=== PATIENT | male | born 1945 | race Caucasian/White ===

== ENCOUNTER 2018-07-14 15:23 | Inpatient (IN) | payer MEDICARE ==
[2018-07-14] MEDS ORDERED: SODIUM CHLORIDE 0.9% 1,000 ML IV STA (15:55)
[2018-07-14 16:19] LABS: Albumin 4.3 g/dL (3.5-5.0); Calcium 9.4 mg/dL (8.4-10.2); Magnesium 1.8 mg/dL (1.6-2.3); Potassium 4.7 mmol/L (3.5-5.1); Total Bilirubin 0.5 mg/dL (0.2-1.3); Total Protein 7.5 g/dL (6.3-8.2)
[2018-07-14 16:20] LABS: Creatine Kinase 127 U/L (55-170)
[2018-07-14 16:21] LABS: Basophils # (A) 0.1 k/uL (0-0.2); Basophils % (A) 1 %; Eosinophils # (A) 0.2 k/uL (0-0.7); Eosinophils % (A) 3 %; HCT 42.9 % (39.0-53.0); HGB 13.7 gm/dL (13.0-17.5); Hypochromasia Slight; Lymphocytes % (A) 15 %; MCH 28.5 pg (25.0-35.0); MCHC 32.1 g/dL (31.0-37.0); MCV 88.7 fL (80.0-100.0); Mean Platelet Volume 6.1; Monocytes # (A) 0.6 k/uL (0-1.0); Monocytes % (A) 8 %; Neutrophils # (A) 4.8 k/uL (1.3-7.7); Neutrophils % (A) 70 %; Platelet Count 298 k/uL (150-450); RBC 4.83 m/uL (4.30-5.90); RDW 13.8 % (11.5-15.5); WBC 6.8 k/uL (3.8-10.6)
[2018-07-14 16:25] LABS: Partial Thromboplastin Time 24.6 sec (22.0-30.0); Prothrombin Time 10.8 sec (9.0-12.0)
[2018-07-14 16:33] LABS: Creatine Kinase MB 1.6 ng/mL (0.0-2.4); Troponin I <0.012 ng/mL (0.000-0.034)
[2018-07-14 16:36] LABS: D-Dimer 0.96 mg/L FEU (<0.60)
--- NOTE | 2018-07-14 16:49 | ED ---
Chest Pain HPI - General Chief Complaint: Chest Pain Stated Complaint: Chest Pain Time Seen by Provider: 07/14/18 15:34 Source: patient, RN notes reviewed, old records reviewed Mode of arrival: EMS Limitations: no limitations - History of Present Illness Initial Comments: This is a 72-year-old male the ER for evaluation. Patient presents today for evaluation regards to chest pain left-sided chest pain sudden onset that resolved prior to coming to the hospital. Patient's brought in by his family had recent stent placed about a month ago. Patient's taken all medications as prescribed including passing out. No other medications are new, has not change in medications. Patient's been feeling fine since procedure note fevers no cough no congestion or shortness of breath no history of anginal pain. MD Complaint: chest pain -: minutes(s) Onset: during rest Pain Location: left chest Severity: mild Severity scale (1-10): 2 Quality: aching, heaviness Consistency: constant, now resolved Improves With: nothing Worsens With: nothing Treatments Prior to Arrival: none - Related Data Home Medications Medication Instructions Recorded Confirmed Aspirin EC [Ecotrin Low Dose] 81 mg PO DAILY 07/14/18 07/14/18 Cholecalciferol [Vitamin D3] 1,000 unit PO DAILY 07/14/18 07/14/18 Lisinopril [Zestril] 40 mg PO DAILY 07/14/18 07/14/18 Metoprolol Succinate [Toprol XL] 25 mg PO DAILY 07/14/18 07/14/18 Omeprazole 20 mg PO DAILY 07/14/18 07/14/18 Prasugrel HCl 10 mg PO DAILY 07/14/18 07/14/18 Allergies Allergy/AdvReac Type Severity Reaction Status Date / Time morphine Allergy Hallucinati Verified 07/14/18 15:58 ons Sulfa (Sulfonamide Allergy Rash/Hives Verified 07/14/18 15:58 Antibiotics) ibuprofen [From Motrin] AdvReac Kidney Verified 07/14/18 15:58 issues Review of Systems ROS Statement: Those systems with pertinent positive or pertinent negative responses have been documented in the HPI. ROS Other: All systems not noted in ROS Statement are negative. EKG Findings - EKG Comments: EKG Findings:: EKG shows sinus rhythm rate of 81, NV 196, QRS 136, QTc 473 Past Medical History Past Medical History: Cancer, Chest Pain / Angina, Prostate Disorder History of Any Multi-Drug Resistant Organisms: None Reported Past Surgical History: Hernia Repair, Prostate Surgery Past Psychological History: No Psychological Hx Reported Smoking Status: Never smoker Past Alcohol Use History: None Reported Past Drug Use History: None Reported General Exam Limitations: no limitations General appearance: alert, in no apparent distress Head exam: Present: atraumatic, normocephalic, normal inspection Eye exam: Present: normal appearance, PERRL, EOMI. Absent: scleral icterus, conjunctival injection, periorbital swelling ENT exam: Present: normal exam, mucous membranes moist Neck exam: Present: normal inspection. Absent: tenderness, meningismus, lymphadenopathy Respiratory exam: Present: normal lung sounds bilaterally. Absent: respiratory distress, wheezes, rales, rhonchi, stridor Cardiovascular Exam: Present: regular rate, normal rhythm, normal heart sounds. Absent: systolic murmur, diastolic murmur, rubs, gallop, clicks GI/Abdominal exam: Present: soft, normal bowel sounds. Absent: distended, tenderness, guarding, rebound, rigid Extremities exam: Present: normal inspection, full ROM, normal capillary refill. Absent: tenderness, pedal edema, joint swelling, calf tenderness Back exam: Present: normal inspection Neurological exam: Present: alert, oriented X3, CN II-XII intact Psychiatric exam: Present: normal affect, normal mood Skin exam: Present: warm, dry, intact, normal color. Absent: rash Course Vital Signs 07/14/18 07/14/18 07/14/18 15:28 16:30 18:03 Temperature 98.2 F Pulse Rate 80 61 61 Respiratory 18 18 18 Rate Blood Pressure 143/87 130/74 133/77 O2 Sat by Pulse 99 99 96 Oximetry - Reevaluation(s) Reevaluation #1: 07/14/18 19:24 Medical records reviewed Reevaluation #2: 07/14/18 19:24 Patient remains felt pain throughout ER stay Reevaluation #3: 07/14/18 19:24 Marcin with family at length did not want admission, they're requesting second troponin test and discharge Chest Pain MDM - MDM 70 female the ER for evasive chest pain. Patient was to troponins here, to troponins are negative, EKG is normal. 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
--- NOTE | 2018-07-14 17:53 | CT ---
EXAMINATION TYPE: CT angio chest DATE OF EXAM: 07/14/2018 5:40 PM COMPARISON: None HISTORY: Chest pain from shoulder to shoulder. CT DLP: 472.3 mGycm Automated exposure control for dose reduction was used. CONTRAST: CTA scan of the thorax is performed with IV Contrast, patient injected with 80 mL of Isovue 370, pulm onary embolism protocol. . There are 3-D post processed images. FINDINGS: There is no mediastinal adenopathy. Thoracic aorta appears normal without evidence of aneurysm or dis section. The ascending aorta measures 3.9 cm. There are no hilar masses. There is normal contrast opacification of the pulmonary arteries. I see no filling defects. Heart siz e is normal. There is no pericardial effusion. There is no pleural effusion. There is 2 cm cortical c yst anterior left kidney. The lungs are clear of infiltrate. There is no evidence of a pulmonary mass. The bony thorax is intac t. There is spurring in the thoracic spine. IMPRESSION: NEGATIVE CT ANGIOGRAM OF THE CHEST. NO EVIDENCE OF PULMONARY EMBOLISM.
[2018-07-15] MEDS ORDERED: HEPARIN SODIUM,PORCINE 5,000 UNIT/ML 1 ML VIAL IV ONE (04:40)
[2018-07-15] MEDS ORDERED: HEPARIN SODIUM,PORCINE 5,000 UNIT/ML 1 ML VIAL IV PRN (04:40)
[2018-07-15] MEDS ORDERED: HEPARIN SOD,PORK IN 0.45% NACL 25,000 UNIT in 0.45% NACL 1 250ML.BAG IV SCH (04:45)
[2018-07-15] MEDS ORDERED: NITROGLYCERIN SL TABS 0.4 MG TAB SUBLINGUAL PRN ×3 (06:29→14:27)
[2018-07-15] MEDS: SODIUM CHLORIDE 0.9% 1,000 ML IV SCH ×2 (08:05→16:52)
[2018-07-15 08:33] LABS: Partial Thromboplastin Time 59.3 sec (22.0-30.0); Prothrombin Time 11.1 sec (9.0-12.0)
[2018-07-15 08:35] LABS: HCT 43.9 % (39.0-53.0); HGB 13.4 gm/dL (13.0-17.5); Hypochromasia Slight; MCH 27.6 pg (25.0-35.0); MCHC 30.6 g/dL (31.0-37.0); Mean Platelet Volume 6.5; Platelet Count 286 k/uL (150-450); RBC 4.88 m/uL (4.30-5.90); WBC 6.3 k/uL (3.8-10.6)
--- NOTE | 2018-07-15 08:49 | P.CRDCN ---
History of Present Illness Consult date: 07/15/18 Requesting physician: Melva Horta Consult reason: chest pain Chief complaint: Chest pain History of present illness: This is a pleasant 72-year-old gentleman with history of hypertension , hyperlipidemia, coronary artery disease, he follows with a sports development officer at [facility]. In May 2018 patient had a non-ST elevation myocardial infarction, he underwent stent placement of the RCA on 3 separate occasions, proximal mid and distal RCA. He presents to the hospital on this occasion with symptoms of chest discomfort. According to the patient, he developed chest pressure and heaviness, he states that the pain became so severe that he lied himself down on the ground. Pain was similar to with his prior episodes however this did seem much worse. He was diaphoretic and short of breath. EKG on presentation here showed normal sinus rhythm with a right bundle branch block pattern, left anterior fascicular block. Nonspecific ST-T wave changes. CTA of the chest negative for pulmonary embolism. Blood pressure this morning 142/80 with a heart rate in the 80s, 99% on room air. Blood pressure this morning 166/80, heart rate in the 50s to 60s, 97% on room air. White blood cell count 6.3, hemoglobin 13.4, platelet count 286. D-dimer 0.9. Sodium 136, potassium 4.7, BUN 19, creatinine 1.2. Troponins 0.012, 0.025, 0.093. Patient has tried all of the statins as well as Crestor and states that he cannot tolerate any of them because of severe muscle pains. He also stated that his primary sports development officer is working on getting him approval for PCSK-9 Inhibitors. Past Medical History Past Medical History: Cancer, Chest Pain / Angina, Prostate Disorder Additional Past Medical History / Comment(s): prostate cancer, 3 stents History of Any Multi-Drug Resistant Organisms: None Reported Past Surgical History: Hernia Repair, Prostate Surgery Past Anesthesia/Blood Transfusion Reactions: No Reported Reaction Past Psychological History: No Psychological Hx Reported Smoking Status: Never smoker Past Alcohol Use History: None Reported Past Drug Use History: None Reported - Past Family History Father Family Medical History: Coronary Artery Disease (CAD), Myocardial Infarction ([place] ) Medications and Allergies Home Medications Medication Instructions Recorded Confirmed Type Aspirin EC [Ecotrin Low Dose] 81 mg PO DAILY 07/14/18 07/14/18 History Cholecalciferol [Vitamin D3] 1,000 unit PO DAILY 07/14/18 07/14/18 History Lisinopril [Zestril] 40 mg PO DAILY 07/14/18 07/14/18 History Metoprolol Succinate [Toprol XL] 25 mg PO DAILY 07/14/18 07/14/18 History Omeprazole 20 mg PO DAILY 07/14/18 07/14/18 History Prasugrel HCl 10 mg PO DAILY 07/14/18 07/14/18 History Allergies Allergy/AdvReac Type Severity Reaction Status Date / Time morphine Allergy Hallucinati Verified 07/14/18 15:58 ons Sulfa (Sulfonamide Allergy Rash/Hives Verified 07/14/18 15:58 Antibiotics) ibuprofen [From Motrin] AdvReac Kidney Verified 07/14/18 15:58 issues Physical Exam Vitals: Vital Signs Temp Pulse Pulse Resp BP BP Pulse Ox 07/15/18 07:55 96.0 F L 58 L 16 166/87 97 07/15/18 07:15 98.1 F 68 18 152/68 98 07/15/18 04:23 97.9 F 56 L 18 134/86 98 07/15/18 02:30 58 L 18 140/86 98 07/15/18 00:38 62 18 152/83 98 07/14/18 22:40 61 18 143/85 96 07/14/18 21:10 60 18 152/86 96 07/14/18 20:10 57 L 16 135/87 07/14/18 18:03 61 18 133/77 96 07/14/18 16:30 61 18 130/74 99 07/14/18 15:28 98.2 F 80 18 143/87 99 Intake and Output 07/14/18 07/15/18 07/15/18 22:59 06:59 14:59 Other: Weight 99.79 kg PHYSICAL EXAMINATION: GENERAL: 72-year-old gentleman in no acute distress at the time of my examination HEENT: Head is atraumatic, normocephalic. Pupils equal, round. Sclera anicteric. Conjunctiva are clear. Mucous membranes of the mouth are moist. Neck is supple. There is no elevated jugular venous pressure. No carotid bruit is heard. HEART EXAMINATION: Heart S1, S2 normal. No murmur or gallop heard. CHEST EXAMINATION: Lungs are clear to auscultation and precussion. No chest wall tenderness is noted on palpation or with deep breathing. ABDOMEN: Soft, nontender. Bowel sounds are heard. No organomegaly noted. EXTREMITIES: 2+ peripheral pulses with no evidence of peripheral edema and no calf tenderness noted. NEUROLOGIC patient is awake, alert and oriented 3 . Results 07/15/18 07:47 07/14/18 15:37 Cardiac Enzymes 07/14/18 07/14/18 07/14/18 Range/Units 15:37 15:37 20:30 AST 28 (17-59) U/L CK-MB (CK-2) 1.6 (0.0-2.4) ng/mL Troponin I <0.012 0.025 (0.000-0.034) ng/mL 07/15/18 Range/Units 03:50 AST (17-59) U/L CK-MB (CK-2) (0.0-2.4) ng/mL Troponin I 0.093 H* (0.000-0.034) ng/mL Coagulation 07/14/18 07/15/18 Range/Units 15:37 07:47 PT 10.8 11.1 (9.0-12.0) sec APTT 24.6 59.3 H (22.0-30.0) sec CBC 07/14/18 Range/Units 15:37 WBC 6.8 (3.8-10.6) k/uL RBC 4.83 (4.30-5.90) m/uL Hgb 13.7 (13.0-17.5) gm/dL Hct 42.9 (39.0-53.0) % Plt Count 298 (150-450) k/uL Comprehensive Metabolic Panel 07/14/18 Range/Units 15:37 Sodium 136 L (137-145) mmol/L Potassium 4.7 (3.5-5.1) mmol/L Chloride 104 (98-107) mmol/L Carbon Dioxide 22 (22-30) mmol/L BUN 19 (9-20) mg/dL Creatinine 1.25 (0.66-1.25) mg/dL Glucose 108 H (74-99) mg/dL Calcium 9.4 (8.4-10.2) mg/dL AST 28 (17-59) U/L ALT 18 L (21-72) U/L Alkaline Phosphatase 71 (38-126) U/L Total Protein 7.5 (6.3-8.2) g/dL Albumin 4.3 (3.5-5.0) g/dL Current Medications Generic Name Dose Route Start Last Admin Trade Name Freq PRN Reason Stop Dose Admin Aspirin 325 mg 07/16/18 09:00 Aspirin PO DAILY [facility] Cholecalciferol 1,000 unit 07/15/18 12:00 Vitamin D3 PO DAILY@1200 TOSIN Heparin Sodium (Porcine) 0 unit 07/15/18 04:40 Heparin IV PER PROTOCOL PRN Low PTT Protocol Heparin Sodium/Sodium Chloride 250 mls @ 10 mls/hr 07/15/18 04:45 07/15/18 05 :14 25,000 unit/ Sodium Chloride IV 10.03 units/kg/hr .Q24H TOSIN 10 mls/hr Administration Protocol 10.03 UNITS/KG/HR Sodium Chloride 1,000 mls @ 100 mls/hr 07/15/18 06:30 07/15/18 08:05 Saline 0.9% IV 100 mls/hr .Q10H TOSIN Administration Lisinopril 40 mg 07/15/18 09:00 Zestril PO DAILY TOSIN Metoprolol Succinate 25 mg 07/15/18 09:00 Toprol Xl PO DAILY TOSIN Nitroglycerin 0.4 mg 07/15/18 06:29 Nitrostat SUBLINGUAL Q5M PRN Chest Pain Pantoprazole Sodium 40 mg 07/15/18 09:00 Protonix PO DAILY TOSIN Prasugrel 10 mg 07/15/18 09:00 Effient PO DAILY TOSIN Intake and Output 07/14/18 07/15/18 07/15/18 22:59 06:59 14:59 Other: Weight 99.79 kg 07/14/18 15:37 07/14/18 15:37 EKG Interpretations (text) EKG shows normal sinus rhythm with right bundle branch block pattern, nonspecific ST-T wave changes Assessment and Plan Plan: Assessment and plan #1 Symptoms of chest discomfort with associated diaphoresis and dyspnea, just above acute coronary syndrome. Troponins 0.012, 0.025, 0.093. EKG shows normal sinus rhythm with right bundle branch block pattern and nonspecific ST-T wave changes. #2 coronary artery disease with stent placement of the RCA 3 in May 2018 #3 hypertension #4 hyperlipidemia, intolerant to statins Plan We will obtain an echocardiogram with Doppler study. We will also request records from [facility]. Continue IV heparin. Continue aspirin, Effient, lisinopril, metoprolol, add study at his medication regime. Patient has been advised to undergo cardiac catheterization, the risks and the benefits have been explained to him in detail and he is willing to proceed this will be performed today by Dr. Nunez. Further recommendations to follow. DNP note has been reviewed, I agree with a documented findings and plan of care. Patient was seen and examined.
[2018-07-15 08:53] LABS: Creatine Kinase MB 2.1 ng/mL (0.0-2.4)
[2018-07-15] MEDS: PRASUGREL 10 MG TAB PO SCH (08:53)
[2018-07-15] MEDS: METOPROLOL SUCCINATE (ER) 25 MG TAB.ER.24H PO SCH (08:53)
[2018-07-15] MEDS: PANTOPRAZOLE 40 MG TABLET PO SCH (08:53)
[2018-07-15] MEDS: LISINOPRIL 20 MG TAB PO SCH (08:53)
[2018-07-15 08:59] LABS: Troponin I 0.1 ng/mL (0.000-0.034)
[2018-07-15 09:00] LABS: Eosinophils # (M) 0.19 k/uL (0-0.7); Lymphocytes # (M) 0.82 k/uL (1.0-4.8); Monocytes # (M) 0.38 k/uL (0-1.0); Neutrophils # (M) 4.91 k/uL (1.3-7.7); Neutrophils % (M) 78 %; Nucleated Red Blood Cells 0 /100 WBC (0-0); Total Cells Counted 100
[2018-07-15] MEDS: EZETIMIBE 10 MG TAB PO SCH (09:30)
[2018-07-15] MEDS ORDERED: ATORVASTATIN 80 MG TAB PO STA (10:13)
[2018-07-15] MEDS ORDERED: ASPIRIN 325 MG TAB PO STA (10:13)
[2018-07-15] MEDS ORDERED: ALPRAZolam 0.5 MG TAB PO PRN (10:13)
[2018-07-15] MEDS ORDERED: SODIUM CHLORIDE 0.9% 1,000 ML in EMPTY BAG 1 BAG IV ONE (10:13)
[2018-07-15] MEDS ORDERED: ALPRAZolam 0.25 MG TAB PO PRN (10:13)
--- NOTE | 2018-07-15 12:50 | P.HPIM ---
History of Present Illness H&P Date: 07/15/18 The patient is a 72-year-old male with a PMH of hypertension, hyperlipidemia, coronary artery disease status post multiple stents in the past (most recently had a cath in May 2018 with 3 stents placed), who presented to the ED for sudden onset of left-sided chest pain, 10 out of 10, squeezing in nature, with associated shortness of breath, diaphoresis, and palpitations. Patient notes that the pain was similar nature to his previous MIs and lasted upwards of an hour, and had almost resolved upon arrival to the ED. at time of interview, the patient endorsed a 1 out of 10 left-sided chest pain. Patient otherwise denied cough, fever, chills, nausea, vomiting, lower extremity swelling, calf pain, or recent travel. In the ED, the patient underwent complex intensive workup with EKG showing normal sinus rhythm with bifascicular block, the BBC count 6.3, hemoglobin 13.4 , troponin 0.012 - 0.093 - 0.100, BNP 232, and d-dimer 0.96. Chest CTA was negative for PE. The patient was subsequently admitted to the medicine service for NSTEMI and cardiology evaluation. Review of Systems Pertinent positives and negatives as discussed in HPI, a complete review of systems was performed and all other systems are negative. Past Medical History Past Medical History: Cancer, Chest Pain / Angina, Prostate Disorder Additional Past Medical History / Comment(s): prostate cancer, 3 stents History of Any Multi-Drug Resistant Organisms: None Reported Past Surgical History: Hernia Repair, Prostate Surgery Past Anesthesia/Blood Transfusion Reactions: No Reported Reaction Past Psychological History: No Psychological Hx Reported Smoking Status: Never smoker Past Alcohol Use History: None Reported Past Drug Use History: None Reported - Past Family History Father Family Medical History: Coronary Artery Disease (CAD), Myocardial Infarction ([place] ) Medications and Allergies Home Medications Medication Instructions Recorded Confirmed Type Aspirin EC [Ecotrin Low Dose] 81 mg PO DAILY 07/14/18 07/14/18 History Cholecalciferol [Vitamin D3] 1,000 unit PO DAILY 07/14/18 07/14/18 History Lisinopril [Zestril] 40 mg PO DAILY 07/14/18 07/14/18 History Metoprolol Succinate [Toprol XL] 25 mg PO DAILY 07/14/18 07/14/18 History Omeprazole 20 mg PO DAILY 07/14/18 07/14/18 History Prasugrel HCl 10 mg PO DAILY 07/14/18 07/14/18 History Allergies Allergy/AdvReac Type Severity Reaction Status Date / Time morphine Allergy Hallucinati Verified 07/14/18 15:58 ons Sulfa (Sulfonamide Allergy Rash/Hives Verified 07/14/18 15:58 Antibiotics) ibuprofen [From Motrin] AdvReac Kidney Verified 07/14/18 15:58 issues Physical Exam Vitals: Vital Signs Temp Pulse Pulse Resp BP BP Pulse Ox 07/15/18 12:00 98.2 F 59 L 16 135/77 99 07/15/18 07:55 96.0 F L 58 L 16 166/87 97 07/15/18 07:15 98.1 F 68 18 152/68 98 07/15/18 04:23 97.9 F 56 L 18 134/86 98 07/15/18 02:30 58 L 18 140/86 98 07/15/18 00:38 62 18 152/83 98 07/14/18 22:40 61 18 143/85 96 07/14/18 21:10 60 18 152/86 96 07/14/18 20:10 57 L 16 135/87 07/14/18 18:03 61 18 133/77 96 07/14/18 16:30 61 18 130/74 99 07/14/18 15:28 98.2 F 80 18 143/87 99 Intake and Output 07/14/18 07/15/18 07/15/18 22:59 06:59 14:59 Other: Voiding Method Toilet Weight 99.79 kg General: [non toxic], [no distress], [appears at stated age], obese Derm: [no unusual rashes/lesions] [no unusual ecchymoses], [warm], [dry] Head: [atraumatic], [normocephalic], [symmetric] Eyes: [EOMI], [no lid lag], [anicteric sclera], [pupils equal round reactive to light] ENT: [Nose and ears atraumatic], [no thrush], [no pharyngeal erythema] Neck: [No thyromegaly], [no cervical lymphadenopathy], [trachea midline], [ supple] Mouth: [no lip lesion], [mucus membranes moist] Cardiovascular: [S1S2 reg], [no murmur], [positive posterior tibial pulse bilateral], [no edema], [capillary refill less than 2 seconds] Lungs: [CTA bilateral], [no rhonchi, no rales] , [no accessory muscle use] Abdominal: [soft], [ nontender to palpation], [no guarding], [no appreciable organomegaly], [normal bowel sounds] Ext: [no gross muscle atrophy], [muscle strength 5 out of 5 in all 4 extremities grossly], [no contractures], Neuro: [ CN II-XI grossly intact], [light touch intact all 4 extremities], [ finger to nose within normal limits], Psych: [Alert], [oriented], [appropriate affect] Results CBC & Chem 7: 07/15/18 07:47 07/14/18 15:37 Labs: Abnormal Lab Results - Last 24 Hours (Table) 07/14/18 07/14/18 07/15/18 Range/Units 15:37 15:37 03:50 MCHC (31.0-37.0) g/dL Lymphocytes # (Manual) (1.0-4.8) k/uL APTT (22.0-30.0) sec D-Dimer 0.96 H (<0.60) mg/L FEU Sodium 136 L (137-145) mmol/L Glucose 108 H (74-99) mg/dL ALT 18 L (21-72) U/L Troponin I 0.093 H* (0.000-0.034) ng/mL 07/15/18 07/15/18 07/15/18 Range/Units 07:47 07:47 07:47 MCHC 30.6 L (31.0-37.0) g/dL Lymphocytes # (Manual) 0.82 L (1.0-4.8) k/uL APTT 59.3 H (22.0-30.0) sec D-Dimer (<0.60) mg/L FEU Sodium (137-145) mmol/L Glucose (74-99) mg/dL ALT (21-72) U/L Troponin I 0.100 H* (0.000-0.034) ng/mL Thrombosis Risk Factor Assmnt - Choose All That Apply Any of the Below Risk Factors Present?: Yes Each Factor Represents 1 point: Obesity (BMI >25) Other Risk Factors: Yes Each Risk Factor Represents 2 Points: Age 61-74 years Thrombosis Risk Factor Assessment Total Risk Factor Score: 3 Thrombosis Risk Factor Assessment Level: Moderate Risk Assessment and Plan Plan: Non-ST elevation ME -Cardiology recommendations appreciated -Patient scheduled for cardiac catheterization -C/w w heparin infusion, aspirin, Effient -C/w metoprolol, and lisinopril -Echocardiogram -Telemetry monitoring Hypertension -Continue with home meds: Lisinopril, metoprolol Hyperlipidemia -Resume home meds: Zetia (patient stopped taking statin due to leg pain) DVT//GI prophylaxis -Per infusion -Protonix The patient is admitted with an anticipated greater than 2 midnight stay for evaluation of non-ST elevation ME. CODE STATUS: Full code Discussed with: Patient, Anticipated discharge date: 07/17/[address]: Home A total of 60 minutes was spent on the care of this complex patient more than 50 % of the time was spent in counseling and care coordination.
[2018-07-15] MEDS ORDERED: IV FLUID CONTINUATION 1,000 ML IV ONE (13:03)
[2018-07-15] MEDS ORDERED: VERAPAMIL 2.5 MG/ML 2 ML AMP ONE (13:04)
[2018-07-15] MEDS ORDERED: LIDOCAINE 1% INJ 10MG/ML (20 ML MDV) ONE (13:04)
[2018-07-15] MEDS ORDERED: fentaNYL (PF) 50 MCG/ML 2 ML AMP ONE (13:14)
[2018-07-15] MEDS ORDERED: fentaNYL (PF) 50 MCG/ML 2 ML AMP IV ONE (13:29)
[2018-07-15] MEDS ORDERED: LIDOCAINE 1% INJ 10MG/ML (20 ML MDV) SQ ONE (13:34)
[2018-07-15] MEDS ORDERED: BIVALIRUDIN BOLUS 250 MG/50 ML IV ONE (13:42)
[2018-07-15] MEDS ORDERED: BIVALIRUDIN 250 MG in SODIUM CHLORIDE 0.9% 50 ML IV ONE (13:43)
[2018-07-15] MEDS ORDERED: IOPAMIDOL-370 125ML BTL INJ ONE ×2 (13:56→14:07)
[2018-07-15] MEDS ORDERED: RX INFO: IV CONTRAST WAS GIVEN 1 EACH MISC MISCELLANE PRN (14:27)
[2018-07-15] MEDS ORDERED: ATROPINE SULFATE 0.1 MG/ML 10ML SYRINGE IV PRN (14:27)
[2018-07-15] MEDS ORDERED: MAG HYDROX/AL HYDROX/SIMETH 30 ML CUP PO PRN (14:27)
[2018-07-15] MEDS ORDERED: ZOLPIDEM 5 MG TAB PO PRN (14:27)
[2018-07-15] MEDS ORDERED: SODIUM CHLORIDE 0.9% 1,000 ML IV SCH (14:30)
[2018-07-15 15:09] VITALS: BMI 30.7
--- NOTE | 2018-07-15 16:30 | ECHOF ---
Referral Reason:chf MEASUREMENTS -------- HEIGHT: 180.3 cm WEIGHT: 99.8 kg BP: IVSd: 1.8 cm (0.6 - 1.1) LVIDd: 4.6 cm (3.9 - 5.3) LVPWd: 1.8 cm (0.6 - 1.1) IVSs: 2.1 cm LVIDs: 2.8 cm LVPWs: 1.9 cm LAESV Index (A-L): 13.78 ml/m Ao Diam: 3.3 cm (2.0 - 3.7) AV Cusp: 1.8 cm (1.5 - 2.6) LA Diam: 3.9 cm (2.7 - 3.8) MV EXCURSION: 12.364 mm (> 18.000) MV EF SLOPE: 74 mm/s (70 - 150) EPSS: 1.0 cm MV E Pancho: 0.83 m/s MV DecT: 231 ms MV A Pancho: 0.87 m/s MV E/A Ratio: 0.95 AR PHT: 513 ms RAP: 5.00 mmHg RVSP: 16.82 mmHg FINDINGS -------- Sinus rhythm. This was a technically good study. The left ventricular size is normal. There is severe concentric left ventricular hypertrophy. Ove rall left ventricular systolic function is normal with, an EF between 55 - 60 %. The right ventricle is normal in size. The left atrium is normal in size. The right atrium is normal in size. There is mild aortic valve sclerosis. There is [id number] aortic regurgitation. Mild mitral annular calcification present. Mild mitral regurgitation is present. Mild tricuspid regurgitation present. There is no evidence of pulmonary hypertension. The right v entricular systolic pressure, as measured by Doppler, is 16.82mmHg. Pulmonic valve appears structurally normal. The aortic root size is normal. Normal inferior vena cava with normal inspiratory collapse consistent with estimated right atrial pre ssure of 5 mmHg. There is no pericardial effusion. CONCLUSIONS -------- 1. Sinus rhythm. 2. This was a technically good study. 3. The left ventricular size is normal. 4. There is severe concentric left ventricular hypertrophy. 5. Overall left ventricular systolic function is normal with, an EF between 55 - 60 %. 6. The left atrium is normal in size. 7. There is mild aortic valve sclerosis. 8. There is [id number] aortic regurgitation. 9. Mild mitral annular calcification present. 10. Mild mitral regurgitation is present. 11. Mild tricuspid regurgitation present. 12. There is no evidence of pulmonary hypertension. 13. Pulmonic valve appears structurally normal. 14. The aortic root size is normal. 15. Normal inferior vena cava with normal inspiratory collapse consistent with estimated right atrial pressure of 5 mmHg. 16. There is no pericardial effusion. TRAINING DEVELOPER: Mckenzie Hess RDCS
[2018-07-15] MEDS: CHOLECALCIFEROL 1,000 UNIT TAB PO SCH (16:52)
--- NOTE | 2018-07-15 18:28 | CC ---
CARDIAC CATHETERIZATION REPORT Mr. Marley is a 72-year-old male with known history of coronary disease who has underwent 3 stents done in the right coronary artery in 3 different occasions in May of 2018 at [facility]. He presented with symptoms of chest discomfort and non ST-segment elevation myocardial infarction. In view of that, recommendation made regarding cardiac catheterization, the procedure, its risks and complications were discussed with the patient who is in full understanding and agreement. PROCEDURE: Patient was brought to radiographer cardiac catheterization in a fasting, semi-sedated state after receiving fentanyl and Benadryl and achieving moderate conscious sedated state. Using Xylocaine anesthesia and Seldinger technique, a 6-Scottish sheath was introduced in the right femoral artery. Selective right and left angiography were performed using 6-Scottish 4 bend left Sujit catheter and 6-Scottish 4 bend right Sujit guiding catheter. Images of the coronary arteries were performed. Following that, angioplasty and stenting of the right coronary was performed. Following that, a 6-Scottish tight pigtail catheter was introduced in the left ventricle and pressures were calculated. Following that, catheter and sheath were removed. Hemostasis was obtained with deployment of Angio- Seal. There was no immediate complication. FINDINGS: FLUOROSCOPY: There was significant calcification involving the left main and the left anterior descending artery. LEFT MAIN: This is a large-sized vessel bifurcating in left circumflex and left anterior descending artery. Left main coronary artery has about a 20% to 30% mid plaque. The rest of the vessel has no high-grade stenosis. LEFT ANTERIOR DESCENDING ARTERY: This is a large-sized vessel, tapers down in the distal third giving rise to a large diagonal branch. The left anterior descending artery is calcified proximally, has 20% to 30% plaque and there is another 40-50% plaque after the takeoff of the diagonal branch. LEFT CIRCUMFLEX: This is a nondominant vessel giving rise to a large obtuse marginal branch. The left circumflex obtuse marginal branch has a 40% plaque in the mid segment. The rest of the vessel has no high-grade stenosis. RIGHT CORONARY ARTERY: This is a large dominant vessel, bifurcating distally into PDA and posterolateral segment and branches. There are stents noted from the ostium all the way to the mid segment. The proximal segment of the right coronary artery has a 99% stenosis and there is another 70% eccentric lesion toward the mid segment. The rest of the vessel has intimal disease without any high-grade stenosis. LEFT VENTRICULOGRAM: Left ventriculogram was not performed. HEMODYNAMICS: There was no gradient across the aortic valve. The left ventricular end-diastolic pressure was 16-18 mmHg. CONCLUSION: 1. Significant in-stent restenoses involving the proximal right coronary artery and moderate disease involving the LAD and the left circumflex with mild disease in the left main. 2. Calcified coronary arteries. RECOMMENDATION: In view of findings and anatomy, I recommend proceeding with angioplasty and stenting of the right coronary artery. The procedure, its risks and complications were discussed with the patient who is in full understanding and agreement. MMODL / IJN: [id number] /
--- NOTE | 2018-07-15 19:13 | CC ---
CARDIAC CATHETERIZATION REPORT Mr. Marley is a 72-year-old male with a known history of coronary artery disease who presented with symptoms of non ST-segment elevation myocardial infarction, underwent cardiac catheterization, was found to have significant stenosis involving the proximal segment of the right coronary artery as well as the mid right coronary artery. In view of that, recommendation made regarding angioplasty and stenting. The procedure as well as risks and complication were discussed with the patient who is in full understanding and agreement. DESCRIPTION OF THE PROCEDURE: Using the 6-Latvian FR4 guiding catheter, after cannulating the ostium of the right coronary artery, a 0.014 balanced medium weight J-wire was advanced across the lesion positioned distal right coronary artery. Following that, a 3.0 x 12 mm Trek balloon was advanced and inflation in the proximal segment up to 14 atmospheres was done. Following that, the balloon was removed and a 3.5 x 12 mm Xience CR stent was deployed in the mid segment, postdilated at 16 atmospheres. Following that, the balloon was removed and a 4.0 x 15 mm Xience Brionna stent was deployed in the proximal segment and was dilated at 18 atmospheres. Following that, the balloon was removed and a 4.5 x 12 mm NC Trek balloon was advanced in the proximal lesion and one inflation at 12 atmospheres was done. After the last inflation, after appropriate wait, the balloon and the guidewire were withdrawn back in the guiding catheter. Images were obtained, repeated. Those images revealed stable successful stenting. At that point, the guiding catheter, the balloon and the guidewire were removed and left ventricle end- diastolic pressure was measured. Following that the catheter and sheath were removed. Hemostasis was obtained with deployment of an Angio-Seal. There was no immediate complication. The patient was returned to his room in stable condition. Of note, the patient had no chest discomfort, but had EKG changes with the inflation. He received Angiomax per protocol and was continued on Effient. RESULTS: 1. Successful stenting of the proximal right coronary artery of study with reduction of stenosis from 99% to 0%. 2. Successful stenting of the mid right coronary artery with reduction of stenosis from 70% to 0%. RECOMMENDATION: Patient will be continued on aspirin, Effient, beta barbara, IRASEMA inhibitor, statin. The importance of dual antiplatelet treatment were discussed with the patient and his family and they are in full understanding and agreement. Duration of the procedure was 34 minutes. MMODL / IJN: [id number] /
[2018-07-16 07:42] VITALS: PULSE 64
[2018-07-16 07:49] LABS: Basophils # (A) 0.1 k/uL (0-0.2); Basophils % (A) 1 %; Eosinophils # (A) 0.3 k/uL (0-0.7); Eosinophils % (A) 5 %; HCT 41.2 % (39.0-53.0); HGB 13.2 gm/dL (13.0-17.5); Hypochromasia Moderate; Lymphocytes # (A) 0.8 k/uL (1.0-4.8); Lymphocytes % (A) 13 %; MCH 28.4 pg (25.0-35.0); MCV 88.7 fL (80.0-100.0); Monocytes # (A) 0.5 k/uL (0-1.0); Monocytes % (A) 9 %; Neutrophils # (A) 4.1 k/uL (1.3-7.7); Neutrophils % (A) 69 %; Platelet Count 277 k/uL (150-450); RBC 4.64 m/uL (4.30-5.90); RDW 13.8 % (11.5-15.5)
[2018-07-16 08:02] LABS: Calcium 8.7 mg/dL (8.4-10.2); Potassium 4.4 mmol/L (3.5-5.1)
[2018-07-16] MEDS: PRASUGREL 10 MG TAB PO SCH (08:56)
[2018-07-16] MEDS: EZETIMIBE 10 MG TAB PO SCH (08:56)
[2018-07-16] MEDS: PANTOPRAZOLE 40 MG TABLET PO SCH (08:56)
[2018-07-16] MEDS: METOPROLOL SUCCINATE (ER) 25 MG TAB.ER.24H PO SCH (08:56)
[2018-07-16] MEDS: LISINOPRIL 20 MG TAB PO SCH (08:56)
[2018-07-16] MEDS: CHOLECALCIFEROL 1,000 UNIT TAB PO SCH (08:57)
[2018-07-16] MEDS ORDERED: ASPIRIN 81 MG PO SCH (09:00)
[2018-07-16] MEDS ORDERED: ASPIRIN 325 MG TAB PO SCH (09:00)
[2018-07-16 11:40] VITALS: BP 153/78; RESP 18; TEMP 97.9
--- NOTE | 2018-07-16 11:50 | PN ---
PROGRESS NOTE Mr. Marley is a 72-year-old male who presented with symptoms of chest discomfort with mild elevation of troponin, underwent cardiac catheterization and stenting of the right coronary artery in 2 segments. He is doing well this morning. He is denying any chest pain. His breathing has been stable. He has been ambulating without difficulty. He denies any dizziness or palpitation. He continued be on aspirin once a day, Effient 10 mg daily, Zetia 10 mg daily, lisinopril 40 mg daily, metoprolol succinate 25 mg daily. PHYSICAL EXAMINATION: Blood pressure 142/70 with a heart rate in 60s. LUNGS: Clear. Heart regular rate and rhythm S1, S2. No S3. No rub. ABDOMEN: Soft nontender. EXTREMITIES: No edema. Right femoral pulse intact. No hematoma. LAB DATA: Revealed BUN and creatinine of 18 and 1.14, potassium 4.4, hemoglobin of 13.2 LDL of 92. Of note that the patient could not tolerate statin in the past. EKG revealed no acute changes. Echocardiogram revealed ejection fraction of about 50%. IMPRESSION: 1. Status post stenting of the right coronary artery with non ST-segment elevation myocardial infarction. 2. History of hypertension. 3. Hyperlipidemia intolerant to statin. RECOMMENDATION: Patient should be able to be discharged home today and followed as an outpatient. MMODL / IJN: [id number] /
--- NOTE | 2018-07-16 17:29 | P.DS ---
Providers Date of admission: 07/15/18 06:30 Expected date of discharge: 07/16/18 Attending physician: Melva Horta MD Consults: 07/15/18 06:30 Consult Physician Routine Consulting Provider: Beatriz Mcclendon Consult Reason/Comments: NSTEMI Do you want consulting provider notified?: Yes 07/15/18 14:27 Consult Physician Routine Consulting Provider: [facility] Consult Reason/Comments: Post Interventional patient Do you want consulting provider notified?: Already Contacted Primary care physician: [facility] Course: The patient is 72-year-old male with a PMH of coronary artery disease status post multiple stents, hypertension, hyperlipidemia who presented to the ED for sudden onset left-sided chest pain, squeezing in nature, tenderness 10, with associated shortness of breath, palpitations, and diaphoresis. The patient had noted that his symptoms were similar to his prior MIs. In the ED, the patient was noted to have troponin 0.100, with EKG showing bifascicular block and sinus rhythm. The patient was admitted for NSTEMI under the medicine service. Cardiology was consulted and recommended cardiac catheterization which was done on 07/15/2018, and the patient underwent stenting of the proximal right coronary artery and the mid right coronary artery. The patient was seen and examined at the bedside on 07/16/2018. He denied any further episodes of chest pain, or shortness of breath. He was in good spirits and denied any additional complaints including fever, chills, nausea, vomiting, diaphoresis, or palpitations. Cardiology's recommendations were appreciated and the patient was subsequently discharged to home. Physical Examination General: Non-toxic, in no acute distress, appears stated age, normal weight HEENT: NC/AT, anicteric sclerae, moist conjunctiva, no lid-lag, PERRLA Cardiovascular: S1/S2 wnl, no murmurs, rubs, or gallops Lungs: Clear to auscultation, normal respiratory effort, no accessory muscle use Abdominal: Soft, non-tender, non-distended, no guarding, rebound, or rigidity Skin: Warm, dry Extremities: No edema or contractures Psychiatric: Alert and oriented to person, place and time, appropriate affect Neuro: CN II-XII grossly intact, Strength 5/5 in all 4 extremities, Speech intact, Sensation to light touch grossly intact throughout Discharge diagnosis: Non-ST elevation RI, status post cardiac catheterization with 2 stents; hypertension, hyperlipidemia A total of 50 minutes of time were spent preparing this complex discharge summary. Pertinent Studies: As per HPI Procedures: As per HPI Patient Condition at Discharge: Stable Plan - Discharge Summary Discharge Rx Participant: No New Discharge Prescriptions: New Ezetimibe [Zetia] 10 mg PO DAILY #90 tab Nitroglycerin Sl Tabs [Nitrostat] 0.4 mg SUBLINGUAL Q5M PRN #25 tab PRN Reason: Chest Pain Continue Prasugrel HCl 10 mg PO DAILY Lisinopril [Zestril] 40 mg PO DAILY Cholecalciferol [Vitamin D3] 1,000 unit PO DAILY Omeprazole 20 mg PO DAILY Metoprolol Succinate [Toprol XL] 25 mg PO DAILY Aspirin EC [Ecotrin Low Dose] 81 mg PO DAILY Discharge Medication List Aspirin EC [Ecotrin Low Dose] 81 mg PO DAILY 07/14/18 [History] Cholecalciferol [Vitamin D3] 1,000 unit PO DAILY 07/14/18 [History] Lisinopril [Zestril] 40 mg PO DAILY 07/14/18 [History] Metoprolol Succinate [Toprol XL] 25 mg PO DAILY 07/14/18 [History] Omeprazole 20 mg PO DAILY 07/14/18 [History] Prasugrel HCl 10 mg PO DAILY 07/14/18 [History] Ezetimibe [Zetia] 10 mg PO DAILY #90 tab 07/16/18 [Rx] Nitroglycerin Sl Tabs [Nitrostat] 0.4 mg SUBLINGUAL Q5M PRN #25 tab 07/16/18 [Rx ] Follow up Appointment(s)/Referral(s): Chris Nunez MD [STAFF PHYSICIAN] - 1 Week (please call and make follow up appointment) Rubin Duran DO [Primary Care Provider] - 1-2 days (please call and make follow up appointment) Patient Instructions/Handouts: *Surgery [facility] - After Heart Catheterization - 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
== END 2018-07-16 13:57 | disposition home or self-care (01) | DRG 247 ==
LOC: EC 15:23 → 3SCARD 07-15 06:30
PROVIDERS: ADMIT Internal Medicine; ATTEND Internal Medicine
PROC: B2111ZZ Fluoroscopy of Multiple Coronary Arteries using Low Osmolar Contrast (ICD-10-PCS; 2018-07-15)
PROC: 4A023N7 Measurement of Cardiac Sampling and Pressure, Left Heart, Percutaneous Approach (ICD-10-PCS; principal; 2018-07-15 11:30)
PROC: 027035Z Dilation of Coronary Artery, One Artery with Two Drug-eluting Intraluminal Devices, Percutaneous Approach (ICD-10-PCS; 2018-07-15 11:30)
DX: I21.4 Non-ST elevation (NSTEMI) myocardial infarction (principal); I45.2 Bifascicular block; T82.855A Stenosis of coronary artery stent, initial encounter; I25.10 Atherosclerotic heart disease of native coronary artery without angina pectoris; I25.84 Coronary atherosclerosis due to calcified coronary lesion; E78.5 Hyperlipidemia, unspecified; I10 Essential (primary) hypertension; Y71.2 Prosthetic and other implants, materials and accessory cardiovascular devices associated with adverse incidents; Z85.46 Personal history of malignant neoplasm of prostate; Z82.49 Family history of ischemic heart disease and other diseases of the circulatory system; Z79.82 Long term (current) use of aspirin; Z79.899 Other long term (current) drug therapy; Z88.6 Allergy status to analgesic agent; Z88.5 Allergy status to narcotic agent; Z88.2 Allergy status to sulfonamides
CPT/HCPCS: 36415; 71275; 80048; 80053; 80061; 82550; 82553; 83690; 83735; 83880; 84484; 85025; 85347; 85379; 85610; 85730; 93005; 93306; 93458; 96361; 96365; 96366; 96376; 99285; C1874

== ENCOUNTER 2018-11-20 11:35 | Inpatient (IN) | payer MEDICARE ==
[2018-11-20] MEDS ORDERED: ASPIRIN 81 MG PO STA (12:01)
[2018-11-20 12:51] LABS: Partial Thromboplastin Time 24.4 sec (22.0-30.0); Prothrombin Time 10.4 sec (9.0-12.0)
[2018-11-20 12:52] LABS: Anisocytosis Slight; HCT 44.7 % (39.0-53.0); HGB 13.8 gm/dL (13.0-17.5); Hypochromasia Slight; MCH 26.1 pg (25.0-35.0); MCHC 30.8 g/dL (31.0-37.0); MCV 84.8 fL (80.0-100.0); Mean Platelet Volume 6.7; Platelet Count 320 k/uL (150-450); RBC 5.28 m/uL (4.30-5.90); RDW 16.1 % (11.5-15.5); WBC 5.3 k/uL (3.8-10.6)
[2018-11-20 12:54] LABS: Albumin 4.6 g/dL (3.5-5.0); Calcium 9.4 mg/dL (8.4-10.2); Potassium 4.8 mmol/L (3.5-5.1); Total Bilirubin 0.3 mg/dL (0.2-1.3); Total Protein 7.9 g/dL (6.3-8.2)
--- NOTE | 2018-11-20 13:00 | XR ---
EXAMINATION TYPE: XR chest 2V DATE OF EXAM: 11/20/2018 COMPARISON: None HISTORY: 73-year-old male with shortness of breath and chest pain TECHNIQUE: PA and lateral views FINDINGS: Heart upper limits of normal in size. Aorta and pulmonary vasculature within normal limits. Some stra ndy atelectasis lower lungs. No consolidation or pleural effusion. IMPRESSION: No acute cardiopulmonary process.
[2018-11-20 13:32] LABS: Eosinophils # (M) 0.16 k/uL (0-0.7); Lymphocytes # (M) 1.06 k/uL (1.0-4.8); Monocytes # (M) 0.53 k/uL (0-1.0); Neutrophils # (M) 3.55 k/uL (1.3-7.7); Neutrophils % (M) 67 %; Nucleated Red Blood Cells 0 /100 WBC (0-0); Total Cells Counted 100
[2018-11-20 13:33] LABS: Poikilocytosis (M) Present
--- NOTE | 2018-11-20 14:44 | ED ---
General Adult HPI - General Chief complaint: Shortness of Breath Stated complaint: chest pressure Time Seen by Provider: 11/20/18 11:45 Source: patient, family Mode of arrival: wheelchair Limitations: no limitations - History of Present Illness Initial comments: Patient is a 73-year-old male who presents to the emergency room with complaint of chest discomfort and shortness of breath. The patient does have a large cardiac history. He has 5 stents, the last of which was placed in July of this year. Admits that 4 days ago he began having exertional shortness of breath with chest pressure. Admits his symptoms are similar to the last time he required intervention. He denies a history of congestive heart failure or extremity edema. No history of DVTs or PEs. No calf pain or swelling. No recent surgeries, prolonged immobility or history of blood clotting disorders. Denies a cough, fevers or chills, nausea or vomiting. No diaphoresis. No active chest pain at this time. Denies a ripping or tearing sensation. He has been taking his Brilinta as directed and has not missed any doses. He told his about his symptoms today and she persuaded him to come to the hospital. There are no other alleviating, precipitating or modifying factors. - Related Data Home Medications Medication Instructions Recorded Confirmed Aspirin EC [Ecotrin Low Dose] 81 mg PO DAILY 07/14/18 11/20/18 Lisinopril [Zestril] 40 mg PO DAILY 07/14/18 11/20/18 Omeprazole 20 mg PO DAILY 07/14/18 11/20/18 Prasugrel HCl 10 mg PO DAILY 07/14/18 11/20/18 Metoprolol Succinate (ER) [Toprol 50 mg PO DAILY 11/20/18 11/20/18 Xl] amLODIPine [Norvasc] 10 mg PO DAILY 11/20/18 11/20/18 Previous Rx's Medication Instructions Recorded Ezetimibe [Zetia] 10 mg PO DAILY #90 tab 07/16/18 Nitroglycerin Sl Tabs [Nitrostat] 0.4 mg SUBLINGUAL Q5M PRN #25 tab 07/16/18 Allergies Allergy/AdvReac Type Severity Reaction Status Date / Time Sulfa (Sulfonamide Allergy Rash/Hives Verified 11/20/18 12:15 Antibiotics) ibuprofen [From Motrin] AdvReac Kidney Verified 11/20/18 12:15 issues morphine AdvReac Hallucinati Verified 11/20/18 12:15 ons Review of Systems ROS Statement: Those systems with pertinent positive or pertinent negative responses have been documented in the HPI. ROS Other: All systems not noted in ROS Statement are negative. Past Medical History Past Medical History: Coronary Artery Disease (CAD), Cancer, Chest Pain / Angina, Prostate Disorder Additional Past Medical History / Comment(s): prostate cancer, 3 stents History of Any Multi-Drug Resistant Organisms: None Reported Past Surgical History: Hernia Repair, Prostate Surgery Past Anesthesia/Blood Transfusion Reactions: No Reported Reaction Past Psychological History: No Psychological Hx Reported Smoking Status: Never smoker Past Alcohol Use History: None Reported Past Drug Use History: None Reported - Past Family History Father Family Medical History: Coronary Artery Disease (CAD), Myocardial Infarction ([place]) General Exam General appearance: alert, in no apparent distress Head exam: Present: atraumatic, normocephalic, normal inspection Eye exam: Present: normal appearance, PERRL, EOMI. Absent: scleral icterus, conjunctival injection, periorbital swelling ENT exam: Present: normal exam, mucous membranes moist Neck exam: Present: normal inspection. Absent: tenderness, meningismus, lymphadenopathy Respiratory exam: Present: normal lung sounds bilaterally. Absent: respiratory distress, wheezes, rales, rhonchi, stridor Cardiovascular Exam: Present: regular rate, normal rhythm, normal heart sounds, other (symmetric pulses in his upper extremities). Absent: systolic murmur, diastolic murmur, rubs, gallop, clicks GI/Abdominal exam: Present: soft, normal bowel sounds. Absent: distended, tenderness, guarding, rebound, rigid Extremities exam: Present: normal inspection, full ROM, normal capillary refill. Absent: tenderness, pedal edema, joint swelling, calf tenderness Back exam: Present: normal inspection Neurological exam: Present: alert, oriented X3, CN II-XII intact Psychiatric exam: Present: normal affect, normal mood Skin exam: Present: warm, dry, intact, normal color. Absent: rash Course Vital Signs 11/20/18 11/20/18 11/20/18 11:45 12:30 13:00 Temperature 98.3 F Pulse Rate 86 61 59 L Respiratory 18 18 18 Rate Blood Pressure 126/77 121/80 112/77 O2 Sat by Pulse 97 92 L 94 L Oximetry 11/20/18 11/20/18 11/20/18 13:30 14:00 14:30 Temperature Pulse Rate 56 L 55 L 58 L Respiratory 18 19 18 Rate Blood Pressure 114/70 109/72 107/74 O2 Sat by Pulse 96 95 96 Oximetry 11/20/18 15:00 Temperature Pulse Rate 63 Respiratory 18 Rate Blood Pressure 114/74 O2 Sat by Pulse 98 Oximetry EKG Findings - EKG Comments: EKG Findings:: EKG demonstrates a sinus rhythm with a ventricular rate of 82. SC interval 188. QRS 136. QTc 464. There is a right bundle-branch block with a left anterior fascicular block. There is ST depression noted in leads V1 through V4 which is compared to previous EKG and appears more pronounced. Medical Decision Making - Medical Decision Making The patient was placed in trauma bay 2. He is hooked up to continuous pulse ox and cardiac monitoring. Patient was provided with 324 mg of chewable aspirin. A 12-lead EKG is performed which demonstrates no acute ST segment elevations. IV access was established. Laboratory studies were conducted and the patient was sent for chest x-ray. Upon return, the results are discussed patient. I did discuss the diagnosis, differential and treatment options. Patient's first troponin is negative. I did recommend admission to the hospital for which the patient did agree. The patient was admitted to Dr. Hilliard. The patient remained on telemetry monitoring. Troponins will be trended. I will consult cardiology to evaluate the patient. The patient had no recurrence of his chest pain while in the ER therefore heparin and nitro are held. He did remain in stable condition was transported to floor - Differential Diagnosis acute chest pain, possible acute coronary syndrome, unstable angina - Lab Data Result diagrams: 11/23/18 04:59 11/23/18 04:59 Lab Results 11/20/18 11/20/18 11/20/18 Range/Units 12:08 12:08 12:08 WBC 5.3 (3.8-10.6) k/uL RBC 5.28 (4.30-5.90) m/uL Hgb 13.8 (13.0-17.5) gm/dL Hct 44.7 (39.0-53.0) % MCV 84.8 (80.0-100.0) fL MCH 26.1 (25.0-35.0) pg MCHC 30.8 L (31.0-37.0) g/dL RDW 16.1 H (11.5-15.5) % Plt Count 320 (150-450) k/uL Neutrophils % (Manual) 67 % Lymphocytes % (Manual) 20 % Monocytes % (Manual) 10 % Eosinophils % (Manual) 3 % Neutrophils # (Manual) 3.55 (1.3-7.7) k/uL Lymphocytes # (Manual) 1.06 (1.0-4.8) k/uL Monocytes # (Manual) 0.53 (0-1.0) k/uL Eosinophils # (Manual) 0.16 (0-0.7) k/uL Nucleated RBCs 0 (0-0) /100 WBC Hypochromasia Slight Poikilocytosis (manual Present Anisocytosis Slight PT (9.0-12.0) sec INR (<1.2) APTT (22.0-30.0) sec Sodium 139 (137-145) mmol/L Potassium 4.8 (3.5-5.1) mmol/L Chloride 105 (98-107) mmol/L Carbon Dioxide 22 (22-30) mmol/L Anion Gap 12 mmol/L BUN 15 (9-20) mg/dL Creatinine 1.18 (0.66-1.25) mg/dL Est GFR (CKD-EPI)AfAm 70 (>60 ml/min/1.73 sqM) Est GFR (CKD-EPI)NonAf 61 (>60 ml/min/1.73 sqM) Glucose 129 H (74-99) mg/dL Calcium 9.4 (8.4-10.2) mg/dL Magnesium 2.0 (1.6-2.3) mg/dL Total Bilirubin 0.3 (0.2-1.3) mg/dL AST 25 (17-59) U/L ALT 14 L (21-72) U/L Alkaline Phosphatase 75 (38-126) U/L Troponin I (0.000-0.034) ng/mL NT-Pro-B Natriuret Pep 36 pg/mL Total Protein 7.9 (6.3-8.2) g/dL Albumin 4.6 (3.5-5.0) g/dL Triglycerides (<150) mg/dL Cholesterol (<200) mg/dL LDL Cholesterol, Calc (0-99) mg/dL HDL Cholesterol (40-60) mg/dL 11/20/18 11/20/18 11/20/18 Range/Units 12:08 12:08 12:08 WBC (3.8-10.6) k/uL RBC (4.30-5.90) m/uL Hgb (13.0-17.5) gm/dL Hct (39.0-53.0) % MCV (80.0-100.0) fL MCH (25.0-35.0) pg MCHC (31.0-37.0) g/dL RDW (11.5-15.5) % Plt Count (150-450) k/uL Neutrophils % (Manual) % Lymphocytes % (Manual) % Monocytes % (Manual) % Eosinophils % (Manual) % Neutrophils # (Manual) (1.3-7.7) k/uL Lymphocytes # (Manual) (1.0-4.8) k/uL Monocytes # (Manual) (0-1.0) k/uL Eosinophils # (Manual) (0-0.7) k/uL Nucleated RBCs (0-0) /100 WBC Hypochromasia Poikilocytosis (manual Anisocytosis PT 10.4 (9.0-12.0) sec INR 1.0 (<1.2) APTT 24.4 (22.0-30.0) sec Sodium (137-145) mmol/L Potassium (3.5-5.1) mmol/L Chloride (98-107) mmol/L Carbon Dioxide (22-30) mmol/L Anion Gap mmol/L BUN (9-20) mg/dL Creatinine (0.66-1.25) mg/dL Est GFR (CKD-EPI)AfAm (>60 ml/min/1.73 sqM) Est GFR (CKD-EPI)NonAf (>60 ml/min/1.73 sqM) Glucose (74-99) mg/dL Calcium (8.4-10.2) mg/dL Magnesium (1.6-2.3) mg/dL Total Bilirubin (0.2-1.3) mg/dL AST (17-59) U/L ALT (21-72) U/L Alkaline Phosphatase (38-126) U/L Troponin I <0.012 (0.000-0.034) ng/mL NT-Pro-B Natriuret Pep pg/mL Total Protein (6.3-8.2) g/dL Albumin (3.5-5.0) g/dL Triglycerides 218 H (<150) mg/dL Cholesterol 83 (<200) mg/dL LDL Cholesterol, Calc 9 (0-99) mg/dL HDL Cholesterol 30 L (40-60) mg/dL 11/20/18 11/21/18 Range/Units 17:54 00:12 WBC (3.8-10.6) k/uL RBC (4.30-5.90) m/uL Hgb (13.0-17.5) gm/dL Hct (39.0-53.0) % MCV (80.0-100.0) fL MCH (25.0-35.0) pg MCHC (31.0-37.0) g/dL RDW (11.5-15.5) % Plt Count (150-450) k/uL Neutrophils % (Manual) % Lymphocytes % (Manual) % Monocytes % (Manual) % Eosinophils % (Manual) % Neutrophils # (Manual) (1.3-7.7) k/uL Lymphocytes # (Manual) (1.0-4.8) k/uL Monocytes # (Manual) (0-1.0) k/uL Eosinophils # (Manual) (0-0.7) k/uL Nucleated RBCs (0-0) /100 WBC Hypochromasia Poikilocytosis (manual Anisocytosis PT (9.0-12.0) sec INR (<1.2) APTT (22.0-30.0) sec Sodium (137-145) mmol/L Potassium (3.5-5.1) mmol/L Chloride (98-107) mmol/L Carbon Dioxide (22-30) mmol/L Anion Gap mmol/L BUN (9-20) mg/dL Creatinine (0.66-1.25) mg/dL Est GFR (CKD-EPI)AfAm (>60 ml/min/1.73 sqM) Est GFR (CKD-EPI)NonAf (>60 ml/min/1.73 sqM) Glucose (74-99) mg/dL Calcium (8.4-10.2) mg/dL Magnesium (1.6-2.3) mg/dL Total Bilirubin (0.2-1.3) mg/dL AST (17-59) U/L ALT (21-72) U/L Alkaline Phosphatase (38-126) U/L Troponin I <0.012 <0.012 (0.000-0.034) ng/mL NT-Pro-B Natriuret Pep pg/mL Total Protein (6.3-8.2) g/dL Albumin (3.5-5.0) g/dL Triglycerides (<150) mg/dL Cholesterol (<200) mg/dL LDL Cholesterol, Calc (0-99) mg/dL HDL Cholesterol (40-60) mg/dL - Radiology Data Radiology results: report reviewed, image reviewed Chest x-ray demonstrates no acute findings Disposition Clinical Impression: Acute chest pain, Coronary artery disease Disposition: ADMITTED IP TO THIS [facility] Condition: Stable Is patient prescribed a controlled substance at d/c from ED?: No Decision to Admit Reason: Admit from EC Decision Date: 11/20/18 Decision Time: 14:43
--- NOTE | 2018-11-20 16:40 | P.HPIM ---
History of Present Illness 73-year-old male came in with complaints of chest pressure exertional my relieved by resting denied any diaphoresis lightheadedness shortness of breath retrosternal pain nonradiating. Denied any nausea not associated with food nonp leuritic. Patient does have significant the history of coronary artery disease multiple stents in the past. Denied any fever chills nausea vomiting denied any cough chest x-ray did not show pneumonic process EKG had some ST-T wave changes but were appear to be older than some right bundle branch block troponin is negative. Patient's pain is similar to the pain initially when he had a positive stress test. Review of Systems REVIEW OF SYSTEMS: CONSTITUTIONAL: No fever, no malaise, no fatigue. HEENT: No recent visual problems or hearing problems. Denied any sore throat. CARDIOVASCULAR: No orthopnea, PND, no palpitations, no syncope. PULMONARY: No shortness of breath, no cough, no hemoptysis. GASTROINTESTINAL: No diarrhea, no nausea, no vomiting, no abdominal pain. NEUROLOGICAL: No headaches, no weakness, no numbness. HEMATOLOGICAL: Denies any bleeding or petechiae. GENITOURINARY: Denies any burning micturition, frequency, or urgency. MUSCULOSKELETAL/RHEUMATOLOGICAL: Denies any joint pain, swelling, or any muscle pain. ENDOCRINE: Denies any polyuria or polydipsia. The rest of the 14-point review of systems is negative. Past Medical History Past Medical History: Cancer, Chest Pain / Angina, Prostate Disorder Additional Past Medical History / Comment(s): prostate cancer, 6 stents History of Any Multi-Drug Resistant Organisms: None Reported Past Surgical History: Heart Catheterization With Stent, Hernia Repair, Prostate Surgery Past Anesthesia/Blood Transfusion Reactions: No Reported Reaction Date of Last Stent Placement:: july 2018 Past Psychological History: No Psychological Hx Reported Smoking Status: Never smoker Past Alcohol Use History: None Reported Past Drug Use History: None Reported - Past Family History Father Family Medical History: Coronary Artery Disease (CAD), Myocardial Infarction ([place]) Medications and Allergies Home Medications Medication Instructions Recorded Confirmed Type Aspirin EC [Ecotrin Low Dose] 81 mg PO DAILY 07/14/18 11/20/18 History Lisinopril [Zestril] 40 mg PO DAILY 07/14/18 11/20/18 History Omeprazole 20 mg PO DAILY 07/14/18 11/20/18 History Prasugrel HCl 10 mg PO DAILY 07/14/18 11/20/18 History Ezetimibe [Zetia] 10 mg PO DAILY #90 tab 07/16/18 11/20/18 Rx Nitroglycerin Sl Tabs [Nitrostat] 0.4 mg SUBLINGUAL Q5M PRN #25 tab 07/16/18 11/20/18 Rx Metoprolol Succinate (ER) [Toprol 50 mg PO DAILY 11/20/18 11/20/18 History Xl] amLODIPine [Norvasc] 10 mg PO DAILY 11/20/18 11/20/18 History Allergies Allergy/AdvReac Type Severity Reaction Status Date / Time Sulfa (Sulfonamide Allergy Rash/Hives Verified 11/20/18 12:15 Antibiotics) ibuprofen [From Motrin] AdvReac Kidney Verified 11/20/18 12:15 issues morphine AdvReac Hallucinati Verified 11/20/18 12:15 ons Physical Exam Vitals: Vital Signs Temp Pulse Pulse Resp BP BP Pulse Ox 11/20/18 15:54 98 F 60 16 123/74 98 11/20/18 15:00 63 18 114/74 98 11/20/18 14:30 58 L 18 107/74 96 11/20/18 14:00 55 L 19 109/72 95 11/20/18 13:30 56 L 18 114/70 96 11/20/18 13:00 59 L 18 112/77 94 L 11/20/18 12:30 61 18 121/80 92 L 11/20/18 11:45 98.3 F 86 18 126/77 97 Intake and Output 11/20/18 11/20/18 11/20/18 06:59 14:59 22:59 Other: Voiding Method Toilet Weight 99.79 kg PHYSICAL EXAMINATION: GENERAL: The patient is alert and oriented x3, not in any acute distress. Well developed, well nourished. HEENT: Pupils are round and equally reacting to light. EOMI. No scleral icterus. No conjunctival pallor. Normocephalic, atraumatic. No pharyngeal erythema. No thyromegaly. CARDIOVASCULAR: S1 and S2 present. No murmurs, rubs, or gallops. PULMONARY: Chest is clear to auscultation, no wheezing or crackles. ABDOMEN: Soft, nontender, nondistended, normoactive bowel sounds. No palpable organomegaly. MUSCULOSKELETAL: No joint swelling or deformity. EXTREMITIES: No cyanosis, clubbing, or pedal edema. NEUROLOGICAL: Gross neurological examination did not reveal any focal deficits. SKIN: No rashes. Results CBC & Chem 7: 11/20/18 12:08 11/20/18 12:08 Labs: Abnormal Lab Results - Last 24 Hours (Table) 11/20/18 11/20/18 Range/Units 12:08 12:08 MCHC 30.8 L (31.0-37.0) g/dL RDW 16.1 H (11.5-15.5) % Glucose 129 H (74-99) mg/dL ALT 14 L (21-72) U/L Thrombosis Risk Factor Assmnt - Choose All That Apply Any of the Below Risk Factors Present?: Yes Each Factor Represents 1 point: Obesity (BMI >25) Other Risk Factors: Yes Each Risk Factor Represents 2 Points: Age 61-74 years Thrombosis Risk Factor Assessment Total Risk Factor Score: 3 Thrombosis Risk Factor Assessment Level: Moderate Risk Assessment and Plan Plan: Chest pain: Possibly of unstable angina, patient will need at least a stress test and cardiac catheterization addition of which will be left to cardiology. We'll repeat 2 more sets of troponins and EKGs. -Benign prostatic hypertrophy -Cannot disease with previous 6 stents in the past -Hyperlipidemia -Hypertension For above-mentioned chronic medical problems patient will be resumed and continued on appropriate home medications
[2018-11-21] MEDS ORDERED: amLODIPine 10 MG TAB PO SCH (09:00)
[2018-11-21] MEDS ORDERED: ASPIRIN 81 MG PO SCH (09:00)
[2018-11-21] MEDS ORDERED: LISINOPRIL 20 MG TAB PO SCH (09:00)
[2018-11-21] MEDS ORDERED: METOPROLOL SUCCINATE (ER) 50 MG TAB.ER.24H PO SCH (09:00)
[2018-11-21] MEDS ORDERED: ALPRAZolam 0.5 MG TAB PO PRN (09:53)
[2018-11-21] MEDS ORDERED: SODIUM CHLORIDE 0.9% 1,000 ML in EMPTY BAG 1 BAG IV ONE (09:53)
[2018-11-21] MEDS ORDERED: ALPRAZolam 0.25 MG TAB PO PRN (09:53)
[2018-11-21] MEDS ORDERED: NITROGLYCERIN SL TABS 0.4 MG TAB SUBLINGUAL PRN (09:53)
[2018-11-21] MEDS ORDERED: ASPIRIN 325 MG TAB PO ONE (09:55)
--- NOTE | 2018-11-21 10:06 | P.CRDCN ---
History of Present Illness History of present illness: This is a 73-year-old male past medical history significant for coronary artery disease s/p stent placement in May then again in July for in-stent restenosis in the setting of a NSTEMI. He also has hypertension, and dyslipidemia. In May he underwent a stress test at [facility] which the patient states he failed. Subsequently thereafter he underwent cardiac catheterization and stent placement to the RCA in the proximal, mid and distal portion. Then in July he presented to the [facility] with symptoms of chest tightness and shortness of breath and was found to have a non-ST elevated myocardial infarction. He underwent cardiac catheterization with Dr. Nunez and was found to have significant in-stent restenosis of the mid and proximal RCA. He underwent successful angioplasty at that time. He also had 20-30% plaque in the mid left main, 20-30% plaque in the proximal LAD, 40-50% plaque after the takeoff of the diagonal branch, 40% plaque in the mid circumflex. He presented to the hospital yesterday afternoon with s ymptoms of tightness in the left precordial region and shortness of breath worse with exertion. This has been going on intermittently over the previous 2 days. Since his previous stents he has been attending cardiac rehabilitation without difficulty or chest discomfort or shortness of breath. He states the symptoms are reminiscent of his previous events in May and again in July however the intensity is much less. He is currently chest pain-free. EKG reveals sinus mechanism with right bundle branch block, left anterior fascicular block and nonspecific ST changes. Chest x-ray is negative for acute cardiopulmonary process. Laboratory data reviewed, WBC 5.3, hemoglobin 13.8, platelets 320, sodium 139, potassium 4.8, creatinine 1.18 with a GFR 61, cardiac enzymes negative 3. Current cardiac medications include aspirin 81 mg daily, Zetia 10 mg daily, lisinopril 40 mg daily, Toprol 50 mg daily, Prasugrel 10 mg daily and amlodipine 10 mg daily. Most recent echocardiogram reveals preserved LV systolic function with ejection fraction 55-60%, mild to moderate aortic regurgitation, mild mitral regurgitation and mild tricuspid regurgitation. At the time of my exam: CONSTITUTIONAL: Denies fever. Denies chills. EYES: Denies blurred vision. Denies vision changes. Denies eye pain. EARS, NOSE, MOUTH & THROAT: Denies headache. Denies sore throat. Denies ear pain. CARDIOVASCULAR: Denies chest pain. Denies shortness of breath. Denies orthopnea. Denies PND. Denies palpitations. RESPIRATORY: Denies cough. GASTROINTESTINAL: Denies abdominal pain. Denies diarrhea. Denies constipation. Denies nausea. Denies vomiting. MUSCULOSKELETAL: Denies myalgias. INTEGUMENTARY: Denies pruitis. Denies rash. NEUROLOGIC: Denies numbness. Denies tingling. Denies weakness. PSYCHIATRIC: Denies anxiety. Denies depression. ENDOCRINE: Denies fatigue. Denies weight change. Denies polydipsia. Denies polyurina. GENITOURINARY: Denies burning, hematuria or urgency with micturation. HEMATOLOGIC: Denies history of anemia. Denies bleeding. Blood pressure 120/78 heart rate 70 afebrile maintaining oxygen saturation on room air GENERAL: This is a 73-year-old male in no apparent distress at the time of my examination. HEENT: Head is atraumatic, normocephalic. Pupils are equal, round. Sclerae anicteric. Conjunctivae are clear. Mucous membranes of the mouth are moist. Neck is supple. There is no jugular venous distention. No carotid bruit is heard. LUNGS: Clear to auscultation no wheezes, rales or rhonchi. No chest wall tenderness is noted on palpation or with deep breathing. HEART: Regular rate and rhythm without murmurs, rubs or gallops. S1 and S2 heard. ABDOMEN: Soft, nontender. Bowel sounds are heard. No organomegaly noted. EXTREMITIES: No evidence of peripheral edema and no calf tenderness noted. VASCULAR: Radial and dorsalis pedis pulses palpated, no evidence of clubbing. NEUROLOGIC: Patient is awake, alert and oriented x3. ASSESSMENT Unstable angina History of coronary artery disease status post multiple stents with history of in-stent restenosis in July Hypertension Dyslipidemia, intolerant to statins in the past with severe muscle aches PLAN Obtain limited echocardiogram to assess LV function. Recommend proceeding with cardiac catheterization to assess for in-stent restenosis. I have discussed the risks, benefits and alternative therapies for the above-mentioned procedure and for both sedation/analgesia as well as necessary blood product administration, if indicated, as they pertain to this patient. The patient has indicated understanding and acceptance of the risks and procedures discussed. Questions have been answered appropriately and he is agreeable to move forward with the above stated procedure. Check lipid profile. Further recommendations to follow based upon clinical course. Thank you kindly for this consultation. Nurse Practitioner note has been reviewed, I agree with a documented findings and plan of care. Patient was seen and examined. Past Medical History Past Medical History: Cancer, Chest Pain / Angina, Prostate Disorder Additional Past Medical History / Comment(s): prostate cancer, 3 stents History of Any Multi-Drug Resistant Organisms: None Reported Past Surgical History: Hernia Repair, Prostate Surgery Past Anesthesia/Blood Transfusion Reactions: No Reported Reaction Date of Last Stent Placement:: july 2018 Past Psychological History: No Psychological Hx Reported Smoking Status: Never smoker Past Alcohol Use History: None Reported Past Drug Use History: None Reported - Past Family History Father Family Medical History: Coronary Artery Disease (CAD), Myocardial Infarction ([place]) Medications and Allergies Home Medications Medication Instructions Recorded Confirmed Type Aspirin EC [Ecotrin Low Dose] 81 mg PO DAILY 07/14/18 11/20/18 History Lisinopril [Zestril] 40 mg PO DAILY 07/14/18 11/20/18 History Omeprazole 20 mg PO DAILY 07/14/18 11/20/18 History Prasugrel HCl 10 mg PO DAILY 07/14/18 11/20/18 History Ezetimibe [Zetia] 10 mg PO DAILY #90 tab 07/16/18 11/20/18 Rx Nitroglycerin Sl Tabs [Nitrostat] 0.4 mg SUBLINGUAL Q5M PRN #25 tab 07/16/18 11/20/18 Rx Metoprolol Succinate (ER) [Toprol 50 mg PO DAILY 11/20/18 11/20/18 History Xl] amLODIPine [Norvasc] 10 mg PO DAILY 11/20/18 11/20/18 History Allergies Allergy/AdvReac Type Severity Reaction Status Date / Time Sulfa (Sulfonamide Allergy Rash/Hives Verified 11/20/18 12:15 Antibiotics) ibuprofen [From Motrin] AdvReac Kidney Verified 11/20/18 12:15 issues morphine AdvReac Hallucinati Verified 11/20/18 12:15 ons Physical Exam Vitals: Vital Signs Temp Pulse Pulse Resp BP BP BP 11/21/18 07:35 97.5 F L 70 18 120/78 11/21/18 03:54 97.9 F 57 L 16 108/65 11/21/18 03:48 18 11/21/18 00:00 18 11/20/18 23:32 97.9 F 61 18 113/70 11/20/18 20:00 16 11/20/18 19:51 97.5 F L 68 16 112/71 11/20/18 15:54 98 F 60 16 123/74 11/20/18 15:00 63 18 114/74 11/20/18 14:30 58 L 18 107/74 11/20/18 14:00 55 L 19 109/72 11/20/18 13:30 56 L 18 114/70 11/20/18 13:00 59 L 18 112/77 11/20/18 12:30 61 18 121/80 11/20/18 11:45 98.3 F 86 18 126/77 Pulse Ox 11/21/18 07:35 99 11/21/18 03:54 97 11/21/18 03:48 11/21/18 00:00 11/20/18 23:32 99 11/20/18 20:00 11/20/18 19:51 97 11/20/18 15:54 98 11/20/18 15:00 98 11/20/18 14:30 96 11/20/18 14:00 95 11/20/18 13:30 96 11/20/18 13:00 94 L 11/20/18 12:30 92 L 11/20/18 11:45 97 Intake and Output 11/20/18 11/21/18 11/21/18 22:59 06:59 14:59 Intake Total 420 240 Balance 420 240 Intake: Oral 420 240 Other: Voiding Method Toilet Toilet # Voids 1 Results 11/20/18 12:08 11/20/18 12:08 Cardiac Enzymes 11/20/18 11/20/18 11/20/18 Range/Units 12:08 12:08 17:54 AST 25 (17-59) U/L Troponin I <0.012 <0.012 (0.000-0.034) ng/mL 11/21/18 Range/Units 00:12 AST (17-59) U/L Troponin I <0.012 (0.000-0.034) ng/mL Coagulation 11/20/18 Range/Units 12:08 PT 10.4 (9.0-12.0) sec APTT 24.4 (22.0-30.0) sec CBC 11/20/18 Range/Units 12:08 WBC 5.3 (3.8-10.6) k/uL RBC 5.28 (4.30-5.90) m/uL Hgb 13.8 (13.0-17.5) gm/dL Hct 44.7 (39.0-53.0) % Plt Count 320 (150-450) k/uL Comprehensive Metabolic Panel 11/20/18 Range/Units 12:08 Sodium 139 (137-145) mmol/L Potassium 4.8 (3.5-5.1) mmol/L Chloride 105 (98-107) mmol/L Carbon Dioxide 22 (22-30) mmol/L BUN 15 (9-20) mg/dL Creatinine 1.18 (0.66-1.25) mg/dL Glucose 129 H (74-99) mg/dL Calcium 9.4 (8.4-10.2) mg/dL AST 25 (17-59) U/L ALT 14 L (21-72) U/L Alkaline Phosphatase 75 (38-126) U/L Total Protein 7.9 (6.3-8.2) g/dL Albumin 4.6 (3.5-5.0) g/dL Current Medications Generic Name Dose Route Start Last Admin Trade Name Freq PRN Reason Stop Dose Admin Amlodipine Besylate 10 mg 11/21/18 09:00 Norvasc PO DAILY [facility] Aspirin 81 mg 11/21/18 09:00 Aspirin PO DAILY [facility] Ezetimibe 10 mg 11/21/18 09:00 Zetia PO DAILY [facility] Lisinopril 40 mg 11/21/18 09:00 Zestril PO DAILY [facility] Metoprolol Succinate 50 mg 11/21/18 09:00 Toprol Xl PO DAILY [facility] Prasugrel 10 mg 11/21/18 09:00 Effient PO DAILY [facility]OSIN Intake and Output 11/20/18 11/21/18 11/21/18 22:59 06:59 14:59 Intake Total 420 240 Balance 420 240 Intake: Oral 420 240 Other: Voiding Method Toilet Toilet # Voids 1 11/20/18 12:08 11/20/18 12:08
[2018-11-21] MEDS: EZETIMIBE 10 MG TAB PO SCH (10:24)
[2018-11-21] MEDS: PRASUGREL 10 MG TAB PO SCH (10:24)
[2018-11-21] MEDS ORDERED: BIVALIRUDIN 250 MG VIAL IV ONE (11:07)
[2018-11-21] MEDS ORDERED: SODIUM CHLORIDE 0.9% 50 ML BAG ONE (11:07)
[2018-11-21 12:12] LABS: Cholesterol 83 mg/dL (<200); HDL Cholesterol 30 mg/dL (40-60); LDL Cholesterol,Calculated 9 mg/dL (0-99); Triglycerides 218 mg/dL (<150)
[2018-11-21] MEDS ORDERED: NOREPINEPHRINE 8 MG in SODIUM CHLORIDE 0.9% 250 ML IV ONE (12:20)
[2018-11-21] MEDS ORDERED: LIDOCAINE 1% INJ 10MG/ML (20 ML MDV) ONE (12:25)
[2018-11-21] MEDS ORDERED: fentaNYL (PF) 50 MCG/ML 2 ML AMP ONE (12:26)
[2018-11-21] MEDS ORDERED: LIDOCAINE 1% INJ 10MG/ML (20 ML MDV) SQ ONE (12:33)
[2018-11-21] MEDS ORDERED: IV FLUID CONTINUATION 1,000 ML IV ONE (12:33)
[2018-11-21] MEDS ORDERED: MIDAZOLAM (PF) 2 MG/2 ML VIAL IV ONE (12:33)
[2018-11-21] MEDS ORDERED: HEPARIN SODIUM 1,000 UN/ML (10ML VL) ONE (13:02)
[2018-11-21] MEDS ORDERED: HEPARIN SODIUM 1,000 UN/ML (10ML VL) IV ONE (13:20)
[2018-11-21] MEDS ORDERED: HYDROmorphone 1 MG/ML 1 ML SYRINGE ONE (13:24)
[2018-11-21] MEDS ORDERED: EPINEPHrine 10 ML SYRINGE (0.1 MG/ML) IV ONE (13:35)
[2018-11-21] MEDS ORDERED: EPINEPHrine 1 MG/ML 1 ML AMP IV ONE (13:35)
[2018-11-21] MEDS ORDERED: HYDROmorphone 1 MG/ML 1 ML SYRINGE IVP ONE (13:35)
[2018-11-21] MEDS ORDERED: NITROGLYCERIN 1000MCG/10ML SYRINGE INTRACORON ONE (13:41)
[2018-11-21] MEDS ORDERED: IOPAMIDOL-370 100ML BTL INJ ONE (13:46)
[2018-11-21] MEDS ORDERED: DOPamine DRIP 800 MG in DEXTROSE/WATER 1 250ML.BAG IV ONE (13:57)
[2018-11-21] MEDS ORDERED: ATROPINE SULFATE 0.1 MG/ML 10ML SYRINGE IV PRN (14:05)
[2018-11-21] MEDS ORDERED: RX INFO: IV CONTRAST WAS GIVEN 1 EACH MISC MISCELLANE PRN (14:05)
[2018-11-21] MEDS ORDERED: PRASUGREL 10 MG TAB ONE (14:07)
[2018-11-21] MEDS ORDERED: PRASUGREL 10 MG TAB PO ONE (14:08)
[2018-11-21] MEDS ORDERED: HEPARIN SODIUM 1,000 UN/ML (10ML VL) MISCELLANE ONE (14:25)
[2018-11-21] MEDS ORDERED: HEPARIN SOD,PORK IN 0.45% NACL 25,000 UNIT in 0.45% NACL 1 250ML.BAG IV ONE (14:30)
[2018-11-21 14:35] LABS: Glucose,Whole Blood 118 mg/dL (75-99)
[2018-11-21] MEDS: SODIUM CHLORIDE 0.9% 1,000 ML IV SCH (15:08)
[2018-11-21] MEDS: DEXTROSE/WATER 1 250ML.BAG with DOPamine DRIP 800 MG IV SCH (15:09)
[2018-11-21] MEDS: NOREPINEPHRINE 4 MG in SODIUM CHLORIDE 0.9% 250 ML IV SCH (15:09)
--- NOTE | 2018-11-21 16:23 | P.CNPUL ---
History of Present Illness Consult date: 11/21/18 Requesting physician: Anabel Hilliard Chief complaint: In-stent restenosis, symptomatic bradycardia, transvenous pacemaker History of present illness: This is 73-year-old patient past medical history of coronary artery disease with PCI and stenting, patient has 5 stents, and the last of which was placed in July of this year, when patient presented with a non-ST elevated myocardial infarction and in-stent restenosis, patient had successful stenting of the proximal RCA with reduction of stenosis from 99% down to 0, and mid RCA with reduction of stenosis from 70% to 0. Previously patient had PCI and stenting anatomically on [facility] in May 2018 to the proximal, mid and distal portions of the right coronary artery. Other medical history includes dyslipidemia, hypertension. Patient is on aspirin 81 mg daily, and Effient. He states he has been compliant with his medications, he is on lisinopril, Zetia, and has also been started on Repatha. He has been attending cardiac rehabilitation without any difficulty. On 11/20/2018 patient presented to the emergency department with complaints of chest discomfort, shortness of breath. The chest pain and shortness of breath were brought on by exertion, he states first onset of symptoms was 4 days ago, and his symptoms were similar to the last time patient required PCI and stent placement. No history of congestive heart failure, denied lower extremity edema,. Denied fever or chills, nausea vomiting, no diaphoresis. Chest x-ray was completed showing no acute cardiopulmonary process. EKG reveals sinus mechanism with right bundle branch b lock, left anterior fascicular block and nonspecific ST changes. Lab data was reviewed, showing white blood cell count of 5.3, hemoglobin 13.8, platelet count was 320, serum sodium was 139, potassium is 4.8, creatinine is 1.18, with a GFR of 61, cardiac enzymes were negative 3. Most recent echocardiogram showed preserved LV systolic function with ejection fraction of 55-60%, mild to moderate aortic regurg, mild mitral regurg and mild tricuspid regurgitation. Patient was taken to the [facility], and underwent PCI and stenting of the ostial RCA with reduction of stenosis 99% down to 0, by drug-eluting stent and PCI of the restenotic proximal RCA. Patient developed hemodynamic instability, with bradycardia, requiring placement of transvenous pacemaker, and vasopressor support, with levofed and dopamine. Following the procedure patient is seen in the intensive care unit, he is resting in bed, in reverse Trendelenburg position, he is awake and alert, currently chest pain free, he is still on vasopressor support, on Levophed at 7 mics per minute, and dopamine is at 3 mics/kg/min, TVP is set at a backup rate of 40, and patient's intrinsic rhythm is sinus rhythm at a rate of 70 BPM Review of Systems All systems: negative Constitutional: Denies chills, Denies fever Eyes: denies blurred vision, denies pain Ears, nose, mouth and throat: Denies headache, Denies sore throat Cardiovascular: Reports decreased exercise tolerance, Reports dyspnea on exertion, Denies chest pain, Denies shortness of breath Respiratory: Reports dyspnea, Denies cough Gastrointestinal: Denies abdominal pain, Denies diarrhea, Denies nausea, Denies vomiting Musculoskeletal: Denies myalgias Integumentary: Denies pruritus, Denies rash Neurological: Denies numbness, Denies weakness Psychiatric: Denies anxiety, Denies depression Endocrine: Denies fatigue, Denies weight change Past Medical History Past Medical History: Cancer, Chest Pain / Angina, Prostate Disorder Additional Past Medical History / Comment(s): prostate cancer, 3 stents History of Any Multi-Drug Resistant Organisms: None Reported Past Surgical History: Hernia Repair, Prostate Surgery Past Anesthesia/Blood Transfusion Reactions: No Reported Reaction Date of Last Stent Placement:: july 2018 Past Psychological History: No Psychological Hx Reported Smoking Status: Never smoker Past Alcohol Use History: None Reported Past Drug Use History: None Reported - Past Family History Father Family Medical History: Coronary Artery Disease (CAD), Myocardial Infarction ([place]) Medications and Allergies Home Medications Medication Instructions Recorded Confirmed Type Aspirin EC [Ecotrin Low Dose] 81 mg PO DAILY 07/14/18 11/20/18 History Lisinopril [Zestril] 40 mg PO DAILY 07/14/18 11/20/18 History Omeprazole 20 mg PO DAILY 07/14/18 11/20/18 History Prasugrel HCl 10 mg PO DAILY 07/14/18 11/20/18 History Ezetimibe [Zetia] 10 mg PO DAILY #90 tab 07/16/18 11/20/18 Rx Nitroglycerin Sl Tabs [Nitrostat] 0.4 mg SUBLINGUAL Q5M PRN #25 tab 07/16/18 Rx Metoprolol Succinate (ER) [Toprol 50 mg PO DAILY 11/20/18 11/20/18 History Xl] amLODIPine [Norvasc] 10 mg PO DAILY 11/20/18 11/20/18 History Allergies Allergy/AdvReac Type Severity Reaction Status Date / Time Sulfa (Sulfonamide Allergy Rash/Hives Verified 11/20/18 12:15 Antibiotics) ibuprofen [From Motrin] AdvReac Kidney Verified 11/20/18 12:15 issues morphine AdvReac Hallucinati Verified 11/20/18 12:15 ons Physical Exam Vitals: Vital Signs Temp Pulse Resp BP BP Pulse Ox 11/21/18 11:45 97.7 F 56 L 18 112/73 94 L 11/21/18 07:35 97.5 F L 70 18 120/78 99 11/21/18 03:54 97.9 F 57 L 16 108/65 97 11/21/18 03:48 18 11/21/18 00:00 18 11/20/18 23:32 97.9 F 61 18 113/70 99 11/20/18 20:00 16 11/20/18 19:51 97.5 F L 68 16 112/71 97 11/20/18 15:54 98 F 60 16 123/74 98 Intake and Output 11/21/18 11/21/18 11/21/18 06:59 14:59 22:59 Intake Total 1072.7 Balance 1072.7 Intake: IV 832.7 Oral 240 Other: Voiding Method Toilet Toilet # Voids 1 GENERAL EXAM: Alert, pleasant, 73-year-old white male, on room air, resting in bed, in the intensive care unit, and a reverse Trendelenburg comfortable in no apparent distress. HEAD: Normocephalic/atraumatic. EYES: Normal reaction of pupils, equal size. Conjunctiva pink, sclera white. NOSE: Clear with pink turbinates. THROAT: No erythema or exudates. NECK: No masses, no JVD, no thyroid enlargement, no adenopathy. CHEST: No chest wall deformity. Symmetrical expansion. LUNGS: Equal air entry with no crackles, wheeze, rhonchi or dullness. CVS: Regular rate and rhythm, normal S1 and S2, no gallops, no murmurs, no rubs ABDOMEN: Soft, nontender. No hepatosplenomegaly, normal bowel sounds, no guarding or rigidity. EXTREMITIES: No clubbing, no edema, no cyanosis, 2+ pulses and upper and lower extremities. Right groin transvenous pacemaker is in place, connected to an external pacemaker with VVI backup rate of 40, intrinsic rhythm is sinus rhythm with a rate of 70 MUSCULOSKELETAL: Muscle strength and tone normal. SPINE: No scoliosis or deformity SKIN: No rashes CENTRAL NERVOUS SYSTEM: Alert and oriented -3. No focal deficits, tone is normal in all 4 extremities. PSYCHIATRIC: Alert and oriented -3. Appropriate affect. Intact judgment and insight. Results - Laboratory Findings CBC and BMP: 11/20/18 12:08 11/20/18 12:08 PT/INR, D-dimer PT 10.4 sec (9.0-12.0) 11/20/18 12:08 INR 1.0 (<1.2) 11/20/18 12:08 Abnormal lab findings: Abnormal Labs 11/20/18 11/20/18 11/20/18 12:08 12:08 12:08 MCHC 30.8 L RDW 16.1 H Glucose 129 H POC Glucose (mg/dL) ALT 14 L Triglycerides 218 H HDL Cholesterol 30 L 11/21/18 14:31 MCHC RDW Glucose POC Glucose (mg/dL) 118 H ALT Triglycerides HDL Cholesterol - Diagnostic Findings Chest x-ray: report reviewed, image reviewed Additional studies: EKG reviewed Assessment and Plan Assessment: Assessment: #1. Coronary artery disease, in-stent restenosis of the proximal RCA, and stenosis of the ostial RCA. Patient underwent cardiac catheterization, with PCI of the proximal RCA, and PCI and stenting of the ostial RCA with drug-eluting stent #2. Chest pain, exertional dyspnea, related to the above #3. Symptomatic bradycardia, hypotension, requiring dopamine, Levophed, and transvenous dyspneic placement #4. Restenosis of the RCA in the setting of the non-ST elevated [place] in July 2018 #5. PCI and stenting of the proximal, mid and distal portion of the RCA in May 2018 at [facility] #6. Hypertension #7. DysLipidemia #8. Lifetime nonsmoker Plan: Continue close hemodynamic monitoring, patient is currently chest pain-free, no shortness of breath, continues on small dose of dopamine, and Levophed. Intrinsic rhythm is sinus rhythm, a rate of 70, TVP with the VVI backup at 40. He is awake and alert, oriented 3. Cardiology is following. Patient is on dual antiplatelet therapy with aspirin and Effient. We'll continue to closely follow in the intensive care unit. Echocardiogram has been ordered and is pending at this time I performed a history & physical examination of the patient and discussed their management with my nurse practitioner, Oriana Carson. I reviewed the nurse practitioner's note and agree with the documented findings and plan of care. Lung sounds are positive for clear breath sounds. The findings and the impression was discussed with the patient. I attest to the documentation by the nurse practitioner. Time with Patient: Greater than 30
--- NOTE | 2018-11-21 17:04 | P.PN ---
Subjective Patient came in with chest pain and underwent cardiac catheterization which showed in-stent stenosis of proximal RCA and stenosis of ostial RCA. She and underwent stenting of these 2 vessels. Patient is pain free had some bradycardia requiring dopamine . Patient is chest pain-free at this time. Constitutional: Denied any fatigue denied any fever. Cardio vascular: denied any chest pain, palpitations Gastrointestinal denied any nausea vomiting Pulmonary: Denied any shortness of breath cough Neurologic denied any new focal deficits All inpatient medications were reviewed and appropriate changes in these medications as dictated in the interval history and assessment and plan. Objective - Vital Signs Vital signs: Vital Signs Temp 97.7 F 11/21/18 11:45 Pulse 56 L 11/21/18 11:45 Resp 18 11/21/18 11:45 BP 112/73 11/21/18 11:45 Pulse Ox 94 L 11/21/18 11:45 Intake & Output 11/20/18 11/21/18 11/21/18 18:59 06:59 18:59 Intake Total 420 1072.7 Balance 420 1072.7 Weight 99.79 kg Intake: IV 832.7 Oral 420 240 Other: Voiding Method Toilet Toilet Toilet # Voids 1 - Exam PHYSICAL EXAMINATION: GENERAL: The patient is alert and oriented x3, not in any acute distress. Well developed, well nourished. HEENT: Pupils are round and equally reacting to light. EOMI. No scleral icterus. No conjunctival pallor. Normocephalic, atraumatic. No pharyngeal erythema. No thyromegaly. CARDIOVASCULAR: S1 and S2 present. No murmurs, rubs, or gallops. PULMONARY: Chest is clear to auscultation, no wheezing or crackles. ABDOMEN: Soft, nontender, nondistended, normoactive bowel sounds. No palpable organomegaly. MUSCULOSKELETAL: No joint swelling or deformity. EXTREMITIES: No cyanosis, clubbing, or pedal edema. NEUROLOGICAL: Gross neurological examination did not reveal any focal deficits. SKIN: No rashes. - Labs CBC & Chem 7: 11/20/18 12:08 11/20/18 12:08 Labs: Abnormal Lab Results - Last 24 Hours (Table) 11/20/18 11/21/18 Range/Units 12:08 14:31 POC Glucose (mg/dL) 118 H (75-99) mg/dL Triglycerides 218 H (<150) mg/dL HDL Cholesterol 30 L (40-60) mg/dL Assessment and Plan Plan: Chest pain: unstable angina, patient underwent stenting of proximal and ostial RCA Azithromycin sinus bradycardia for which patient isn't O thiamine -Benign prostatic hypertrophy -Coronary artery disease with previous 6 stents in the past -Hyperlipidemia -Hypertension For above-mentioned chronic medical problems patient will be resumed and co ntinued on appropriate home medications
--- NOTE | 2018-11-21 18:49 | ECHOF ---
Referral Reason:assess lv MEASUREMENTS -------- HEIGHT: 180.3 cm WEIGHT: 99.8 kg BP: 120/78 IVSd: 1.4 cm (0.6 - 1.1) LVIDd: 4.7 cm (3.9 - 5.3) LVPWd: 1.1 cm (0.6 - 1.1) IVSs: 1.6 cm LVIDs: 3.6 cm LVPWs: 1.5 cm Ao Diam: 2.8 cm (2.0 - 3.7) LA Diam: 1.6 cm (2.7 - 3.8) RVIDd: 4.0 cm (< 3.3) FINDINGS -------- Sinus rhythm. This was a technically difficult study with suboptimal views. LIMITED STUDY There is mild concentric left ventricular hypertrophy. Overall left ventricular systolic function i s normal with, an EF between 55 - 60 %. Lumason used CONCLUSIONS -------- 1. Sinus rhythm. 2. This was a technically difficult study with suboptimal views. 3. LIMITED STUDY 4. There is mild concentric left ventricular hypertrophy. 5. Overall left ventricular systolic function is normal with, an EF between 55 - 60 %. 6. Lumason used CUFFER: Marcia Ding RDCS
[2018-11-21] MEDS ORDERED: ATORVASTATIN 80 MG TAB PO SCH (21:00)
[2018-11-22] MEDS: ACETAMINOPHEN TAB 325 MG TAB PO PRN (03:40)
[2018-11-22 06:23] LABS: Basophils % (A) 0 %; Eosinophils # (A) 0.1 k/uL (0-0.7); Eosinophils % (A) 1 %; HCT 39.9 % (39.0-53.0); HGB 12.5 gm/dL (13.0-17.5); Hypochromasia Slight; Lymphocytes # (A) 1.1 k/uL (1.0-4.8); Lymphocytes % (A) 11 %; MCH 26.7 pg (25.0-35.0); MCHC 31.3 g/dL (31.0-37.0); MCV 85.2 fL (80.0-100.0); Mean Platelet Volume 5.9; Monocytes # (A) 0.8 k/uL (0-1.0); Monocytes % (A) 8 %; Neutrophils # (A) 7.1 k/uL (1.3-7.7); Neutrophils % (A) 76 %; Platelet Count 293 k/uL (150-450); RBC 4.68 m/uL (4.30-5.90); RDW 15.9 % (11.5-15.5); WBC 9.4 k/uL (3.8-10.6)
[2018-11-22 06:29] LABS: Calcium 8.9 mg/dL (8.4-10.2); Potassium 4.4 mmol/L (3.5-5.1)
[2018-11-22] MEDS: NOREPINEPHRINE 4 MG in SODIUM CHLORIDE 0.9% 250 ML IV SCH ×2 (07:20→21:47)
[2018-11-22] MEDS: EZETIMIBE 10 MG TAB PO SCH (07:44)
[2018-11-22] MEDS: PRASUGREL 10 MG TAB PO SCH (07:44)
[2018-11-22] MEDS: ASPIRIN 81 MG PO SCH (07:44)
[2018-11-22] MEDS: SODIUM CHLORIDE 0.9% 1,000 ML IV SCH (08:03)
--- NOTE | 2018-11-22 09:16 | CC ---
CARDIAC CATHETERIZATION REPORT DATE OF SERVICE: 11/21/2018. PROCEDURES: 1. Left heart catheterization and coronary angiography. 2. PTCA and stenting of a subtotally occluded super dominant proximal/ostial right coronary artery. 3. Transvenous temporary pacemaker placement from right femoral venous approach. PERFORMED BY: Dr. Christel Aguayo SEDATION: Moderate conscious sedation time was 77 minutes. . CLINICAL INFORMATION: Mr. Adrian Marley is a 73-year-old gentleman with a known history of CAD who underwent stenting of a long segment in the proximal and ostial RCA in May at [facility]. In July of this year, he was evaluated by Dr. Nunez who performed stenting of a restenotic lesion. Mid RCA was stented with 3.5 caliber 12 mm Xience stent and proximal RCA with a 4.0 caliber 15 mm long Xience stent. This was postdilated with 4.5 caliber 12 mm NC Trek balloon. Patient presented with symptoms classic of unstable angina and was advised cardiac catheterization after evaluation by Dr. Gregory Seaman. Patient was already on aspirin and Effient. PROCEDURE NOTE: Under local anesthesia and strict aseptic precautions, a 6-Arabic introducer was placed in the right femoral artery. Coronary angiography was performed using standard Sujit catheters and a pigtail catheter was used to check LV pressures. Patient was found to have a 99% stenosis with thrombus in the ostial/proximal RCA which was a superdominant vessel. The mid RCA had about a 30% to 35% lesion. Left system was free of significant disease. He was advised intervention that was performed expeditiously. . CARDIAC CATHETERIZATION FINDINGS: The left ventricle end-diastolic pressure was 14 mmHg without any gradient across the aortic valve. CORONARY ANGIOGRAPHY FINDINGS: RIGHT CORONARY ARTERY: Right coronary artery is a very large superdominant vessel which was stented before. Within the proximal/ostial stent, there was a 99% stenosis with thrombus with haziness. Flow is somewhat sluggish through the RCA. Distally it bifurcates into 2 branches which are free of significant disease. At the junction of proximal and middle one-third, there is a 35% narrowing noted within the stented segment. LEFT MAIN CORONARY ARTERY: This is a large patent vessel that bifurcates into circumflex and LAD. Left main has about a 15%-20% narrowing. The rest of the vessel has no significant disease. LEFT ANTERIOR DESCENDING CORONARY ARTERY: Good caliber vessel, extends along the anterior wall, gives off septal and diagonal branches and supplies a sizable amount of myocardium. No significant disease. LEFT POSTERIOR CIRCUMFLEX CORONARY ARTERY: This is a nondominant vessel, gives rise to a good-sized obtuse marginal. No significant disease, supplies a fair amount of myocardium. LEFT VENTRICULOGRAM: Left ventriculogram was not performed. FINAL IMPRESSION: This patient has a 99% proximal right coronary artery stenosis within the stented segment with haziness and thrombus. Left system has no significant change. There is mild narrowing of left main, but no significant disease in left anterior descending artery or circumflex. RECOMMENDATION: I recommended PCI of RCA and proceeded to perform this in the same setting. PROCEDURE: PCI procedure. DETAILS: I used a standard right Sujit catheter and a Whisper wire and crossed the lesion. Wire was kept distally, but I could not advance a 4.0 caliber balloon. I switched over to a 2.0 caliber balloon, with this I was able to cross the lesion. I gave one inflation in the ostium. Patient developed hypotension and bradycardia, had a total occlusion of the vessel. He required intravenous atropine, 1 mL of epinephrine administration at least on three occasions and also had significant hypotension with chest pain and inferior ST elevation. He then developed a profound bradycardia. I quickly gained access into the right femoral vein and placed a temporary transvenous pacemaker with good capture. Subsequently, I placed him on a combination of a Levophed and dopamine drip at 5 and 10 mcg respectively. With this, the blood pressure stabilized. By this time, the wire and the guide catheter had come out. I went back with a fresh right Sujit guide catheter and a Whisper wire and wire was kept distally. I went back and dilated with a 4.0 balloon with significant improvement in angiographic appearance and flow. I then deployed a 4.0 caliber 12 mm long Xience stent at 14 to 15 atmospheres. Patient had chest pain and inferior ST elevation. Excellent angiographic result was achieved. The patient's Levophed was 7.5 mcg and dopamine was at 3 mcg. His blood pressure was about 110 systolic. He was free of chest pain. EKG has shown complete resolution of ST-segment elevation. Sinus with a right bundle branch block. EKG was noted. Patient was completely free of chest pain. The arterial and venous sheaths were sutured in, the pacemaker was kept at a backup rate of 40 at a mA of 5. Patient was hemodynamically stable with a small dose of pressors. He was then sent to the ICU on 7.5 mcg of Levophed drip and 3 mcg of dopamine drip. He was to be observed very closely. Findings and results were discussed with the patient and his in great detail. I expect that he will be discharged in the next 48 hours if he remains stable. Serial troponins will be obtained and I will obtain an echocardiogram as well. The patient was already on Effient and aspirin. Additional dose of Effient was also given. He was placed on 500 units of heparin intravenously. During the procedure, I used intravenous heparin and an ACT was between 284 and 384. The patient was already on Effient. From a in percutaneous coronary intervention standpoint, the result was excellent, but there were some anxious movements with hypotension and bradycardia requiring temporary pacemaker that was used as a backup, but patient did not again used his pacemaker at all. Results were discussed with the patient and his family in detail and he was sent to the ICU in a much more stable condition. MARIA EUGENIA / JHN: [id number] /
--- NOTE | 2018-11-22 09:37 | P.PN ---
Subjective Progress Note Date: 11/22/18 This is a 73-year-old gentleman with history of ischemic heart disease with previous stent placement was admitted to the hospital with unstable angina. Patient had a cardiac catheterization by Dr. SEBASTIAN Aguayo and had stent placement of the RCA. The procedure was complicated by total occlusion of the vessel for about 10-15 minutes before the flow was established. Patient is critically stable. Patient had a temporary pacemaker, which we're going to discontinue. Patient is also on dopamine which is being discontinued. Patient is clinically stable without any chest pain or shortness of breath. His maintaining sinus rhythm. His troponin went up to 14. His felt that patient had postprocedure UT type III. We'll increase activity as tolerated. Venous and arterial sheaths were taken out. Temporary pacemaker wire was removed this morning Objective - Vital Signs Vital signs: Vital Signs Temp 97.9 F 11/22/18 08:00 Pulse 66 11/22/18 09:15 Resp 10 L 11/22/18 09:15 BP 90/58 11/22/18 04:16 Pulse Ox 92 L 11/22/18 09:15 Intake & Output 11/21/18 11/22/18 11/22/18 18:59 06:59 18:59 Intake Total 9162.675 1694.247 540 Output Total 0 700 25 Balance 1335.686 947.247 515 Weight 100.5 kg Intake: IV 1032.7 1220 340 Sodium Chloride 0.9% 1, 200 1020 300 000 ml @ 100 mls/hr IV . Q10H TOSIN Rx#:[id number] TVP 200 40 Intake, IV Titration 62.986 327.247 Amount Dextrose/Water 1 250ml. 78.4 bag @ 3 MCG/KG/MIN 5.613 mls/hr IV .Q24H TOSIN with DOPamine DRIP 800 mg Rx#: [id number] Heparin Sod,Pork in 0.45% 57.833 NaCl 25,000 unit In 0.45 % NaCl 1 250ml.bag @ 500 UNIT/HR 5 mls/hr IV .Q24H ONE Rx#:[id number] Norepinephrine 4 mg In 62.986 191.014 Sodium Chloride 0.9% 250 ml @ 0.05 MCG/KG/MIN 19. 01 mls/hr IV .[id number] TOSIN Rx#:[id number] Oral 240 100 200 Output: Urine 0 700 25 Other: Voiding Method Toilet Urinal ABP, PAP, CO, CI - Last Documented Arterial Blood Pressure 96/47 - Exam GENERAL EXAM: Patient is alert and oriented and doesn't appear to be in any acute distress HEENT: Normocephalic. Normal reaction of pupils, equal size, normal range of extraocular motion. No erythema or exudates in the throat. NECK: No masses, no nuchal rigidity. CHEST: No chest wall deformity. LUNGS: Equal air entry with no crackles or wheeze. HEART: S1 and S2 normal with no audible mumurs or gallops. Regular rhythm, femorals equal on both sides.. ABDOMEN: No hepatosplenomegaly, normal bowel sounds, no guarding or rigidity. SKIN: No rashes CENTRAL NERVOUS SYSTEM: No focal deficits. EXTREMITIES: No cyanosis, clubbing or edema. - Labs CBC & Chem 7: 11/22/18 05:51 11/22/18 05:51 Labs: Abnormal Lab Results - Last 24 Hours (Table) 11/20/18 11/21/18 11/21/18 Range/Units 12:08 14:31 18:22 Hgb (13.0-17.5) gm/dL RDW (11.5-15.5) % Sodium (137-145) mmol/L Carbon Dioxide (22-30) mmol/L POC Glucose (mg/dL) 118 H (75-99) mg/dL Troponin I 0.335 H* (0.000-0.034) ng/mL Triglycerides 218 H (<150) mg/dL HDL Cholesterol 30 L (40-60) mg/dL 11/22/18 11/22/18 11/22/18 Range/Units 05:51 05:51 05:51 Hgb 12.5 L (13.0-17.5) gm/dL RDW 15.9 H (11.5-15.5) % Sodium 136 L (137-145) mmol/L Carbon Dioxide 20 L (22-30) mmol/L POC Glucose (mg/dL) (75-99) mg/dL Troponin I 14.100 H* (0.000-0.034) ng/mL Triglycerides (<150) mg/dL HDL Cholesterol 35 L (40-60) mg/dL Assessment and Plan (1) Coronary artery disease Current Visit: Yes Status: Acute Code(s): I25.10 - ATHSCL HEART DISEASE OF [place] CORONARY ARTERY W/O ANG PCTRS SNOMED Code(s): 41994172 (2) NSTEMI (non-ST elevated myocardial infarction) Current Visit: No Status: Acute Code(s): I21.4 - NON-ST ELEVATION (NSTEMI) MYOCARDIAL INFARCTION SNOMED Code(s): 93012293 (3) Hypertension Current Visit: Yes Status: Acute Code(s): I10 - ESSENTIAL (PRIMARY) HYPERTENSION SNOMED Code(s): 46968302 (4) Dyslipidemia Current Visit: Yes Status: Acute Code(s): E78.5 - HYPERLIPIDEMIA, UNSPECIFIED SNOMED Code(s): 862080172 Plan: Will discontinue temporary pacemaker. Venous and arterial sheaths were taken out. We'll increase activity as tolerated. Continue current medical therapy. Prognosis is still guarded
[2018-11-22 13:13] VITALS: BMI 30.9
--- NOTE | 2018-11-22 14:54 | P.PN ---
Subjective Patient came in with chest pain and underwent cardiac catheterization which showed in-stent stenosis of proximal RCA and stenosis of ostial RCA. She and underwent stenting of these 2 vessels. Patient is pain free had some bradycardia requiring dopamine . Patient is chest pain-free at this time. 11/22/2018 Patient is off dopamine drip heart rate is fairly stable at this time compared pacemaker was removed patient's sheaths were removed patient otherwise clinically doing well patient has troponin as high as 14 because of the patient is definitely high risk for ventricular arrhythmias close to his myocardial infarction because of which patient will be monitored tonight and maybe tomorrow Constitutional: Denied any fatigue denied any fever. Cardio vascular: denied any chest pain, palpitations Gastrointestinal denied any nausea vomiting Pulmonary: Denied any shortness of breath cough Neurologic denied any new focal deficits All inpatient medications were reviewed and appropriate changes in these medications as dictated in the interval history and assessment and plan. Objective - Vital Signs Vital signs: Vital Signs Temp 97.9 F 11/22/18 08:00 Pulse 62 11/22/18 11:00 Resp 16 11/22/18 11:00 BP 90/58 11/22/18 04:16 Pulse Ox 91 L 11/22/18 11:00 Intake & Output 11/21/18 11/22/18 11/22/18 18:59 06:59 18:59 Intake Total 8963.481 6583.247 740 Output Total 0 700 1125 Balance 1335.686 947.247 -385 Weight 100.5 kg 100.5 kg Intake: IV 1032.7 1220 540 Sodium Chloride 0.9% 1, 200 1020 500 000 ml @ 100 mls/hr IV . Q10H TOSIN Rx#:[id number] TVP 200 40 Intake, IV Titration 62.986 327.247 Amount Dextrose/Water 1 250ml. 78.4 bag @ 3 MCG/KG/MIN 5.613 mls/hr IV .Q24H TOSIN with DOPamine DRIP 800 mg Rx#: [id number] Heparin Sod,Pork in 0.45% 57.833 NaCl 25,000 unit In 0.45 % NaCl 1 250ml.bag @ 500 UNIT/HR 5 mls/hr IV .Q24H ONE Rx#:[id number] Norepinephrine 4 mg In 62.986 191.014 Sodium Chloride 0.9% 250 ml @ 0.05 MCG/KG/MIN 19. 01 mls/hr IV .[id number] [facility] Rx#:[id number] Oral 240 100 200 Output: Urine 0 700 1125 Other: Voiding Method Toilet Urinal ABP, PAP, CO, CI - Last Documented Arterial Blood Pressure 93/32 - Exam PHYSICAL EXAMINATION: GENERAL: The patient is alert and oriented x3, not in any acute distress. Well developed, well nourished. HEENT: Pupils are round and equally reacting to light. EOMI. No scleral icterus. No conjunctival pallor. Normocephalic, atraumatic. No pharyngeal erythema. No thyromegaly. CARDIOVASCULAR: S1 and S2 present. No murmurs, rubs, or gallops. PULMONARY: Chest is clear to auscultation, no wheezing or crackles. ABDOMEN: Soft, nontender, nondistended, normoactive bowel sounds. No palpable organomegaly. MUSCULOSKELETAL: No joint swelling or deformity. EXTREMITIES: No cyanosis, clubbing, or pedal edema. NEUROLOGICAL: Gross neurological examination did not reveal any focal deficits. SKIN: No rashes. - Labs CBC & Chem 7: 11/22/18 05:51 11/22/18 05:51 Labs: Abnormal Lab Results - Last 24 Hours (Table) 11/21/18 11/22/18 11/22/18 Range/Units 18:22 05:51 05:51 Hgb 12.5 L (13.0-17.5) gm/dL RDW 15.9 H (11.5-15.5) % Sodium 136 L (137-145) mmol/L Carbon Dioxide 20 L (22-30) mmol/L Troponin I 0.335 H* (0.000-0.034) ng/mL HDL Cholesterol 35 L (40-60) mg/dL 11/22/18 Range/Units 05:51 Hgb (13.0-17.5) gm/dL RDW (11.5-15.5) % Sodium (137-145) mmol/L Carbon Dioxide (22-30) mmol/L Troponin I 14.100 H* (0.000-0.034) ng/mL HDL Cholesterol (40-60) mg/dL Assessment and Plan Plan: Chest pain: unstable angina, patient underwent stenting of proximal and ostial RCA clinically doing well -sinus bradycardia resolved now temporary pacemaker was removed dopamine was discontinued -Benign prostatic hypertrophy -Coronary artery disease with previous 6 stents in the past -Hyperlipidemia -Hypertension For above-mentioned chronic medical problems patient will be resumed and continued on appropriate home medications
--- NOTE | 2018-11-22 15:13 | P.PN ---
Subjective Progress Note Date: 11/22/18 On today's evaluation of the 2018, I'm seeing this patient for a follow-up. The patient doing well. Hemodynamically stable. The affect has been discontinued and the patient is currently on 3 mics of dopamine. Cardiac rhythm is sinus. Producing adequate amount of urine output. The patient a transvenous pacemaker through his right femoral vein which will be discontinued today. The patient has no chest pain. His troponins peaked at 14. No cough. No sputum production. No cardiac arrhythmias 2 no palpitation. Echocardiogram was limited his showed a preserved LV function. Noted the patient had a cardiac catheterization for a in-stent stenosis of the proximal RCA and stenosis of the ostial RCA. The patient underwent stenting of these vessels. No bradycardia for now. He is being monitored in the intensive care units. Objective - Vital Signs Vital signs: Vital Signs Temp 97.9 F 11/22/18 08:00 Pulse 62 11/22/18 11:00 Resp 16 11/22/18 11:00 BP 90/58 11/22/18 04:16 Pulse Ox 91 L 11/22/18 11:00 Intake & Output 11/21/18 11/22/18 11/22/18 18:59 06:59 18:59 Intake Total 4521.015 6633.247 740 Output Total 0 700 1125 Balance 1335.686 947.247 -385 Weight 100.5 kg 100.5 kg Intake: IV 1032.7 1220 540 Sodium Chloride 0.9% 1, 200 1020 500 000 ml @ 100 mls/hr IV . Q10H TOSIN Rx#:[id number] TVP 200 40 Intake, IV Titration 62.986 327.247 Amount Dextrose/Water 1 250ml. 78.4 bag @ 3 MCG/KG/MIN 5.613 mls/hr IV .Q24H TOSIN with DOPamine DRIP 800 mg Rx#: [id number] Heparin Sod,Pork in 0.45% 57.833 NaCl 25,000 unit In 0.45 % NaCl 1 250ml.bag @ 500 UNIT/HR 5 mls/hr IV .Q24H ONE Rx#:[id number] Norepinephrine 4 mg In 62.986 191.014 Sodium Chloride 0.9% 250 ml @ 0.05 MCG/KG/MIN 19. 01 mls/hr IV .[id number] TOSIN Rx#:[id number] Oral 240 100 200 Output: Urine 0 700 1125 Other: Voiding Method Toilet Urinal ABP, PAP, CO, CI - Last Documented Arterial Blood Pressure 93/32 - Constitutional Constitutional Comment(s): GENERAL EXAM: Alert, pleasant, 73-year-old white male, on room air, resting in bed, in the intensive care unit, and a reverse Trendelenburg comfortable in no apparent distress. HEAD: Normocephalic/atraumatic. EYES: Normal reaction of pupils, equal size. Conjunctiva pink, sclera white. NOSE: Clear with pink turbinates. THROAT: No erythema or exudates. NECK: No masses, no JVD, no thyroid enlargement, no adenopathy. CHEST: No chest wall deformity. Symmetrical expansion. LUNGS: Equal air entry with no crackles, wheeze, rhonchi or dullness. CVS: Regular rate and rhythm, normal S1 and S2, no gallops, no murmurs, no rubs ABDOMEN: Soft, nontender. No hepatosplenomegaly, normal bowel sounds, no guarding or rigidity. EXTREMITIES: No clubbing, no edema, no cyanosis, 2+ pulses and upper and lower extremities. Right groin transvenous pacemaker is in place, connected to an external pacemaker with VVI backup rate of 40, intrinsic rhythm is sinus rhythm with a rate of 70 MUSCULOSKELETAL: Muscle strength and tone normal. SPINE: No scoliosis or deformity SKIN: No rashes CENTRAL NERVOUS SYSTEM: Alert and oriented -3. No focal deficits, tone is normal in all 4 extremities. PSYCHIATRIC: Alert and oriented -3. Appropriate affect. Intact judgment and insight. - Labs CBC & Chem 7: 11/22/18 05:51 11/22/18 05:51 Labs: Abnormal Lab Results - Last 24 Hours (Table) 11/21/18 11/22/18 11/22/18 Range/Units 18:22 05:51 05:51 Hgb 12.5 L (13.0-17.5) gm/dL RDW 15.9 H (11.5-15.5) % Sodium 136 L (137-145) mmol/L Carbon Dioxide 20 L (22-30) mmol/L Troponin I 0.335 H* (0.000-0.034) ng/mL HDL Cholesterol 35 L (40-60) mg/dL 11/22/18 Range/Units 05:51 Hgb (13.0-17.5) gm/dL RDW (11.5-15.5) % Sodium (137-145) mmol/L Carbon Dioxide (22-30) mmol/L Troponin I 14.100 H* (0.000-0.034) ng/mL HDL Cholesterol (40-60) mg/dL Assessment and Plan Plan: #1. Coronary artery disease, in-stent restenosis of the proximal RCA, and stenosis of the ostial RCA. Patient underwent cardiac catheterization, with PCI of the proximal RCA, and PCI and stenting of the ostial RCA with drug-eluting stent #2. Acute non-STEMI with chest pain and the patient's troponin peaked at 14.1. The patient underwent cardiac catheterization and PCI of the proximal RCA and stenting of the ostial RCA with drug-eluting stents. #3. Symptomatic bradycardia, hypotension, requiring dopamine, Levophed, and transvenous placement. For now the levo fed has been discontinued. The patie nt is still on dopamine 3 mics. Transvenous pacemaker will be also pulled out today. A #4. Restenosis of the RCA in the setting of the non-ST elevated VT in July 2018 #5. PCI and stenting of the proximal, mid and distal portion of the RCA in May 2018 at [facility] #6. Hypertension #7. DysLipidemia #8. Lifetime nonsmoker Plan Wean off dopamine and discontinue. Discontinue the transvenous pacemaker. Echo of the heart was noted. Patient is doing well. The patient is asymptomatic. Continue aspirin. Continue Effient. Continue Zetia. No other issues for now. We'll continue to follow make further recommendations and the patient can be moved out of the intensive care unit and later stage after discontinuing the pressors and the pacemaker.
[2018-11-22] MEDS: DEXTROSE/WATER 1 250ML.BAG with DOPamine DRIP 800 MG IV SCH (15:33)
[2018-11-23] MEDS: ACETAMINOPHEN TAB 325 MG TAB PO PRN (03:37)
[2018-11-23 05:20] LABS: Anisocytosis Slight; Basophils # (A) 0.1 k/uL (0-0.2); Basophils % (A) 1 %; Eosinophils # (A) 0.2 k/uL (0-0.7); Eosinophils % (A) 3 %; HCT 38.5 % (39.0-53.0); HGB 12.4 gm/dL (13.0-17.5); Hypochromasia Slight; Lymphocytes # (A) 1.1 k/uL (1.0-4.8); Lymphocytes % (A) 12 %; MCH 27.3 pg (25.0-35.0); MCHC 32.2 g/dL (31.0-37.0); MCV 84.8 fL (80.0-100.0); Mean Platelet Volume 6.6; Monocytes # (A) 0.9 k/uL (0-1.0); Monocytes % (A) 10 %; Neutrophils # (A) 6.3 k/uL (1.3-7.7); Neutrophils % (A) 70 %; Platelet Count 251 k/uL (150-450); RBC 4.54 m/uL (4.30-5.90); RDW 16.6 % (11.5-15.5)
[2018-11-23 05:41] LABS: Calcium 8.7 mg/dL (8.4-10.2); Magnesium 2.1 mg/dL (1.6-2.3); Phosphorus 3.1 mg/dL (2.5-4.5); Potassium 4.2 mmol/L (3.5-5.1)
[2018-11-23] MEDS: NOREPINEPHRINE 4 MG in SODIUM CHLORIDE 0.9% 250 ML IV SCH ×2 (07:31→20:29)
[2018-11-23] MEDS: ASPIRIN 81 MG PO SCH (09:17)
[2018-11-23] MEDS: PRASUGREL 10 MG TAB PO SCH (09:17)
[2018-11-23] MEDS: EZETIMIBE 10 MG TAB PO SCH (09:18)
--- NOTE | 2018-11-23 15:09 | P.PN ---
Subjective Progress Note Date: 11/23/18 On today's evaluation of 11/23/2018, the patient is doing well. The patient is hemodynamically stable. The patient is off dopamine. No complaints. No chest pain. Troponins are declining. The patient is doing extremely well and has no complaints for now. He was having some difficulties with sleep due to his chronic restlessness. The patient has chronic restless leg syndrome. The patient's hemoglobin stable at 12.4. Rest of the blood work and electrodes are all within normal limits. Troponins downtrending is felt to 5.2. The LDL cholesterol is 15. Objective - Vital Signs Vital signs: Vital Signs Temp 97.9 F 11/23/18 12:00 Pulse 78 11/23/18 12:00 Resp 17 11/23/18 13:00 BP 133/75 11/23/18 12:00 Pulse Ox 99 11/23/18 12:00 Intake & Output 11/22/18 11/23/18 11/23/18 18:59 06:59 18:59 Intake Total 1400 0 Output Total 2125 2625 0 Balance -725 -2625 0 Weight 100.5 kg 98.9 kg Intake: IV 540 0 Sodium Chloride 0.9% 1, 500 0 000 ml @ 100 mls/hr IV . Q10H TOSIN Rx#:[id number] TVP 40 Intake, IV Titration 0 Amount Dextrose/Water 1 250ml. 0 bag @ 3 MCG/KG/MIN 5.613 mls/hr IV .Q24H TOSIN with DOPamine DRIP 800 mg Rx#: [id number] Oral 860 Output: Urine 1125 1425 0 Urine/Stool Mix 1000 1200 Other: Voiding Method Bedside Commode Bedside Commode Bedside Commode Urinal Urinal Urinal # Voids 1 1 2 # Bowel Movements 1 1 1 ABP, PAP, CO, CI - Last Documented Arterial Blood Pressure 93/32 - Exam GENERAL EXAM: Alert, pleasant, 73-year-old white male, on room air, resting in bed, in the intensive care unit HEAD: Normocephalic/atraumatic. EYES: Normal reaction of pupils, equal size. Conjunctiva pink, sclera white. NOSE: Clear with pink turbinates. THROAT: No erythema or exudates. NECK: No masses, no JVD, no thyroid enlargement, no adenopathy. CHEST: No chest wall deformity. Symmetrical expansion. LUNGS: Equal air entry with no crackles, wheeze, rhonchi or dullness. CVS: Regular rate and rhythm, normal S1 and S2, no gallops, no murmurs, no rubs ABDOMEN: Soft, nontender. No hepatosplenomegaly, normal bowel sounds, no guarding or rigidity. EXTREMITIES: No clubbing, no edema, no cyanosis, 2+ pulses and upper and lower extremities. MUSCULOSKELETAL: Muscle strength and tone normal. SPINE: No scoliosis or deformity SKIN: No rashes CENTRAL NERVOUS SYSTEM: Alert and oriented -3. No focal deficits, tone is normal in all 4 extremities. PSYCHIATRIC: Alert and oriented -3. Appropriate affect. Intact judgment and insight. - Labs CBC & Chem 7: 11/23/18 04:59 11/23/18 04:59 Labs: Abnormal Lab Results - Last 24 Hours (Table) 11/22/18 11/22/18 11/23/18 Range/Units 14:17 20:10 04:59 Hgb 12.4 L (13.0-17.5) gm/dL Hct 38.5 L (39.0-53.0) % RDW 16.6 H (11.5-15.5) % Chloride (98-107) mmol/L Troponin I 7.460 H* 5.210 H* (0.000-0.034) ng/mL 11/23/18 Range/Units 04:59 Hgb (13.0-17.5) gm/dL Hct (39.0-53.0) % RDW (11.5-15.5) % Chloride 108 H (98-107) mmol/L Troponin I (0.000-0.034) ng/mL Assessment and Plan Plan: #1. Coronary artery disease, in-stent restenosis of the proximal RCA, and stenosis of the ostial RCA. Patient underwent cardiac catheterization, with PCI of the proximal RCA, and PCI and stenting of the ostial RCA with drug-eluting stent #2. Acute non-STEMI with chest pain and the patient's troponin peaked at 14.1. The patient underwent cardiac catheterization and PCI of the proximal RCA and stenting of the ostial RCA with drug-eluting stents. #3. Symptomatic bradycardia, hypotension, requiring dopamine, Levophed, and transvenous placement, recovered and the patient's transvenous pacemaker has been removed. #4. Restenosis of the RCA in the setting of the non-ST elevated OR in July 2018 #5. PCI and stenting of the proximal, mid and distal portion of the RCA in May 2018 at [facility] #6. Hypertension #7. DysLipidemia #8. Lifetime nonsmoker Plan Patient is doing extremely well. Off pressors. Off dopamine. Hemodynamically stable. Transfer to telemetry unit.
--- NOTE | 2018-11-23 15:18 | P.PN ---
Subjective Patient came in with chest pain and underwent cardiac catheterization which showed in-stent stenosis of proximal RCA and stenosis of ostial RCA. She and underwent stenting of these 2 vessels. Patient is pain free had some bradycardia requiring dopamine . Patient is chest pain-free at this time. 11/22/2018 Patient is off dopamine drip heart rate is fairly stable at this time compared pacemaker was removed patient's sheaths were removed patient otherwise clinically doing well patient has troponin as high as 14 because of the patient is definitely high risk for ventricular arrhythmias close to his myocardial infarction because of which patient will be monitored tonight and maybe tomorrow 11/23/2018 next and patient is clinically doing well will be discharged. No overnight events Constitutional: Denied any fatigue denied any fever. Cardio vascular: denied any chest pain, palpitations Gastrointestinal denied any nausea vomiting Pulmonary: Denied any shortness of breath cough Neurologic denied any new focal deficits All inpatient medications were reviewed and appropriate changes in these medications as dictated in the interval history and assessment and plan. Objective - Vital Signs Vital signs: Vital Signs Temp 97.9 F 11/23/18 12:00 Pulse 78 11/23/18 12:00 Resp 15 11/23/18 15:00 BP 133/75 11/23/18 12:00 Pulse Ox 99 11/23/18 12:00 Intake & Output 11/22/18 11/23/18 11/23/18 18:59 06:59 18:59 Intake Total 1400 0 Output Total 2125 2625 0 Balance -725 -2625 0 Weight 100.5 kg 98.9 kg Intake: IV 540 0 Sodium Chloride 0.9% 1, 500 0 000 ml @ 100 mls/hr IV . Q10H TOSIN Rx#:[id number] TVP 40 Intake, IV Titration 0 Amount Dextrose/Water 1 250ml. 0 bag @ 3 MCG/KG/MIN 5.613 mls/hr IV .Q24H TOSIN with DOPamine DRIP 800 mg Rx#: [id number] Oral 860 Output: Urine 1125 1425 0 Urine/Stool Mix 1000 1200 Other: Voiding Method Bedside Commode Bedside Commode Bedside Commode Urinal Urinal Urinal # Voids 1 1 1 # Bowel Movements 1 1 1 ABP, PAP, CO, CI - Last Documented Arterial Blood Pressure 93/32 - Exam PHYSICAL EXAMINATION: GENERAL: The patient is alert and oriented x3, not in any acute distress. Well developed, well nourished. HEENT: Pupils are round and equally reacting to light. EOMI. No scleral icterus. No conjunctival pallor. Normocephalic, atraumatic. No pharyngeal erythema. No thyromegaly. CARDIOVASCULAR: S1 and S2 present. No murmurs, rubs, or gallops. PULMONARY: Chest is clear to auscultation, no wheezing or crackles. ABDOMEN: Soft, nontender, nondistended, normoactive bowel sounds. No palpable organomegaly. MUSCULOSKELETAL: No joint swelling or deformity. EXTREMITIES: No cyanosis, clubbing, or pedal edema. NEUROLOGICAL: Gross neurological examination did not reveal any focal deficits. SKIN: No rashes. - Labs CBC & Chem 7: 11/23/18 04:59 11/23/18 04:59 Labs: Abnormal Lab Results - Last 24 Hours (Table) 11/22/18 11/22/18 11/23/18 Range/Units 14:17 20:10 04:59 Hgb 12.4 L (13.0-17.5) gm/dL Hct 38.5 L (39.0-53.0) % RDW 16.6 H (11.5-15.5) % Chloride (98-107) mmol/L Troponin I 7.460 H* 5.210 H* (0.000-0.034) ng/mL 11/23/18 Range/Units 04:59 Hgb (13.0-17.5) gm/dL Hct (39.0-53.0) % RDW (11.5-15.5) % Chloride 108 H (98-107) mmol/L Troponin I (0.000-0.034) ng/mL Assessment and Plan Plan: Chest pain: unstable angina, patient underwent stenting of proximal and ostial RCA clinically doing well -sinus bradycardia resolved now temporary pacemaker was removed dopamine was discontinued -Benign prostatic hypertrophy -Coronary artery disease with previous 6 stents in the past -Hyperlipidemia -Hypertension For above-mentioned chronic medical problems patient will be resumed and continued on appropriate home medications
--- NOTE | 2018-11-23 17:42 | P.PN ---
Subjective Progress Note Date: 11/23/18 This is a 73-year-old gentleman with history of ischemic heart disease with previous stent placement was admitted to the hospital with unstable angina. Patient had a cardiac catheterization by Dr. SEBASTIAN Aguayo and had stent placement of the RCA. The procedure was complicated by total occlusion of the vessel for about 10-15 minutes before the flow was established. Patient is critically stable. Patient had a temporary pacemaker, which we're going to discontinue. Patient is also on dopamine which is being discontinued. Patient is clinically stable without any chest pain or shortness of breath. His maintaining sinus rhythm. His troponin went up to 14. His felt that patient had postprocedure [place] type III. We'll increase activity as tolerated. Venous and arterial sheaths were taken out. Temporary pacemaker wire was removed this morning. 11/23/2018: Patient is feeling much better. Denies any chest pain or shortness of breath. Hemodynamically stable. No arrhythmias detected. Tolerating a ctivity. His lungs are clear. Heart is regular. We'll increase his activity. He patient is stable. Possible discharge home in about 24-48 hours. His right groin is soft without any hematoma Objective - Vital Signs Vital signs: Vital Signs Temp 97.9 F 11/23/18 12:00 Pulse 78 11/23/18 12:00 Resp 15 11/23/18 15:00 BP 133/75 11/23/18 12:00 Pulse Ox 99 11/23/18 16:04 Intake & Output 11/22/18 11/23/18 11/23/18 18:59 06:59 18:59 Intake Total 1400 0 Output Total 2125 2625 0 Balance -725 -2625 0 Weight 100.5 kg 98.9 kg Intake: IV 540 0 Sodium Chloride 0.9% 1, 500 0 000 ml @ 100 mls/hr IV . Q10H TOSIN Rx#:[id number] TVP 40 Intake, IV Titration 0 Amount Dextrose/Water 1 250ml. 0 bag @ 3 MCG/KG/MIN 5.613 mls/hr IV .Q24H TOSIN with DOPamine DRIP 800 mg Rx#: [id number] Oral 860 Output: Urine 1125 1425 0 Urine/Stool Mix 1000 1200 Other: Voiding Method Bedside Commode Bedside Commode Bedside Commode Urinal Urinal Urinal # Voids 1 1 1 # Bowel Movements 1 1 1 ABP, PAP, CO, CI - Last Documented Arterial Blood Pressure 93/32 - Exam GENERAL EXAM: Patient is alert and oriented and doesn't appear to be in any acute distress HEENT: Normocephalic. Normal reaction of pupils, equal size, normal range of extraocular motion. No erythema or exudates in the throat. NECK: No masses, no nuchal rigidity. CHEST: No chest wall deformity. LUNGS: Equal air entry with no crackles or wheeze. HEART: S1 and S2 normal with no audible mumurs or gallops. Regular rhythm, femorals equal on both sides.. ABDOMEN: No hepatosplenomegaly, normal bowel sounds, no guarding or rigidity. SKIN: No rashes CENTRAL NERVOUS SYSTEM: No focal deficits. EXTREMITIES: No cyanosis, clubbing or edema. - Labs CBC & Chem 7: 11/23/18 04:59 11/23/18 04:59 Labs: Abnormal Lab Results - Last 24 Hours (Table) 11/22/18 11/23/18 11/23/18 Range/Units 20:10 04:59 04:59 Hgb 12.4 L (13.0-17.5) gm/dL Hct 38.5 L (39.0-53.0) % RDW 16.6 H (11.5-15.5) % Chloride 108 H (98-107) mmol/L Troponin I 5.210 H* (0.000-0.034) ng/mL Assessment and Plan (1) Coronary artery disease Current Visit: Yes Status: Acute Code(s): I25.10 - ATHSCL HEART DISEASE OF [place] CORONARY ARTERY W/O ANG PCTRS SNOMED Code(s): 42622518 (2) NSTEMI (non-ST elevated myocardial infarction) Current Visit: No Status: Acute Code(s): I21.4 - NON-ST ELEVATION (NSTEMI) MYOCARDIAL INFARCTION SNOMED Code(s): 01468791 (3) Hypertension Current Visit: Yes Status: Acute Code(s): I10 - ESSENTIAL (PRIMARY) HYPERTENSION SNOMED Code(s): 19001991 (4) Dyslipidemia Current Visit: Yes Status: Acute Code(s): E78.5 - HYPERLIPIDEMIA, UNSPECIFI ED SNOMED Code(s): 841118191 Plan: Patient is clinically doing well. Continue current medical therapy. Increase activity as tolerated. Possible discharge within next 24 hours
[2018-11-23] MEDS ORDERED: AMITRIPTYLINE HCL 50 MG TAB PO SCH (21:00)
--- NOTE | 2018-11-24 10:35 | P.DS ---
Providers Date of admission: 11/21/18 13:58 Attending physician: Anabel Hilliard Consults: 11/20/18 14:48 Consult Physician Urgent Consulting Provider: Cardiology Rasta Consult Reason/Comments: acute chest pain, possible acs, hx ascad Do you want consulting provider notified?: Yes 11/21/18 14:05 Consult Physician Routine Consulting Provider: Rossana Magdaleno Consult Reason/Comments: Post Interventional patient Do you want consulting provider notified?: Already Contacted 11/21/18 14:23 Consult Physician Routine Consulting Provider: Primitivo Miller Consult Reason/Comments: ICU management Do you want consulting provider notified?: Yes, Notify in am Primary care physician: [facility] Course: Patient came in with chest pain and underwent cardiac catheterization which showed in-stent stenosis of proximal RCA and stenosis of ostial RCA. She and underwent stenting of these 2 vessels. Patient is pain free had some bradycardia requiring dopamine . Patient is chest pain-free at this time. 11/22/2018 Patient is off dopamine drip heart rate is fairly stable at this time compared pacemaker was removed patient's sheaths were removed patient otherwise clinically doing well patient has troponin as high as 14 because of the patient is definitely high risk for ventricular arrhythmias close to his myocardial infarction because of which patient will be monitored tonight and maybe tomorrow 11/23/2018 next and patient is clinically doing well will be discharged. No overnight events 11/24/2018 Patient is being discharged today patient was admitted for non-ST elevation myocardial infarction patient is being discharged on lisinopril but not on beta barbara because of her bradycardia issues and patient needed the transvenous pacemaker and pressor support to bring up the heart rate. Patient underwent stenting of proximal and ostial RCA PHYSICAL EXAMINATION: GENERAL: The patient is alert and oriented x3, not in any acute distress. Well developed, well nourished. HEENT: Pupils are round and equally reacting to light. EOMI. No scleral icterus. No conjunctival pallor. Normocephalic, atraumatic. No pharyngeal erythema. No thyromegaly. CARDIOVASCULAR: S1 and S2 present. No murmurs, rubs, or gallops. PULMONARY: Chest is clear to auscultation, no wheezing or crackles. ABDOMEN: Soft, nontender, nondistended, normoactive bowel sounds. No palpable o rganomegaly. MUSCULOSKELETAL: No joint swelling or deformity. EXTREMITIES: No cyanosis, clubbing, or pedal edema. NEUROLOGICAL: Gross neurological examination did not reveal any focal deficits. SKIN: No rashes. Assessment and Plan Plan: Chest pain: unstable angina, patient underwent stenting of proximal and ostial RCA clinically doing well -sinus bradycardia resolved now temporary pacemaker was removed dopamine was discontinued -Benign prostatic hypertrophy -Coronary artery disease with previous 6 stents in the past -Hyperlipidemia -Hypertension Patient Condition at Discharge: Stable Plan - Discharge Summary Discharge Rx Participant: No New Discharge Prescriptions: New Amitriptyline HCl [Elavil] 50 mg PO HS tab Continue Prasugrel HCl 10 mg PO DAILY Lisinopril [Zestril] 40 mg PO DAILY Omeprazole 20 mg PO DAILY Aspirin EC [Ecotrin Low Dose] 81 mg PO DAILY Ezetimibe [Zetia] 10 mg PO DAILY #90 tab Nitroglycerin Sl Tabs [Nitrostat] 0.4 mg SUBLINGUAL Q5M PRN #25 tab PRN Reason: Chest Pain Discontinued amLODIPine [Norvasc] 10 mg PO DAILY Metoprolol Succinate (ER) [Toprol Xl] 50 mg PO DAILY Discharge Medication List Aspirin EC [Ecotrin Low Dose] 81 mg PO DAILY 07/14/18 [History] Lisinopril [Zestril] 40 mg PO DAILY 07/14/18 [History] Omeprazole 20 mg PO DAILY 07/14/18 [History] Prasugrel HCl 10 mg PO DAILY 07/14/18 [History] Ezetimibe [Zetia] 10 mg PO DAILY #90 tab 07/16/18 [Rx] Nitroglycerin Sl Tabs [Nitrostat] 0.4 mg SUBLINGUAL Q5M PRN #25 tab 07/16/18 [Rx] Amitriptyline HCl [Elavil] 50 mg PO HS tab 11/24/18 [Rx] Follow up Appointment(s)/Referral(s): Rubin Duran DO [Primary Care Provider] - 3 Days
[2018-11-24] MEDS: EZETIMIBE 10 MG TAB PO SCH (10:56)
[2018-11-24] MEDS: ASPIRIN 81 MG PO SCH (10:56)
[2018-11-24] MEDS: PRASUGREL 10 MG TAB PO SCH (10:57)
[2018-11-24] MEDS: NOREPINEPHRINE 4 MG in SODIUM CHLORIDE 0.9% 250 ML IV SCH (10:58)
--- NOTE | 2018-11-24 15:38 | P.PN ---
Subjective Progress Note Date: 11/24/18 This is a 73-year-old gentleman with history of ischemic heart disease with previous stent placement was admitted to the hospital with unstable angina. Patient had a cardiac catheterization by Dr. SEBASTIAN Aguayo and had stent placement of the RCA. The procedure was complicated by total occlusion of the vessel for about 10-15 minutes before the flow was established. Patient is critically stable. Patient had a temporary pacemaker, which we're going to discontinue. Patient is also on dopamine which is being discontinued. Patient is clinically stable without any chest pain or shortness of breath. His maintaining sinus rhythm. His troponin went up to 14. His felt that patient had postprocedure PR type III. We'll increase activity as tolerated. Venous and arterial sheaths were taken out. Temporary pacemaker wire was removed this morning. 11/23/2018: Patient is feeling much better. Denies any chest pain or shortness of breath. Hemodynamically stable. No arrhythmias detected. Tolerating a ctivity. His lungs are clear. Heart is regular. We'll increase his activity. He patient is stable. Possible discharge home in about 24-48 hours. His right groin is soft without any hematoma. 11/24/2018: This 72-year-old gentleman is admitted with chest pains and underwent stent placement of the right coronary artery. This was complicated by acute closure requiring prolonged period intervention. Patient did have some mild evidence of myocardial infarction with troponin value of 14. Patient has been stable over the last 2 days. Denies any chest pain, shortness of breath or dizziness. Tolerating activity. Patient is being discharged home. Follow-up with Dr. Leos is an outpatient. Objective - Vital Signs Vital signs: Vital Signs Temp 97.9 F 11/24/18 08:00 Pulse 73 11/24/18 08:00 Resp 18 11/24/18 08:00 BP 130/75 11/24/18 08:00 Pulse Ox 97 11/24/18 08:00 Intake & Output 11/23/18 11/24/18 11/24/18 18:59 06:59 18:59 Intake Total 600 Output Total 0 45 Balance 0 600 -45 Intake: Oral 600 Output: Urine 0 45 Other: Voiding Method Bedside Commode Bedside Commode Bedside Commode Urinal Urinal Urinal # Voids 2 0 1 # Bowel Movements 1 ABP, PAP, CO, CI - Last Documented Arterial Blood Pressure 93/32 - Exam GENERAL EXAM: Patient is alert and oriented and doesn't appear to be in any acute distress HEENT: Normocephalic. Normal reaction of pupils, equal size, normal range of extraocular motion. No erythema or exudates in the throat. NECK: No masses, no nuchal rigidity. CHEST: No chest wall deformity. LUNGS: Equal air entry with no crackles or wheeze. HEART: S1 and S2 normal with no audible mumurs or gallops. Regular rhythm, femorals equal on both sides.. ABDOMEN: No hepatosplenomegaly, normal bowel sounds, no guarding or rigidity. SKIN: No rashes CENTRAL NERVOUS SYSTEM: No focal deficits. EXTREMITIES: No cyanosis, clubbing or edema. - Labs CBC & Chem 7: 11/23/18 04:59 11/23/18 04:59 Assessment and Plan (1) Coronary artery disease Current Visit: Yes Status: Acute Code(s): I25.10 - ATHSCL HEART DISEASE OF [place] CORONARY ARTERY W/O ANG PCTRS SNOMED Code(s): 61970711 (2) NSTEMI (non-ST elevated myocardial infarction) Current Visit: No Status: Acute Code(s): I21.4 - NON-ST ELEVATION (NSTEMI) MYOCARDIAL INFARCTION SNOMED Code(s): 01940602 (3) Hypertension Current Visit: Yes Status: Acute Code(s): I10 - ESSENTIAL (PRIMARY) HYPERTENSION SNOMED Code(s): 25132989 (4) Dyslipidemia Current Visit: Yes Status: Acute Code(s): E78.5 - HYPERLIPIDEMIA, UNSPECIFIED SNOMED Code(s): 422342062 Plan: Patient is critically stable and progressing well. Being discharged home
[2018-11-24 15:45] VITALS: BP 129/80; PULSE 82; RESP 14; TEMP 97.2
--- NOTE | 2018-11-24 18:10 | ECHOF ---
Referral Reason:RV infarct ? Full study please MEASUREMENTS -------- HEIGHT: 182.9 cm WEIGHT: 98.9 kg BP: RVIDd: 3.1 cm (< 3.3) IVSd: 1.4 cm (0.6 - 1.1) LVIDd: 4.3 cm (3.9 - 5.3) LVPWd: 1.5 cm (0.6 - 1.1) IVSs: 1.7 cm LVIDs: 1.9 cm LVPWs: 2.2 cm LAESV Index (A-L): 21.44 ml/m Ao Diam: 3.6 cm (2.0 - 3.7) AV Cusp: 2.2 cm (1.5 - 2.6) LA Diam: 3.7 cm (2.7 - 3.8) MV EXCURSION: 15.662 mm (> 18.000) MV EF SLOPE: 87 mm/s (70 - 150) EPSS: 0.9 cm MV E Pancho: 0.73 m/s MV DecT: 227 ms MV A Pancho: 0.95 m/s MV E/A Ratio: 0.77 AR PHT: 565 ms RAP: 5.00 mmHg RVSP: 24.34 mmHg FINDINGS -------- Sinus rhythm. This was a technically good study. The left ventricular size is normal. There is moderate concentric left ventricular hypertrophy. O verall left ventricular systolic function is low-normal with, an EF between 50 - 55 %. Basal inferi or LV wall motion is hypokinetic. The right ventricle is normal in size. Normal LA size by volume 22+/-6 ml/m2. The right atrial size is normal. Interatrial and interventricular septum intact. The aortic valve is trileaflet and appears structurally normal. There is mild aortic regurgitation. The mitral valve leaflets are mildly thickened. Mild mitral regurgitation is present. Mild tricuspid regurgitation present. There is no evidence of pulmonary hypertension. The right v entricular systolic pressure, as measured by Doppler, is 24.34mmHg. There is no pulmonic regurgitation present. The aortic root size is normal. Normal inferior vena cava with normal inspiratory collapse consistent with estimated right atrial pre ssure of 5 mmHg. There is no pericardial effusion. CONCLUSIONS -------- 1. Sinus rhythm. 2. This was a technically good study. 3. The left ventricular size is normal. 4. There is moderate concentric left ventricular hypertrophy. 5. Overall left ventricular systolic function is low-normal with, an EF between 50 - 55 %. 6. Basal inferior LV wall motion is hypokinetic. 7. Normal LA size by volume 22+/-6 ml/m2. 8. The aortic valve is trileaflet and appears structurally normal. 9. There is mild aortic regurgitation. 10. The mitral valve leaflets are mildly thickened. 11. Mild mitral regurgitation is present. 12. Mild tricuspid regurgitation present. 13. There is no evidence of pulmonary hypertension. 14. There is no pulmonic regurgitation present. 15. The aortic root size is normal. 16. Normal inferior vena cava with normal inspiratory collapse consistent with estimated right atrial pressure of 5 mmHg. 17. There is no pericardial effusion. CREATIVE SERVICES MANAGER: Mckenzie Hess RDCS
== END 2018-11-25 06:53 | disposition home or self-care (01) | DRG 247 ==
LOC: EC 11:35 → 1SOBS 14:44 → 3SCARD 11-21 12:51 → 2SICU 11-21 13:53 → OBSVTOIN 11-21 13:58
PROVIDERS: ADMIT Internal Medicine; ATTEND Internal Medicine
PROC: 5A1223Z Performance of Cardiac Pacing, Continuous (ICD-10-PCS; 2018-11-21)
PROC: 027034Z Dilation of Coronary Artery, One Artery with Drug-eluting Intraluminal Device, Percutaneous Approach (ICD-10-PCS; principal; 2018-11-21 12:20)
PROC: 4A023N7 Measurement of Cardiac Sampling and Pressure, Left Heart, Percutaneous Approach (ICD-10-PCS; 2018-11-21 12:20)
PROC: B2111ZZ Fluoroscopy of Multiple Coronary Arteries using Low Osmolar Contrast (ICD-10-PCS; 2018-11-21 12:20)
DX: I21.4 Non-ST elevation (NSTEMI) myocardial infarction (principal); T82.855A Stenosis of coronary artery stent, initial encounter; I45.2 Bifascicular block; I45.10 Unspecified right bundle-branch block; I25.110 Atherosclerotic heart disease of native coronary artery with unstable angina pectoris; I95.9 Hypotension, unspecified; I08.3 Combined rheumatic disorders of mitral, aortic and tricuspid valves; R00.1 Bradycardia, unspecified; N40.0 Benign prostatic hyperplasia without lower urinary tract symptoms; E78.5 Hyperlipidemia, unspecified; I10 Essential (primary) hypertension; G25.81 Restless legs syndrome; I25.2 Old myocardial infarction; Z79.82 Long term (current) use of aspirin; Z79.02 Long term (current) use of antithrombotics/antiplatelets; Z85.46 Personal history of malignant neoplasm of prostate; Z79.899 Other long term (current) drug therapy; Z88.5 Allergy status to narcotic agent; Z88.2 Allergy status to sulfonamides; Z88.8 Allergy status to other drugs, medicaments and biological substances; Z82.49 Family history of ischemic heart disease and other diseases of the circulatory system; Y83.1 Surgical operation with implant of artificial internal device as the cause of abnormal reaction of the patient, or of later complication, without mention of misadventure at the time of the procedure
CPT/HCPCS: 33210; 36415; 71046; 80048; 80053; 80061; 83735; 83880; 84100; 84484; 85025; 85610; 85730; 93005; 93306; 93308; 93458; 99285; C1874

== ENCOUNTER 2019-02-16 10:28 | Inpatient (IN) | payer MEDICARE ==
--- NOTE | 2019-02-16 11:25 | ED ---
General Adult HPI - General Chief complaint: Chest Pain Stated complaint: chest tightness Time Seen by Provider: 02/16/19 10:35 Source: patient, RN notes reviewed Mode of arrival: ambulatory Limitations: no limitations - History of Present Illness Initial comments: This a 73-year-old male who presents emergency Department complaining of shortness of breath and tightness across his chest. Patient states this tightness is similar to the tightness he has experienced in the past when he has had a heart attack. Patient states she's also had malfunctioning of his stents since May and has the same symptoms as he had been. Patient denies any diaphoretic episodes. Patient denies any radiation of the pain. Patient denies any nausea. Patient denies abdominal pain patient denies any lightheadedness dizziness or near syncopal episode. Patient denies any swelling to the legs or calf tenderness. - Related Data Home Medications Medication Instructions Recorded Confirmed Aspirin EC [Ecotrin Low Dose] 81 mg PO DAILY 07/14/18 02/16/19 Lisinopril [Zestril] 40 mg PO DAILY 07/14/18 02/16/19 Omeprazole 20 mg PO DAILY 07/14/18 02/16/19 Prasugrel HCl 10 mg PO DAILY 07/14/18 02/16/19 Metoprolol Succinate [Toprol XL] 50 mg PO DAILY 02/16/19 02/16/19 amLODIPine [Norvasc] 10 mg PO DAILY 02/16/19 02/16/19 Previous Rx's Medication Instructions Recorded Ezetimibe [Zetia] 10 mg PO DAILY #90 tab 07/16/18 Nitroglycerin Sl Tabs [Nitrostat] 0.4 mg SUBLINGUAL Q5M PRN #25 tab 07/16/18 Amitriptyline HCl [Elavil] 50 mg PO HS tab 11/24/18 Allergies Allergy/AdvReac Type Severity Reaction Status Date / Time Sulfa (Sulfonamide Allergy Rash/Hives Verified 02/16/19 10:56 Antibiotics) ibuprofen [From Motrin] AdvReac Kidney Verified 02/16/19 10:56 issues morphine AdvReac Hallucinati Verified 02/16/19 10:56 ons Review of Systems ROS Statement: Those systems with pertinent positive or pertinent negative responses have been documented in the HPI. ROS Other: All systems not noted in ROS Statement are negative. Past Medical History Past Medical History: Coronary Artery Disease (CAD), Cancer, Chest Pain / Angina, Prostate Disorder Additional Past Medical History / Comment(s): prostate cancer, 3 stents History of Any Multi-Drug Resistant Organisms: None Reported Past Surgical History: Heart Catheterization With Stent, Hernia Repair, Prostate Surgery Past Anesthesia/Blood Transfusion Reactions: No Reported Reaction Date of Last Stent Placement:: july 2018 Past Psychological History: No Psychological Hx Reported Smoking Status: Never smoker Past Alcohol Use History: None Reported Past Drug Use History: None Reported - Past Family History Father Family Medical History: Coronary Artery Disease (CAD), Myocardial Infarction (MA) General Exam - General Exam Comments Initial Comments: GENERAL: Patient is well-developed and well-nourished. Patient is nontoxic and well- hydrated and is in mild distress. ENT: Neck is soft and supple. No significant lymphadenopathy is noted. Oropharynx is clear. Moist mucous membranes. Neck has full range of motion without eliciting any pain. EYES: The sclera were anicteric and conjunctiva were pink and moist. Extraocular movements were intact and pupils were equal round and reactive to light. Eyeli ds were unremarkable. PULMONARY: Unlabored respirations. Good breath sounds bilaterally. No audible rales rhonchi or wheezing was noted. CARDIOVASCULAR: There is a regular rate and rhythm without any murmurs gallops or rubs. ABDOMEN: Soft and nontender with normal bowel sounds. No palpable organomegaly was noted. There is no palpable pulsatile mass. SKIN: Skin is clear with no lesions or rashes and otherwise unremarkable. NEUROLOGIC: Patient is alert and oriented x3. Cranial nerves II through XII are grossly intact. Motor and sensory are also intact. Normal speech, volume and content. Symmetrical smile. MUSCULOSKELETAL: Normal extremities with adequate strength and full range of motion. No lower extremity swelling or edema. No calf tenderness. LYMPHATICS: No significant lymphadenopathy is noted PSYCHIATRIC: Normal psychiatric evaluation. Limitations: no limitations Course Vital Signs 02/16/19 02/16/19 10:34 12:15 Temperature 98.5 F 98.1 F Pulse Rate 101 H 86 Respiratory 18 18 Rate Blood Pressure 158/87 131/84 O2 Sat by Pulse 97 97 Oximetry Medical Decision Making - Medical Decision Making EKG shows normal sinus rhythm at 95 bpm AK interval is 190 QRS is 140 QT interval 382 QTC is 480. Patient's EKG shows no ST segment elevation or depression or T wave abnormalities are noted. Patient does have T-wave inve rsions in leads V1 and V2 V3 and V4. Chest x-ray shows no acute normalities. I started the patient heparin secondary to the patient's unstable angina. I consult to cardiology. I admitted the patient to Dr. Toscano he agreed to accept the admission I wrote admitting orders. 2 heparin and aspirin and Nitropaste on the floor. I spoke with Dr. Baker she did agree to start the patient on heparin and wanted the patient to have an echo. I ordered the echo. - Lab Data Result diagrams: 02/16/19 10:50 02/16/19 10:50 Lab Results 02/16/19 02/16/19 02/16/19 Range/Units 10:50 10:50 10:50 WBC 5.5 (3.8-10.6) k/uL RBC 5.32 (4.30-5.90) m/uL Hgb 14.0 (13.0-17.5) gm/dL Hct 44.9 (39.0-53.0) % MCV 84.3 (80.0-100.0) fL MCH 26.3 (25.0-35.0) pg MCHC 31.2 (31.0-37.0) g/dL RDW 16.5 H (11.5-15.5) % Plt Count 302 (150-450) k/uL Neutrophils % 72 % Lymphocytes % 12 % Monocytes % 8 % Eosinophils % 3 % Basophils % 1 % Neutrophils # 4.0 (1.3-7.7) k/uL Lymphocytes # 0.7 L (1.0-4.8) k/uL Monocytes # 0.4 (0-1.0) k/uL Eosinophils # 0.2 (0-0.7) k/uL Basophils # 0.1 (0-0.2) k/uL Hypochromasia Slight Anisocytosis Slight PT 10.4 (9.0-12.0) sec INR 1.0 (<1.2) APTT 25.8 (22.0-30.0) sec Sodium 140 (137-145) mmol/L Potassium 4.5 (3.5-5.1) mmol/L Chloride 104 (98-107) mmol/L Carbon Dioxide 23 (22-30) mmol/L Anion Gap 13 mmol/L BUN 13 (9-20) mg/dL Creatinine 1.28 H (0.66-1.25) mg/dL Est GFR (CKD-EPI)AfAm 64 (>60 ml/min/1.73 sqM) Est GFR (CKD-EPI)NonAf 55 (>60 ml/min/1.73 sqM) Glucose 160 H (74-99) mg/dL Calcium 9.0 (8.4-10.2) mg/dL Magnesium 1.9 (1.6-2.3) mg/dL Total Bilirubin 0.4 (0.2-1.3) mg/dL AST 29 (17-59) U/L ALT 16 L (21-72) U/L Alkaline Phosphatase 76 (38-126) U/L Troponin I (0.000-0.034) ng/mL Total Protein 7.8 (6.3-8.2) g/dL Albumin 4.4 (3.5-5.0) g/dL 02/16/19 Range/Units 10:50 WBC (3.8-10.6) k/uL RBC (4.30-5.90) m/uL Hgb (13.0-17.5) gm/dL Hct (39.0-53.0) % MCV (80.0-100.0) fL MCH (25.0-35.0) pg MCHC (31.0-37.0) g/dL RDW (11.5-15.5) % Plt Count (150-450) k/uL Neutrophils % % Lymphocytes % % Monocytes % % Eosinophils % % Basophils % % Neutrophils # (1.3-7.7) k/uL Lymphocytes # (1.0-4.8) k/uL Monocytes # (0-1.0) k/uL Eosinophils # (0-0.7) k/uL Basophils # (0-0.2) k/uL Hypochromasia Anisocytosis PT (9.0-12.0) sec INR (<1.2) APTT (22.0-30.0) sec Sodium (137-145) mmol/L Potassium (3.5-5.1) mmol/L Chloride (98-107) mmol/L Carbon Dioxide (22-30) mmol/L Anion Gap mmol/L BUN (9-20) mg/dL Creatinine (0.66-1.25) mg/dL Est GFR (CKD-EPI)AfAm (>60 ml/min/1.73 sqM) Est GFR (CKD-EPI)NonAf (>60 ml/min/1.73 sqM) Glucose (74-99) mg/dL Calcium (8.4-10.2) mg/dL Magnesium (1.6-2.3) mg/dL Total Bilirubin (0.2-1.3) mg/dL AST (17-59) U/L ALT (21-72) U/L Alkaline Phosphatase (38-126) U/L Troponin I <0.012 (0.000-0.034) ng/mL Total Protein (6.3-8.2) g/dL Albumin (3.5-5.0) g/dL Critical Care Time Critical Care Time: Yes Total Critical Care Time: 35 Disposition Clinical Impression: Unstable angina pectoris Disposition: ADMITTED IP TO THIS HOSP Referrals: Rubin Duran DO [Primary Care Provider] - 1-2 days Time of Disposition: 12:35
[2019-02-16 11:37] LABS: Anisocytosis Slight; Basophils # (A) 0.1 k/uL (0-0.2); Basophils % (A) 1 %; Eosinophils # (A) 0.2 k/uL (0-0.7); Eosinophils % (A) 3 %; HCT 44.9 % (39.0-53.0); Hypochromasia Slight; Lymphocytes # (A) 0.7 k/uL (1.0-4.8); Lymphocytes % (A) 12 %; MCH 26.3 pg (25.0-35.0); MCHC 31.2 g/dL (31.0-37.0); MCV 84.3 fL (80.0-100.0); Mean Platelet Volume 6.7; Monocytes # (A) 0.4 k/uL (0-1.0); Monocytes % (A) 8 %; Neutrophils % (A) 72 %; Platelet Count 302 k/uL (150-450); RBC 5.32 m/uL (4.30-5.90); RDW 16.5 % (11.5-15.5); WBC 5.5 k/uL (3.8-10.6)
--- NOTE | 2019-02-16 11:39 | XR ---
EXAMINATION TYPE: XR chest 2V DATE OF EXAM: 02/16/2019 COMPARISON: 11/20/2018 HISTORY: 73-year-old male with chest pain TECHNIQUE: PA and lateral views FINDINGS: Heart normal size. Mild interstitial prominence is unchanged. Some strandy right basilar atelectasis. Similar ectatic appearance to the ascending aorta. No consolidation or pleural effusion. 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 Otherwise, chronic changes withou t acute cardiopulmonary process.
[2019-02-16 11:42] LABS: Partial Thromboplastin Time 25.8 sec (22.0-30.0); Prothrombin Time 10.4 sec (9.0-12.0)
[2019-02-16 11:45] LABS: Albumin 4.4 g/dL (3.5-5.0); Potassium 4.5 mmol/L (3.5-5.1); Total Bilirubin 0.4 mg/dL (0.2-1.3); Total Protein 7.8 g/dL (6.3-8.2)
[2019-02-16 11:54] LABS: Magnesium 1.9 mg/dL (1.6-2.3)
[2019-02-16] MEDS ORDERED: HEPARIN SODIUM,PORCINE 5,000 UNIT/ML 1 ML VIAL IV ONE (12:36)
[2019-02-16] MEDS ORDERED: NITROGLYCERIN SL TABS 0.4 MG TAB SUBLINGUAL PRN ×3 (12:38→15:58)
[2019-02-16] MEDS ORDERED: HEPARIN SOD,PORK IN 0.45% NACL 25,000 UNIT in 0.45% NACL 1 250ML.BAG IV SCH (12:45)
[2019-02-16] MEDS ORDERED: ASPIRIN 325 MG TAB PO STA (14:14)
[2019-02-16] MEDS ORDERED: ALPRAZolam 0.5 MG TAB PO PRN (14:14)
[2019-02-16] MEDS ORDERED: SODIUM CHLORIDE 0.9% 1,000 ML in EMPTY BAG 1 BAG IV ONE (14:14)
[2019-02-16] MEDS ORDERED: ATORVASTATIN 80 MG TAB PO STA (14:14)
[2019-02-16] MEDS ORDERED: ALPRAZolam 0.25 MG TAB PO PRN (14:14)
--- NOTE | 2019-02-16 15:21 | CONS ---
CONSULTATION Mr. Marley is a 73-year-old gentleman who came to the emergency room with a complaint of chest tightness and shortness of breath. This patient gives a history that this morning he started having tightness in the chest and shortness of breath. The symptoms were similar to when he came with right coronary artery occlusion in the past. The patient denies any significant sweating, nausea, vomiting. He continued to have this dull aching pain for several hours. At present he is comfortable; may be complaining of mild discomfort at present. This patient initially had a stent placed in the right coronary artery at [facility]. Subsequently in July patient had a stent done by Dr. Nunez, and in November patient again came with inferior wall NV and had a further stent done. He had been doing fairly well since then until this morning. HOME MEDICATIONS: Patient's home medications include: 1. Zestril. 2. Omeprazole. 3. Effient 10 mg daily. 4. Toprol-XL 50 mg daily. 5. Norvasc once a day. 6. Zetia 10 mg daily. 7. Amitriptyline (Elavil) 50 mg daily. REVIEW OF SYSTEMS: Otherwise unremarkable. PAST MEDICAL HISTORY: Past medical history includes: 1. Cardiac catheterization. 2. Prior history of a stent. 3. Hernia repair. 4. Prostate surgery. SMOKING HISTORY: Patient was never a smoker. PHYSICAL EXAMINATION: Physical examination at present reveals a 73-year-old gentleman who currently is not in any acute distress. The patient's blood pressure is 131/84 mmHg. Oxygen saturation is 97%. Heart rate is 86 per minute. Head/ENT examination is negative. Neck is supple. There is no increase in jugular venous pressure. Both the carotid pulses are felt. HEART: First and second heart sounds are normal. Lungs are clinically clear to auscultation and percussion. Abdomen is negative. EXTREMITIES: Peripheral pulsations are 2+. EKG shows normal sinus rhythm with a right bundle branch block pattern and patient has T-wave inversions in V1 to V4. This EKG is similar to the EKG done last November when patient presented with acute coronary syndrome. Patient's initial troponin is normal. Patient's electrolytes are normal. Creatinine is 1.20. Patient's blood sugar is 160. ALT is 16. FINAL IMPRESSION: This patient is admitted with symptoms suggestive of unstable angina. The patient's EKG shows T-wave inversions in V1 to V4, which is similar to the EKG when he presented last time with acute coronary syndrome. In view of the prolonged episode of chest discomfort, patient is advised further evaluation with a cardiac catheterization to rule out acute or subacute stent thrombosis. This was discussed with the patient. I also discussed this with Dr. Nunez, and the patient will be taken to the supervisor laboratory animal facility in a few hours. I am not exactly sure why this patient is not on a statin. We will discuss with the patient after the procedure. MMODL / IJN: [id number] /
[2019-02-16] MEDS ORDERED: VERAPAMIL 2.5 MG/ML 2 ML AMP ONE (16:48)
[2019-02-16] MEDS ORDERED: LIDOCAINE 1% INJ 10MG/ML (20 ML MDV) ONE (16:48)
[2019-02-16] MEDS ORDERED: fentaNYL (PF) 50 MCG/ML 2 ML AMP ONE (16:49)
[2019-02-16] MEDS ORDERED: fentaNYL (PF) 50 MCG/ML 2 ML AMP IV ONE (17:14)
[2019-02-16] MEDS ORDERED: LIDOCAINE 1% INJ 10MG/ML (20 ML MDV) SQ ONE (17:18)
[2019-02-16] MEDS ORDERED: IOPAMIDOL-370 125ML BTL INJ ONE (17:29)
[2019-02-16] MEDS ORDERED: IV FLUID CONTINUATION 500 ML IV ONE (17:30)
[2019-02-16] MEDS ORDERED: RX INFO: IV CONTRAST WAS GIVEN 1 EACH MISC MISCELLANE PRN (17:41)
[2019-02-16] MEDS ORDERED: SODIUM CHLORIDE 0.9% 1,000 ML IV SCH (17:45)
--- NOTE | 2019-02-16 17:45 | HP ---
HISTORY AND PHYSICAL DATE OF SERVICE: 02/16/2019 CHIEF COMPLAINT: Chest pain. HISTORY OF PRESENT ILLNESS: This 73-year-old gentleman with a past medical history of multiple medical problems, including history of CAD, multiple stents, history of prostate disorder, prostate cancer, history of hernia repair, being followed by Dr. Rubin Duran in the outpatient setting, has also seen Dr. Nunez. The patient was complaining of chest pain and tightness felt in the anterior part of chest as well as shortness of breath. The patient came to [facility] and was admitted for further evaluation and treatment. The troponins are negative. EKG showed right bundle blockage with a left block. There is no history of any fever, rigor or chills. No history of headache, loss of consciousness, seizures. PAST MEDICAL HISTORY: 1. History of CAD, stent. 2. History of chest pain. 3. Prostate cancer. 4. Three stents. HOME MEDICATIONS: 1. Norvasc 10 mg p.o. daily. 2. Prasugrel 10 mg p.o. daily. 3. Omeprazole 20 mg daily. 4. Nitrostat 0.4 sublingually q.5 p.r.n. 5. Toprol-XL 50 mg p.o. daily. 6. Zestril 40 mg p.o. daily. 7. Zetia 10 mg p.o. daily. 8. Ecotrin 81 mg daily. 9. Elavil 50 mg at bedtime. ALLERGIES: 1. SULFA. 2. IBUPROFEN. 3. MORPHINE. FAMILY HISTORY: History of CAD, myocardial infarction. SOCIAL HISTORY: No history of smoking. No history of alcohol intake. REVIEW OF SYSTEMS: ENT: No diminished hearing. No diminished vision. CARDIOVASCULAR SYSTEM: As mentioned earlier. RESPIRATORY SYSTEM: As mentioned earlier. GI: No nausea, vomiting. : No dysuria or retention. NERVOUS SYSTEM: No numbness, weakness. ALLERGY/IMMUNOLOGY: No asthma, hayfever. MUSCULOSKELETAL: As mentioned earlier. HEMATOLOGY/ONCOLOGY: No history of anemia. ENDOCRINE: No history of diabetes, hypothyroidism. CONSTITUTIONAL: As mentioned earlier. DERMATOLOGY: Negative. RHEUMATOLOGY: Negative. PSYCHIATRY: As mentioned earlier. PHYSICAL EXAMINATION: Patient is alert and oriented x3. Pulse is 72, blood pressure 122/73, respiration 18, temperature 98.1, pulse ox 96% on room air. HEENT: Conjunctivae normal. Oral mucosa moist. NECK: No jugular venous distention. No carotid bruit. No lymph node enlargement. CARDIOVASCULAR SYSTEM: S1, S2 muffled. No S3. No S4. RESPIRATORY SYSTEM: Breath sounds diminished at the bases. A few rhonchi. No crackles. ABDOMEN: Soft, non-tender. No mass palpable. LEGS: No edema. No swelling. NERVOUS SYSTEM: Higher functions as mentioned earlier. Moves all 4 limbs. No focal motor or sensory deficit. LYMPHATICS: No lymph node palpable in neck, axillae or groin. SKIN: No ulcer, rash, bleeding. JOINTS: No active deforming arthropathy. LABS: WBC 5.5, hemoglobin 14. Creatinine 1.8. ASSESSMENT: 1. Chest pain; possible unstable angina. 2. History of previous myocardial infarction and multiple stents. 3. Increased creatinine with chronic kidney disease, stage III. 4. History of prostate cancer with 3 stents. 5. History of hernia repair. 6. History of prostate surgery. RECOMMENDATIONS AND DISCUSSION: In this 73-year-old gentleman who presented with multiple medical issues, we will monitor the patient closely, continue the current management, continue with symptomatic treatment. Cardiology consultation. Otherwise, possible cardiac catheterization. The patient had EKG changes. Continue the rest of the medications. Guarded prognosis. Further recommendations to follow. IV fluids. Monitor creatinine closely. A copy of this dictation is being forwarded to Dr. Rubin Duran, who is the primary physician. MMMARCL / JHN: [id number] / MTDD
[2019-02-16] MEDS ORDERED: NITROGLYCERIN OINT 1 INCH/GM PACKET TOPICAL SCH (18:00)
[2019-02-16 18:10] VITALS: BMI 30.7
[2019-02-16 19:19] LABS: Appearance,Urine Clear (Clear); Bilirubin,Urine Negative (Negative); Blood,Urine Trace (Negative); Color,Urine Light Yellow; Glucose,Urine (UA) Negative (Negative); Ketones,Urine Negative (Negative); Leukocyte Esterase,Urine Negative (Negative); Nitrite,Urine Negative (Negative); Protein,Urine Negative (Negative); RBC,Urine 10 /hpf (0-5); Specific Gravity,Urine 1.023 (1.001-1.035); Urobilinogen,Urine <2.0 mg/dL (<2.0); WBC,Urine <1 /hpf (0-5)
[2019-02-16] MEDS: AMITRIPTYLINE HCL 50 MG TAB PO SCH (20:13)
--- NOTE | 2019-02-17 02:49 | CC ---
CARDIAC CATHETERIZATION REPORT Mr. Marley is a 73-year-old male with known history of hypertension, hyperlipidemia, history of multiple stenting done in the right coronary artery starting in May of 2018 in [facility] where he had 3 stents in the RCA within close proximity time bradley on 3 different occasions. Subsequently he presented in July to [facility] and underwent stenting of the RCA again and again in November of this year. He presents with symptoms of chest tightness that was brief and subsequently resolved, but because of his prior history and after evaluation by Dr. Kings Mcclendon, recommendation made regarding cardiac catheterization. The procedure as well as risks and complications were discussed with the patient who is in full understanding and agreement. DESCRIPTION OF PROCEDURE: Patient was brought to the qc lab technician in a fasting state after receiving fentanyl and Benadryl and achieving moderate conscious sedated state. Using Xylocaine anesthesia and Seldinger technique, a 6-Namibian sheath was introduced in the right femoral artery. Selective right and left coronary angiography were performed using 6-Namibian 4 bend right and left Sujit catheter. Multiple views of the coronary artery including hemiaxial views obtained. Following that, a 6-Namibian tight pigtail catheter was left ventricle and pressures were calculated. Following that, catheter and sheath were removed. Hemostasis was obtained with deployment of an Angio-Seal. There was no immediate complication. Patient is returned to his room in stable condition. FINDINGS: FLUOROSCOPY: There was severe calcification involving the LAD as well as the RCA. SELECTIVE CORONARY ANGIOGRAPHY: Left main: This is a large-sized vessel, bifurcating into the left circumflex, left anterior descending artery. The left main coronary artery has a 20 to 30% plaque in the mid segment. The rest of the vessel has no high-grade stenosis. Left anterior descending artery: This is a large-sized vessel. Tapers down distal third, giving rise to a large diagonal branch. The left anterior descending artery after the takeoff of the first diagonal branch has a tubular lesion of 60%. The diagonal branch has an area of stenosis of 60 to 70% as well. The rest of the vessel distally has no high-grade stenosis. There is an LAD plaque of about 30 percent prior to the bifurcation of the diagonal branch. Left circumflex: This is a nondominant vessel giving rise to a large obtuse marginal branch. The left circumflex obtuse marginal branch has a 30% plaque. The rest of the vessel has no high-grade stenosis. RIGHT CORONARY ARTERY: This is a large dominant vessel bifurcating distally PDA and posterolateral segment and branches. The proximal stented segment from the ostium is noted. The proximal segment has a 40% restenosis and there is another area of restenosis involving the mid right coronary artery of up to 50%. Distally, the vessel has no evidence of high-grade stenosis. LEFT VENTRICULOGRAM: Left ventriculogram is not performed. HEMODYNAMICS: There was no gradient across the aortic valve. The left ventricle end-diastolic pressure was 48 mmHg. CONCLUSION: 1. Calcified coronary arteries. 2. Moderate disease in the stented segment of the RCA in the proximal segment as well as the mid segment. 3. Moderate disease in the LAD and diagonal branch. 4. Mild disease in the left circumflex. RECOMMENDATIONS: In view of findings and anatomy, I would recommend continued medical therapy at this time. I see no evidence of significant stenosis, but the patient will need to be evaluated for progress because of the progression of disease and prior history. I will obtain the input of the cardiovascular surgeon for possible elective surgical intervention. Those findings and recommendations were discussed with the patient and his family and they are in full understanding and agreement. MMODL / IJN: [id number] /
[2019-02-17] MEDS: PANTOPRAZOLE 40 MG TABLET PO SCH (06:44)
[2019-02-17 06:50] LABS: Anisocytosis Slight; HCT 40.8 % (39.0-53.0); HGB 12.8 gm/dL (13.0-17.5); Hypochromasia Slight; MCH 26.2 pg (25.0-35.0); MCHC 31.3 g/dL (31.0-37.0); MCV 83.5 fL (80.0-100.0); Mean Platelet Volume 6.6; Platelet Count 287 k/uL (150-450); RBC 4.88 m/uL (4.30-5.90); RDW 16.6 % (11.5-15.5); WBC 7.6 k/uL (3.8-10.6)
[2019-02-17 06:59] LABS: Calcium 8.6 mg/dL (8.4-10.2); Potassium 4.4 mmol/L (3.5-5.1)
[2019-02-17 07:15] LABS: Anisocytosis (M) Present; Band Neutrophils % 8 %; Eosinophils # (M) 0.08 k/uL (0-0.7); Lymphocytes # (M) 1.22 k/uL (1.0-4.8); Monocytes # (M) 0.99 k/uL (0-1.0); Neutrophils % (M) 62 %; Nucleated Red Blood Cells 0 /100 WBC (0-0); Total Cells Counted 100
[2019-02-17] MEDS: EZETIMIBE 10 MG TAB PO SCH (08:13)
[2019-02-17] MEDS: LISINOPRIL 20 MG TAB PO SCH (08:13)
[2019-02-17] MEDS: METOPROLOL SUCCINATE (ER) 50 MG TAB.ER.24H PO SCH (08:13)
[2019-02-17] MEDS: ISOSORBIDE MONONITRATE ER 30 MG TAB.ER.24H PO SCH (08:13)
[2019-02-17] MEDS: amLODIPine 10 MG TAB PO SCH (08:19)
--- NOTE | 2019-02-17 08:22 | ECHOF ---
Referral Reason:Chest pain MEASUREMENTS -------- HEIGHT: 180.3 cm WEIGHT: 99.8 kg BP: 131/84 RVIDd: 3.5 cm (< 3.3) IVSd: 1.3 cm (0.6 - 1.1) LVIDd: 4.7 cm (3.9 - 5.3) LVPWd: 1.2 cm (0.6 - 1.1) IVSs: 1.6 cm LVIDs: 3.4 cm LVPWs: 1.5 cm LA Diam: 2.9 cm (2.7 - 3.8) LAESV Index (A-L): 14.73 ml/m Ao Diam: 3.0 cm (2.0 - 3.7) AV Cusp: 2.1 cm (1.5 - 2.6) MV EXCURSION: 9.024 mm (> 18.000) MV EF SLOPE: 33 mm/s (70 - 150) EPSS: 1.4 cm AR PHT: 926 ms RAP: 5.00 mmHg RVSP: 22.84 mmHg FINDINGS -------- Sinus rhythm. This was a technically adequate study. The left ventricular size is normal. There is mild concentric left ventricular hypertrophy. Overa ll left ventricular systolic function is low-normal with, an EF between 50 - 55 %. The right ventricle is mildly enlarged. Normal LA size by volume 22+/-6 ml/m2. The right atrium is normal in size. Lipomatous Hypertrophy of the atrial septum is present There is mild aortic valve sclerosis. There is mild aortic regurgitation. Mild mitral annular calcification present. Mild tricuspid regurgitation present. Right ventricular systolic pressure is normal at < 35 mmHg. There is no pulmonic regurgitation present. The aortic root size is normal. IVC Not well visulized. There is no pericardial effusion. CONCLUSIONS -------- 1. Sinus rhythm. 2. This was a technically adequate study. 3. The left ventricular size is normal. 4. There is mild concentric left ventricular hypertrophy. 5. Overall left ventricular systolic function is low-normal with, an EF between 50 - 55 %. 6. The right ventricle is mildly enlarged. 7. Normal LA size by volume 22+/-6 ml/m2. 8. The right atrium is normal in size. 9. Lipomatous Hypertrophy of the atrial septum is present 10. There is mild aortic valve sclerosis. 11. There is mild aortic regurgitation. 12. Mild mitral annular calcification present. 13. Mild tricuspid regurgitation present. 14. Right ventricular systolic pressure is normal at < 35 mmHg. 15. There is no pulmonic regurgitation present. 16. The aortic root size is normal. 17. IVC Not well visulized. 18. There is no pericardial effusion. INSTRUCTOR TRAFFIC SAFETY: Zoie Jo RDCS
[2019-02-17] MEDS ORDERED: PRASUGREL 10 MG TAB PO SCH (09:00)
[2019-02-17] MEDS ORDERED: ASPIRIN 325 MG TAB PO SCH (09:00)
[2019-02-17] MEDS: ASPIRIN 81 MG PO SCH (12:16)
[2019-02-17] MEDS: ACETAMINOPHEN TAB 325 MG TAB PO PRN (15:16)
--- NOTE | 2019-02-17 15:22 | P.GSCN ---
<Derrick Meza - Last Filed: 02/17/19 15:13> History of Present Illness Consult date: 02/17/19 Reason for Consult: Coronary artery disease, evaluation for myocardial revascularization surgery Requesting physician: Martha Bustillo History of present illness: This is a 73-year-old gentleman who is followed by Dr. Rubin Duran on an outpatient basis. The patient has a past medical history significant for coronary artery disease with previous multiple stent placement to his right coronary artery, myocardial infarction in November 2018, symptomatic bradycardia, hypertension, hyperlipidemia, depression, gastroesophageal reflux disorder and history of prostate cancer status post prostatectomy in 2006. The patient presented to the emergency department here at [facility] yesterday 02/16/2019 with complaints of chest tightness which he experienced during his heart attack in November 2018. He denies any complaints of shortness of breath, nausea, vomiting, diaphoresis, palpitations, or lightheadedness. Due to his symptoms being similar to his last heart attack he felt that he should get evaluated at the hospital. In the emergency department labs were drawn and his troponins were negative, BUN was 13 and he had a slight elevation in his creatinine of 1.28. A 12-lead EKG was completed which showed him to be in normal sinus rhythm heart rate 95 with a right bundle branch block, a left anterior fascicular block and T-wave inversion in leads V1 through V4. A chest x-ray was also completed which showed a stable ectatic and mildly aneurysmal appearance to the ascending aorta, without any acute cardiopulmonary process. The patient was admitted and evaluated by Dr. Nunez from [facility] and due to his history of coronary artery disease and multiple stent placements a cardiac catheterization was recommended. After obtaining consent the patient underwent an urgent cardiac catheterization which demonstrated a 60% stenosis to his left anterior descending coronary artery after the takeoff of the first di agonal branch, a 60-70% stenosis to the diagonal branch, a 30% stenosis to his obtuse marginal branch, a 40% restenosis to his proximal right coronary artery and a 50% restenosis area involving the mid right coronary artery. For further evaluation a 2-D echocardiogram was completed which showed him to have an overall left ventricular systolic function to be low normal with an ejection fraction between 50 and 55%, mild aortic valve regurgitation and mild tricuspid valve regurgitation. Subsequently, due to the patient's presenting symptoms, significant history of coronary artery disease with multiple stent placements, history of myocardial infarction and his heart catheterization results a consult was placed to Dr. Grayson Wagoner from cardiothoracic surgery to evaluate the patient in recommendations on my coronary vascularization surgery. Review of Systems A 14 point review of systems was completed was negative except as mentioned in HPI. Past Medical History Past Medical History: Coronary Artery Disease (CAD), Cancer, Chest Pain / Angina, GERD/Reflux, Hyperlipidemia, Hypertension, Myocardial Infarction (non Q- wave), Prostate Disorder Additional Past Medical History / Comment(s): prostate cancer, 5 stents History of Any Multi-Drug Resistant Organisms: None Reported Past Surgical History: Heart Catheterization With Stent, Hernia Repair, Prostate Surgery Past Anesthesia/Blood Transfusion Reactions: No Reported Reaction Date of Last Stent Placement:: November 2018 Past Psychological History: Depression Smoking Status: Never smoker Past Alcohol Use History: None Reported Past Drug Use History: None Reported - Past Family History Father Family Medical History: Coronary Artery Disease (CAD), Myocardial Infarction ([place]) Mother Additional Family Medical History / Comment(s): Alzheimer's Medications and Allergies Home Medications Medication Instructions Recorded Confirmed Type Aspirin EC [Ecotrin Low Dose] 81 mg PO DAILY 07/14/18 02/21/19 History Lisinopril [Zestril] 40 mg PO DAILY 07/14/18 02/21/19 History Omeprazole 20 mg PO DAILY 07/14/18 02/21/19 History Ezetimibe [Zetia] 10 mg PO DAILY #90 tab 07/16/18 02/21/19 Rx Nitroglycerin Sl Tabs [Nitrostat] 0.4 mg SUBLINGUAL Q5M PRN #25 tab 07/16/18 02/21/19 Rx Amitriptyline HCl [Elavil] 50 mg PO HS tab 11/24/18 02/21/19 Rx Metoprolol Succinate [Toprol XL] 50 mg PO DAILY 02/16/19 02/21/19 History amLODIPine [Norvasc] 5 mg PO DAILY 02/16/19 02/21/19 History Evolocumab [Repatha Syringe] 140 mg SQ QMONTH 02/17/19 02/21/19 History Isosorbide Mononitrate ER [Imdur] 30 mg PO DAILY #30 tab.er.24h 02/18/19 02/21/19 Rx Levothyroxine Sodium [Synthroid] 50 mcg PO DAILY@0630 30 Days #30 02/19/19 02/21/19 Rx tab Mupirocin 2% Oint [Bactroban 2% 1 applic NASAL BID #1 applic 02/19/19 02/21/19 Rx Oint] Allergies Allergy/AdvReac Type Severity Reaction Status Date / Time Sulfa (Sulfonamide Allergy Rash/Hives Verified 02/21/19 11:43 Antibiotics) ibuprofen [From Motrin] AdvReac Kidney Verified 02/21/19 11:43 issues morphine AdvReac Hallucinati Verified 02/21/19 11:43 ons Surgical - Exam Vital Signs Temp Pulse Resp BP Pulse Ox 98.5 F 101 H 18 158/87 97 02/16/19 10:34 02/16/19 10:34 02/16/19 10:34 02/16/19 10:34 02/16/19 10:34 - General well developed, well nourished, no distress, moderate distress, no pain, obese - Eyes PERRL, normal ocular movement - ENT normal pinna, normal nares, normal mucosa, no hearing loss, no congestion - Neck Neck is supple, no lymphadenopathy. no masses, no bruits, trachea midline, no venous distension - Respiratory Lung sounds essentially clear throughout. No wheezes, rhonchi or crackles. Respirations are symmetrical and nonlabored. - Cardiovascular Regular rhythm and rate. S1 and S2 present, negative for S3, gallop or murmur. - Abdomen Abdomen is soft, nontender and nondistended. Active bowel sounds present in all 4 abdominal quadrants. No guarding or rigidity. No organomegaly. - Genitourinary Deferred - Rectum Deferred - Integumentary no rash, no growths, no abnormal pigmentation - Musculoskeletal normal gait, normal posture - Psychiatric oriented to time, oriented to person, oriented to place, speech is normal, memory intact Results - Labs 02/17/19 06:04 02/17/19 06:04 Abnormal Lab Results - Last 24 Hours (Table) 02/16/19 02/17/19 02/17/19 Range/Units 18:30 06:04 06:04 Hgb 12.8 L (13.0-17.5) gm/dL RDW 16.6 H (11.5-15.5) % Creatinine 1.33 H (0.66-1.25) mg/dL Urine Blood Trace H (Negative) Urine RBC 10 H (0-5) /hpf Diabetes panel 02/17/19 Range/Units 06:04 Sodium 139 (137-145) mmol/L Potassium 4.4 (3.5-5.1) mmol/L Chloride 107 (98-107) mmol/L Carbon Dioxide 22 (22-30) mmol/L BUN 17 (9-20) mg/dL Creatinine 1.33 H (0.66-1.25) mg/dL Glucose 99 (74-99) mg/dL Calcium 8.6 (8.4-10.2) mg/dL Calcium panel 02/17/19 Range/Units 06:04 Calcium 8.6 (8.4-10.2) mg/dL Pituitary panel 02/17/19 Range/Units 06:04 Sodium 139 (137-145) mmol/L Potassium 4.4 (3.5-5.1) mmol/L Chloride 107 (98-107) mmol/L Carbon Dioxide 22 (22-30) mmol/L BUN 17 (9-20) mg/dL Creatinine 1.33 H (0.66-1.25) mg/dL Glucose 99 (74-99) mg/dL Calcium 8.6 (8.4-10.2) mg/dL Adrenal panel 02/17/19 Range/Units 06:04 Sodium 139 (137-145) mmol/L Potassium 4.4 (3.5-5.1) mmol/L Chloride 107 (98-107) mmol/L Carbon Dioxide 22 (22-30) mmol/L BUN 17 (9-20) mg/dL Creatinine 1.33 H (0.66-1.25) mg/dL Glucose 99 (74-99) mg/dL Calcium 8.6 (8.4-10.2) mg/dL - Imaging Chest x-ray: report reviewed, image reviewed EKG: image reviewed Additional studies: Heart catheterization films and reports were reviewed by Dr. Wagoner. 2-D ec hocardiogram results reviewed by Dr. Wagoner. Assessment and Plan Assessment: 1. Coronary artery disease with history of restenosis of the proximal right coronary artery and mid right coronary artery stents 2. History of myocardial infarction in November 2018 3. Chest pain 4. History of bradycardia 5. History of hypertension 6. History of hyperlipidemia 7. GERD 8. History of prostate cancer status post prostatectomy Plan: The patient was seen and examined. Chart diagnostics were reviewed. The patient was seen and examined by Dr. Grayson Wagoner from cardiothoracic surgery. Dr. Wagoner reviewed the patient's heart catheterization films and 2-D echocardiogram results. He discussed the cardiac catheter film findings with the patient and with Dr. Nunez. Recommend to optimize medical management with aspirin, beta barbara, IRASEMA inhibitor and Zetia. Further workup will be completed and further discussions with the patient and his regarding possible timing for by [facility]. Cardiology management per Dr. Nunez. Medical management per primary care service. Per cardiothoracic surgery standpoint if the patient is a surgical candidate he will need to be off his Effient for 7 days prior to surgery. Thank you Dr. Nunez for this consult and we will forward to working with you in the care of your patient. Time with Patient: Greater than 30 <Grayson Wagoner - Last Filed: 02/23/19 13:36> Surgical - Exam Vital Signs Temp Pulse Resp BP Pulse Ox 98.5 F 101 H 18 158/87 97 02/16/19 10:34 02/16/19 10:34 02/16/19 10:34 02/16/19 10:34 02/16/19 10:34 Results - Labs 02/19/19 05:49 02/19/19 05:49 Assessment and Plan Plan: The patient was seen and examined. His history and physical findings were verified. I agree with the above assessment and plan. The patient is a 73-year-old male who initially presented to the hospital with an an inferior wall STEMI back in November. He was treated with multiple stents and did well. He returns the hospital now with chest pain. Follow-up cardiac catheterization reveals some in-stent restenosis along with disease in the left anterior descending artery. The patient is quite anxious as he continues to have chest pain despite treatment. I did speak with Dr. Nunez at length. He is not a candidate for additional PCI. We are recommending coronary artery bypass grafting at this time. The risks, benefits, and alternatives to this procedure were discussed with the patient and his . All their questions were answered. The patient is currently on Effient. We will hold this medication for 1 week and plan on performing his procedure on February 26.
[2019-02-17 19:44] VITALS: RESP 16
[2019-02-17] MEDS: AMITRIPTYLINE HCL 50 MG TAB PO SCH (20:20)
--- NOTE | 2019-02-17 20:24 | PN ---
PROGRESS NOTE DATE OF SERVICE: 02/17/2019 This 73-year-old gentleman admitted with chest pain, underwent a cardiac catheterization. Cardiac cath showed calcified coronaries and moderate disease of the stented segment of the RCA and as well as moderate disease of the LAD and diagonal branch. Cardiology is recommending cardiothoracic surgery evaluation. No chest pain. No palpitations. No fever. EXAM: Alert and oriented x3. Pulse 69, blood pressure 104/49, respiration 18, temperature 97.6, pulse ox 98% on room air. HEENT: Conjunctivae normal. Oral mucosa moist. NECK: No jugular venous distention. No lymph node enlargement. CARDIOVASCULAR: S1, S2. RESPIRATORY: Diminished breath sounds at the bases. No rhonchi, no crackles. ABDOMEN: Soft, nontender. LEGS: No swelling. NERVOUS SYSTEM: No focal deficits. LAB: Creatinine 1.33. ASSESSMENT: 1. Chest pain, possible unstable angina status post cardiac catheterization and multivessel disease with some progression. 2. History of previous myocardial infarction, multiple stents. 3. Increased creatinine with chronic kidney disease stage III. 4. History of prostate cancer. 5. History of hernia repair. 6. History of prostate surgery. RECOMMENDATIONS AND DISCUSSION: I recommend to continue current medications, continue to monitor, continue symptomatic treatment. Otherwise, at this time follow closely with Cardiology and Cardiothoracic Surgery. Guarded prognosis. Further recommendations to follow. MMODL / IJN: [id number] /
[2019-02-18] MEDS: PANTOPRAZOLE 40 MG TABLET PO SCH (06:22)
[2019-02-18 07:19] LABS: Calcium 8.2 mg/dL (8.4-10.2); Potassium 4.2 mmol/L (3.5-5.1)
[2019-02-18 08:24] LABS: Anisocytosis Slight; HCT 37.6 % (39.0-53.0); HGB 11.9 gm/dL (13.0-17.5); Hypochromasia Slight; MCH 26.3 pg (25.0-35.0); MCHC 31.5 g/dL (31.0-37.0); MCV 83.5 fL (80.0-100.0); Mean Platelet Volume 6.8; Platelet Count 254 k/uL (150-450); RBC 4.51 m/uL (4.30-5.90); RDW 16.2 % (11.5-15.5); WBC 7.8 k/uL (3.8-10.6)
[2019-02-18] MEDS: ASPIRIN 81 MG PO SCH (09:16)
[2019-02-18] MEDS: EZETIMIBE 10 MG TAB PO SCH (09:16)
[2019-02-18] MEDS: amLODIPine 10 MG TAB PO SCH (09:16)
[2019-02-18] MEDS: LISINOPRIL 20 MG TAB PO SCH (09:16)
[2019-02-18] MEDS: ISOSORBIDE MONONITRATE ER 30 MG TAB.ER.24H PO SCH (09:16)
[2019-02-18] MEDS: METOPROLOL SUCCINATE (ER) 50 MG TAB.ER.24H PO SCH (09:16)
[2019-02-18 10:49] LABS: Band Neutrophils % 3 %; Eosinophils # (M) 0.23 k/uL (0-0.7); Lymphocytes # (M) 1.09 k/uL (1.0-4.8); Monocytes # (M) 0.47 k/uL (0-1.0); Neutrophils % (M) 74 %; Nucleated Red Blood Cells 0 /100 WBC (0-0); Total Cells Counted 100
[2019-02-18] MEDS ORDERED: MD COMMUNICATION TO PHARMACY 1 EACH MISC PO ONE ×2 (11:52)
[2019-02-18 12:46] LABS: Prothrombin Time 10.6 sec (9.0-12.0)
[2019-02-18 12:51] LABS: ALT 16 U/L (21-72); AST 24 U/L (17-59); African American GFR (CKD) 67 (>60 ml/min/1.73 sqM); Albumin 3.7 g/dL (3.5-5.0); Alkaline Phosphatase 63 U/L (38-126); Anion Gap 9 mmol/L; Blood Urea Nitrogen 21 mg/dL (9-20); Calcium 8.6 mg/dL (8.4-10.2); Carbon Dioxide 26 mmol/L (22-30); Chloride 102 mmol/L (98-107); Cholesterol <50 mg/dL (<200); Glucose 86 mg/dL (74-99); HDL Cholesterol 26 mg/dL (40-60); LDL Cholesterol,Calculated 2 mg/dL (0-99); Potassium 4.6 mmol/L (3.5-5.1); Sodium 137 mmol/L (137-145); Total Bilirubin 0.2 mg/dL (0.2-1.3); Total Protein 6.8 g/dL (6.3-8.2); Triglycerides 109 mg/dL (<150)
--- NOTE | 2019-02-18 13:20 | P.PN ---
Subjective Progress Note Date: 02/18/19 This is a 73-year-old gentleman who follows with Dr. Nunez in the office. He has past medical history significant for coronary artery disease with multiple stent placements to his right coronary artery, prior myocardial infarction in 2019, hypertension, hyperlipidemia, GERD, prostate cancer with prior prostatectomy, depression. Presented to the hospital with symptoms of chest tightness that reminded him of when he had his myocardial infarction. His troponins were negative, patient was noted to have ST-T wave changes in the anterior leads on presentation and for this reason he was taken to the cardiac catheterization lab and underwent a cardiac catheterization by Dr. Nunez. Cardiac catheterization revealed a 60% stenosis in the LAD after the takeoff of the first diagonal branch, 60-70% stenosis to the diagonal, 30% stenosis in the OM and a 40% stenosis in the RCA with 50% restenosis area involving the mid RCA. Because of the patient's history of multiple stent placements to the RCA in the past, and in view of his recurrent symptoms he was advised a consultation with cardiothoracic surgery. He was on Effient which was discontinued yesterday, he is doing well today denies any chest pain in his breathing is overall stable. 02/18/2019 Patient was seen and examined this morning, denies any chest pain and is breathing overall has been stable. He's been encouraged today to be up ambulating as much as tolerated and if he remains symptom-free our plan is to discharge the patient tomorrow. Blood pressure 114/60 with a heart rate in the 70s, sodium 137, potassium 4.6, BUN 21 and creatinine 1.2. Objective - Vital Signs Vital signs: Vital Signs Temp 99.2 F 02/18/19 11:54 Pulse 78 02/18/19 11:54 Resp 16 02/18/19 11:54 BP 113/59 02/18/19 11:54 Pulse Ox 97 02/18/19 11:54 Intake & Output 02/17/19 02/18/19 02/18/19 18:59 06:59 18:59 Intake Total 1120 240 Balance 1120 240 Weight 99.8 kg Intake: Oral 1120 240 Other: Voiding Method Toilet Toilet # Voids 3 1 - Exam PHYSICAL EXAMINATION: GENERAL: 73-year-old gentleman in no acute distress at the time of my examination HEENT: Head is atraumatic, normocephalic. Pupils equal, round. Sclera anicteric. Conjunctiva are clear. Mucous membranes of the mouth are moist. Neck is supple. There is no elevated jugular venous pressure. No carotid bruit is heard. HEART EXAMINATION: Heart S1, S2 normal. No murmur or gallop heard. CHEST EXAMINATION: Lungs are clear to auscultation and precussion. No chest wall tenderness is noted on palpation or with deep breathing. ABDOMEN: Soft, nontender. Bowel sounds are heard. No organomegaly noted. EXTREMITIES: 2+ peripheral pulses with no evidence of peripheral edema and no calf tenderness noted. NEUROLOGIC patient is awake, alert and oriented 3 . . - Labs CBC & Chem 7: 02/18/19 06:02 02/18/19 12:08 Labs: Abnormal Lab Results - Last 24 Hours (Table) 02/18/19 02/18/19 02/18/19 Range/Units 06:02 06:02 12:08 Hgb 11.9 L (13.0-17.5) gm/dL Hct 37.6 L (39.0-53.0) % RDW 16.2 H (11.5-15.5) % Sodium 136 L (137-145) mmol/L BUN 23 H 21 H (9-20) mg/dL Calcium 8.2 L (8.4-10.2) mg/dL ALT 16 L (21-72) U/L HDL Cholesterol 26 L (40-60) mg/dL Assessment and Plan Plan: Assessment: 1. Coronary artery disease with history of restenosis of the proximal right coronary artery and mid right coronary artery stents 2. History of myocardial infarction in November 2018 3. Chest pain 4. History of bradycardia 5. History of hypertension 6. History of hyperlipidemia 7. GERD 8. History of prostate cancer status post prostatectomy Plan We will continue to monitor the patient for 24 hours, if he remains asymptomatic he will be discharged home today and have coronary artery bypass grafting surgery performed as an outpatient. His Effient was discontinued yesterday. DNP note has been reviewed, I agree with a documented findings and plan of care. Patient was seen and examined.
--- NOTE | 2019-02-18 13:44 | US ---
EXAMINATION TYPE: US carotid duplex BILAT DATE OF EXAM: 02/18/2019 COMPARISON: NONE CLINICAL HISTORY: Pre-Op Cardiac Surgery. Pre-Op EXAM MEASUREMENTS: RIGHT: Peak Systolic Velocity (PSV) cm/sec ----- Right CCA: 100.2 ----- Right ICA: 84.0 ----- Right ECA: 127.4 ICA/CCA ratio: 0.8 RIGHT: End Diastole cm/sec ----- Right CCA: 10.0 ----- Right ICA: 20.6 ----- Right ECA: 0.0 LEFT: Peak Systolic Velocity (PSV) cm/sec ----- Left CCA: 92.4 ----- Left ICA: 95.1 ----- Left ECA: 167.3 ICA/CCA ratio: 1.0 LEFT: End Diastole cm/sec ----- Left CCA: 10.4 ----- Left ICA: 22.5 ----- Left ECA: 0.0 VERTEBRALS (direction of flow): Right Vertebral: Antegrade Left Vertebral: Antegrade Rhythm: Normal No significant stenosis seen IMPRESSION: Mild degree of grayscale atheromatous plaquing with no sonographically evident hemodynam ically significant stenosis within either visualized carotid arterial system. Slightly elevated veloc ities of the external carotid arteries without abnormal internal carotid artery to common carotid art dion ratio. Criteria for Assigning % of Stenosis / Diameter reduction (Estimation based on the indirect measurements of the internal carotid artery velocities (ICA PSV). 1. Normal (no stenosis)=ICA PSV < 125 cm/s: ratio < 2.0: ICA EDV<40 cm/s. 2. Less than 50% stenosis=ICA PSV < 125 cm/s: ratio < 2.0: ICA EDV<40 cm/s. 3. 50 to 69% stenosis=ICA PSV of 125 to 230 cm/s: ration 2.0 ? 4.0: ICA EDV 40-100 cm/s. 4. Greater than 70% stenosis to near occlusion= ICA PSV > 230 cm/s: ratio > 4.0: ICA EDV > 100 cm/s. 5. Near occlusion= ICA PSV velocities may be low or undetectable: variable ratio and ICA EDV. 6. Total occlusion=unable to detect flow.
--- NOTE | 2019-02-18 13:45 | P.PN ---
Subjective Progress Note Date: 02/18/19 Principal diagnosis: Coronary artery disease with previous multiple stent placement to his right coronary artery, history of myocardial infarction in November 2018, history of symptomatic bradycardia, hypertension, hyperlipidemia, depression, gastroesophageal reflux disorder and history of prostate cancer status post prostatectomy in 2006. This is 73-year-old gentleman who is admitted to the hospital with complaints of chest tightness. He has a past medical history significant for coronary artery disease with previous multiple stent placements to his right coronary artery. Roger valdivia also has a history of myocardial infarction in November 2018. His lab results showed negative troponins this admission. A 12-lead EKG was completed which showed him to have normal sinus rhythm heart rate 95 with a right bundle branch block, a left anterior fascicular block and T-wave inversions in leads V1 through V4. A chest x-ray was also completed which showed a stable ectatic and mildly aneurysmal appearance in the ascending aorta, without any cardiopulmonary process. A 2-D echocardiogram was also completed which showed him to have an overall left ventricular systolic function to be low normal with an ejection fraction between 50 and 55%, mild aortic valve regurgitation and mild tricuspid valve regurgitation. For further evaluation the patient underwent a cardiac catheterization which demonstrated a 60% stenosis to his left anterior descending coronary artery after the takeoff of the first diagonal branch, a 60- 70% stenosis to the diagonal branch, a 30% stenosis to his obtuse marginal branch, a 40% restenosis to his proximal right coronary artery and a 50% restenosis area involving the mid right coronary artery. Due to the patient's history of coronary artery disease, myocardial infarction, his presenting symptoms and cardiac catheterization results he was seen and evaluated by Dr. Grayson Wagoner from cardiothoracic surgery. The patient is laying in bed in the cardiac stepdown unit. He is in no acute distress. He denies any further complaints of chest pain and denies any complaints of shortness of breath. He is complaining of a headache at this moment due to his imdur. The patient was seen and examined by Dr. Angus Segura this morning from cardiothoracic surgery. Dr. Segura spoke with Dr. Nunez the patient's media relations specialist and a plan was discussed. Dr. Segura discussed the findings on the heart catheterization results with the patient and his . The patient is found to be a good surgical candidate and will be discharged home when okay with his primary care service. Risks and benefits of the coronary artery bypass grafting surgery have been discussed with the patient and his . An STS risk score will be calculated and once calculated will be di scussed with the patient. Knowing the risks and benefits of myocardial revascularization, the patient is agreeable to proceed with surgery. He remains hemodynamically stable. Objective - Vital Signs Vital signs: Vital Signs Temp 99.2 F 02/18/19 11:54 Pulse 78 02/18/19 11:54 Resp 16 02/18/19 11:54 BP 113/59 02/18/19 11:54 Pulse Ox 97 02/18/19 11:54 Intake & Output 02/17/19 02/18/19 02/18/19 18:59 06:59 18:59 Intake Total 1120 240 Balance 1120 240 Weight 99.8 kg Intake: Oral 1120 240 Other: Voiding Method Toilet Toilet # Voids 3 1 - Constitutional General appearance: Present: cooperative, no acute distress, obese - Respiratory Details: Lung sounds are essentially clear throughout. Respirations are symmetrical and nonlabored. No wheezing, rhonchi or crackles. - Cardiovascular Details: Regular rhythm and rate. S1 and S2 present, negative for S3, gallop or murmur. No edema present. - Gastrointestinal Gastrointestinal Comment(s): Abdomen is soft, nontender and nondistended. Active bowel sounds present in all 4 abdominal quadrants. No guarding or rigidity. No organomegaly. - Genitourinary Genitourinary Comment(s): voiding clear maria luz urine. - Integumentary Integumentary Comment(s): Skin is warm and dry. No clubbing or cyanosis is present. No rash or abnormal pigmentation is present. - Neurologic Neurologic Comment(s): No focal deficits. Neurologic: Present: CNII-XII intact - Musculoskeletal Musculoskeletal: Present: gait normal, strength equal bilaterally - Psychiatric Psychiatric: Present: A&O x's 3, appropriate affect, intact judgment & insight - Allied health notes Allied health notes reviewed: nursing - Labs CBC & Chem 7: 02/18/19 06:02 02/18/19 12:08 Labs: Abnormal Lab Results - Last 24 Hours (Table) 02/18/19 02/18/19 Range/Units 06:02 06:02 Hgb 11.9 L (13.0-17.5) gm/dL Hct 37.6 L (39.0-53.0) % RDW 16.2 H (11.5-15.5) % Sodium 136 L (137-145) mmol/L BUN 23 H (9-20) mg/dL Calcium 8.2 L (8.4-10.2) mg/dL Assessment and Plan Assessment: 1. Coronary artery disease with history of restenosis of the proximal right coronary artery and mid right coronary artery stents 2. History of myocardial infarction in November 2018 3. Chest pain 4. History of bradycardia 5. History of hypertension 6. History of hyperlipidemia 7. GERD 8. History of prostate cancer status post prostatectomy Plan: 1. Dr. Segura met with the patient and his . Risks and benefits of the surgery were discussed with the patient regarding my cardiovascular is a patient surgery. Once his preoperative workup has been obtained and an STS risk or will be calculated and discussed with the patient. 2. The patient may be discharged home when okay with cardiology and primary care services. He will be scheduled for myocardial vascularization surgery on an outpatient basis. 3. Hold Effient 4. Preoperative teaching and preoperative workup has been initiated. 5. Once his preoperative workup has been obtained he will be scheduled for myocardial revascularization surgery. 6. A 5 m walk test was completed with the patient, time 1: 3.25 seconds , time 2 : 3.08 seconds , time 3: 3.42 seconds . 7. We will order a computed tomography scan of his chest without contrast to evaluate his ascending aorta. 8. More recommendations to follow based on patient's clinical course. Time with Patient: Greater than 30
--- NOTE | 2019-02-18 14:12 | CT ---
EXAMINATION TYPE: CT chest wo con DATE OF EXAM: 02/18/2019 COMPARISON: July 14, 2018 HISTORY: preop CABG CT DLP: 538.5 mGycm. Automated Exposure Control for Dose Reduction was Utilized. TECHNIQUE: CT scan of the thorax is performed without IV contrast. FINDINGS: There is coronary artery calcification. There is no mediastinal adenopathy. Thoracic aorta shows no a neurysm or dissection. Ascending aorta measures 3.5 cm. There are no hilar masses. The lungs are clear of infiltrate. There is no evidence of a pulmonary mass. There is no pleural effu ana. There is spurring in the thoracic spine. I see no bony destructive process. IMPRESSION: atherosclerotic vascular disease. No significant change compared to old exam.
[2019-02-18 15:19] LABS: T4, Free (Free Thyroxine) 0.49 ng/dL (0.78-2.19)
[2019-02-18 15:31] LABS: Appearance,Urine Clear (Clear); Bilirubin,Urine Negative (Negative); Blood,Urine Negative (Negative); Color,Urine Light Yellow; Glucose,Urine (UA) Negative (Negative); Ketones,Urine Negative (Negative); Leukocyte Esterase,Urine Negative (Negative); Nitrite,Urine Negative (Negative); Protein,Urine Negative (Negative); Urobilinogen,Urine <2.0 mg/dL (<2.0)
--- NOTE | 2019-02-18 16:29 | PN ---
PROGRESS NOTE DATE OF SERVICE: 02/18/2019. This 73-year-old gentleman admitted with chest pain, unstable angina, had a cardiac catheterization and multivessel disease with some progression. The patient also had previous cardiac catheterization and multiple stents. Cardiovascular is following the patient and doing a preop evaluation at this time. Carotid Doppler showed no significant stenosis. The TSH is also high at 16 and free T4 is pending at this time. No chest pain. No palpitations. PAST MEDICAL HISTORY: Reviewed. REVIEW OF SYSTEMS: Cardiovascular system as mentioned earlier. Respiration as mentioned earlier. GI no nausea or vomiting. no dysuria. Nervous system: No numbness or weakness. CURRENT MEDICATIONS: Reviewed and include: 1. Tylenol 650 q.6h p.r.n. 2. Xanax 0.5 q.6h. 3. Elavil 50 mg q.h.s. 4. Norvasc 10 mg p.o. daily. 5. Aspirin 81 mg daily. 6. Zetia 10 mg daily. 7. Imdur 30 mg p.o. daily. 8. Zestril 40 mg. 10.Bactroban. 11.Protonix. PHYSICAL EXAM: Patient is alert, oriented x3. Pulse is 78, blood pressure 113/59, respirations 16, temperature 99.2, pulse ox 97% on room air. HEENT: Conjunctivae normal. NECK: No jugular venous distention. CARDIOVASCULAR: S1, S2 muffled. RESPIRATIONS: Breath sounds diminished in the bases. No rhonchi. No crackles. ABDOMEN: Soft, nontender. No mass palpable. LEGS: No edema. No swelling. NERVOUS SYSTEM: Higher functions as mentioned earlier. Moves all four limbs. No focal motor or sensory deficits. LYMPHATICS: No lymph nodes palpable in the neck, axillae or groin. SKIN: No ulcer. No rash. No bleeding. JOINTS: No active deforming arthropathy. LABS: WBC 7.8, hemoglobin 11.9. Other labs are noted. BUN is 21, creatinine is 1.28, LDL noted. ASSESSMENT: 1. Chest pain possible unstable angina status post cardiac catheterization, multivessel disease with some progression. 2. History of previous myocardial infarction multiple stents. 3. Increased creatinine with chronic kidney disease stage 3. 4. History of prostate cancer. 5. History of hernia repair. 6. History of prostate surgery. 7. Elevated TSH, rule out hypothyroidism. 8. Mild hyponatremia, improved. 9. Anemia of chronic disease. RECOMMENDATIONS AND DISCUSSION: In this 73-year-old gentleman who presented with multiple medical issues, we will monitor the patient closely. Continue the current medications, symptomatic treatment. Management of the medications. cts would like to hold the prasugrel for 1 week. Otherwise, we will continue the rest of medications, free T4, rule out hypothyroidism. Guarded prognosis because of multiple complex medical issues. Further recommendations to follow. MMMARCL / JHN: [id number] / MTDTam
[2019-02-18] MEDS: AMITRIPTYLINE HCL 50 MG TAB PO SCH (20:39)
[2019-02-19] MEDS: PANTOPRAZOLE 40 MG TABLET PO SCH (06:19)
[2019-02-19 06:42] LABS: Anisocytosis Slight; HCT 37.7 % (39.0-53.0); Hypochromasia Slight; MCH 26.1 pg (25.0-35.0); MCHC 31.7 g/dL (31.0-37.0); MCV 82.2 fL (80.0-100.0); Mean Platelet Volume 6.1; Platelet Count 264 k/uL (150-450); RBC 4.59 m/uL (4.30-5.90); RDW 16.1 % (11.5-15.5); WBC 6.2 k/uL (3.8-10.6)
[2019-02-19 07:02] LABS: Calcium 8.3 mg/dL (8.4-10.2); Potassium 4.4 mmol/L (3.5-5.1)
[2019-02-19 07:55] VITALS: TEMP 98
[2019-02-19 08:05] LABS: Eosinophils # (M) 0.31 k/uL (0-0.7); Lymphocytes # (M) 0.68 k/uL (1.0-4.8); Myelocytes # (M) 0.06 k/uL (0); Myelocytes % 1 %; Neutrophils % (M) 64 %; Nucleated Red Blood Cells 0 /100 WBC (0-0); Poikilocytosis (M) Present; Polychromasia Present; Total Cells Counted 200
[2019-02-19] MEDS: ISOSORBIDE MONONITRATE ER 30 MG TAB.ER.24H PO SCH (08:47)
[2019-02-19] MEDS: EZETIMIBE 10 MG TAB PO SCH (08:47)
[2019-02-19] MEDS: ASPIRIN 81 MG PO SCH (08:47)
[2019-02-19] MEDS: LISINOPRIL 20 MG TAB PO SCH (08:47)
[2019-02-19] MEDS: METOPROLOL SUCCINATE (ER) 50 MG TAB.ER.24H PO SCH (08:47)
[2019-02-19] MEDS: amLODIPine 10 MG TAB PO SCH (08:47)
[2019-02-19] MEDS ORDERED: MUPIROCIN 2% OINT 22 GM TUBE NASAL SCH (09:00)
--- NOTE | 2019-02-19 10:22 | P.PN ---
Subjective Progress Note Date: 02/19/19 Principal diagnosis: Coronary artery disease with previous multiple stent placement to his right coronary artery, history of myocardial infarction in November 2018, history of symptomatic bradycardia, hypertension, hyperlipidemia, depression, gastroesophageal reflux disorder and history of prostate cancer status post prostatectomy in 2006. This is 73-year-old gentleman who is admitted to the hospital with complaints of chest tightness. He has a past medical history significant for coronary artery disease with previous multiple stent placements to his right coronary artery. Roger valdivia also has a history of myocardial infarction in November 2018. His lab results showed negative troponins this admission. A 12-lead EKG was completed which showed him to have normal sinus rhythm heart rate 95 with a right bundle branch block, a left anterior fascicular block and T-wave inversions in leads V1 through V4. A chest x-ray was also completed which showed a stable ectatic and mildly aneurysmal appearance in the ascending aorta, without any cardiopulmonary process. A 2-D echocardiogram was also completed which showed him to have an overall left ventricular systolic function to be low normal with an ejection fraction between 50 and 55%, mild aortic valve regurgitation and mild tricuspid valve regurgitation. For further evaluation the patient underwent a cardiac catheterization which demonstrated a 60% stenosis to his left anterior descending coronary artery after the takeoff of the first diagonal branch, a 60- 70% stenosis to the diagonal branch, a 30% stenosis to his obtuse marginal branch, a 40% restenosis to his proximal right coronary artery and a 50% restenosis area involving the mid right coronary artery. Due to the patient's history of coronary artery disease, myocardial infarction, his presenting symptoms and cardiac catheterization results he was seen and evaluated by Dr. Grayson Wagoner from cardiothoracic surgery. The patient is laying in bed in the cardiac stepdown unit. He is in no acute distress. He denies any further complaints of chest pain and denies any complaints of shortness of breath. Preoperative teaching has been reinforced with the patient. STS risk score was calculated and discussed with the patient by Dr. Wagoner. The patient will be scheduled for myocardial revascularization surgery on 02/26/2019 to be performed by Dr. Grayson Wagoner. Patient is anxious to be discharged home. Objective - Vital Signs Vital signs: Vital Signs Temp 98.0 F 02/19/19 07:53 Pulse 75 02/19/19 07:53 Resp 16 02/19/19 07:53 BP 121/71 02/19/19 07:53 Pulse Ox 97 02/19/19 07:53 Intake & Output 02/18/19 02/19/19 02/19/19 18:59 06:59 18:59 Intake Total 540 240 Balance 540 240 Weight 98.8 kg Intake: Oral 540 240 Other: Voiding Method Toilet # Voids 1 2 - Constitutional General appearance: Present: cooperative, no acute distress, obese - Respiratory Details: Lung sounds essentially clear throughout. Respirations are symmetrical and nonlabored. No wheezing, crackles or rhonchi. - Cardiovascular Details: Regular rhythm and rate. S1 and S2 present, negative for S3, gallop or murmur. - Gastrointestinal Gastrointestinal Comment(s): Abdomen is soft, nontender and nondistended. Active bowel sounds present in all 4 abdominal quadrants. No guarding or rigidity. No organomegaly appreciated. - Genitourinary Genitourinary Comment(s): Voiding clear maria luz urine. - Integumentary Integumentary Comment(s): Skin is warm and dry. No clubbing or cyanosis is present. No rash or abnormal pigmentation is present. - Neurologic Neurologic Comment(s): No focal deficits. Neurologic: Present: CNII-XII intact - Musculoskeletal Musculoskeletal: Present: gait normal, strength equal bilaterally - Psychiatric Psychiatric: Present: A&O x's 3, appropriate affect, intact judgment & insight - Allied health notes Allied health notes reviewed: nursing (Carotid duplex study results reviewed.) - Labs CBC & Chem 7: 02/19/19 05:49 02/19/19 05:49 Labs: Abnormal Lab Results - Last 24 Hours (Table) 02/18/19 02/19/19 02/19/19 Range/Units 12:08 05:49 05:49 Hgb 12.0 L (13.0-17.5) gm/dL Hct 37.7 L (39.0-53.0) % RDW 16.1 H (11.5-15.5) % Lymphocytes # (Manual) 0.68 L (1.0-4.8) k/uL Monocytes # (Manual) 1.30 H (0-1.0) k/uL Myelocytes # (Manual) 0.06 H (0) k/uL BUN 21 H (9-20) mg/dL Calcium 8.3 L (8.4-10.2) mg/dL ALT 16 L (21-72) U/L HDL Cholesterol 26 L (40-60) mg/dL TSH 16.100 H (0.465-4.680) mIU/L Free T4 0.49 L (0.78-2.19) ng/dL Microbiology - Last 24 Hours (Table) 02/18/19 12:45 Nasal Screen MRSA/MSSA - Preliminary Nasal Swab - Imaging and Cardiology CT scan - chest: report reviewed, image reviewed Carotid duplex study results reviewed. Assessment and Plan Assessment: 1. Coronary artery disease with history of restenosis of the proximal right coronary artery and mid right coronary artery stents 2. History of myocardial infarction in November 2018 3. Chest pain 4. History of bradycardia 5. History of hypertension 6. History of hyperlipidemia 7. GERD 8. History of prostate cancer status post prostatectomy Plan: 1. He will be scheduled for my cardiovascular sedation surgery with [facility], endoscopic vein harvest to be performed by Dr. Grayson Wagoner on Tuesday, .9 2. The patient may be discharged home when okay with cardiology and primary care services. 3. Continue to hold Effient 4. Preoperative teaching reinforced. 5. STS risk score has been calculated and discussed with the patient by Dr. Grayson Wagoner. 6. Continue to encourage use of his incentive spirometry every hour while awake. 7. More recommendations to follow based on patient's clinical course. Time with Patient: Greater than 30
[2019-02-19] MEDS ORDERED: LEVOTHYROXINE 50 MCG TAB PO SCH (11:14)
[2019-02-19 12:29] VITALS: BP 108/68; PULSE 77
[2019-02-19] MEDS: ACETAMINOPHEN TAB 325 MG TAB PO PRN (12:34)
--- NOTE | 2019-02-19 13:12 | P.PN ---
Subjective Progress Note Date: 02/19/19 This is a 73-year-old gentleman who follows with Dr. Nunez in the office. He has past medical history significant for coronary artery disease with multiple stent placements to his right coronary artery, prior myocardial infarction in 2019, hypertension, hyperlipidemia, GERD, prostate cancer with prior prostatectomy, depression. Presented to the hospital with symptoms of chest tightness that reminded him of when he had his myocardial infarction. His troponins were negative, patient was noted to have ST-T wave changes in the anterior leads on presentation and for this reason he was taken to the cardiac catheterization lab and underwent a cardiac catheterization by Dr. Nunez. Cardiac catheterization revealed a 60% stenosis in the LAD after the takeoff of the first diagonal branch, 60-70% stenosis to the diagonal, 30% stenosis in the OM and a 40% stenosis in the RCA with 50% restenosis area involving the mid RCA. Because of the patient's history of multiple stent placements to the RCA in the past, and in view of his recurrent symptoms he was advised a consultation with cardiothoracic surgery. He was on Effient which was discontinued yesterday, he is doing well today denies any chest pain in his breathing is overall stable. 02/18/2019 Patient was seen and examined this morning, denies any chest pain and is breathing overall has been stable. He's been encouraged today to be up ambulating as much as tolerated and if he remains symptom-free our plan is to discharge the patient tomorrow. Blood pressure 114/60 with a heart rate in the 70s, sodium 137, potassium 4.6, BUN 21 and creatinine 1.2. 02/19/2019 She was seen and examined this morning, slept well through the night last night. Denies any chest pain in his breathing is stable. Hemodynamically he is also stable. The patient will be discharged home today he will be scheduled for his coronary artery bypass grafting surgery a week from today. Objective - Vital Signs Vital signs: Vital Signs Temp 98.0 F 02/19/19 07:53 Pulse 77 02/19/19 12:00 Resp 16 02/19/19 12:00 BP 108/68 02/19/19 12:00 Pulse Ox 94 L 02/19/19 12:00 Intake & Output 02/18/19 02/19/19 02/19/19 18:59 06:59 18:59 Intake Total 540 480 Balance 540 480 Weight 98.8 kg Intake: Oral 540 480 Other: Voiding Method Toilet # Voids 1 2 2 - Exam PHYSICAL EXAMINATION: GENERAL: 73-year-old gentleman in no acute distress at the time of my examination HEENT: Head is atraumatic, normocephalic. Pupils equal, round. Sclera anicteric. Conjunctiva are clear. Mucous membranes of the mouth are moist. Neck is supple. There is no elevated jugular venous pressure. No carotid bruit is heard. HEART EXAMINATION: Heart S1, S2 normal. No murmur or gallop heard. CHEST EXAMINATION: Lungs are clear to auscultation and precussion. No chest wall tenderness is noted on palpation or with deep breathing. ABDOMEN: Soft, nontender. Bowel sounds are heard. No organomegaly noted. EXTREMITIES: 2+ peripheral pulses with no evidence of peripheral edema and no calf tenderness noted. NEUROLOGIC patient is awake, alert and oriented 3 . . - Labs CBC & Chem 7: 02/19/19 05:49 02/19/19 05:49 Labs: Abnormal Lab Results - Last 24 Hours (Table) 02/18/19 02/19/19 02/19/19 Range/Units 12:08 05:49 05:49 Hgb 12.0 L (13.0-17.5) gm/dL Hct 37.7 L (39.0-53.0) % RDW 16.1 H (11.5-15.5) % Lymphocytes # (Manual) 0.68 L (1.0-4.8) k/uL Monocytes # (Manual) 1.30 H (0-1.0) k/uL Myelocytes # (Manual) 0.06 H (0) k/uL BUN 21 H (9-20) mg/dL Calcium 8.3 L (8.4-10.2) mg/dL ALT 16 L (21-72) U/L HDL Cholesterol 26 L (40-60) mg/dL TSH 16.100 H (0.465-4.680) mIU/L Free T4 0.49 L (0.78-2.19) ng/dL Microbiology - Last 24 Hours (Table) 02/18/19 12:45 Nasal Screen MRSA/MSSA - Preliminary Nasal Swab Assessment and Plan Plan: Assessment: 1. Coronary artery disease with history of restenosis of the proximal right coronary artery and mid right coronary artery stents 2. History of myocardial infarction in November 2018 3. Chest pain 4. History of bradycardia 5. History of hypertension 6. History of hyperlipidemia 7. GERD 8. History of prostate cancer status post prostatectomy Plan Cardiology's perspective, patient may be able to be discharged home today, he is scheduled for coronary artery bypass grafting surgery on Tuesday. DNP note has been reviewed, I agree with a documented findings and plan of care. Patient was seen and examined.
--- NOTE | 2019-02-19 23:46 | DS ---
DISCHARGE SUMMARY DATE OF SERVICE: 02/19/2019. FINAL DIAGNOSES: 1. Chest pain; possible unstable angina, status post cardiac catheterization, multivessel disease with some progression, for coronary artery bypass grafting. 2. History of previous myocardial infarction and multiple stents. 3. Increased creatinine with chronic kidney disease, stage III. 4. History of prostate disorder. 5. History of hernia repair. 6. History of prostate surgery. 7. Elevated TSH, possibly hypothyroidism. 8. Mild hyponatremia, improved. 9. Anemia of chronic disease. DISCHARGE DISPOSITION: The patient will be discharged in stable condition with guarded prognosis. HISTORY OF PRESENT ILLNESS: This 73-year-old gentleman with a past medical history of multiple medical problems was admitted with unstable angina. The patient had a cardiac catheterization that showed multivessel disease which is progressive in nature. Cardiovascular Surgery saw the patient and recommended possibly outpatient followup and surgery next Tuesday off prasugrel. On exam, vitals are stable. CARDIOVASCULAR SYSTEM: S1, S2 muffled. ABDOMEN: Soft. NERVOUS SYSTEM: No focal deficit. DISCHARGE ADVICE AND MEDICATIONS: 1. Diet is cardiac. 2. Activity limited until followup. 3. Follow up with Cardiology, as mentioned earlier. 4. Follow up with primary physician, Dr. Duran, in 1-2 days. 5. Ecotrin 81 mg p.o. daily. 6. Norvasc 10 mg p.o. daily. 7. Omeprazole 20 mg daily. 8. Repatha 140 mg subcutaneously monthly. 9. Toprol-XL 50 mg p.o. daily. 10.Zestril 40 mg daily. 11.Mupirocin 2% b.i.d. 12.Amitriptyline 50 mg at bedtime. 13.Isosorbide mononitrate 30 mg p.o. daily. 14.Nitroglycerin 0.4 sublingually p.r.n. 15.Synthroid 50 mcg p.o. daily. 16.Zetia 10 mg p.o. daily. Once again, the patient will be discharged in stable condition with guarded prognosis. MMODL / IJN: [id number] /
--- NOTE | 2019-02-22 11:57 | P.ARTDOP ---
Arterial Doppler LOWER EXTREMITY ARTERIAL DOPPLER: DATE OF SERVICE: 02/18/2019 Reason for study: Preop CABG. Doppler waveforms: Multiphasic bilaterally throughout. Pulse volume recording: []. Pressure gradients: None. Ankle-brachial indices: Greater than 1 bilaterally. Toe pressures: [] on the right, [] on the left Impression: Normal study.
--- NOTE | 2019-02-22 11:59 | P.VSCSTY ---
Greater Saphenous Vein Mapping This is bilateral lower extremity greater saphenous vein mapping. Date of service: 02/18/2019 Vein quality and ultrasound appearance: We see no intraluminal thrombus or wall changes of significance. Vein size groin right : 7.4 x 7.8 groin left: 5.5 x 6.3 High thigh right: 5.6 x 6.3 high thigh left: 5.1 x 5.3 Mid thigh right: 5.6 x 5.7 mid thigh left: 4.6 x 5.3 Above-knee right: 4.4 x 5.5 above-knee left: 4.5 x 5.3 Below knee right: 3.6 x 3.5 below-knee left: 4.3 x 5.0 Mid calf right: 3.5 x 4.2 mid calf left: 2.9 x 3.7 Ankle right: 4.0 x 5.0 ankle left: 2.8 x 3.6 Impression: Usable bilateral greater saphenous vein.
== END 2019-02-19 15:33 | disposition home or self-care (01) | DRG 287 ==
LOC: EC 10:28 → 1SOBS 12:38 → 3SCARD 13:37 → OBSVTOIN 02-19 08:37
PROVIDERS: ADMIT Hospitalist; ATTEND Hospitalist
PROC: B2161ZZ Fluoroscopy of Right and Left Heart using Low Osmolar Contrast (ICD-10-PCS; principal; 2019-02-17)
DX: I25.119 Atherosclerotic heart disease of native coronary artery with unspecified angina pectoris (principal); T82.855A Stenosis of coronary artery stent, initial encounter; E87.1 Hypo-osmolality and hyponatremia; I45.2 Bifascicular block; D63.8 Anemia in other chronic diseases classified elsewhere; E78.5 Hyperlipidemia, unspecified; I12.9 Hypertensive chronic kidney disease with stage 1 through stage 4 chronic kidney disease, or unspecified chronic kidney disease; E03.9 Hypothyroidism, unspecified; I44.60 Unspecified fascicular block; I45.10 Unspecified right bundle-branch block; K21.9 Gastro-esophageal reflux disease without esophagitis; N18.3 Chronic kidney disease, stage 3 (moderate); I25.2 Old myocardial infarction; Z79.02 Long term (current) use of antithrombotics/antiplatelets; Z79.82 Long term (current) use of aspirin; Z79.899 Other long term (current) drug therapy; Z82.0 Family history of epilepsy and other diseases of the nervous system; Z82.49 Family history of ischemic heart disease and other diseases of the circulatory system; Z85.46 Personal history of malignant neoplasm of prostate; Z87.891 Personal history of nicotine dependence; Z90.79 Acquired absence of other genital organ(s); Z95.5 Presence of coronary angioplasty implant and graft; Z88.5 Allergy status to narcotic agent; Z88.2 Allergy status to sulfonamides; Z88.8 Allergy status to other drugs, medicaments and biological substances
CPT/HCPCS: 36415; 71046; 71250; 80048; 80053; 80061; 80074; 81001; 81003; 83036; 83735; 84439; 84443; 84484; 85025; 85347; 85610; 85730; 86850; 86900; 86901; 87070; 93005; 93306; 93458; 93880; 93922; 93970; 94150; 96365; 96366; 96376; 99291

== ENCOUNTER 2019-02-26 05:35 | Inpatient (IN) | payer MEDICARE ==
[~2019-02-26 05:35] MED LIST: ALBUMIN HUMAN 25% 50 ML IV ONE; ALBUMIN HUMAN 5% 500 ML IVPB ONE; ASPIRIN 325 MG TAB PO ONE; ATORVASTATIN 10 MG TAB PO ONE; CALCIUM CHLORIDE 100 MG/ML 10 ML SYRINGE IV ONE; CHLORHEXIDINE GLUCONATE 15 ML CUP MUCOUS MEM ONE; CLEVIDIPINE BUTYRATE 25 MG in EMPTY BAG 1 BAG IV ONE; DEXTROSE 5% IN WATER 1,000 ML with POTASSIUM CHLORIDE 110 MEQ, MAGNESIUM SULFATE 16 MEQ... IV ONE; DEXTROSE 5% IN WATER 1,000 ML with POTASSIUM CHLORIDE 25 MEQ, SODIUM CHLORIDE 2.5MEQ/ML... IRRIGATION ONE; HEPARIN SODIUM 1,000 UN/ML (10ML VL) IV ONE; HEPARIN SODIUM,PORCINE 5,000 UNIT in SODIUM CHLORIDE 0.9% 500 ML 500 ML IV ONE; INSULIN REGULAR 100 UNIT in SODIUM CHLORIDE 0.9% 100 ML IV ONE; LACTATED RINGERS 1,000 ML IV ONE; MAGNESIUM SULFATE MG 500 MG/ML IV ONE; MANNITOL 25% 12.5 GM/50 ML VIAL IV ONE; METOPROLOL TARTRATE 12.5 MG TAB PO ONE; NITROGLYCERIN-D5W PMX 25 MG/250 ML BTL IV ONE; NOREPINEPHRINE 4 MG in SODIUM CHLORIDE 0.9% 250 ML IV ONE; PAPAVERINE 360 MG in SODIUM CHLORIDE 0.9% 90 ML IV ONE; PHENYLEPHRINE 10 MG/ML VIAL IV ONE; PHENYLEPHRINE 40 MG in SODIUM CHLORIDE 0.9% 250 ML IV ONE; PROPOFOL 1,000 MG/100 ML VIAL IV ONE; PROTAMINE SULFATE 10 MG/ML 25 ML VIAL IV ONE; PROTAMINE SULFATE 250 MG in EMPTY BAG 1 BAG IV ONE; SODIUM BICARB 8.4% 50 ML SYR (1 MEQ/ML) IV ONE; SODIUM CHLORIDE 0.9% 1,000 ML IV ONE; TRANEXAMIC ACID 2,000 MG in SODIUM CHLORIDE 0.9% 80 ML IV ONE; VANCOMYCIN 1,000 MG VIAL MISCELLANE ONE; ceFAZolin 1,000 MG in SODIUM CHLORIDE 0.9% IRRIGATIO 1,000 ML IRRIGATION ONE; ceFAZolin 2,000 MG in SODIUM CHLORIDE 0.9% 30 ML IVPB ONE
[2019-02-26] MEDS ORDERED: LIDOCAINE 1% 20 ML VIAL (10MG/ML) FOR IV START INTRADERMA ONE (06:20)
[2019-02-26] MEDS ORDERED: SODIUM CHLORIDE 0.9% IRRIG 1,000 ML BTL IRRIGATION ONE (08:08)
[2019-02-26] MEDS ORDERED: MIDAZOLAM 2 MG/2 ML VIAL ONE (08:08)
[2019-02-26] MEDS ORDERED: PROPOFOL 10 MG/ML 20 ML VIAL IV ONE (08:08)
[2019-02-26] MEDS ORDERED: SODIUM CHLORIDE 0.9% 250 ML BAG ONE (08:08)
[2019-02-26] MEDS ORDERED: MAGNESIUM SULFATE 4 MEQ/ML 10ML VIAL ONE (08:08)
[2019-02-26] MEDS ORDERED: fentaNYL (PF) 50 MCG/ML 50 ML VIAL ONE (08:08)
[2019-02-26] MEDS ORDERED: fentaNYL (PF) 50 MCG/ML 2 ML AMP ONE (08:08)
[2019-02-26] MEDS ORDERED: ALBUMIN HUMAN 5% (12.5gm) 250 ML BOTTLE IVPB ONE (08:08)
[2019-02-26] MEDS ORDERED: TRANEXAMIC ACID 1,000 MG/10 ML VIAL ONE (08:08)
[2019-02-26] MEDS ORDERED: VECURONIUM 10 MG VIAL IV ONE (08:08)
[2019-02-26] MEDS ORDERED: PROTAMINE SULFATE 10 MG/ML 25 ML VIAL IV ONE (08:08)
[2019-02-26] MEDS ORDERED: HEPARIN SODIUM,PORCINE 10,000 UNIT/ML 1 ML VIAL ONE (08:08)
[2019-02-26] MEDS ORDERED: NITROGLYCERIN-D5W PMX 50 MG/250 ML BOTTLE IV ONE (08:08)
[2019-02-26] MEDS ORDERED: LIDOCAINE 2% SYG (PF) 100 MG/5 ML ONE (08:08)
[2019-02-26] MEDS ORDERED: ELECTROLYTE-R (PH 7.4) 1,000 ML IV.SOLN IV ONE (08:08)
[2019-02-26 08:34] LABS: ABG Base Excess 0.3 mmol/L; ABG Glucose Whole Blood 88 mg/dL (75-99); ABG HCO3 25 mmol/L (21-25); ABG Hematocrit 37 % (34.0-46.0); ABG Ionized Calcium 4.7 mg/dL (4.5-5.3); ABG PCO2 40 mmHg (35-45); ABG PH 7.41 (7.35-7.45); ABG PO2 331 mmHg (83-108); ABG Potassium Whole Blood 4.2 mmol/L (3.4-4.5); ABG Sodium Whole Blood 139 mmol/L (135-146); ABG TCO2 26 mmol/L (19-24)
--- NOTE | 2019-02-26 09:13 | P.ANPRN ---
Procedure Note - Anesthesia - Invasive Line Right Central Line Time Out Performed: Yes Date of Procedure: 02/26/19 Time of Procedure: 07:28 Location of Patient Procedure: PACU Preparation: Sterile Prep, Sterile Dressing Ultrasound Used: Yes Purpose - Visualization and Identification of Vasculature: Yes Needle Guage: 18 Image Stored and Saved: Yes Narrative: Central line placement per sterile protocol utilized. Right [place] Oscar Time Out Performed: Yes Date of Procedure: 02/26/19 Time of Procedure: 07:34 Location of Patient Procedure: PACU Preparation: Sterile Prep Ultrasound Used: No Purpose - Visualization and Identification of Vasculature: No Narrative: Central line placement per sterile protocol utilized.
[2019-02-26 09:55] LABS: ABG Base Excess -0.9 mmol/L; ABG Glucose Whole Blood 99 mg/dL (75-99); ABG HCO3 25 mmol/L (21-25); ABG Hematocrit 35 % (34.0-46.0); ABG Ionized Calcium 4.6 mg/dL (4.5-5.3); ABG Lactic Acid Whole Blood 1.1 mmol/L (0.5-1.6); ABG Oxygen Saturation 99.5 % (94-97); ABG PCO2 42 mmHg (35-45); ABG PH 7.37 (7.35-7.45); ABG PO2 168 mmHg (83-108); ABG Potassium Whole Blood 4.3 mmol/L (3.4-4.5); ABG Sodium Whole Blood 138 mmol/L (135-146); ABG TCO2 26 mmol/L (19-24)
[2019-02-26 10:37] LABS: ABG Base Excess -0.8 mmol/L; ABG Glucose Whole Blood 183 mg/dL (75-99); ABG HCO3 24 mmol/L (21-25); ABG Hematocrit 26 % (34.0-46.0); ABG Ionized Calcium 4.1 mg/dL (4.5-5.3); ABG Lactic Acid Whole Blood 1.1 mmol/L (0.5-1.6); ABG PCO2 38 mmHg (35-45); ABG PO2 409 mmHg (83-108); ABG Potassium Whole Blood 5.8 mmol/L (3.4-4.5); ABG Sodium Whole Blood 131 mmol/L (135-146); ABG TCO2 25 mmol/L (19-24)
[2019-02-26 11:04] LABS: ABG Base Excess -0.7 mmol/L; ABG Glucose Whole Blood 173 mg/dL (75-99); ABG HCO3 24 mmol/L (21-25); ABG Hematocrit 28 % (34.0-46.0); ABG Ionized Calcium 4.2 mg/dL (4.5-5.3); ABG Lactic Acid Whole Blood 1.2 mmol/L (0.5-1.6); ABG PCO2 38 mmHg (35-45); ABG PO2 327 mmHg (83-108); ABG Potassium Whole Blood 5.2 mmol/L (3.4-4.5); ABG Sodium Whole Blood 133 mmol/L (135-146); ABG TCO2 25 mmol/L (19-24)
[2019-02-26 11:40] LABS: ABG Base Excess -0.9 mmol/L; ABG Glucose Whole Blood 180 mg/dL (75-99); ABG HCO3 24 mmol/L (21-25); ABG Hematocrit 27 % (34.0-46.0); ABG Ionized Calcium 4.2 mg/dL (4.5-5.3); ABG Lactic Acid Whole Blood 1.5 mmol/L (0.5-1.6); ABG PCO2 37 mmHg (35-45); ABG PH 7.41 (7.35-7.45); ABG PO2 305 mmHg (83-108); ABG Potassium Whole Blood 5.2 mmol/L (3.4-4.5); ABG Sodium Whole Blood 133 mmol/L (135-146); ABG TCO2 25 mmol/L (19-24)
--- NOTE | 2019-02-26 12:59 | P.ANPRN ---
Procedure Note - Anesthesia - DILLAN Intraop Pre Bypass DILLAN Intraop - Anesthesia Indication: CAD and valvular insufficiency Date of Procedure: 02/26/19 Pre-operative Diagnosis: CAD Post-operative Diagnosis: same Surgeon: Grayson Wagoner Left Ventricle: EF 50%, No RWMA. Moderate pericardial effusion Ejection Fraction: Normal Regional Wall Motion Abnormalities: None Left Ventricle Hypertrophy: Yes R. Ventricle Function: Hypokinesis Mild Anatomy: Trileaflet Aortic Stenosis: None Aortic Regurgitation: Mild Other Findings: Central AI Mitral Stenosis: None Mitral Regurgitation: Mild Tricuspid Stenosis: None Tricuspid Regurgitation: None Pulmonic Stenosis: None Pulmonic Regurgitation: None R. Atrial Dilation: No R. Atrial PFO: No L. Atrial Dilation: No Aortic Dissection: No Aortic Calcification: Moderate Plural Effusion: None - DILLAN Intraop Post Bypass DILLAN Intraop Post Bypass Procedure Performed: CABGx3 Ejection Fraction: Normal Regional Wall Motion Abnormalities: None R. Ventricle Function: Normal Aortic Valve: Unchanged Mitral Valve: Unchanged Tricuspid: Unchanged Pulmonic: Unchanged Aortic Dissection: No
[2019-02-26] MEDS ORDERED: Magnesium Replacement Protocol 1 EACH MISC MISCELLANE PRN (13:45)
[2019-02-26] MEDS ORDERED: Potassium Replacement Protocol 1 EACH MISC MISCELLANE PRN (13:45)
[2019-02-26] MEDS ORDERED: Phosphorus Replacement Protoco 1 EACH MISC MISCELLANE PRN (13:45)
[2019-02-26] MEDS ORDERED: IPRATROPIUM-ALBUTEROL 3 ML NEB INHALATION PRN (13:45)
[2019-02-26] MEDS ORDERED: CALCIUM GLUCONATE 2 GM in SODIUM CHLORIDE 0.9% 100 ML IVPB PRN (13:45)
[2019-02-26] MEDS ORDERED: AMIODARONE 360 MG in DEXTROSE 5% IN WATER 200 ML IV PRN ×2 (13:45)
[2019-02-26] MEDS: LACTATED RINGERS 1,000 ML IV SCH (13:45)
[2019-02-26] MEDS ORDERED: METOCLOPRAMIDE 5 MG/ML 2 ML VIAL IVP PRN (13:45)
[2019-02-26] MEDS ORDERED: BENZOCAINE/MENTHOL LOZENG 1 EACH LOZENGE MUCOUS MEM PRN (13:45)
[2019-02-26] MEDS ORDERED: PROPOFOL 1,000 MG in EMPTY BAG 1 BAG IV SCH (13:45)
[2019-02-26] MEDS ORDERED: NITROGLYCERIN-D5W PMX 50 MG in DEXTROSE/WATER 1 250ML.BAG IV SCH (13:45)
[2019-02-26] MEDS ORDERED: AMIODARONE 300 MG in DEXTROSE 5% IN WATER 250 ML IV PRN ×2 (13:45)
[2019-02-26] MEDS ORDERED: ALBUMIN HUMAN 5% 250 ML in EMPTY BAG 1 BAG IVPB PRN (13:45)
[2019-02-26] MEDS ORDERED: DEXTROSE 5% IN WATER 100 ML with AMIODARONE 150 MG IV PRN (13:45)
[2019-02-26] MEDS ORDERED: ONDANSETRON 4 MG/2 ML VIAL IVP PRN (13:45)
[2019-02-26 13:59] LABS: Anisocytosis Slight; Basophils # (A) 0.1 k/uL (0-0.2); Basophils % (A) 1 %; Eosinophils # (A) 0.2 k/uL (0-0.7); Eosinophils % (A) 2 %; HCT 27.8 % (39.0-53.0); Hypochromasia Moderate; Lymphocytes # (A) 0.8 k/uL (1.0-4.8); Lymphocytes % (A) 9 %; MCH 26.1 pg (25.0-35.0); MCHC 31.4 g/dL (31.0-37.0); Mean Platelet Volume 7.5; Monocytes # (A) 0.5 k/uL (0-1.0); Monocytes % (A) 6 %; Neutrophils # (A) 7.3 k/uL (1.3-7.7); Neutrophils % (A) 81 %; Platelet Count 208 k/uL (150-450); RBC 3.34 m/uL (4.30-5.90); RDW 16.2 % (11.5-15.5)
[2019-02-26 14:04] LABS: HGB 8.7 gm/dL (13.0-17.5); Ionized Calcium 4.7 mg/dL (4.5-5.3)
[2019-02-26 14:19] LABS: INR 1.2 (<1.2); Partial Thromboplastin Time 44.7 sec (22.0-30.0); Prothrombin Time 12.2 sec (9.0-12.0)
[2019-02-26 14:31] LABS: Albumin 3.1 g/dL (3.5-5.0); Calcium 8.1 mg/dL (8.4-10.2); Magnesium 2.7 mg/dL (1.6-2.3); Potassium 4.3 mmol/L (3.5-5.1); Total Bilirubin 0.3 mg/dL (0.2-1.3); Total Protein 5.2 g/dL (6.3-8.2)
--- NOTE | 2019-02-26 14:31 | XR ---
EXAMINATION TYPE: XR chest 1V portable DATE OF EXAM: 02/26/2019 CLINICAL HISTORY: Postoperative cardiac surgery TECHNIQUE: Single AP portable supine view of the chest is obtained. COMPARISON: Chest x-ray from February 16, 2019. CT chest February 18, 2019. FINDINGS: There is new endotracheal tube terminating superior aortic knob level, approximately 2 to 3 cm above lucía. There is new orogastric tube projecting below diaphragm. There are 2 mediastinal d rainage catheters. There is left-sided chest tube. There is right internal jugular [place] catheter terminating at level of pulmonary outflow track. Post-CABG changes with mediastinal clips and sterna l wires is now present. Cardiac silhouette size is mildly enlarged on current study with mild to moderate central vascular co ngestion. No pleural effusion or pneumothorax is noted. Low lung volumes are seen. Osseous structures are intact. IMPRESSION: 1. New tubes and lines satisfactory position. 2. New mild cardiomegaly and mild to moderate central vascular congestion. Diminished inspiration is noted. Progress study advised.
[2019-02-26 14:34] LABS: ABG Base Excess -0.3 mmol/L; ABG HCO3 25 mmol/L (21-25); ABG Oxygen Saturation 97.1 % (94-97); ABG PCO2 46 mmHg (35-45); ABG PH 7.35 (7.35-7.45); ABG PO2 96 mmHg (83-108); ABG TCO2 27 mmol/L (19-24)
[2019-02-26] MEDS: CLEVIDIPINE BUTYRATE 25 MG in EMPTY BAG 1 BAG IV SCH (14:35)
[2019-02-26 14:36] LABS: Allen Test Performed? no
[2019-02-26 14:37] LABS: Glucose,Whole Blood 111 mg/dL (75-99)
[2019-02-26 15:08] LABS: Glucose,Whole Blood 94 mg/dL (75-99)
[2019-02-26] MEDS ORDERED: IPRATROPIUM-ALBUTEROL 3 ML NEB INHALATION SCH (16:00)
[2019-02-26 16:17] LABS: Glucose,Whole Blood 122 mg/dL (75-99)
[2019-02-26 16:39] LABS: Anisocytosis Slight; Basophils # (A) 0.1 k/uL (0-0.2); Basophils % (A) 1 %; Eosinophils # (A) 0.1 k/uL (0-0.7); Eosinophils % (A) 1 %; HCT 32.7 % (39.0-53.0); HGB 10.2 gm/dL (13.0-17.5); Hypochromasia Moderate; Lymphocytes % (A) 10 %; MCH 25.9 pg (25.0-35.0); MCHC 31.2 g/dL (31.0-37.0); Mean Platelet Volume 6.2; Monocytes # (A) 0.8 k/uL (0-1.0); Monocytes % (A) 8 %; Neutrophils # (A) 7.8 k/uL (1.3-7.7); Neutrophils % (A) 78 %; Platelet Count 265 k/uL (150-450); RBC 3.94 m/uL (4.30-5.90); RDW 16.2 % (11.5-15.5)
[2019-02-26] MEDS ORDERED: INSULIN REGULAR 100 UNIT in SODIUM CHLORIDE 0.9% 100 ML IV SCH (17:15)
[2019-02-26] MEDS: KETOROLAC 30 MG/ML 1 ML VIAL IVP SCH ×2 (17:23→23:11)
[2019-02-26] MEDS: ACETAMINOPHEN IV (For NPO) 1,000 MG in EMPTY BAG 1 BAG IVPB SCH ×3 (17:26→23:29)
[2019-02-26 17:27] LABS: Glucose,Whole Blood 125 mg/dL (75-99)
[2019-02-26 18:12] LABS: Glucose,Whole Blood 147 mg/dL (75-99)
[2019-02-26 18:30] LABS: ABG Base Excess -1.1 mmol/L; ABG HCO3 24 mmol/L (21-25); ABG PCO2 37 mmHg (35-45); ABG PH 7.41 (7.35-7.45); ABG PO2 100 mmHg (83-108); ABG TCO2 25 mmol/L (19-24)
[2019-02-26 18:31] LABS: Allen Test Performed? no
[2019-02-26] MEDS: IPRATROPIUM-ALBUTEROL 3 ML NEB INHALATION SCH ×2 (19:00→20:05)
[2019-02-26 19:08] LABS: Glucose,Whole Blood 122 mg/dL (75-99)
[2019-02-26 20:10] LABS: Glucose,Whole Blood 138 mg/dL (75-99)
[2019-02-26 20:34] LABS: Anisocytosis Slight; Basophils # (A) 0.1 k/uL (0-0.2); Basophils % (A) 1 %; Eosinophils % (A) 0 %; HCT 30.5 % (39.0-53.0); HGB 9.8 gm/dL (13.0-17.5); Hypochromasia Slight; Lymphocytes # (A) 0.5 k/uL (1.0-4.8); Lymphocytes % (A) 5 %; MCH 26.5 pg (25.0-35.0); MCHC 32.2 g/dL (31.0-37.0); MCV 82.3 fL (80.0-100.0); Mean Platelet Volume 6.5; Monocytes # (A) 0.6 k/uL (0-1.0); Monocytes % (A) 6 %; Neutrophils # (A) 8.5 k/uL (1.3-7.7); Neutrophils % (A) 87 %; Platelet Count 276 k/uL (150-450); RBC 3.71 m/uL (4.30-5.90); RDW 16.2 % (11.5-15.5); WBC 9.8 k/uL (3.8-10.6)
[2019-02-26 21:17] LABS: Glucose,Whole Blood 135 mg/dL (75-99)
[2019-02-26] MEDS ORDERED: METOPROLOL TARTRATE 12.5 MG TAB PO ONE (21:32)
[2019-02-26] MEDS: MUPIROCIN 2% OINT 22 GM TUBE NASAL SCH (21:40)
--- NOTE | 2019-02-26 21:50 | CONS ---
CONSULTATION This is a pulmonary critical care consultation. DATE OF SERVICE: February 26, 2019 HISTORY OF PRESENT ILLNESS: This is a 73-year-old gentleman who was recently evaluated for coronary artery disease. He was found to have significant coronary artery disease. The patient underwent bypass surgery today by Dr. Wagoner. He had a ADAMS to LAD bypass and 2 vein grafts to the PDA and OM, respectively. He is currently back in the ICU on the ventilator. I was asked to consult on ventilator management and postop ventilator management and respiratory issues. Currently, the patient is under the effects of anesthesia. He is unresponsive. He is currently on propofol at 25 mics per kg per minute, Cleviprex at 3 mg/hour, nitroglycerin at 5 mcg/hour and getting lactated Ringer's IV at 50 mL an hour. He is on mechanical ventilator. He is on the SIMV mode rate of 14, tidal volume 500, FiO2 50%, PEEP of 8. PSV of 5. His initial blood gases show pO2 of 96, pCO2 46 and pH is 7.35. He seems to be resting comfortably. He is shivering. The nurses are getting blankets for him. PAST MEDICAL HISTORY: Includes CAD, chest pain/angina, GERD, hyperlipidemia, hypertension, non-Q-wave myocardial infarction, and hypothyroidism. He also has a history of prostate cancer. In addition, the patient has had multiple past surgical proceduresincluding heart catheterization with stent, hernia repair, prostatectomy, and some other minor surgical procedures. SOCIAL HISTORY: Negative for tobacco use. Denies any alcohol or illicit drug use. FAMILY HISTORY: Positive for father with CAD and myocardial infarction and mother with dementia secondary to Alzheimer disease. MEDICATIONS: Reviewed. They include low-dose aspirin, lisinopril, omeprazole, Zetia, nitroglycerin tablets sublingual, Elavil, metoprolol, amlodipine, Repatha, Imdur ER, levothyroxine, and bacitracin ointment. ALLERGIES: INCLUDE SULFA ANTIBIOTICS, IBUPROFEN AND MORPHINE. REVIEW OF SYSTEMS: Cannot be obtained. The patient is currently just out of the operating room and under the effects of general anesthesia. His initial presentation was that of chest pain. PHYSICAL EXAMINATION: VITAL SIGNS: Current vital signs are reviewed and they include a temperature 98.6, heart rate 87, respiratory rate which is 14, blood pressure 147/83, and a saturation of 100% on the FiO2 50%, PSV 5, PEEP of 8. Appears in no acute distress. Currently sedated. HEENT examination is grossly unremarkable. There is an orally placed endotracheal tube and NG tube. NECK: Supple. Full range of motion. No adenopathy. CARDIOVASCULAR examination reveals regular rhythm rate. S1, S2 normal. No S3, S4, murmur. Heart sounds are distant. LUNGS: Breath sounds equal bilaterally. A few scattered rhonchi noted. No wheezes or crackles. ABDOMEN: Soft. No bowel sounds. EXTREMITIES are intact. They are cool. No edema. No cyanosis or clubbing. SKIN: Without rash. Pulses are intact. NEUROLOGIC examination could not be adequately assessed. CHEST X-RAY: Has been done. It shows a properly placed endotracheal tube. Sternal wires. There is a central line, i.e. Cordis with a PA catheter. Chest tubes are noted. There is some bibasilar atelectasis, left greater than right. There may be a small left-sided pleural effusion. LABS: Reviewed. White count 9, hemoglobin 8.7, hematocrit 27.8, platelet count 288,000. PT/INR was 12.2 and 1.2 respectively. PTT is 44.7. Initial gases noted. Sodium 139, potassium 4.3 chloride 105, CO2 is 25, anion gap is 9. BUN and creatinine were 15 and 1.07. Calcium 8.1, ionized calcium 4.7, magnesium 2.7. Albumin is 3.1. Medications are reviewed. ASSESSMENT: 1. Postoperative day number zero, status post 3-vessel bypass grafting including ADAMS to LAD, saphenous vein graft to PDA, and saphenous vein graft to obtuse marginal coronary artery. 2. History of coronary artery disease with previous myocardial infarction, non-Q-wave myocardial infarction. 3. Previous multiple stent placements. 4. Angina pectoris. 5. Gastroesophageal reflux disease. 6. Hypertension. 7. Hyperlipidemia. 8. Prostate cancer. PLAN: The patient will get updrafts in the form of albuterol and Atrovent q.4 hours p.r.n. In addition, we will make additional ventilator adjustments when appropriate. We will hopefully get the patient extubated in a timely fashion. We aim for less than 6 hours and even less than that. He appears to be relatively stable right now. Additional recommendations and suggestions are forthcoming. Prognosis is guarded. We will continue to follow. Post extubation, we will recommend deep breathing,coughing and clearing of secretions and hourly use of incentive spirometer. In addition, the patient will have daily chest x-rays. Additional recommendations and suggestions are forthcoming. MMODL / IJN: [id number] /
[2019-02-26] MEDS ORDERED: HEPARIN SODIUM,PORCINE 5,000 UNIT/ML 1 ML VIAL SQ SCH (22:00)
--- NOTE | 2019-02-26 23:37 | CONS ---
CONSULTATION DATE OF SERVICE: 02/26/2019 REASON FOR CONSULTATION: Advice regarding hypertension, hyperlipidemia and other multiple medical issues, requested by Dr. Wagoner. HISTORY OF PRESENT ILLNESS: This 73-year-old gentleman with a past medical history of multiple medical problems, including history of CAD, history of GERD, hypertension, hyperlipidemia, history of prostate disorder, being followed Dr. Duran in the outpatient setting, was recently admitted to [facility] with chest pain. The patient had cardiac catheterization which showed multivessel disease. The patient underwent CABG today. The patient is mechanically ventilated. The patient has chest tubes. The patient is also on a Cleviprex drip and the patient is being monitored closely in the ICU at this time. Currently the patient is unable to provide a detailed history. Most of the history is taken from my discussion with staff and review of the chart at this time. Blood sugars are well maintained. Patient is not on any insulin drip currently. PAST MEDICAL HISTORY: 1. CAD. 2. GERD. 3. Hypertension. 4. Hyperlipidemia. 5. History of prostate disorder. 6. CAD, stent. HOME MEDICATIONS: 1. Amlodipine 5 mg p.o. daily. 2. Nitrostat 0.4 sublingually p.r.n. 3. Omeprazole 20 mg p.o. daily. 4. Bactroban 1 application b.i.d. 5. Toprol-XL 50 mg p.o. daily. 6. Zestril 40 mg p.o. daily. 7. Synthroid 50 mcg p.o. daily. 8. Imdur 30 mg p.o. daily. 9. Zetia 10 mg p.o. daily. 10.Repatha 140 mg subcutaneously monthly. 11.Ecotrin 81 mg daily. 12.Elavil 50 mg at bedtime. ALLERGIES: 1. SULFA. 2. MOTRIN. 3. MORPHINE. FAMILY HISTORY: History of CAD, myocardial infarction, dementia. SOCIAL HISTORY: No history of smoking. No history of alcohol intake. REVIEW OF SYSTEMS: Review of systems could not be taken because the patient is mechanically ventilated and sedated. PHYSICAL EXAMINATION: Pulse is 91, blood pressure 112/52, respiration 21, temperature normal, pulse ox 92% on mechanical ventilation. The vent settings are noted. HEENT: Conjunctivae normal. NECK: No jugular venous distention. CARDIOVASCULAR SYSTEM: S1, S2 muffled. RESPIRATORY SYSTEM: Breath sounds diminished at the bases. A few scattered rhonchi. ABDOMEN: Soft. NERVOUS SYSTEM: Patient is sedated. SKIN: No ulcer, rash, bleeding. JOINTS: No active deforming arthropathy. LABS: Labs at this time show WBC 10, hemoglobin 10.2, glucose 122. Magnesium 2.7. ASSESSMENT: 1. Coronary artery disease, status post coronary artery bypass grafting. 2. History of recent cardiac catheterization with unstable angina. 3. History of previous myocardial infarction and multiple stents. 4. History of chronic kidney disease, stage III. 5. History of prostate disorder. 6. History of hernia repair. 7. Hypothyroidism; newly diagnosed. 8. History of prostate surgery. 9. History of anemia. RECOMMENDATIONS AND DISCUSSION: In this 73-year-old gentleman who presented after surgery, at this time I recommend to continue current management, resume the home medications once the patient is p.o. Otherwise, we will follow the patient closely. DVT prophylaxis. Incentive spirometry. Closely follow with Cardiothoracic Surgery. Further recommendations to follow. Thank you, Dr. Wagoner, for letting us participate in the care of this patient. The patient may be asked to follow with Dr. Rubin Duran closely in the outpatient setting after discharge. MMODL / IJN: [id number] /
[2019-02-27 00:21] LABS: Glucose,Whole Blood 137 mg/dL (75-99)
[2019-02-27] MEDS ORDERED: HYDROcodone/APAP 5-325MG 1 EACH TAB PO PRN ×2 (01:06)
[2019-02-27 02:11] LABS: Glucose,Whole Blood 122 mg/dL (75-99)
[2019-02-27 04:00] LABS: Glucose,Whole Blood 119 mg/dL (75-99)
[2019-02-27 04:29] LABS: Ionized Calcium 4.8 mg/dL (4.5-5.3)
[2019-02-27 04:34] LABS: Albumin 3.7 g/dL (3.5-5.0); Calcium 8.4 mg/dL (8.4-10.2); Magnesium 2.2 mg/dL (1.6-2.3); Potassium 4.8 mmol/L (3.5-5.1); Total Bilirubin 0.5 mg/dL (0.2-1.3); Total Protein 5.9 g/dL (6.3-8.2)
[2019-02-27 04:38] LABS: Anisocytosis Slight; Basophils % (A) 1 %; Eosinophils % (A) 0 %; HGB 8.5 gm/dL (13.0-17.5); Hypochromasia Slight; Lymphocytes # (A) 0.7 k/uL (1.0-4.8); Lymphocytes % (A) 8 %; MCH 24.2 pg (25.0-35.0); MCHC 29.5 g/dL (31.0-37.0); MCV 82.1 fL (80.0-100.0); Mean Platelet Volume 6.3; Monocytes # (A) 0.5 k/uL (0-1.0); Monocytes % (A) 6 %; Neutrophils % (A) 83 %; Platelet Count 240 k/uL (150-450); RBC 3.53 m/uL (4.30-5.90); RDW 16.3 % (11.5-15.5); WBC 8.4 k/uL (3.8-10.6)
[2019-02-27] MEDS: KETOROLAC 30 MG/ML 1 ML VIAL IVP SCH ×3 (05:32→19:32)
--- NOTE | 2019-02-27 05:56 | OP ---
OPERATIVE REPORT DATE OF SURGERY: 02/26/2019 PREOPERATIVE DIAGNOSIS: Coronary artery disease. POSTOPERATIVE DIAGNOSE: Coronary artery disease. PROCEDURE: 1. Coronary artery bypass grafting x3 vessels (left internal mammary artery to left anterior descending artery, saphenous vein graft to diagonal artery, saphenous graft to posterior descending artery). 2. Endoscopic vein harvest, left greater saphenous vein. 3. Epiaortic ultrasound. 4. Transesophageal echocardiogram. SURGEON: Grayson Wagoner MD. TOOL POLISHER: 1. Anthony Meza NP. 2. ELADIA Stubbs. ANESTHESIA: General. SPECIMENS: None. COMPLICATIONS: None. INDICATION: The patient is a 73-year-old male who initially presented to the hospital earlier this year with an acute inferior wall STEMI. He was taken emergently to the optical lab technician where a drug-eluting stent was placed in the RCA. Several months later, he again presented to the hospital with significant in-stent restenosis, which required further percutaneous intervention. Cardiac catheterization performed earlier this month revealed some recurrence of in-stent restenosis along with disease of his left anterior descending artery. After speaking with the patient's lab systems analyst, Dr. Chris Nunez, the decision was made to proceed with coronary artery bypass surgery. The risks, benefits, and alternatives to this procedure were discussed at length with the patient. All his questions were answered. Consent was obtained. FINDINGS: The left internal mammary artery was a good conduit with brisk flow. The saphenous vein was a good conduit. The LAD measured 1.3 mm. The PDA measured 1.5 mm. The diagonal artery measured 1.3 mm. PROCEDURE IN DETAIL: The patient was taken to the operating room and placed supine on the operating table. After the induction of general anesthesia, he was prepped and draped in the usual sterile fashion. Preoperative transesophageal echocardiogram confirmed a preserved left ventricular ejection fraction with trace to mild mitral regurgitation. A median sternotomy was performed. The left internal mammary artery was harvested in the standard fashion taking care to clip all branches. Intravenous heparin was administered. The vessel was transected distally revealing brisk flow. Simultaneously, greater saphenous vein was harvested from the left lower extremity using endoscopic technique. All branches were tied. Both the mammary artery and saphenous vein were good conduits. A pericardial cradle was created. The ascending aorta was palpated. There was no significant calcific plaque noted. Epiaortic ultrasound was then performed on the ascending aorta. Again no calcific plaque or atheromatous disease was identified. An arterial cannula was placed in the distal ascending aorta. A venous cannula was placed through the right atrial appendage and directed into the IVC. An antegrade catheter was placed for delivery of cardioplegia. The patient was then placed on cardiopulmonary bypass with good decompression of the heart. The aortic cross-clamp was applied. Cardioplegia was delivered to achieve arrest of the heart. Of note, cardioplegia was delivered every 15 to 20 minutes while the patient remained under crossclamp. I began by inspecting the inferior wall. The distal right coronary was easily palpated. It contained significant calcific disease along with multiple stents. A soft spot amenable for bypass was noted in the proximal PDA. A small arteriotomy was created. This vessel accepted a 1.5 mm probe. Using saphenous vein in a reverse fashion, an end-to-side anastomosis was created. This performed using running 7-0 Prolene suture. The graft was hemostatic and had great flow. Next, the diagonal artery was identified. It was dissected free. It was small in diameter but I felt it was amenable for bypass. A small arteriotomy was created. This vessel accepted a 1 mm probe. Using saphenous vein in a reverse fashion, an end-to-side anastomosis created. This was performed using running 7-0 Prolene suture. The graft was hemostatic and had good flow. Finally the left anterior descending artery was identified. This was dissected free in its mid to distal region. A small arteriotomy was created. It contained posterior plaque. The vessel accepted a 1 mm probe. Using the left internal mammary artery, an end-to-side anastomosis was created. This was performed using running 8-0 Prolene suture. The graft was hemostatic. The mammary pedicle was then tacked down to the anterior surface of the heart. Attention was then turned to the proximal anastomoses. These were performed in end-to- side fashion using running 6-0 Prolene sutures. Lidocaine and magnesium were administered. The aortic cross-clamp was removed. The grafts were de-aired in the standard fashion. Temporary atrial and ventricular pacing wires were placed and brought through the skin. The patient was then weaned off cardiopulmonary bypass. He without difficulty. Followup transesophageal echocardiogram confirmed good left ventricular ejection fraction. No change in valvular pathology. Protamine was administered. There were no adverse reactions. The remaining cannulas were removed. The mediastinum was copiously irrigated with warm saline solution. All surgical sites were inspected and appeared to be hemostatic. Soft tissues were reapproximated over the ascending aorta as well as over the apex of the heart. Straight 32-[place] chest tubes were placed and directed into the left pleural space as well as the mediastinum. These were all secured to the skin using sutures. The sternum was then reapproximated using the [place] cables in a [id number] fashion. At the completion of the closure, the sternum was well aligned. The remainder of the wound was closed in layers. Sterile dressing was applied. The patient appeared to tolerate the procedure well. There were no immediate complications. He returned to the ICU in critical but stable condition. MARIA EUGENIA / JHN: [id number] / XAVI
[2019-02-27] MEDS ORDERED: LEVOTHYROXINE 50 MCG TAB PO SCH (06:30)
--- NOTE | 2019-02-27 07:37 | P.PN ---
Subjective Progress Note Date: 02/27/19 Principal diagnosis: Coronary artery disease. Previous medical history of coronary artery disease with multiple previous stents to the RCA, recent myocardial infarction December 2018, symptomatic bradycardia, hypertension, hyperlipidemia, hypothyroid, depression, GERD, obesity, prostate cancer status post prostatectomy in 2006, and family history of coronary artery disease. Preoperative nasal swab positive for MSSA. POD #1 coronary artery bypass grafting 3 vessels, left internal mammary artery to the left anterior descending artery, reverse saphenous vein graft to the diag onal artery, reverse saphenous vein graft to the posterior descending artery. Endoscopic vein harvest, left greater saphenous vein. Epi-aortic ultrasound. Intraoperative transesophageal echocardiogram. Postoperative acute blood loss anemia, expected outcome given hemodilution and cardiopulmonary bypass pump. The patient is currently sitting up in a recliner in no acute distress. He was successfully extubated last night at 18:35. He states pain is well controlled on current medication regimen, denies shortness of breath. Remains in normal sinus rhythm and is hemodynamically stable on no inotropes or pressors. Mediastinal and left pleural chest tubes in place without excessive drainage. No new concerns. Objective - Vital Signs Vital signs: Vital Signs Temp 98.6 F 02/27/19 04:00 Pulse 68 02/27/19 07:00 Resp 22 02/27/19 07:00 BP 113/69 02/27/19 00:00 Pulse Ox 95 02/27/19 07:00 Intake & Output 02/26/19 02/27/19 02/27/19 18:59 06:59 18:59 Intake Total 782.165 6673.630 Output Total 2705 1030 Balance -2337.702 97.630 Weight 106.2 kg Intake: IV 289.5 1119.5 ACETAMINOPHEN IV (For NPO 100 ) 1,000 mg In Empty Bag 1 bag @ 400 mls/hr IVPB Q6HR [facility] Rx#:[id number] CO/CI 250 Lactated Ringers 1,000 ml 250 650 @ 20 mls/hr IV .Q24H [facility] Rx#:[id number] Nitroglycerin-D5w Pmx 50 7.5 19.5 mg In Dextrose/Water 1 250ml.bag @ 5 MCG/MIN 1.5 mls/hr IV .Q24H [facility] Rx#: [id number] ceFAZolin 2,000 mg In 100 Sodium Chloride 0.9% 30 ml @ Per Protocol IVPB ONCE ONE Rx#:[id number] Intake, IV Titration 77.798 8.130 Amount Clevidipine Butyrate 25 28.000 mg In Empty Bag 1 bag @ 1 MG/HR 2 mls/hr IV .Q24H [facility] Rx#:[id number] Insulin Regular 100 unit 8.130 In Sodium Chloride 0.9% 100 ml @ Per Protocol IV .Q0M [facility] Rx#:[id number] Propofol 1,000 mg In 49.798 Empty Bag 1 bag @ Titrate IV .Q0M [facility] Rx#: [id number] Output: Chest Tube Drainage 265 345 Chest Tube Left Pleural/ 265 345 Mediastinal Urine 1840 685 Estimated Blood Loss 600 Other: Voiding Method Indwelling Catheter Indwelling Catheter ABP, PAP, CO, CI - Last Documented Arterial Blood Pressure 108/45 Pulmonary Artery Pressure 17/5 Cardiac Output 4.9 Cardiac Index 2.2 - Constitutional General appearance: Present: cooperative, no acute distress, obese - Respiratory Details: Lungs sounds diminished bilaterally. Respirations even, nonlabored. Currently on 2 L nasal cannula with oxygen saturation 93%. Able to achieve 1500 mL on his incentive spirometry. Strong cough. Mediastinal/left pleural chest tubes present to continuous wall suction, 180 mL serosanguineous drainage overnight, 550 mL since surgery, no air leaks present. - Cardiovascular Details: S1, S2 present. Regular rate and rhythm, sinus rhythm on telemetry. Sternum stable. A/V epicardial pacemaker wires present, connected to generator, AAI mode with backup rate 50 beats per minutes. Palpable peripheral pulses andres aterally. No edema present. No calf pain or tenderness noted. Right internal jugular Paron/Cordis, right radial arterial line present. Last CO/CI 4.9/2.2 on no inotropes or pressors. Heart hugger in place with patient demonstrating appropriate use. Antiembolism stockings, SCDs present. - Gastrointestinal Gastrointestinal Comment(s): Abdomen soft, nontender, nondistended. Hypoactive bowel sounds present 4 quadrants. Tolerating clear liquids. Negative flatus. - Genitourinary Genitourinary Comment(s): Segal present draining clear, yellow urine. Output 35-45 mL per hour overnight. - Integumentary Integumentary Comment(s): Skin is warm and dry with evidence of good perfusion. Anterior chest incision well approximated and covered with Dermabond dressing. Left lower extremity EVH site well approximated, no drainage noted. - Neurologic Neurologic: Present: CNII-XII intact - Musculoskeletal Musculoskeletal: Present: strength equal bilaterally - Psychiatric Psychiatric Comment(s): Per nursing patient did have a couple of episodes of confusion last night. Psychiatric: Present: A&O x's 3, appropriate affect, intact judgment & insight - Allied health notes Allied health notes reviewed: nursing - Labs CBC & Chem 7: 02/27/19 04:00 02/27/19 04:00 Labs: Abnormal Lab Results - Last 24 Hours (Table) 02/18/19 02/26/19 02/26/19 Range/Units 12:08 08:37 09:58 RBC (4.30-5.90) m/uL Hgb (13.0-17.5) gm/dL Hct (39.0-53.0) % MCH (25.0-35.0) pg MCHC (31.0-37.0) g/dL RDW (11.5-15.5) % Neutrophils # (1.3-7.7) k/uL Lymphocytes # (1.0-4.8) k/uL PT (9.0-12.0) sec INR (<1.2) APTT (22.0-30.0) sec ABG pCO2 (35-45) mmHg ABG pO2 331 H 168 H (83-108) mmHg ABG Total CO2 26 H 26 H (19-24) mmol/L ABG O2 Saturation 100.0 H 99.5 H (94-97) % ABG Hematocrit (34.0-46.0) % ABG Sodium (135-146) mmol/L ABG Potassium (3.4-4.5) mmol/L ABG Ionized Calcium (4.5-5.3) mg/dL ABG Glucose (75-99) mg/dL Hemoglobin 12.0 L 11.4 L (13.0-17.5) gm/dL Sodium (137-145) mmol/L Glucose (74-99) mg/dL POC Glucose (mg/dL) (75-99) mg/dL Calcium (8.4-10.2) mg/dL Magnesium (1.6-2.3) mg/dL ALT (21-72) U/L Alkaline Phosphatase (38-126) U/L Total Protein (6.3-8.2) g/dL Albumin (3.5-5.0) g/dL Arterial Blood Potassium (3.4-4.5) mmol/L Arterial Blood Glucose (75-99) mg/dL Crossmatch See Detail 02/26/19 02/26/19 02/26/19 Range/Units 10:39 11:07 11:43 RBC (4.30-5.90) m/uL Hgb (13.0-17.5) gm/dL Hct (39.0-53.0) % MCH (25.0-35.0) pg MCHC (31.0-37.0) g/dL RDW (11.5-15.5) % Neutrophils # (1.3-7.7) k/uL Lymphocytes # (1.0-4.8) k/uL PT (9.0-12.0) sec INR (<1.2) APTT (22.0-30.0) sec ABG pCO2 (35-45) mmHg ABG pO2 409 H 327 H 305 H (83-108) mmHg ABG Total CO2 25 H 25 H 25 H (19-24) mmol/L ABG O2 Saturation 100.0 H 100.0 H 100.0 H (94-97) % ABG Hematocrit 26 L 28 L 27 L (34.0-46.0) % ABG Sodium 131 L 133 L 133 L (135-146) mmol/L ABG Potassium 5.8 H 5.2 H 5.2 H (3.4-4.5) mmol/L ABG Ionized Calcium 4.1 L 4.2 L 4.2 L (4.5-5.3) mg/dL ABG Glucose 183 H 173 H 180 H (75-99) mg/dL Hemoglobin 8.5 L 9.0 L 8.9 L (13.0-17.5) gm/dL Sodium (137-145) mmol/L Glucose (74-99) mg/dL POC Glucose (mg/dL) (75-99) mg/dL Calcium (8.4-10.2) mg/dL Magnesium (1.6-2.3) mg/dL ALT (21-72) U/L Alkaline Phosphatase (38-126) U/L Total Protein (6.3-8.2) g/dL Albumin (3.5-5.0) g/dL Arterial Blood Potassium 5.8 H 5.2 H 5.2 H (3.4-4.5) mmol/L Arterial Blood Glucose 183 H 173 H 180 H (75-99) mg/dL Crossmatch 02/26/19 02/26/19 02/26/19 Range/Units 13:45 13:45 13:45 RBC 3.34 L (4.30-5.90) m/uL Hgb 8.7 L D (13.0-17.5) gm/dL Hct 27.8 L (39.0-53.0) % MCH (25.0-35.0) pg MCHC (31.0-37.0) g/dL RDW 16.2 H (11.5-15.5) % Neutrophils # (1.3-7.7) k/uL Lymphocytes # 0.8 L (1.0-4.8) k/uL PT 12.2 H (9.0-12.0) sec INR 1.2 H (<1.2) APTT 44.7 H (22.0-30.0) sec ABG pCO2 (35-45) mmHg ABG pO2 (83-108) mmHg ABG Total CO2 (19-24) mmol/L ABG O2 Saturation (94-97) % ABG Hematocrit (34.0-46.0) % ABG Sodium (135-146) mmol/L ABG Potassium (3.4-4.5) mmol/L ABG Ionized Calcium (4.5-5.3) mg/dL ABG Glucose (75-99) mg/dL Hemoglobin (13.0-17.5) gm/dL Sodium (137-145) mmol/L Glucose (74-99) mg/dL POC Glucose (mg/dL) (75-99) mg/dL Calcium 8.1 L (8.4-10.2) mg/dL Magnesium 2.7 H (1.6-2.3) mg/dL ALT (21-72) U/L Alkaline Phosphatase 34 L (38-126) U/L Total Protein 5.2 L (6.3-8.2) g/dL Albumin 3.1 L (3.5-5.0) g/dL Arterial Blood Potassium (3.4-4.5) mmol/L Arterial Blood Glucose (75-99) mg/dL Crossmatch 02/26/19 02/26/19 02/26/19 Range/Units 13:47 14:32 16:14 RBC 3.94 L (4.30-5.90) m/uL Hgb 10.2 L (13.0-17.5) gm/dL Hct 32.7 L (39.0-53.0) % MCH (25.0-35.0) pg MCHC (31.0-37.0) g/dL RDW 16.2 H (11.5-15.5) % Neutrophils # 7.8 H (1.3-7.7) k/uL Lymphocytes # (1.0-4.8) k/uL PT (9.0-12.0) sec INR (<1.2) APTT (22.0-30.0) sec ABG pCO2 46 H (35-45) mmHg ABG pO2 (83-108) mmHg ABG Total CO2 27 H (19-24) mmol/L ABG O2 Saturation 97.1 H (94-97) % ABG Hematocrit (34.0-46.0) % ABG Sodium (135-146) mmol/L ABG Potassium (3.4-4.5) mmol/L ABG Ionized Calcium (4.5-5.3) mg/dL ABG Glucose (75-99) mg/dL Hemoglobin (13.0-17.5) gm/dL Sodium (137-145) mmol/L Glucose (74-99) mg/dL POC Glucose (mg/dL) 111 H (75-99) mg/dL Calcium (8.4-10.2) mg/dL Magnesium (1.6-2.3) mg/dL ALT (21-72) U/L Alkaline Phosphatase (38-126) U/L Total Protein (6.3-8.2) g/dL Albumin (3.5-5.0) g/dL Arterial Blood Potassium (3.4-4.5) mmol/L Arterial Blood Glucose (75-99) mg/dL Crossmatch 02/26/19 02/26/1919 Range/Units 16:15 17:01 18:10 RBC (4.30-5.90) m/uL Hgb (13.0-17.5) gm/dL Hct (39.0-53.0) % MCH (25.0-35.0) pg MCHC (31.0-37.0) g/dL RDW (11.5-15.5) % Neutrophils # (1.3-7.7) k/uL Lymphocytes # (1.0-4.8) k/uL PT (9.0-12.0) sec INR (<1.2) APTT (22.0-30.0) sec ABG pCO2 (35-45) mmHg ABG pO2 (83-108) mmHg ABG Total CO2 (19-24) mmol/L ABG O2 Saturation (94-97) % ABG Hematocrit (34.0-46.0) % ABG Sodium (135-146) mmol/L ABG Potassium (3.4-4.5) mmol/L ABG Ionized Calcium (4.5-5.3) mg/dL ABG Glucose (75-99) mg/dL Hemoglobin (13.0-17.5) gm/dL Sodium (137-145) mmol/L Glucose (74-99) mg/dL POC Glucose (mg/dL) 122 H 125 H 147 H (75-99) mg/dL Calcium (8.4-10.2) mg/dL Magnesium (1.6-2.3) mg/dL ALT (21-72) U/L Alkaline Phosphatase (38-126) U/L Total Protein (6.3-8.2) g/dL Albumin (3.5-5.0) g/dL Arterial Blood Potassium (3.4-4.5) mmol/L Arterial Blood Glucose (75-99) mg/dL Crossmatch 02/26/19 02/26/19 02/26/19 Range/Units 18:28 19:05 20:06 RBC (4.30-5.90) m/uL Hgb (13.0-17.5) gm/dL Hct (39.0-53.0) % MCH (25.0-35.0) pg MCHC (31.0-37.0) g/dL RDW (11.5-15.5) % Neutrophils # (1.3-7.7) k/uL Lymphocytes # (1.0-4.8) k/uL PT (9.0-12.0) sec INR (<1.2) APTT (22.0-30.0) sec ABG pCO2 (35-45) mmHg ABG pO2 (83-108) mmHg ABG Total CO2 25 H (19-24) mmol/L ABG O2 Saturation 98.0 H (94-97) % ABG Hematocrit (34.0-46.0) % ABG Sodium (135-146) mmol/L ABG Potassium (3.4-4.5) mmol/L ABG Ionized Calcium (4.5-5.3) mg/dL ABG Glucose (75-99) mg/dL Hemoglobin (13.0-17.5) gm/dL Sodium (137-145) mmol/L Glucose (74-99) mg/dL POC Glucose (mg/dL) 122 H 138 H (75-99) mg/dL Calcium (8.4-10.2) mg/dL Magnesium (1.6-2.3) mg/dL ALT (21-72) U/L Alkaline Phosphatase (38-126) U/L Total Protein (6.3-8.2) g/dL Albumin (3.5-5.0) g/dL Arterial Blood Potassium (3.4-4.5) mmol/L Arterial Blood Glucose (75-99) mg/dL Crossmatch 02/26/19 02/26/19 02/27/19 Range/Units 20:20 21:01 00:12 RBC 3.71 L (4.30-5.90) m/uL Hgb 9.8 L (13.0-17.5) gm/dL Hct 30.5 L (39.0-53.0) % MCH (25.0-35.0) pg MCHC (31.0-37.0) g/dL RDW 16.2 H (11.5-15.5) % Neutrophils # 8.5 H (1.3-7.7) k/uL Lymphocytes # 0.5 L (1.0-4.8) k/uL PT (9.0-12.0) sec INR (<1.2) APTT (22.0-30.0) sec ABG pCO2 (35-45) mmHg ABG pO2 (83-108) mmHg ABG Total CO2 (19-24) mmol/L ABG O2 Saturation (94-97) % ABG Hematocrit (34.0-46.0) % ABG Sodium (135-146) mmol/L ABG Potassium (3.4-4.5) mmol/L ABG Ionized Calcium (4.5-5.3) mg/dL ABG Glucose (75-99) mg/dL Hemoglobin (13.0-17.5) gm/dL Sodium (137-145) mmol/L Glucose (74-99) mg/dL POC Glucose (mg/dL) 135 H 137 H (75-99) mg/dL Calcium (8.4-10.2) mg/dL Magnesium (1.6-2.3) mg/dL ALT (21-72) U/L Alkaline Phosphatase (38-126) U/L Total Protein (6.3-8.2) g/dL Albumin (3.5-5.0) g/dL Arterial Blood Potassium (3.4-4.5) mmol/L Arterial Blood Glucose (75-99) mg/dL Crossmatch 02/27/19 02/27/19 02/27/19 Range/Units 02:07 03:55 04:00 RBC 3.53 L (4.30-5.90) m/uL Hgb 8.5 L (13.0-17.5) gm/dL Hct 29.0 L (39.0-53.0) % MCH 24.2 L (25.0-35.0) pg MCHC 29.5 L (31.0-37.0) g/dL RDW 16.3 H (11.5-15.5) % Neutrophils # (1.3-7.7) k/uL Lymphocytes # 0.7 L (1.0-4.8) k/uL PT (9.0-12.0) sec INR (<1.2) APTT (22.0-30.0) sec ABG pCO2 (35-45) mmHg ABG pO2 (83-108) mmHg ABG Total CO2 (19-24) mmol/L ABG O2 Saturation (94-97) % ABG Hematocrit (34.0-46.0) % ABG Sodium (135-146) mmol/L ABG Potassium (3.4-4.5) mmol/L ABG Ionized Calcium (4.5-5.3) mg/dL ABG Glucose (75-99) mg/dL Hemoglobin (13.0-17.5) gm/dL Sodium (137-145) mmol/L Glucose (74-99) mg/dL POC Glucose (mg/dL) 122 H 119 H (75-99) mg/dL Calcium (8.4-10.2) mg/dL Magnesium (1.6-2.3) mg/dL ALT (21-72) U/L Alkaline Phosphatase (38-126) U/L Total Protein (6.3-8.2) g/dL Albumin (3.5-5.0) g/dL Arterial Blood Potassium (3.4-4.5) mmol/L Arterial Blood Glucose (75-99) mg/dL Crossmatch 02/27/19 Range/Units 04:00 RBC (4.30-5.90) m/uL Hgb (13.0-17.5) gm/dL Hct (39.0-53.0) % MCH (25.0-35.0) pg MCHC (31.0-37.0) g/dL RDW (11.5-15.5) % Neutrophils # (1.3-7.7) k/uL Lymphocytes # (1.0-4.8) k/uL PT (9.0-12.0) sec INR (<1.2) APTT (22.0-30.0) sec ABG pCO2 (35-45) mmHg ABG pO2 (83-108) mmHg ABG Total CO2 (19-24) mmol/L ABG O2 Saturation (94-97) % ABG Hematocrit (34.0-46.0) % ABG Sodium (135-146) mmol/L ABG Potassium (3.4-4.5) mmol/L ABG Ionized Calcium (4.5-5.3) mg/dL ABG Glucose (75-99) mg/dL Hemoglobin (13.0-17.5) gm/dL Sodium 136 L (137-145) mmol/L Glucose 116 H (74-99) mg/dL POC Glucose (mg/dL) (75-99) mg/dL Calcium (8.4-10.2) mg/dL Magnesium (1.6-2.3) mg/dL ALT 14 L (21-72) U/L Alkaline Phosphatase (38-126) U/L Total Protein 5.9 L (6.3-8.2) g/dL Albumin (3.5-5.0) g/dL Arterial Blood Potassium (3.4-4.5) mmol/L Arterial Blood Glucose (75-99) mg/dL Crossmatch - Imaging and Cardiology Chest x-ray: image reviewed Assessment and Plan Assessment: 1. Coronary artery disease, status post multiple stents to the RCA, status post three-vessel CABG 2. Recent myocardial infarction in December 2018 3. History of symptomatic bradycardia 4. Hypertension 5. Hyperlipidemia 6. Hypothyroidism 7. Depression 8. GERD 9. Obesity 10. Prostate cancer status post prostatectomy 11. Preoperative nasal swab positive for MSSA 12. Postoperative acute blood loss anemia, expected Plan: 1. Continue aspirin, statin, Plavix, beta barbara. Will increase beta barbara therapy as tolerated. Increased to 25 mg twice daily today. 2. Discontinue IV nitro 3. Wean O2 as tolerated. Encourage and some spirometry 10 times every hour while awake 4. Increase activity, ambulate as tolerated. PT/OT/cardiac rehab following 5. Discontinue Paron. Cordis to continue CVP monitoring. 6. Bronchodilators per pulmonology 7. GI/DVT prophylaxis 8. Pain control with current medication regimen. Avoid narcs as much as possible due to hallucinations 9. Will monitor daily labs and x-rays. Electro replacement per protocol. No blood transfusions at this time. 10. Continue chest tubes for another 24 hours. 11. Continue Segal catheter for another 24 hours for accurate intake and output 12. Continue nasal mupirocin 13. Continue Synthroid 14. Insulin management per primary care service 15. More recommendations to follow based on patient's progress
[2019-02-27 07:44] LABS: Glucose,Whole Blood 111 mg/dL (75-99)
[2019-02-27] MEDS: LACTATED RINGERS 1,000 ML IV SCH (07:45)
[2019-02-27] MEDS: IPRATROPIUM-ALBUTEROL 3 ML NEB INHALATION SCH ×4 (08:13→19:52)
--- NOTE | 2019-02-27 08:19 | XR ---
EXAMINATION TYPE: XR chest 1V portable DATE OF EXAM: 02/27/2019 Comparison: 02/26/2019 Clinical History: 73-year-old male Post Operative Cardiac Surgery Findings: Right IJ Canova-Oscar catheter tip in the proximal right main pulmonary artery. Mediastinal drains and l eft-sided chest tube are in place. No appreciable pneumothorax. Median sternotomy wires and post-CABG clips. Heart remains mildly enlarged. Some streaky perihilar areas of atelectasis. Improving aeratio n in the retrocardiac region with some residual patchy atelectasis. No sizable effusion. Patient extu bated in the interval. Impression: Strandy areas of atelectasis and improving patchy retrocardiac atelectasis.
[2019-02-27] MEDS: ATORVASTATIN 40 MG TAB PO SCH (08:36)
[2019-02-27] MEDS: ASPIRIN 325 MG TAB PO SCH (08:36)
[2019-02-27] MEDS: LEVOTHYROXINE 50 MCG TAB PO SCH (08:36)
[2019-02-27] MEDS: HEPARIN SODIUM,PORCINE 5,000 UNIT/ML 1 ML VIAL SQ SCH ×3 (08:36→23:01)
[2019-02-27] MEDS: METOPROLOL TARTRATE 25 MG TAB PO SCH ×2 (08:37→20:45)
[2019-02-27] MEDS: CLOPIDOGREL 75 MG TAB PO SCH (08:37)
[2019-02-27 08:50] LABS: Glucose,Whole Blood 113 mg/dL (75-99)
[2019-02-27] MEDS: MUPIROCIN 2% OINT 22 GM TUBE NASAL SCH ×2 (08:55→20:45)
[2019-02-27] MEDS ORDERED: PANTOPRAZOLE 40 MG/10 ML VIAL IVP SCH (09:00)
[2019-02-27] MEDS ORDERED: MAGNESIUM HYDROXIDE 2,400 MG/10 ML CUP PO PRN (09:00)
[2019-02-27] MEDS ORDERED: BISACODYL 10 MG SUPP RECTAL PRN (09:00)
[2019-02-27] MEDS ORDERED: METOPROLOL TARTRATE 12.5 MG TAB PO SCH (09:00)
--- NOTE | 2019-02-27 09:34 | P.CRDCN ---
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 On recent cardiac catheterization. Patient was found to have in-stent stenosis involving the RCA with moderate to severe disease involving the LAD and also diagonal branch. Patient was referred to cardiac surgeon for possible bypass surgery. Patient had bypass surgery with the ADAMS graft to LAD, vein graft to the RCA and vein graft to the right coronary artery. Patient is clinically doing well. He is extubated and sitting in the chair. Complaints of mild chest discomfort. Hasn't had any arrhythmias. He'll output is fair. Hemoglobin is about 8.3. Overall patient seemed to be doing well. We'll continue to follow him. We'll continue current medical therapy Review of Systems As per the chart Past Medical History Past Medical History: Coronary Artery Disease (CAD), Cancer, Chest Pain / Angina, GERD/Reflux, Hyperlipidemia, Hypertension, Myocardial Infarction (non Q- wave), Prostate Disorder Additional Past Medical History / Comment(s): prostate cancer, 7 stents Last Myocardial Infarction Date:: unknown History of Any Multi-Drug Resistant Organisms: None Reported Past Surgical History: Heart Catheterization With Stent, Hernia Repair, Prostate Surgery Past Anesthesia/Blood Transfusion Reactions: No Reported Reaction Date of Last Stent Placement:: November 2018 Smoking Status: Never smoker - Past Family History Father Family Medical History: Coronary Artery Disease (CAD), Myocardial Infarction (AR) Mother Additional Family Medical History / Comment(s): Alzheimer's Medications and Allergies Home Medications Medication Instructions Recorded Confirmed Type Aspirin EC [Ecotrin Low Dose] 81 mg PO DAILY 07/14/18 02/21/19 History Lisinopril [Zestril] 40 mg PO DAILY 07/14/18 02/21/19 History Omeprazole 20 mg PO DAILY 07/14/18 02/21/19 History Ezetimibe [Zetia] 10 mg PO DAILY #90 tab 07/16/18 02/21/19 Rx Nitroglycerin Sl Tabs [Nitrostat] 0.4 mg SUBLINGUAL Q5M PRN #25 tab 07/16/18 02/26/19 Rx Amitriptyline HCl [Elavil] 50 mg PO HS tab 11/24/18 02/21/19 Rx Metoprolol Succinate [Toprol XL] 50 mg PO DAILY 02/16/19 02/21/19 History Evolocumab [Repatha Syringe] 140 mg SQ QMONTH 02/17/19 02/21/19 History Isosorbide Mononitrate ER [Imdur] 30 mg PO DAILY #30 tab.er.24h 02/18/19 9 Rx Levothyroxine Sodium [Synthroid] 50 mcg PO DAILY@0630 30 Days #30 02/19/19 02/21/19 Rx tab Mupirocin 2% Oint [Bactroban 2% 1 applic NASAL BID #1 applic 02/19/19 02/21/19 Rx Oint] amLODIPine BESYLATE 5 mg PO DAILY 02/26/19 02/26/19 History Allergies Allergy/AdvReac Type Severity Reaction Status Date / Time Sulfa (Sulfonamide Allergy Rash/Hives Verified 02/26/19 07:35 Antibiotics) ibuprofen [From Motrin] AdvReac Kidney Verified 02/26/19 07:35 issues morphine AdvReac Hallucinati Verified 02/26/19 07:35 ons Physical Exam Vitals: Vital Signs Temp Pulse Pulse Resp BP Pulse Ox 02/27/19 08:30 73 24 95 02/27/19 08:28 75 02/27/19 08:13 73 02/27/19 08:00 71 22 97 02/27/19 07:30 67 18 97 02/27/19 07:00 68 22 95 02/27/19 06:30 68 20 98 02/27/19 06:00 69 20 97 02/27/19 05:30 75 21 99 02/27/19 05:00 77 23 98 02/27/19 04:30 75 25 H 95 02/27/19 04:00 98.6 F 77 21 100 02/27/19 03:30 79 20 99 02/27/19 03:01 76 18 99 02/27/19 02:30 76 19 99 02/27/19 02:00 84 22 97 02/27/19 01:30 81 21 98 02/27/19 01:00 84 21 97 02/27/19 00:30 86 23 97 02/27/19 00:00 98.9 F 89 25 H 113/69 99 02/26/19 23:30 92 17 97 02/26/19 23:00 91 22 113/62 96 02/26/19 22:30 97 20 95 02/26/19 22:00 98 20 95 02/26/19 21:30 101 H 21 97 02/26/19 21:00 102 H 22 91 L 02/26/19 20:30 100 22 129/73 93 L 02/26/19 20:00 98.2 F 102 H 16 94 L 02/26/19 19:30 107 H 21 96 02/26/19 19:14 98 02/26/19 19:00 100 10 L 95 02/26/19 18:30 93 22 122/69 99 02/26/19 18:00 96 22 123/73 97 02/26/19 17:55 97 02/26/19 17:30 37.6 F L 100 26 H 93 L 02/26/19 17:00 95 24 96 02/26/19 16:30 90 19 91 L 02/26/19 16:27 92 02/26/19 16:14 92 02/26/19 16:00 91 93 21 92 L 02/26/19 15:59 94 L 02/26/19 15:45 92 24 95 02/26/19 15:30 88 20 93 L 02/26/19 15:15 87 18 104/62 94 L 02/26/19 15:00 97.2 F L 80 14 95 02/26/19 14:45 79 22 97 02/26/19 14:30 80 14 98 02/26/19 14:15 80 14 98 02/26/19 14:00 80 80 14 104/62 98 02/26/19 13:51 80 14 98 Intake and Output 02/26/19 02/27/19 02/27/19 22:59 06:59 14:59 Intake Total 580.867 829.627 140 Output Total 1612 575 52 Balance -1031.133 254.627 88 Intake: IV 502.0 823.5 20 ACETAMINOPHEN IV (For NPO 100 ) 1,000 mg In Empty Bag 1 bag @ 400 mls/hr IVPB Q6HR [facility] Rx#:[id number] CO/CI 90 160 Lactated Ringers 1,000 ml 400 450 20 @ 20 mls/hr IV .Q24H [facility] Rx#:[id number] Nitroglycerin-D5w Pmx 50 12.0 13.5 mg In Dextrose/Water 1 250ml.bag @ 5 MCG/MIN 1.5 mls/hr IV .Q24H [facility] Rx#: [id number] ceFAZolin 2,000 mg In 100 Sodium Chloride 0.9% 30 ml @ Per Protocol IVPB ONCE ONE Rx#:[id number] Intake, IV Titration 78.867 6.127 Amount Clevidipine Butyrate 25 27.066 mg In Empty Bag 1 bag @ 1 MG/HR 2 mls/hr IV .Q24H [facility] Rx#:[id number] Insulin Regular 100 unit 2.003 6.127 In Sodium Chloride 0.9% 100 ml @ Per Protocol IV .Q0M [facility] Rx#:[id number] Propofol 1,000 mg In 49.798 Empty Bag 1 bag @ Titrate IV .Q0M [facility] Rx#: [id number] Tube Feeding 120 Output: Chest Tube Drainage 367 210 10 Chest Tube Left Pleural/ 367 210 10 Mediastinal Urine 1245 365 42 Other: Voiding Method Indwelling Catheter Indwelling Catheter Weight 106.2 kg ABP, PAP, CO, CI - Last 8 Hours Arterial Blood Pressure 119/50 Arterial Blood Pressure 112/44 Arterial Blood Pressure 108/45 Arterial Blood Pressure 99/43 Arterial Blood Pressure 110/50 Arterial Blood Pressure 118/52 Arterial Blood Pressure 116/52 Arterial Blood Pressure 104/47 Arterial Blood Pressure 105/48 Arterial Blood Pressure 103/48 Arterial Blood Pressure 102/48 Arterial Blood Pressure 96/45 Arterial Blood Pressure 106/50 Pulmonary Artery Pressure 25/9 Pulmonary Artery Pressure 17/5 Pulmonary Artery Pressure 16/6 Pulmonary Artery Pressure 19/5 Pulmonary Artery Pressure 24/11 Pulmonary Artery Pressure 22/8 Pulmonary Artery Pressure 23/8 Pulmonary Artery Pressure 20/7 Pulmonary Artery Pressure 20/8 Pulmonary Artery Pressure 21/6 Pulmonary Artery Pressure 20/7 Pulmonary Artery Pressure 20/8 Cardiac Output 4.9 Cardiac Output 4.7 Cardiac Output 5.6 Cardiac Index 2.2 Cardiac Index 2.1 Cardiac Index 2.5 GENERAL EXAM: Patient is alert and oriented and doesn't appear to be in any acute distress HEENT: Normocephalic. Normal reaction of pupils, equal size, normal range of extraocular motion. No erythema or exudates in the throat. NECK: No masses, no nuchal rigidity. CHEST: Postsurgical LUNGS: Emaciated exchange HEART: S1 and S2 normal with no audible mumurs or gallops. Regular rhythm, femorals equal on both sides.. ABDOMEN: No hepatosplenomegaly, normal bowel sounds, no guarding or rigidity. SKIN: No rashes CENTRAL NERVOUS SYSTEM: No focal deficits. EXTREMITIES: No cyanosis, clubbing or edema. Results 02/27/19 04:00 02/27/19 04:00 Cardiac Enzymes 02/26/19 02/27/19 Range/Units 13:45 04:00 AST 27 36 (17-59) U/L Coagulation 02/26/19 Range/Units 13:45 PT 12.2 H (9.0-12.0) sec APTT 44.7 H (22.0-30.0) sec CBC 02/26/19 02/26/19 02/26/19 Range/Units 13:45 16:14 20:20 WBC 9.0 10.0 9.8 (3.8-10.6) k/uL RBC 3.34 L 3.94 L 3.71 L (4.30-5.90) m/uL Hgb 8.7 L D 10.2 L 9.8 L (13.0-17.5) gm/dL Hct 27.8 L 32.7 L 30.5 L (39.0-53.0) % Plt Count 208 265 276 (150-450) k/uL 02/27/19 Range/Units 04:00 WBC 8.4 (3.8-10.6) k/uL RBC 3.53 L (4.30-5.90) m/uL Hgb 8.5 L (13.0-17.5) gm/dL Hct 29.0 L (39.0-53.0) % Plt Count 240 (150-450) k/uL Comprehensive Metabolic Panel 02/26/19 02/27/19 Range/Units 13:45 04:00 Sodium 139 136 L (137-145) mmol/L Potassium 4.3 4.8 (3.5-5.1) mmol/L Chloride 105 104 (98-107) mmol/L Carbon Dioxide 25 23 (22-30) mmol/L BUN 15 17 (9-20) mg/dL Creatinine 1.07 1.10 (0.66-1.25) mg/dL Glucose 98 116 H (74-99) mg/dL Calcium 8.1 L 8.4 (8.4-10.2) mg/dL AST 27 36 (17-59) U/L ALT 22 14 L (21-72) U/L Alkaline Phosphatase 34 L 39 (38-126) U/L Total Protein 5.2 L 5.9 L (6.3-8.2) g/dL Albumin 3.1 L 3.7 (3.5-5.0) g/dL Current Medications Generic Name Dose Route Start Last Admin Trade Name Freq PRN Reason Stop Dose Admin Acetaminophen 1,000 mg 02/27/19 06:54 Tylenol Tab PO Q6HR PRN Fever and/ or Mild Pain Albuterol/Ipratropium 3 ml 02/26/19 13:45 Duoneb 0.5 Mg-3 Mg/3 Ml Soln INHALATION RT-Q2H PRN Shortness Of Breath Or Wheezing Albuterol/Ipratropium 3 ml 02/26/19 19:07 02/27/19 08:13 Duoneb 0.5 Mg-3 Mg/3 Ml Soln INHALATION 3 ml RT-QID TOSIN Administration Aspirin 325 mg 02/27/19 09:00 02/27/19 08:36 Aspirin PO 325 mg DAILY TOSIN Administration Atorvastatin Calcium 40 mg 02/27/19 09:00 02/27/19 08:36 Lipitor PO 40 mg DAILY TOSIN Administration Benzocaine/Menthol 1 each 02/26/19 13:45 Cepacol Lozenge MUCOUS MEM Q2H PRN Sore Throat Bisacodyl 10 mg 02/27/19 09:00 Dulcolax RECTAL DAILY PRN Constipation Clopidogrel Bisulfate 75 mg 02/27/19 09:00 02/27/19 08:37 Plavix PO 75 mg DAILY TOSIN Administration Heparin Sodium (Porcine) 5,000 unit 02/27/19 08:00 02/27/19 08:36 Heparin SQ 5,000 unit Q8H [facility] Administration Amiodarone HCl 150 mg/ 103 mls @ 618 mls/hr 02/26/19 13:45 Dextrose/Water IV .Q10M PRN A.FIB/FLUTTER Protocol Amiodarone HCl 360 mg/ 200 mls @ 33.333 mls/hr 02/26/19 13:45 Dextrose/Water IV .Q6H PRN A.FIB/FLUTTER Protocol 1 MG/MIN Amiodarone HCl 300 mg/ 250 mls @ 25 mls/hr 02/26/19 13:45 Dextrose/Water IV .Q10H PRN A.FIB/FLUTTER Protocol 0.5 MG/MIN Albumin Human 250 ml/ IV 250 mls @ 250 mls/hr 02/26/19 13:45 02/26/19 20:23 Solution IVPB 02/28/19 13:46 250 mls/hr Q1HR PRN Administration For Volume Clevidipine 25 mg/ IV Solution 50 mls @ 2 mls/hr 02/26/19 13:45 02/26/19 17:03 IV 0 mg/hr .Q24H [facility] 0 mls/hr Titration Protocol 1 MG/HR Lactated Ringer's 1,000 mls @ 20 mls/hr 02/26/19 13:45 02/26/19 13:45 Lactated Ringers IV 50 mls/hr .Q24H [facility] Administration Cefazolin Sodium 2 gm/ Sodium 50 mls @ 100 mls/hr 02/26/19 16:00 02/27/19 08:55 Chloride IVPB 100 mls/hr Q8HR [facility]OSIN Administration Calcium Gluconate 2 gm/ Sodium 120 mls @ 100 mls/hr 02/26/19 13:45 Chloride IVPB 03/05/19 13:46 ONCE PRN Ionized Calcium less than 4.4 Insulin Human Regular 100 unit 101 mls @ 0 mls/hr 02/26/19 17:15 02/27/19 02:12 / Sodium Chloride IV 0.5 unit/hr .Q0M [facility] 0.505 mls/hr Titration Protocol Per Protocol Ketorolac Tromethamine 15 mg 02/26/19 18:00 02/27/19 05:32 Toradol IVP 03/03/19 18:01 15 mg Q6HR TOSIN Administration Levothyroxine Sodium 50 mcg 02/27/19 06:30 02/27/19 08:36 Synthroid PO 50 mcg DAILY@0630 [facility]OS[facility] Administration Magnesium Hydroxide 2,400 mg 02/27/19 09:00 Milk Of Magnesia PO BID PRN Constipation Metoclopramide HCl 10 mg 02/26/19 13:45 Reglan IVP Q4H PRN Nausea And Vomiting Metoprolol Tartrate 25 mg 02/27/19 09:00 02/27/19 08:37 Lopressor PO 25 mg BID TOSIN Administration Miscellaneous Information 1 each 02/26/19 13:45 Potassium Per Protocol MISCELLANE DAILY PRN Per Protocol Protocol Miscellaneous Information 1 each 02/26/19 13:45 Magnesium Per Protocol MISCELLANE DAILY PRN Per Protocol Protocol Miscellaneous Information 1 each 02/26/19 13:45 Phosphorus Per Protocol MISCELLANE DAILY PRN Per Protocol Protocol Mupirocin 1 applic 02/26/19 21:00 02/27/19 08:55 Bactroban Oint NASAL 03/01/19 21:01 1 applic BID TOSIN Administration Ondansetron HCl 4 mg 02/26/19 13:45 Zofran IVP Q6HR PRN Nausea And Vomiting Pantoprazole Sodium 40 mg 02/27/19 09:00 02/27/19 08:37 Protonix IVP 02/27/19 10:00 40 mg DAILY TOSIN Administration Pantoprazole Sodium 40 mg 02/28/19 07:30 Protonix PO AC-BRKFST TOSIN Senna/Docusate Sodium 2 each 02/27/19 21:00 Senokot-S PO HS TOSIN Intake and Output 02/26/19 02/27/19 02/27/19 22:59 06:59 14:59 Intake Total 580.867 829.627 140 Output Total 1612 575 52 Balance -1031.133 254.627 88 Intake: IV 502.0 823.5 20 ACETAMINOPHEN IV (For NPO 100 ) 1,000 mg In Empty Bag 1 bag @ 400 mls/hr IVPB Q6HR [facility] Rx#:[id number] CO/CI 90 160 Lactated Ringers 1,000 ml 400 450 20 @ 20 mls/hr IV .Q24H [facility] Rx#:[id number] Nitroglycerin-D5w Pmx 50 12.0 13.5 mg In Dextrose/Water 1 250ml.bag @ 5 MCG/MIN 1.5 mls/hr IV .Q24H [facility] Rx#: [id number] ceFAZolin 2,000 mg In 100 Sodium Chloride 0.9% 30 ml @ Per Protocol IVPB ONCE ONE Rx#:[id number] Intake, IV Titration 78.867 6.127 Amount Clevidipine Butyrate 25 27.066 mg In Empty Bag 1 bag @ 1 MG/HR 2 mls/hr IV .Q24H [facility] Rx#:[id number] Insulin Regular 100 unit 2.003 6.127 In Sodium Chloride 0.9% 100 ml @ Per Protocol IV .Q0M [facility] Rx#:[id number] Propofol 1,000 mg In 49.798 Empty Bag 1 bag @ Titrate IV .Q0M [facility] Rx#: [id number] Tube Feeding 120 Output: Chest Tube Drainage 367 210 10 Chest Tube Left Pleural/ 367 210 10 Mediastinal Urine 1245 365 42 Other: Voiding Method Indwelling Catheter Indwelling Catheter Weight 106.2 kg 02/27/19 04:00 02/27/19 04:00 Assessment and Plan (1) Status post aorto-coronary artery bypass graft Current Visit: Yes Status: Acute Code(s): Z95.1 - PRESENCE OF AORTOCORONARY BYPASS GRAFT SNOMED Code(s): 037822562 (2) Dyslipidemia Current Visit: No Status: Acute Code(s): E78.5 - HYPERLIPIDEMIA, UNSPECIFIED SNOMED Code(s): 659598598 (3) Hypertension Current Visit: No Status: Acute Code(s): I10 - ESSENTIAL (PRIMARY) HYPERTENSION SNOMED Code(s): 44492871 Plan: Patient is clinically stable. We'll continue current medical therapy. Incentive spirometry. Increase activity as tolerated
[2019-02-27] MEDS: ACETAMINOPHEN TAB 500 MG TAB PO PRN ×2 (09:56→23:01)
[2019-02-27 10:11] LABS: Glucose,Whole Blood 105 mg/dL (75-99)
--- NOTE | 2019-02-27 10:18 | P.PN ---
Subjective Progress Note Date: 02/27/19 Principal diagnosis: Coronary artery disease, status post coronary artery bypass grafting The patient is seen today 02/27/2019 in follow-up in the intensive care unit. Yesterday he had undergone coronary artery bypass grafting 3 utilizing ADAMS to the LAD, saphenous vein grafts to the diagonal and posterior descending arteries. Postoperative day #1. He was successfully extubated yesterday within the 6 hour window. He is currently sitting up in a chair at the bedside. Awake and alert in no acute distress. He is maintaining good O2 saturations in the 90s on 2 L/m per nasal cannula. No worsening shortness of breath, cough or congestion. He is working quite well with the incentive spirometer. Today's chest x-ray reveals strandy areas of atelectasis and improving patchy retrocardiac atelectasis. Right IJ [place]-Oscar catheter in place. Mediastinal drains in the left sided chest tubes remain in place. No appreciable pneumothorax. No sizable effusions. White count 8.4. Hemoglobin 8.5. Creatinine 1.10. He remains on DuoNeb inhalations and cefazolin. Heparin for DVT prophylaxis. Sequential compression devices in place. Objective - Vital Signs Vital signs: Vital Signs Temp 98.6 F 02/27/19 04:00 Pulse 68 02/27/19 09:30 Resp 21 02/27/19 09:30 BP 127/72 02/27/19 09:30 Pulse Ox 95 02/27/19 09:30 Intake & Output 02/26/19 02/27/19 02/27/19 18:59 06:59 18:59 Intake Total 939.565 4250.630 160 Output Total 2705 1030 292 Balance -2337.702 97.630 -132 Weight 106.2 kg Intake: IV 289.5 1119.5 40 ACETAMINOPHEN IV (For NPO 100 ) 1,000 mg In Empty Bag 1 bag @ 400 mls/hr IVPB Q6HR TOSIN Rx#:[id number] CO/CI 250 Lactated Ringers 1,000 ml 250 650 40 @ 20 mls/hr IV .Q24H TOSIN Rx#:[id number] Nitroglycerin-D5w Pmx 50 7.5 19.5 mg In Dextrose/Water 1 250ml.bag @ 5 MCG/MIN 1.5 mls/hr IV .Q24H TOSIN Rx#: [id number] ceFAZolin 2,000 mg In 100 Sodium Chloride 0.9% 30 ml @ Per Protocol IVPB ONCE ONE Rx#:[id number] Intake, IV Titration 77.798 8.130 Amount Clevidipine Butyrate 25 28.000 mg In Empty Bag 1 bag @ 1 MG/HR 2 mls/hr IV .Q24H TOSIN Rx#:[id number] Insulin Regular 100 unit 8.130 In Sodium Chloride 0.9% 100 ml @ Per Protocol IV .Q0M TOSIN Rx#:[id number] Propofol 1,000 mg In 49.798 Empty Bag 1 bag @ Titrate IV .Q0M TOSIN Rx#: [id number] Tube Feeding 120 Output: Chest Tube Drainage 265 345 30 Chest Tube Left Pleural/ 265 345 30 Mediastinal Urine 1840 685 262 Estimated Blood Loss 600 Other: Voiding Method Indwelling Catheter Indwelling Catheter ABP, PAP, CO, CI - Last Documented Arterial Blood Pressure 105/49 Pulmonary Artery Pressure 25/9 Cardiac Output 4.9 Cardiac Index 2.2 - Exam GENERAL EXAM: Alert, very pleasant 73-year-old gentleman, comfortable in no apparent distress. On 2 L nasal cannula. HEAD: Normocephalic. EYES: Normal reaction of pupils, equal size. NOSE: Clear with pink turbinates. THROAT: No erythema or exudates. NECK: No masses, no JVD. CHEST: No chest wall deformity. LUNGS: Equal air entry with few scattered rhonchi. CVS: S1 and S2 normal with no audible murmur, regular rhythm. ABDOMEN: No hepatosplenomegaly, normal bowel sounds, no guarding or rigidity. SPINE: No scoliosis or deformity SKIN: No rashes CENTRAL NERVOUS SYSTEM: No focal deficits, tone is normal in all 4 extremities. EXTREMITIES: There is no peripheral edema. No clubbing, no cyanosis. Peripheral pulses are intact. - Labs CBC & Chem 7: 02/27/19 04:00 02/27/19 04:00 Labs: Abnormal Lab Results - Last 24 Hours (Table) 02/18/19 02/26/19 02/26/19 Range/Units 12:08 08:37 09:58 RBC (4.30-5.90) m/uL Hgb (13.0-17.5) gm/dL Hct (39.0-53.0) % MCH (25.0-35.0) pg MCHC (31.0-37.0) g/dL RDW (11.5-15.5) % Neutrophils # (1.3-7.7) k/uL Lymphocytes # (1.0-4.8) k/uL PT (9.0-12.0) sec INR (<1.2) APTT (22.0-30.0) sec ABG pCO2 (35-45) mmHg ABG pO2 331 H 168 H (83-108) mmHg ABG Total CO2 26 H 26 H (19-24) mmol/L ABG O2 Saturation 100.0 H 99.5 H (94-97) % ABG Hematocrit (34.0-46.0) % ABG Sodium (135-146) mmol/L ABG Potassium (3.4-4.5) mmol/L ABG Ionized Calcium (4.5-5.3) mg/dL ABG Glucose (75-99) mg/dL Hemoglobin 12.0 L 11.4 L (13.0-17.5) gm/dL Sodium (137-145) mmol/L Glucose (74-99) mg/dL POC Glucose (mg/dL) (75-99) mg/dL Calcium (8.4-10.2) mg/dL Magnesium (1.6-2.3) mg/dL ALT (21-72) U/L Alkaline Phosphatase (38-126) U/L Total Protein (6.3-8.2) g/dL Albumin (3.5-5.0) g/dL Arterial Blood Potassium (3.4-4.5) mmol/L Arterial Blood Glucose (75-99) mg/dL Crossmatch See Detail 02/26/19 02/26/19 02/26/19 Range/Units 10:39 11:07 11:43 RBC (4.30-5.90) m/uL Hgb (13.0-17.5) gm/dL Hct (39.0-53.0) % MCH (25.0-35.0) pg MCHC (31.0-37.0) g/dL RDW (11.5-15.5) % Neutrophils # (1.3-7.7) k/uL Lymphocytes # (1.0-4.8) k/uL PT (9.0-12.0) sec INR (<1.2) APTT (22.0-30.0) sec ABG pCO2 (35-45) mmHg ABG pO2 409 H 327 H 305 H (83-108) mmHg ABG Total CO2 25 H 25 H 25 H (19-24) mmol/L ABG O2 Saturation 100.0 H 100.0 H 100.0 H (94-97) % ABG Hematocrit 26 L 28 L 27 L (34.0-46.0) % ABG Sodium 131 L 133 L 133 L (135-146) mmol/L ABG Potassium 5.8 H 5.2 H 5.2 H (3.4-4.5) mmol/L ABG Ionized Calcium 4.1 L 4.2 L 4.2 L (4.5-5.3) mg/dL ABG Glucose 183 H 173 H 180 H (75-99) mg/dL Hemoglobin 8.5 L 9.0 L 8.9 L (13.0-17.5) gm/dL Sodium (137-145) mmol/L Glucose (74-99) mg/dL POC Glucose (mg/dL) (75-99) mg/dL Calcium (8.4-10.2) mg/dL Magnesium (1.6-2.3) mg/dL ALT (21-72) U/L Alkaline Phosphatase (38-126) U/L Total Protein (6.3-8.2) g/dL Albumin (3.5-5.0) g/dL Arterial Blood Potassium 5.8 H 5.2 H 5.2 H (3.4-4.5) mmol/L Arterial Blood Glucose 183 H 173 H 180 H (75-99) mg/dL Crossmatch 02/26/19 02/26/19 02/26/19 Range/Units 13:45 13:45 13:45 RBC 3.34 L (4.30-5.90) m/uL Hgb 8.7 L D (13.0-17.5) gm/dL Hct 27.8 L (39.0-53.0) % MCH (25.0-35.0) pg MCHC (31.0-37.0) g/dL RDW 16.2 H (11.5-15.5) % Neutrophils # (1.3-7.7) k/uL Lymphocytes # 0.8 L (1.0-4.8) k/uL PT 12.2 H (9.0-12.0) sec INR 1.2 H (<1.2) APTT 44.7 H (22.0-30.0) sec ABG pCO2 (35-45) mmHg ABG pO2 (83-108) mmHg ABG Total CO2 (19-24) mmol/L ABG O2 Saturation (94-97) % ABG Hematocrit (34.0-46.0) % ABG Sodium (135-146) mmol/L ABG Potassium (3.4-4.5) mmol/L ABG Ionized Calcium (4.5-5.3) mg/dL ABG Glucose (75-99) mg/dL Hemoglobin (13.0-17.5) gm/dL Sodium (137-145) mmol/L Glucose (74-99) mg/dL POC Glucose (mg/dL) (75-99) mg/dL Calcium 8.1 L (8.4-10.2) mg/dL Magnesium 2.7 H (1.6-2.3) mg/dL ALT (21-72) U/L Alkaline Phosphatase 34 L (38-126) U/L Total Protein 5.2 L (6.3-8.2) g/dL Albumin 3.1 L (3.5-5.0) g/dL Arterial Blood Potassium (3.4-4.5) mmol/L Arterial Blood Glucose (75-99) mg/dL Crossmatch 02/26/19 02/26/19 02/26/19 Range/Units 13:47 14:32 16:14 RBC 3.94 L (4.30-5.90) m/uL Hgb 10.2 L (13.0-17.5) gm/dL Hct 32.7 L (39.0-53.0) % MCH (25.0-35.0) pg MCHC (31.0-37.0) g/dL RDW 16.2 H (11.5-15.5) % Neutrophils # 7.8 H (1.3-7.7) k/uL Lymphocytes # (1.0-4.8) k/uL PT (9.0-12.0) sec INR (<1.2) APTT (22.0-30.0) sec ABG pCO2 46 H (35-45) mmHg ABG pO2 (83-108) mmHg ABG Total CO2 27 H (19-24) mmol/L ABG O2 Saturation 97.1 H (94-97) % ABG Hematocrit (34.0-46.0) % ABG Sodium (135-146) mmol/L ABG Potassium (3.4-4.5) mmol/L ABG Ionized Calcium (4.5-5.3) mg/dL ABG Glucose (75-99) mg/dL Hemoglobin (13.0-17.5) gm/dL Sodium (137-145) mmol/L Glucose (74-99) mg/dL POC Glucose (mg/dL) 111 H (75-99) mg/dL Calcium (8.4-10.2) mg/dL Magnesium (1.6-2.3) mg/dL ALT (21-72) U/L Alkaline Phosphatase (38-126) U/L Total Protein (6.3-8.2) g/dL Albumin (3.5-5.0) g/dL Arterial Blood Potassium (3.4-4.5) mmol/L Arterial Blood Glucose (75-99) mg/dL Crossmatch 02/26/19 02/26/19 02/26/19 Range/Units 16:15 17:01 18:10 RBC (4.30-5.90) m/uL Hgb (13.0-17.5) gm/dL Hct (39.0-53.0) % MCH (25.0-35.0) pg MCHC (31.0-37.0) g/dL RDW (11.5-15.5) % Neutrophils # (1.3-7.7) k/uL Lymphocytes # (1.0-4.8) k/uL PT (9.0-12.0) sec INR (<1.2) APTT (22.0-30.0) sec ABG pCO2 (35-45) mmHg ABG pO2 (83-108) mmHg ABG Total CO2 (19-24) mmol/L ABG O2 Saturation (94-97) % ABG Hematocrit (34.0-46.0) % ABG Sodium (135-146) mmol/L ABG Potassium (3.4-4.5) mmol/L ABG Ionized Calcium (4.5-5.3) mg/dL ABG Glucose (75-99) mg/dL Hemoglobin (13.0-17.5) gm/dL Sodium (137-145) mmol/L Glucose (74-99) mg/dL POC Glucose (mg/dL) 122 H 125 H 147 H (75-99) mg/dL Calcium (8.4-10.2) mg/dL Magnesium (1.6-2.3) mg/dL ALT (21-72) U/L Alkaline Phosphatase (38-126) U/L Total Protein (6.3-8.2) g/dL Albumin (3.5-5.0) g/dL Arterial Blood Potassium (3.4-4.5) mmol/L Arterial Blood Glucose (75-99) mg/dL Crossmatch 02/26/19 02/26/19 02/26/19 Range/Units 18:28 19:05 20:06 RBC (4.30-5.90) m/uL Hgb (13.0-17.5) gm/dL Hct (39.0-53.0) % MCH (25.0-35.0) pg MCHC (31.0-37.0) g/dL RDW (11.5-15.5) % Neutrophils # (1.3-7.7) k/uL Lymphocytes # (1.0-4.8) k/uL PT (9.0-12.0) sec INR (<1.2) APTT (22.0-30.0) sec ABG pCO2 (35-45) mmHg ABG pO2 (83-108) mmHg ABG Total CO2 25 H (19-24) mmol/L ABG O2 Saturation 98.0 H (94-97) % ABG Hematocrit (34.0-46.0) % ABG Sodium (135-146) mmol/L ABG Potassium (3.4-4.5) mmol/L ABG Ionized Calcium (4.5-5.3) mg/dL ABG Glucose (75-99) mg/dL Hemoglobin (13.0-17.5) gm/dL Sodium (137-145) mmol/L Glucose (74-99) mg/dL POC Glucose (mg/dL) 122 H 138 H (75-99) mg/dL Calcium (8.4-10.2) mg/dL Magnesium (1.6-2.3) mg/dL ALT (21-72) U/L Alkaline Phosphatase (38-126) U/L Total Protein (6.3-8.2) g/dL Albumin (3.5-5.0) g/dL Arterial Blood Potassium (3.4-4.5) mmol/L Arterial Blood Glucose (75-99) mg/dL Crossmatch 02/26/19 02/26/19 02/27/19 Range/Units 20:20 21:01 00:12 RBC 3.71 L (4.30-5.90) m/uL Hgb 9.8 L (13.0-17.5) gm/dL Hct 30.5 L (39.0-53.0) % MCH (25.0-35.0) pg MCHC (31.0-37.0) g/dL RDW 16.2 H (11.5-15.5) % Neutrophils # 8.5 H (1.3-7.7) k/uL Lymphocytes # 0.5 L (1.0-4.8) k/uL PT (9.0-12.0) sec INR (<1.2) APTT (22.0-30.0) sec ABG pCO2 (35-45) mmHg ABG pO2 (83-108) mmHg ABG Total CO2 (19-24) mmol/L ABG O2 Saturation (94-97) % ABG Hematocrit (34.0-46.0) % ABG Sodium (135-146) mmol/L ABG Potassium (3.4-4.5) mmol/L ABG Ionized Calcium (4.5-5.3) mg/dL ABG Glucose (75-99) mg/dL Hemoglobin (13.0-17.5) gm/dL Sodium (137-145) mmol/L Glucose (74-99) mg/dL POC Glucose (mg/dL) 135 H 137 H (75-99) mg/dL Calcium (8.4-10.2) mg/dL Magnesium (1.6-2.3) mg/dL ALT (21-72) U/L Alkaline Phosphatase (38-126) U/L Total Protein (6.3-8.2) g/dL Albumin (3.5-5.0) g/dL Arterial Blood Potassium (3.4-4.5) mmol/L Arterial Blood Glucose (75-99) mg/dL Crossmatch 02/27/19 02/27/19 02/27/19 Range/Units 02:07 03:55 04:00 RBC 3.53 L (4.30-5.90) m/uL Hgb 8.5 L (13.0-17.5) gm/dL Hct 29.0 L (39.0-53.0) % MCH 24.2 L (25.0-35.0) pg MCHC 29.5 L (31.0-37.0) g/dL RDW 16.3 H (11.5-15.5) % Neutrophils # (1.3-7.7) k/uL Lymphocytes # 0.7 L (1.0-4.8) k/uL PT (9.0-12.0) sec INR (<1.2) APTT (22.0-30.0) sec ABG pCO2 (35-45) mmHg ABG pO2 (83-108) mmHg ABG Total CO2 (19-24) mmol/L ABG O2 Saturation (94-97) % ABG Hematocrit (34.0-46.0) % ABG Sodium (135-146) mmol/L ABG Potassium (3.4-4.5) mmol/L ABG Ionized Calcium (4.5-5.3) mg/dL ABG Glucose (75-99) mg/dL Hemoglobin (13.0-17.5) gm/dL Sodium (137-145) mmol/L Glucose (74-99) mg/dL POC Glucose (mg/dL) 122 H 119 H (75-99) mg/dL Calcium (8.4-10.2) mg/dL Magnesium (1.6-2.3) mg/dL ALT (21-72) U/L Alkaline Phosphatase (38-126) U/L Total Protein (6.3-8.2) g/dL Albumin (3.5-5.0) g/dL Arterial Blood Potassium (3.4-4.5) mmol/L Arterial Blood Glucose (75-99) mg/dL Crossmatch 02/27/19 02/27/19 02/27/19 Range/Units 04:00 06:54 08:47 RBC (4.30-5.90) m/uL Hgb (13.0-17.5) gm/dL Hct (39.0-53.0) % MCH (25.0-35.0) pg MCHC (31.0-37.0) g/dL RDW (11.5-15.5) % Neutrophils # (1.3-7.7) k/uL Lymphocytes # (1.0-4.8) k/uL PT (9.0-12.0) sec INR (<1.2) APTT (22.0-30.0) sec ABG pCO2 (35-45) mmHg ABG pO2 (83-108) mmHg ABG Total CO2 (19-24) mmol/L ABG O2 Saturation (94-97) % ABG Hematocrit (34.0-46.0) % ABG Sodium (135-146) mmol/L ABG Potassium (3.4-4.5) mmol/L ABG Ionized Calcium (4.5-5.3) mg/dL ABG Glucose (75-99) mg/dL Hemoglobin (13.0-17.5) gm/dL Sodium 136 L (137-145) mmol/L Glucose 116 H (74-99) mg/dL POC Glucose (mg/dL) 111 H 113 H (75-99) mg/dL Calcium (8.4-10.2) mg/dL Magnesium (1.6-2.3) mg/dL ALT 14 L (21-72) U/L Alkaline Phosphatase (38-126) U/L Total Protein 5.9 L (6.3-8.2) g/dL Albumin (3.5-5.0) g/dL Arterial Blood Potassium (3.4-4.5) mmol/L Arterial Blood Glucose (75-99) mg/dL Crossmatch Assessment and Plan Assessment: Impression: #1 Coronary artery disease status post coronary artery bypass grafting utilizing a ADAMS to the LAD, saphenous vein grafts to the PA and obtuse marginal coronary artery. Postoperative day #1. #2 Coronary artery disease with previous myocardial infarction, non-Q-wave myoca rdial infarction with history of multiple stent placements. #3 Hypertension. #4 Hyperlipidemia. #5 History of prostate cancer. #6 Gastroesophageal reflux disease. #7 Hypothyroidism. Plan: The patient was seen and evaluated by Dr. Ramirez. Chest x-ray and labs reviewed. The patient is doing quite well from the pulmonary standpoint. Continues to work well with the incentive spirometer. Increase his activity as tolerated. Continue bronchodilators. Continue heparin for DVT prophylaxis. We will continue to follow and make further recommendations based on his clinical status. I, the cosigning physician, performed a history & physical examination of the patient. Lungs sounds with few scattered rhonchi. Maintaining good O2 saturations in the 90s on 2 L/m per nasal cannula. I discussed the assessment and plan of care with my nurse practitioner, Kathya Kelly. I attest to the above note as dictated by her.
[2019-02-27 10:47] VITALS: BMI 32.6
[2019-02-27 12:30] LABS: Glucose,Whole Blood 110 mg/dL (75-99)
[2019-02-27] MEDS: CLEVIDIPINE BUTYRATE 25 MG in EMPTY BAG 1 BAG IV SCH (13:59)
[2019-02-27 17:19] LABS: Glucose,Whole Blood 121 mg/dL (75-99)
--- NOTE | 2019-02-27 17:50 | PN ---
PROGRESS NOTE DATE OF SERVICE: 02/27/2019 This 73-year-old gentleman who was admitted after CAD, CABG is improving significantly. No chest pain. No palpitations. No fever. The chest x-ray done today shows some atelectasis. PHYSICAL EXAMINATION: Alert and oriented x3. Pulse is 85, blood pressure 127/69, respiration 26, temperature 98.2, pulse ox 97% on 2 L. HEENT: Conjunctivae normal. NECK: No jugular venous distention. CARDIOVASCULAR SYSTEM: S1, S2 muffled. RESPIRATORY SYSTEM: Breath sounds diminished at the bases. No rhonchi. No crackles. ABDOMEN: Soft, non-tender. LEGS: No edema. No swelling. NERVOUS SYSTEM: No focal deficit. LABS: WBC 8.4, hemoglobin 8.5. Glucose noted. Sodium 136. ASSESSMENT: 1. Coronary artery disease, status post coronary artery bypass grafting. 2. History of recent cardiac catheterization with unstable angina. 3. History of previous myocardial infarction with multiple stents. 4. History of chronic kidney disease, stage III. Currently creatinine normal. 5. History of prostate disorder. 6. History of hernia repair. 7. Hypothyroidism, newly diagnosed. 8. History of prostate surgery. 9. History of anemia, chronic; possible nutritional. RECOMMENDATIONS AND DISCUSSION: In this 73-year-old gentleman who presented with multiple medical issues, at this time I recommend to continue current management, continue with symptomatic treatment. Follow closely. Resume the home medications. DVT prophylaxis. Incentive spirometry. Monitor blood sugars closely. Further recommendations to follow. MMODL / IJN: [id number] /
[2019-02-27] MEDS: INSULIN ASPART (NovoLOG) 100 UNIT/ML VIAL SQ SCH (20:45)
[2019-02-27] MEDS: SENNOSIDES-DOCUSATE SODIUM 1 EACH TAB PO SCH (20:45)
[2019-02-27] MEDS: AMITRIPTYLINE HCL 50 MG TAB PO SCH (20:45)
[2019-02-27 20:50] LABS: Glucose,Whole Blood 141 mg/dL (75-99)
[2019-02-28] MEDS: KETOROLAC 30 MG/ML 1 ML VIAL IVP SCH ×4 (02:38→18:34)
[2019-02-28 04:42] LABS: Anisocytosis Slight; Basophils % (A) 0 %; Eosinophils # (A) 0.1 k/uL (0-0.7); Eosinophils % (A) 1 %; HCT 28.8 % (39.0-53.0); HGB 9.1 gm/dL (13.0-17.5); Hypochromasia Slight; Lymphocytes # (A) 0.9 k/uL (1.0-4.8); Lymphocytes % (A) 9 %; MCH 25.9 pg (25.0-35.0); MCHC 31.6 g/dL (31.0-37.0); MCV 81.7 fL (80.0-100.0); Mean Platelet Volume 8.2; Monocytes # (A) 0.7 k/uL (0-1.0); Monocytes % (A) 8 %; Neutrophils # (A) 7.7 k/uL (1.3-7.7); Neutrophils % (A) 79 %; Platelet Count 210 k/uL (150-450); RBC 3.52 m/uL (4.30-5.90); RDW 16.3 % (11.5-15.5); WBC 9.8 k/uL (3.8-10.6)
[2019-02-28 05:11] LABS: Ionized Calcium 4.8 mg/dL (4.5-5.3)
[2019-02-28 05:23] LABS: Albumin 3.5 g/dL (3.5-5.0); Calcium 8.3 mg/dL (8.4-10.2); Potassium 4.3 mmol/L (3.5-5.1); Total Bilirubin 0.4 mg/dL (0.2-1.3)
[2019-02-28] MEDS: LEVOTHYROXINE 50 MCG TAB PO SCH (06:03)
[2019-02-28] MEDS: INSULIN ASPART (NovoLOG) 100 UNIT/ML VIAL SQ SCH ×4 (06:56→20:44)
[2019-02-28 06:58] LABS: Glucose,Whole Blood 96 mg/dL (75-99)
[2019-02-28] MEDS: PANTOPRAZOLE 40 MG TABLET PO SCH (07:06)
[2019-02-28] MEDS: ACETAMINOPHEN TAB 500 MG TAB PO PRN (07:07)
--- NOTE | 2019-02-28 08:14 | XR ---
EXAMINATION TYPE: XR chest 1V portable DATE OF EXAM: 02/28/2019 CLINICAL HISTORY: Difficulty breathing progress study. Postoperative cardiac surgery progress study. TECHNIQUE: Single AP portable upright view of the chest is obtained. COMPARISON: Chest x-ray from one day earlier and older studies. FINDINGS: There is interval removal of right internal jugular Dewitt-Oscar catheter, Cordis sheath is n ow present. There is persistent left sided chest tube and 2 mediastinal drainage catheters. Post-CABG changes with mediastinal clips and sternal wires is redemonstrated. There is stable cardiomegaly wit h left basilar atelectasis and/or infiltrate. Right lung remains clear. No pleural effusion or pneumo thorax is noted. Osseous structures are intact. IMPRESSION: Interval removal of right internal jugular Dewitt-Oscar catheter. Persistent cardiomegaly wi th left basilar atelectasis and/or infiltrate.
[2019-02-28] MEDS: ATORVASTATIN 40 MG TAB PO SCH (08:18)
[2019-02-28] MEDS: CLOPIDOGREL 75 MG TAB PO SCH (08:18)
[2019-02-28] MEDS: METOPROLOL TARTRATE 25 MG TAB PO SCH ×3 (08:18→20:51)
[2019-02-28] MEDS: HEPARIN SODIUM,PORCINE 5,000 UNIT/ML 1 ML VIAL SQ SCH ×2 (08:20→18:33)
--- NOTE | 2019-02-28 08:20 | P.PN ---
Subjective Progress Note Date: 02/28/19 Principal diagnosis: Coronary artery disease. Previous medical history of coronary artery disease with multiple previous stents to the RCA, recent myocardial infarction December 2018, symptomatic bradycardia, hypertension, hyperlipidemia, hypothyroid, depression, GERD, obesity, prostate cancer status post prostatectomy in 2006, and family history of coronary artery disease. Preoperative nasal swab positive for MSSA. POD #2 coronary artery bypass grafting 3 vessels, left internal mammary artery to the left anterior descending artery, reverse saphenous vein graft to the diag onal artery, reverse saphenous vein graft to the posterior descending artery. Endoscopic vein harvest, left greater saphenous vein. Epi-aortic ultrasound. Intraoperative transesophageal echocardiogram. Postoperative acute blood loss anemia, expected outcome given hemodilution and cardiopulmonary bypass pump. The patient is currently sitting up in a recliner in no acute distress. He states pain is controlled on current medication regimen, denies shortness of breath. Remains in normal sinus rhythm and is hemodynamically stable on no inotropes or pressors. Mediastinal and left pleural chest tubes in place without excessive drainage. Ambulated in the hallway yesterday with physical and occupational therapy without difficulty. No new concerns. Objective - Vital Signs Vital signs: Vital Signs Temp 98.5 F 02/28/19 04:00 Pulse 93 02/28/19 07:00 Resp 31 H 02/28/19 07:00 BP 148/73 02/27/19 20:00 Pulse Ox 94 L 02/28/19 07:00 Intake & Output 02/27/19 02/28/19 02/28/19 18:59 06:59 18:59 Intake Total 370 1270 20 Output Total 642 1725 Balance -272 -455 20 Weight 106.2 kg 106.4 kg Intake: IV 250 270 20 Lactated Ringers 1,000 ml 200 220 20 @ 20 mls/hr IV .Q24H TOSIN Rx#:[id number] ceFAZolin 2 gm In Sodium 50 50 Chloride 0.9% 50 ml @ 100 mls/hr IVPB Q8HR TOSIN Rx# :[id number] Oral 1000 Tube Feeding 120 Output: Chest Tube Drainage 80 120 Chest Tube Left Pleural/ 80 120 Mediastinal Urine 562 1605 Other: Voiding Method Indwelling Catheter Indwelling Catheter ABP, PAP, CO, CI - Last Documented Arterial Blood Pressure 104/87 Pulmonary Artery Pressure 25/9 Cardiac Output 4.9 Cardiac Index 2.2 - Constitutional General appearance: Present: cooperative, no acute distress, obese - Respiratory Details: Lungs sounds diminished bilaterally. Respirations even, nonlabored. Currently on 2 L nasal cannula with oxygen saturation 94%. Able to achieve 1000 mL on his incentive spirometry. Strong cough. Mediastinal/left pleural chest tubes present to continuous wall suction, 110 mL serosanguineous drainage overnight, 250 mL in the last 24 hours, no air leaks present. - Cardiovascular Details: S1, S2 present. Regular rate and rhythm, sinus rhythm on telemetry. Sternum stable. A/V epicardial pacemaker wires present, grounded. Palpable peripheral pulses bilaterally. No edema present. No calf pain or tenderness noted. Right internal jugular Cordis, right radial arterial line present. Heart hugger in place with patient demonstrating appropriate use. Antiembolism stockings, SCDs present. - Gastrointestinal Gastrointestinal Comment(s): Abdomen soft, nontender, nondistended. Active bowel sounds present 4 quadrants. Tolerating diet. Positive flatus, negative bowel movement. - Genitourinary Genitourinary Comment(s): Segal discontinued this morning, due to void. Output overnight 120-150 mL per hour clear yellow urine. - Integumentary Integumentary Comment(s): Skin is warm and dry with evidence of good perfusion. Anterior chest incision well approximated and covered with Dermabond dressing. Left lower extremity EVH site well approximated, no drainage noted. - Neurologic Neurologic: Present: CNII-XII intact - Musculoskeletal Musculoskeletal: Present: gait normal, strength equal bilaterally - Psychiatric Psychiatric: Present: A&O x's 3, appropriate affect, intact judgment & insight - Allied health notes Allied health notes reviewed: nursing - Labs CBC & Chem 7: 02/28/19 04:30 02/28/19 04:30 Labs: Abnormal Lab Results - Last 24 Hours (Table) 02/27/19 02/27/19 02/27/19 Range/Units 08:47 10:06 12:28 RBC (4.30-5.90) m/uL Hgb (13.0-17.5) gm/dL Hct (39.0-53.0) % RDW (11.5-15.5) % Lymphocytes # (1.0-4.8) k/uL Sodium (137-145) mmol/L Glucose (74-99) mg/dL POC Glucose (mg/dL) 113 H 105 H 110 H (75-99) mg/dL Calcium (8.4-10.2) mg/dL ALT (21-72) U/L Total Protein (6.3-8.2) g/dL 02/27/19 02/27/19 02/28/19 Range/Units 17:14 20:36 04:30 RBC 3.52 L (4.30-5.90) m/uL Hgb 9.1 L (13.0-17.5) gm/dL Hct 28.8 L (39.0-53.0) % RDW 16.3 H (11.5-15.5) % Lymphocytes # 0.9 L (1.0-4.8) k/uL Sodium (137-145) mmol/L Glucose (74-99) mg/dL POC Glucose (mg/dL) 121 H 141 H (75-99) mg/dL Calcium (8.4-10.2) mg/dL ALT (21-72) U/L Total Protein (6.3-8.2) g/dL 02/28/19 Range/Units 04:30 RBC (4.30-5.90) m/uL Hgb (13.0-17.5) gm/dL Hct (39.0-53.0) % RDW (11.5-15.5) % Lymphocytes # (1.0-4.8) k/uL Sodium 136 L (137-145) mmol/L Glucose 102 H (74-99) mg/dL POC Glucose (mg/dL) (75-99) mg/dL Calcium 8.3 L (8.4-10.2) mg/dL ALT 17 L (21-72) U/L Total Protein 6.0 L (6.3-8.2) g/dL - Imaging and Cardiology Chest x-ray: report reviewed, image reviewed Assessment and Plan Assessment: 1. Coronary artery disease, status post multiple stents to the RCA, status post three-vessel CABG 2. Recent myocardial infarction in December 2018 3. History of symptomatic bradycardia 4. Hypertension 5. Hyperlipidemia 6. Hypothyroidism 7. Depression 8. GERD 9. Obesity 10. Prostate cancer status post prostatectomy 11. Preoperative nasal swab positive for MSSA 12. Postoperative acute blood loss anemia, expected Plan: 1. Continue aspirin, statin, Plavix, beta barbara. Will increase beta barbara therapy as tolerated. 2. Wean O2 as tolerated. Encourage and some spirometry 10 times every hour while awake 3. Increase activity, ambulate as tolerated. PT/OT/cardiac rehab following 4. Discontinue arterial line. Discontinue Cordis. 5. Bronchodilators per pulmonology 6. GI/DVT prophylaxis 7. Pain control with current medication regimen. Avoid narcs as much as possible due to hallucinations 8. Will monitor daily labs and x-rays. Electro replacement per protocol. No blood transfusions at this time. 9. Will discontinue mediastinal chest tubes, keep left pleural chest tube for another 24 hours. 10. Segal discontinued. Bladder scan every 6 hours, may straight cath for residual greater than 300 mL. 11. Continue nasal mupirocin 12. Continue Synthroid, home dose of Elavil added 13. Insulin management per primary care service 14. Will place transfer orders to [address] [place] [address] cardiac stepdown unit. May transfer when bed available. 15. Discharge planning in progress. Anticipate discharge to home with home care in the next few days 16. More recommendations to follow based on patient's progress Time with Patient: Greater than 30
[2019-02-28] MEDS: IPRATROPIUM-ALBUTEROL 3 ML NEB INHALATION SCH ×4 (08:22→20:32)
[2019-02-28] MEDS: ASPIRIN 325 MG TAB PO SCH (08:49)
--- NOTE | 2019-02-28 10:38 | P.PN ---
Subjective Progress Note Date: 02/28/19 Principal diagnosis: Coronary artery disease, status post coronary artery bypass grafting The patient is seen today 02/27/2019 in follow-up in the intensive care unit. Yesterday he had undergone coronary artery bypass grafting 3 utilizing ADAMS to the LAD, saphenous vein grafts to the diagonal and posterior descending arteries. Postoperative day #1. He was successfully extubated yesterday within the 6 hour window. He is currently sitting up in a chair at the bedside. Awake and alert in no acute distress. He is maintaining good O2 saturations in the 90s on 2 L/m per nasal cannula. No worsening shortness of breath, cough or congestion. He is working quite well with the incentive spirometer. Today's chest x-ray reveals strandy areas of atelectasis and improving patchy retrocardiac atelectasis. Right IJ [place]-Oscar catheter in place. Mediastinal drains in the left sided chest tubes remain in place. No appreciable pneumothorax. No sizable effusions. White count 8.4. Hemoglobin 8.5. Creatinine 1.10. He remains on DuoNeb inhalations and cefazolin. Heparin for DVT prophylaxis. Sequential compression devices in place. The patient is seen today 02/28/2019 in follow-up in the intensive care unit. He is currently sitting up in a chair at the bedside. Awake and alert in no acute distress. He states he slept very well last night. No worsening shortn ess of breath, cough or congestion. Chest x-ray shows persistent cardiomegaly with left basilar atelectasis/infiltrate. Chest tubes remain in place. [place]- Oscar catheter removed. He is working very well with the incentive spirometer. Maintaining O2 saturations in the low 90s on 2 L/m per nasal cannula. He remains afebrile. Hemodynamically stable. White count 9.8. Hemoglobin 9.1. Creatinine 1.00. He remains on bronchodilators. Objective - Vital Signs Vital signs: Vital Signs Temp 98.5 F 02/28/19 04:00 Pulse 98 02/28/19 08:38 Resp 31 H 02/28/19 07:00 BP 148/73 02/27/19 20:00 Pulse Ox 94 L 02/28/19 07:00 Intake & Output 09/17/19 09/18/19 09/18/19 18:59 06:59 18:59 Intake Total 370 1270 20 Output Total 642 1725 Balance -272 -455 20 Weight 106.2 kg 106.4 kg Intake: IV 250 270 20 Lactated Ringers 1,000 ml 200 220 20 @ 20 mls/hr IV .Q24H TOSIN Rx#:[id number] ceFAZolin 2 gm In Sodium 50 50 Chloride 0.9% 50 ml @ 100 mls/hr IVPB Q8HR TOSIN Rx# :[id number] Oral 1000 Tube Feeding 120 Output: Chest Tube Drainage 80 120 Chest Tube Left Pleural/ 80 120 Mediastinal Urine 562 1605 Other: Voiding Method Indwelling Catheter Indwelling Catheter ABP, PAP, CO, CI - Last Documented Arterial Blood Pressure 104/87 Pulmonary Artery Pressure 25/9 Cardiac Output 4.9 Cardiac Index 2.2 - Exam GENERAL EXAM: Alert, very pleasant 73-year-old gentleman, comfortable in no apparent distress. On 2 L nasal cannula. HEAD: Normocephalic. EYES: Normal reaction of pupils, equal size. NOSE: Clear with pink turbinates. THROAT: No erythema or exudates. NECK: No masses, no JVD. Cordis in place. CHEST: No chest wall deformity. Heart hugger in place. Chest tubes in place. LUNGS: Equal air entry with crackles in left posterior base. CVS: S1 and S2 normal with no audible murmur, regular rhythm. ABDOMEN: No hepatosplenomegaly, normal bowel sounds, no guarding or rigidity. SPINE: No scoliosis or deformity SKIN: No rashes CENTRAL NERVOUS SYSTEM: No focal deficits, tone is normal in all 4 extremities. EXTREMITIES: SCDs in place. There is no peripheral edema. No clubbing, no cyanosis. Peripheral pulses are intact. - Labs CBC & Chem 7: 02/28/19 04:30 02/28/19 04:30 Labs: Abnormal Lab Results - Last 24 Hours (Table) 02/27/19 02/27/19 02/27/19 Range/Units 12:28 17:14 20:36 RBC (4.30-5.90) m/uL Hgb (13.0-17.5) gm/dL Hct (39.0-53.0) % RDW (11.5-15.5) % Lymphocytes # (1.0-4.8) k/uL Sodium (137-145) mmol/L Glucose (74-99) mg/dL POC Glucose (mg/dL) 110 H 121 H 141 H (75-99) mg/dL Calcium (8.4-10.2) mg/dL ALT (21-72) U/L Total Protein (6.3-8.2) g/dL 02/28/19 02/28/19 Range/Units 04:30 04:30 RBC 3.52 L (4.30-5.90) m/uL Hgb 9.1 L (13.0-17.5) gm/dL Hct 28.8 L (39.0-53.0) % RDW 16.3 H (11.5-15.5) % Lymphocytes # 0.9 L (1.0-4.8) k/uL Sodium 136 L (137-145) mmol/L Glucose 102 H (74-99) mg/dL POC Glucose (mg/dL) (75-99) mg/dL Calcium 8.3 L (8.4-10.2) mg/dL ALT 17 L (21-72) U/L Total Protein 6.0 L (6.3-8.2) g/dL Assessment and Plan Assessment: Impression: #1 Coronary artery disease status post coronary artery bypass grafting utilizing a ADAMS to the LAD, saphenous vein grafts to the PA and obtuse marginal coronary artery. Postoperative day #2. #2 Coronary artery disease with previous myocardial infarction, non-Q-wave myocardial infarction with history of multiple stent placements. #3 Hypertension. #4 Hyperlipidemia. #5 History of prostate cancer. #6 Gastroesophageal reflux disease. #7 Hypothyroidism. Plan: The patient was seen and evaluated by Dr. Ramirez. Chest x-ray and labs reviewed. Currently stable from the pulmonary and critical care standpoint. Continues to work well with the incentive spirometer. Continue bronchodilators. Continue heparin for DVT prophylaxis. Increase his activity as tolerated. We will continue to follow and make further recommendations based on his clinical status. I, the cosigning physician, performed a history & physical examination of the patient. Lungs sounds with crackles in left base. Maintaining good O2 saturations in the 90s on 2 L/m per nasal cannula. I discussed the assessment and plan of care with my nurse practitioner, Kathya Kelly. I attest to the above note as dictated by her.
[2019-02-28 11:40] LABS: Glucose,Whole Blood 80 mg/dL (75-99)
--- NOTE | 2019-02-28 15:10 | P.PN ---
Subjective Progress Note Date: 02/28/19 This is 73-year-old gentleman who is status post bypass surgery. Patient is complaining of some chest discomfort which is for surgical. Otherwise clinically stable. No arrhythmias detected. Tolerating activity and eating fairly well. Using incentive spirometry. No arrhythmias are detected Objective - Vital Signs Vital signs: Vital Signs Temp 98.5 F 02/28/19 04:00 Pulse 103 H 02/28/19 13:00 Resp 31 H 02/28/19 13:00 BP 137/75 02/28/19 13:00 Pulse Ox 94 L 02/28/19 13:00 Intake & Output 02/27/19 02/28/19 02/28/19 18:59 06:59 18:59 Intake Total 370 1270 720 Output Total 642 1725 530 Balance -272 -455 190 Weight 106.2 kg 106.4 kg Intake: IV 250 270 80 Lactated Ringers 1,000 ml 200 220 80 @ 20 mls/hr IV .Q24H TOSIN Rx#:[id number] ceFAZolin 2 gm In Sodium 50 50 Chloride 0.9% 50 ml @ 100 mls/hr IVPB Q8HR TOSIN Rx# :[id number] Oral 1000 640 Tube Feeding 120 Output: Chest Tube Drainage 80 120 30 Chest Tube Left Pleural/ 80 120 30 Mediastinal Urine 562 1605 500 Other: Voiding Method Indwelling Catheter Indwelling Catheter ABP, PAP, CO, CI - Last Documented Arterial Blood Pressure 115/53 Pulmonary Artery Pressure 25/9 Cardiac Output 4.9 Cardiac Index 2.2 - Exam GENERAL EXAM: Patient is alert and oriented and doesn't appear to be in any acute distress HEENT: Normocephalic. Normal reaction of pupils, equal size, normal range of extraocular motion. No erythema or exudates in the throat. NECK: No masses, no nuchal rigidity. CHEST: Postsurgical LUNGS: Diminished breath sounds at bases HEART: S1 and S2 normal with no audible mumurs or gallops. Regular rhythm, femorals equal on both sides.. ABDOMEN: No hepatosplenomegaly, normal bowel sounds, no guarding or rigidity. SKIN: No rashes CENTRAL NERVOUS SYSTEM: No focal deficits. EXTREMITIES: No cyanosis, clubbing or edema. - Labs CBC & Chem 7: 02/28/19 04:30 02/28/19 04:30 Labs: Abnormal Lab Results - Last 24 Hours (Table) 02/27/19 02/27/19 02/28/19 Range/Units 17:14 20:36 04:30 RBC 3.52 L (4.30-5.90) m/uL Hgb 9.1 L (13.0-17.5) gm/dL Hct 28.8 L (39.0-53.0) % RDW 16.3 H (11.5-15.5) % Lymphocytes # 0.9 L (1.0-4.8) k/uL Sodium (137-145) mmol/L Glucose (74-99) mg/dL POC Glucose (mg/dL) 121 H 141 H (75-99) mg/dL Calcium (8.4-10.2) mg/dL ALT (21-72) U/L Total Protein (6.3-8.2) g/dL 02/28/19 Range/Units 04:30 RBC (4.30-5.90) m/uL Hgb (13.0-17.5) gm/dL Hct (39.0-53.0) % RDW (11.5-15.5) % Lymphocytes # (1.0-4.8) k/uL Sodium 136 L (137-145) mmol/L Glucose 102 H (74-99) mg/dL POC Glucose (mg/dL) (75-99) mg/dL Calcium 8.3 L (8.4-10.2) mg/dL ALT 17 L (21-72) U/L Total Protein 6.0 L (6.3-8.2) g/dL Assessment and Plan (1) Status post aorto-coronary artery bypass graft Current Visit: Yes Status: Acute Code(s): Z95.1 - PRESENCE OF AORTOCORONARY BYPASS GRAFT SNOMED Code(s): 833784924 (2) Dyslipidemia Current Visit: No Status: Acute Code(s): E78.5 - HYPERLIPIDEMIA, UNSPECIFIED SNOMED Code(s): 986310783 (3) Hypertension Current Visit: No Status: Acute Code(s): I10 - ESSENTIAL (PRIMARY) HYPER TENSION SNOMED Code(s): 86217630 Plan: Continue current medical therapy. Increase activity. Incentive spirometry
--- NOTE | 2019-02-28 15:31 | PN ---
PROGRESS NOTE DATE OF SERVICE: 02/28/2019 This is a 73-year-old gentleman who was admitted after CAD, CABG, is improving significantly. No chest pain, no palpitation. One chest tube is remaining at this time. The most recent chest x-ray which was reviewed by me showed interval removal with internal jugular [place]-Oscar and cardiomegaly and the atelectasis as expected. No chest pain. No palpitations. No fever. PHYSICAL EXAM: Alert and oriented x3. Pulse is 103, blood pressure 131/75, respiration 31, temperature is normal, pulse ox 94% on room air. HEENT: Conjunctivae normal. NECK: No jugular venous distension. CARDIOVASCULAR: S1, S2, muffled. RESPIRATION: Breath sounds diminished at the bases, a few scattered rhonchi, no crackles. ABDOMEN: Soft, nontender. LEGS: No edema, no swelling. NERVOUS SYSTEM: No focal deficits. LABS: WBC is 9.2, hemoglobin 9.1, sodium 136. ASSESSMENT: 1. Coronary artery disease, status post coronary artery bypass grafting. 2. History of recent cardiac catheterization with unstable angina. 3. History of previous myocardial infarction with multiple stents. 4. History of chronic kidney stage III, currently creatinine normal. 5. History of prostate disorder. 6. History of hernia repair. 7. Hypothyroidism, newly diagnosed. 8. History of prostate surgery. 9. History of anemia, chronic, possibly nutritional. RECOMMENDATIONS AND DISCUSSION: I recommend to continue current management and symptomatic treatment. Otherwise, at this time I would continue with DVT prophylaxis, incentive spirometry. Continue with the rest of medications, further recommendations to follow. MMODL / IJN: [id number] /
[2019-02-28 17:23] LABS: Glucose,Whole Blood 79 mg/dL (75-99)
[2019-02-28] MEDS: LACTATED RINGERS 1,000 ML IV SCH (18:56)
[2019-02-28] MEDS: MUPIROCIN 2% OINT 22 GM TUBE NASAL SCH ×2 (18:57→20:52)
[2019-02-28] MEDS: SENNOSIDES-DOCUSATE SODIUM 1 EACH TAB PO SCH (20:45)
[2019-02-28 20:58] LABS: Glucose,Whole Blood 108 mg/dL (75-99)
[2019-02-28] MEDS: AMITRIPTYLINE HCL 50 MG TAB PO SCH (21:20)
[2019-03-01 02:16] LABS: Glucose,Whole Blood 84 mg/dL (75-99)
[2019-03-01] MEDS: KETOROLAC 30 MG/ML 1 ML VIAL IVP SCH ×5 (02:30→22:39)
[2019-03-01] MEDS: HEPARIN SODIUM,PORCINE 5,000 UNIT/ML 1 ML VIAL SQ SCH ×4 (02:30→23:08)
[2019-03-01 06:11] LABS: Anisocytosis Slight; HCT 27.9 % (39.0-53.0); HGB 8.8 gm/dL (13.0-17.5); Hypochromasia Slight; MCH 26.2 pg (25.0-35.0); MCHC 31.6 g/dL (31.0-37.0); Mean Platelet Volume 6.4; Platelet Count 258 k/uL (150-450); RBC 3.37 m/uL (4.30-5.90); RDW 16.6 % (11.5-15.5); WBC 10.3 k/uL (3.8-10.6)
[2019-03-01 06:47] LABS: Calcium 8.5 mg/dL (8.4-10.2); Potassium 3.9 mmol/L (3.5-5.1)
[2019-03-01] MEDS: INSULIN ASPART (NovoLOG) 100 UNIT/ML VIAL SQ SCH ×4 (06:50→21:01)
[2019-03-01] MEDS: LEVOTHYROXINE 50 MCG TAB PO SCH (06:53)
[2019-03-01] MEDS: PANTOPRAZOLE 40 MG TABLET PO SCH (06:53)
[2019-03-01] MEDS: IPRATROPIUM-ALBUTEROL 3 ML NEB INHALATION SCH ×4 (07:29→20:47)
[2019-03-01] MEDS ORDERED: POTASSIUM CHLORIDE ER 20 MEQ TAB.ER PO SCH (08:00)
[2019-03-01] MEDS: METOPROLOL TARTRATE 50 MG TAB PO SCH ×2 (08:02→21:07)
[2019-03-01] MEDS: ASPIRIN 325 MG TAB PO SCH (08:02)
[2019-03-01] MEDS: CLOPIDOGREL 75 MG TAB PO SCH (08:02)
[2019-03-01] MEDS: ATORVASTATIN 40 MG TAB PO SCH (08:02)
--- NOTE | 2019-03-01 09:30 | P.PN ---
Subjective Progress Note Date: 03/01/19 This is 73-year-old gentleman who is status post bypass surgery. Patient is complaining of some chest discomfort which is for surgical. Otherwise clinically stable. No arrhythmias detected. Tolerating activity and eating fairly well. Using incentive spirometry. No arrhythmias are detected. 03/01/2019: The patient remains stable. Had an episode of confusion last night. This morning he appears to be alert and oriented. No distress. Maintaining sinus rhythm. No arrhythmias noted. Lungs appeared to be clear. Heart is regular. Patient is being moved to telemetry unit. Still one chest tube to be removed. Hemoglobin is stable. Increase activity as tolerated. Incentive spirometry. Continue rest of the medications Objective - Vital Signs Vital signs: Vital Signs Temp 97.6 F 03/01/19 08:00 Pulse 107 H 03/01/19 08:00 Resp 23 03/01/19 08:00 BP 138/73 03/01/19 08:00 Pulse Ox 94 L 03/01/19 08:00 Intake & Output 02/28/19 03/01/19 03/01/19 18:59 06:59 18:59 Intake Total 1220 0 Output Total 1085 55 Balance 135 -55 Intake: IV 80 0 Lactated Ringers 1,000 ml 80 0 @ 20 mls/hr IV .Q24H TOSIN Rx#:[id number] Oral 1140 Output: Chest Tube Drainage 85 55 Chest Tube Left Pleural/ 30 Mediastinal Left Left Pleural/ 55 55 Mediastinal Urine 1000 Other: Voiding Method Toilet Toilet Toilet # Voids 1 # Bowel Movements 2 1 ABP, PAP, CO, CI - Last Documented Arterial Blood Pressure 115/53 Pulmonary Artery Pressure 25/9 Cardiac Output 4.9 Cardiac Index 2.2 - Exam GENERAL EXAM: Patient is alert and oriented and doesn't appear to be in any acute distress HEENT: Normocephalic. Normal reaction of pupils, equal size, normal range of extraocular motion. No erythema or exudates in the throat. NECK: No masses, no nuchal rigidity. CHEST: Postsurgical LUNGS: Diminished breath sounds at bases HEART: S1 and S2 normal with no audible mumurs or gallops. Regular rhythm, femorals equal on both sides.. ABDOMEN: No hepatosplenomegaly, normal bowel sounds, no guarding or rigidity. SKIN: No rashes CENTRAL NERVOUS SYSTEM: No focal deficits. EXTREMITIES: No cyanosis, clubbing or edema. - Labs CBC & Chem 7: 03/01/19 05:36 03/01/19 05:36 Labs: Abnormal Lab Results - Last 24 Hours (Table) 02/28/19 03/01/19 03/01/19 Range/Units 20:43 05:36 05:36 RBC 3.37 L (4.30-5.90) m/uL Hgb 8.8 L (13.0-17.5) gm/dL Hct 27.9 L (39.0-53.0) % RDW 16.6 H (11.5-15.5) % BUN 25 H (9-20) mg/dL POC Glucose (mg/dL) 108 H (75-99) mg/dL Assessment and Plan (1) Status post aorto-coronary artery bypass graft Current Visit: Yes Status: Acute Code(s): Z95.1 - PRESENCE OF AORTOCORONARY BYPASS GRAFT SNOMED Code(s): 361291690 (2) Dyslipidemia Current Visit: No Status: Acute Code(s): E78.5 - HYPERLIPIDEMIA, UNSPECIFIED SNOMED Code(s): 164375880 (3) Hypertension Current Visit: No Status: Acute Code(s): I10 - ESSENTIAL (PRIMARY) HYPERTENSION SNOMED Code(s): 19571083 Plan: Patient has remained stable except that had an episode of confusion last night. No arrhythmias detected. Continue current medical therapy. Possible transfer to stepdown unit.
--- NOTE | 2019-03-01 09:42 | P.PN ---
Subjective Progress Note Date: 03/01/19 Principal diagnosis: Coronary artery disease. History of coronary artery disease with multiple stents to his RCA, recent myocardial infarction December 2018, symptomatic bradycardia, h ypertension, hyperlipidemia, newly diagnosed hypothyroid, depression, GERD, obesity, prostate cancer status post prostatectomy in 2006, and family history of coronary artery disease. Preoperative nasal swab positive for MSSA. POD #3 coronary artery bypass grafting 3 vessels, left internal mammary artery to the left anterior descending artery, a reverse greater saphenous vein graft to the diagonal artery, a reverse greater saphenous vein graft to the posterior descending artery. Endoscopic vein harvest left greater saphenous vein. Epi- aortic ultrasound. Intraoperative transesophageal echocardiogram. Postoperative acute blood loss anemia, expected outcome given hemodilution and cardiopulmonary bypass pump. The patient is sitting up to the bedside chair. He is in no acute distress. His night nurse reports that he has been having episodes of confusion and trying to get out of bed on his own without asking for assistance. He denies any complaints of pain or shortness of breath at this time. Bedside telemetry showing sinus tachycardia heart rate 105. Oxygen saturation is 95% on room air and he is achieving 1500 mL on his incentive spirometry. He remained hemodynamically stable and is currently on no inotropic or pressor support. Left pleural chest tube remains in place draining thin serosanguineous drainage. 15 mL of output in the last 12 hours. Transfer orders were placed yesterday for cardiac stepdown unit and he is awaiting for bed. Objective - Vital Signs Vital signs: Vital Signs Temp 98.2 F 03/01/19 04:00 Pulse 100 03/01/19 07:42 Resp 16 03/01/19 04:00 BP 134/74 03/01/19 04:00 Pulse Ox 94 L 03/01/19 04:00 Intake & Output 02/28/19 03/01/19 03/01/19 18:59 06:59 18:59 Intake Total 1220 0 Output Total 1085 55 Balance 135 -55 Intake: IV 80 0 Lactated Ringers 1,000 ml 80 0 @ 20 mls/hr IV .Q24H TOSIN Rx#:[id number] Oral 1140 Output: Chest Tube Drainage 85 55 Chest Tube Left Pleural/ 30 Mediastinal Left Left Pleural/ 55 55 Mediastinal Urine 1000 Other: Voiding Method Toilet Toilet # Voids 1 # Bowel Movements 2 1 ABP, PAP, CO, CI - Last Documented Arterial Blood Pressure 115/53 Pulmonary Artery Pressure 25/9 Cardiac Output 4.9 Cardiac Index 2.2 - Constitutional Constitutional Comment(s): Episodes of confusion. General appearance: Present: cooperative, no acute distress, obese - Respiratory Details: Lung sounds are essentially diminished to his bilateral bases. No crackles, wheezes or rhonchi present. Respirations are symmetrical and nonlabored. Oxygen saturation is 95% on room air. Achieving 1500 mL on his incentive spirometry. Left pleural chest tube remains in place to low continuous wall suction -20 cm H2O. No air leak is present. 15 mL output in the last 12 hours. - Cardiovascular Details: Regular rhythm and tachycardic rate. S1 and S2 present, negative for S3, gallop or murmur. Sternum is stable. Bedside telemetry showing sinus tachycardia heart rate 105. Atrial and ventricular epicardial pacemaker wires in place and grounded. No edema present. Heart hugger is in place and he is demonstrating appropriate use. Knee-high SHAW hose and sequential compression devices in place to his bilateral lower extremities. - Gastrointestinal Gastrointestinal Comment(s): Abdomen is soft, nontender and nondistended. Active bowel sounds present all 4 abdominal quadrants. No guarding or rigidity. No organomegaly appreciated. - Genitourinary Genitourinary Comment(s): Voiding clear yellow urine. - Integumentary Integumentary Comment(s): Skin is warm and dry. No clubbing or cyanosis is present. Midline sternal incision is clean, dry and approximated. Exofin dressing is clean, dry and intact. Left lower extremity EVH site is clean, dry and approximated. No drainage or redness is present. - Neurologic Neurologic: Present: CNII-XII intact - Musculoskeletal Musculoskeletal: Present: gait normal, generalized weakness, strength equal bilaterally - Psychiatric Psychiatric: Present: A&O x's 3, appropriate affect, intact judgment & insight - Allied health notes Allied health notes reviewed: nursing - Labs CBC & Chem 7: 03/01/19 05:36 03/01/19 05:36 Labs: Abnormal Lab Results - Last 24 Hours (Table) 02/28/19 03/01/19 03/01/19 Range/Units 20:43 05:36 05:36 RBC 3.37 L (4.30-5.90) m/uL Hgb 8.8 L (13.0-17.5) gm/dL Hct 27.9 L (39.0-53.0) % RDW 16.6 H (11.5-15.5) % BUN 25 H (9-20) mg/dL POC Glucose (mg/dL) 108 H (75-99) mg/dL - Imaging and Cardiology Chest x-ray: report reviewed, image reviewed Assessment and Plan Assessment: 1. Coronary artery disease, status post multiple stents to the RCA, status post three-vessel CABG 2. Myocardial infarction in December 2018 3. History of symptomatic bradycardia 4. Hypertension 5. Hyperlipidemia 6. Hypothyroidism 7. Depression 8. GERD 9. Obesity 10. Prostate cancer status post prostatectomy 11. Preoperative nasal swab positive for MSSA 12. Postoperative acute blood loss anemia, expected Plan: 1. Continue aspirin, statin, Plavix, beta barbara. Will increase metoprolol tartrate to 50 mg by mouth twice a day. 2. Wean O2 as tolerated. Encourage and some spirometry 10 times every hour while awake. 3. Increase activity, ambulate as tolerated. PT/OT/cardiac rehab following 4. Discontinue epicardial pacemaker wires. Bedrest for 1 hour post pacemaker wire removal. 5. Bronchodilators per pulmonology 6. GI/DVT prophylaxis 7. Pain control per current medication regimen. Avoid opioids use due to hallucinations. 8. Will monitor daily labs and chest x-rays. Electrolyte replacement per protocol. No blood transfusions at this time. 9. Will discontinue left pleural chest tube. 10. Continue nasal mupirocin, patient had a preoperative nasal swab positive for MSSA. 11. Continue Synthroid, home dose of Elavil. 12. Insulin management per primary care service. 13. Transferred to cardiac stepdown unit when bed available. 14. Discharge planning in progress. Anticipate discharge to home with home care in the next 24-48 hours. 15. More recommendations to follow based on patient's progress. Atrial and ventricular epicardial pacemaker wires removed today at 9:20 AM without incident. Time with Patient: Greater than 30
--- NOTE | 2019-03-01 10:00 | P.PN ---
Subjective Progress Note Date: 03/01/19 Principal diagnosis: Coronary artery disease, status post coronary artery bypass grafting The patient is seen today 02/27/2019 in follow-up in the intensive care unit. Yesterday he had undergone coronary artery bypass grafting 3 utilizing ADAMS to the LAD, saphenous vein grafts to the diagonal and posterior descending arteries. Postoperative day #1. He was successfully extubated yesterday within the 6 hour window. He is currently sitting up in a chair at the bedside. Awake and alert in no acute distress. He is maintaining good O2 saturations in the 90s on 2 L/m per nasal cannula. No worsening shortness of breath, cough or congestion. He is working quite well with the incentive spirometer. Today's chest x-ray reveals strandy areas of atelectasis and improving patchy retrocardiac atelectasis. Right IJ Mikado-Oscar catheter in place. Mediastinal drains in the left sided chest tubes remain in place. No appreciable pneumothorax. No sizable effusions. White count 8.4. Hemoglobin 8.5. Creatinine 1.10. He remains on DuoNeb inhalations and cefazolin. Heparin for DVT prophylaxis. Sequential compression devices in place. The patient is seen today 02/28/2019 in follow-up in the intensive care unit. He is currently sitting up in a chair at the bedside. Awake and alert in no acute distress. He states he slept very well last night. No worsening shortn ess of breath, cough or congestion. Chest x-ray shows persistent cardiomegaly with left basilar atelectasis/infiltrate. Chest tubes remain in place. Mikado- Oscar catheter removed. He is working very well with the incentive spirometer. Maintaining O2 saturations in the low 90s on 2 L/m per nasal cannula. He remains afebrile. Hemodynamically stable. White count 9.8. Hemoglobin 9.1. Creatinine 1.00. He remains on bronchodilators. The patient is seen today 03/01/2018 in follow-up in the intensive care unit. Postoperative day #3 of coronary artery bypass grafting 3. He is currently resting comfortably in bed. Awake and alert in no acute distress. He is having some issues with hallucinations. Seeing things in the air. He is however answering questions appropriately. No worsening shortness of breath, cough or congestion. Maintaining good O2 saturations in the 90s on room air. Pulling approximately 1-1.5 L on his incentive spirometer. Chest x-ray shows some atelectasis in the left lung base. White count 10.3. Hemoglobin 8.8. Creatinine 1.09. He is continued on DuoNeb inhalations. Objective - Vital Signs Vital signs: Vital Signs Temp 97.6 F 03/01/19 08:00 Pulse 107 H 03/01/19 08:00 Resp 23 03/01/19 08:00 BP 138/73 03/01/19 08:00 Pulse Ox 94 L 03/01/19 08:00 Intake & Output 02/28/19 03/01/19 03/01/19 18:59 06:59 18:59 Intake Total 1220 0 Output Total 1085 55 Balance 135 -55 Intake: IV 80 0 Lactated Ringers 1,000 ml 80 0 @ 20 mls/hr IV .Q24H TOSIN Rx#:[id number] Oral 1140 Output: Chest Tube Drainage 85 55 Chest Tube Left Pleural/ 30 Mediastinal Left Left Pleural/ 55 55 Mediastinal Urine 1000 Other: Voiding Method Toilet Toilet Toilet # Voids 1 # Bowel Movements 2 1 ABP, PAP, CO, CI - Last Documented Arterial Blood Pressure 115/53 Pulmonary Artery Pressure 25/9 Cardiac Output 4.9 Cardiac Index 2.2 - Exam GENERAL EXAM: Alert, very pleasant 73-year-old gentleman, comfortable in no apparent distress. On room air. HEAD: Normocephalic. EYES: Normal reaction of pupils, equal size. NOSE: Clear with pink turbinates. THROAT: No erythema or exudates. NECK: No masses, no JVD. Cordis in place. CHEST: No chest wall deformity. Heart hugger in place. Left chest tube in place. LUNGS: Equal air entry with crackles in left posterior base. CVS: S1 and S2 normal with no audible murmur, regular rhythm. ABDOMEN: No hepatosplenomegaly, normal bowel sounds, no guarding or rigidity. SPINE: No scoliosis or deformity SKIN: No rashes CENTRAL NERVOUS SYSTEM: No focal deficits, tone is normal in all 4 extremities. EXTREMITIES: SCDs in place. There is no peripheral edema. No clubbing, no cyanosis. Peripheral pulses are intact. - Labs CBC & Chem 7: 03/01/19 05:36 03/01/19 05:36 Labs: Abnormal Lab Results - Last 24 Hours (Table) 02/28/19 03/01/19 03/01/19 Range/Units 20:43 05:36 05:36 RBC 3.37 L (4.30-5.90) m/uL Hgb 8.8 L (13.0-17.5) gm/dL Hct 27.9 L (39.0-53.0) % RDW 16.6 H (11.5-15.5) % BUN 25 H (9-20) mg/dL POC Glucose (mg/dL) 108 H (75-99) mg/dL Assessment and Plan Assessment: Impression: #1 Coronary artery disease status post coronary artery bypass grafting utilizing a ADAMS to the LAD, saphenous vein grafts to the PDA and obtuse marginal coronary artery. Postoperative day #3. #2 Coronary artery disease with previous myocardial infarction, non-Q-wave myocardial infarction with history of multiple stent placements. #3 Hypertension. #4 Hyperlipidemia. #5 History of prostate cancer. #6 Gastroesophageal reflux disease. #7 Hypothyroidism. Plan: The patient was seen and evaluated by Dr. Ramirez. Chest x-ray and labs reviewed. Currently stable from the pulmonary standpoint. On room air. Continues to work well with the incentive spirometer. Continue bronchodilators. Continue heparin for DVT prophylaxis. Increase his activity as tolerated. We will continue to follow and make further recommendations based on his clinical status. I, the cosigning physician, performed a history & physical examination of the patient. Lungs sounds with crackles in left base. Maintaining good O2 saturations in the 90s on on room air. I discussed the assessment and plan of care with my nurse practitioner, Kathya Kelly. I attest to the above note as dictated by her.
[2019-03-01 11:46] LABS: Glucose,Whole Blood 72 mg/dL (75-99)
--- NOTE | 2019-03-01 12:16 | XR ---
EXAMINATION TYPE: XR chest 1V portable DATE OF EXAM: 03/01/2019 Comparison: 02/28/2019 Clinical History: 73-year-old male Post op CABG Findings: Median sternotomy wires are present with postoperative clips in the mediastinum. Heart mildly enlarge d. Mild interstitial prominence is unchanged. Some residual patchy left basilar atelectasis. Left-juni ed chest tube is in place. No appreciable pneumothorax. Impression: Some residual patchy left basilar atelectasis. Left sided chest tube in place. No appreciable pneumot horax.
[2019-03-01] MEDS: MUPIROCIN 2% OINT 22 GM TUBE NASAL SCH ×2 (15:14→21:14)
[2019-03-01 17:14] LABS: Glucose,Whole Blood 69 mg/dL (75-99)
--- NOTE | 2019-03-01 17:16 | PN ---
PROGRESS NOTE DATE OF SERVICE: 03/01/2019 This 73-year-old gentleman, admitted after CABG, is improving significantly. Chest tubes have been removed at this time. No chest pain. No palpitations. No fever. The most recent chest x-ray, which was reviewed personally by me, showed some basilar atelectasis. No chest pain. No palpitations. No fever. PHYSICAL EXAMINATION: Alert and oriented x3. Pulse is 85, blood pressure 144/82, respiration 26, temperature 97.7, pulse ox 96% on room air. HEENT: Conjunctivae normal. NECK: No jugular venous distention. CARDIOVASCULAR SYSTEM: S1, S2 muffled. RESPIRATORY SYSTEM: Breath sounds diminished at the bases. A few rhonchi. No crackles. ABDOMEN: Soft, non-tender. LEGS: No edema. No swelling. NERVOUS SYSTEM: No focal deficit. LABS: WBC 10.3, hemoglobin 8.8. ASSESSMENT: 1. Coronary artery disease, status post coronary artery bypass grafting. 2. History of recent cardiac catheterization and unstable angina. 3. History of previous myocardial infarction and multiple stents. 4. History of chronic kidney disease, stage III; currently creatinine is normal. 5. History of prostate disorder. 6. History of hernia surgery. 7. History of hypothyroidism, newly diagnosed. 8. History of prostate surgery. 9. History of anemia, chronic; possibly nutritional. RECOMMENDATIONS AND DISCUSSION: I recommend to continue current medications, continue with the monitoring, symptomatic treatment. Otherwise at this time incentive spirometry. DVT prophylaxis. Monitor blood sugars closely. Continue to monitor. Further recommendations to follow. MMODL / IJN: [id number] /
[2019-03-01 17:34] LABS: Glucose,Whole Blood 84 mg/dL (75-99)
[2019-03-01 20:58] LABS: Glucose,Whole Blood 82 mg/dL (75-99)
[2019-03-01] MEDS: SENNOSIDES-DOCUSATE SODIUM 1 EACH TAB PO SCH (21:07)
[2019-03-01] MEDS: AMITRIPTYLINE HCL 50 MG TAB PO SCH (21:07)
[2019-03-02 02:01] LABS: Glucose,Whole Blood 86 mg/dL (75-99)
[2019-03-02] MEDS: ACETAMINOPHEN TAB 500 MG TAB PO PRN (02:54)
[2019-03-02] MEDS: KETOROLAC 30 MG/ML 1 ML VIAL IVP SCH (04:00)
[2019-03-02 06:17] LABS: Anisocytosis Slight; HGB 9.2 gm/dL (13.0-17.5); Hypochromasia Slight; MCH 26.6 pg (25.0-35.0); MCHC 31.8 g/dL (31.0-37.0); MCV 83.4 fL (80.0-100.0); Mean Platelet Volume 6.5; Platelet Count 295 k/uL (150-450); RBC 3.47 m/uL (4.30-5.90); RDW 16.9 % (11.5-15.5); WBC 7.9 k/uL (3.8-10.6)
[2019-03-02 06:31] LABS: Calcium 8.2 mg/dL (8.4-10.2); Potassium 4.3 mmol/L (3.5-5.1)
[2019-03-02 06:35] LABS: Glucose,Whole Blood 88 mg/dL (75-99)
[2019-03-02] MEDS: INSULIN ASPART (NovoLOG) 100 UNIT/ML VIAL SQ SCH (06:36)
[2019-03-02] MEDS: LEVOTHYROXINE 50 MCG TAB PO SCH (06:42)
[2019-03-02] MEDS: PANTOPRAZOLE 40 MG TABLET PO SCH (06:42)
[2019-03-02 08:19] VITALS: BP 135/68; PULSE 88; RESP 16; TEMP 98.4
[2019-03-02] MEDS: IPRATROPIUM-ALBUTEROL 3 ML NEB INHALATION SCH (08:24)
[2019-03-02] MEDS ORDERED: METOPROLOL TARTRATE 25 MG TAB PO SCH (09:00)
[2019-03-02] MEDS: CLOPIDOGREL 75 MG TAB PO SCH (09:07)
[2019-03-02] MEDS: ASPIRIN 325 MG TAB PO SCH (09:07)
[2019-03-02] MEDS: ATORVASTATIN 40 MG TAB PO SCH (09:07)
--- NOTE | 2019-03-02 09:13 | P.DS ---
Providers Date of admission: 02/26/19 05:35 Expected date of discharge: 03/02/19 Attending physician: Grayson Wagoner Consults: 02/26/19 13:45 Consult Physician Routine Consulting Provider: Radhames Ramirez Consult Reason/Comments: Kettle Tender Consult: post cardiac surgery Do you want consulting provider notified?: Yes Consult Physician Routine Consulting Provider: Mala Toscano Consult Reason/Comments: Roger cole patient Do you want consulting provider notified?: Yes Consult Physician Routine Consulting Provider: Chris Nunez Consult Reason/Comments: Siphoner Consult: post cardiac surgery Do you want consulting provider notified?: Yes Primary care physician: Rubni Duran [facility] Course: FINAL DIAGNOSIS: 1. Coronary artery disease, status post multiple stents to the RCA, status post three-vessel CABG 2. Myocardial infarction in December 2018 3. History of symptomatic bradycardia 4. Hypertension 5. Hyperlipidemia 6. Hypothyroidism, recently diagnosed 7. Depression 8. GERD 9. Obesity 10. Prostate cancer status post prostatectomy 11. Preoperative nasal swab positive for MSSA 12. Postoperative acute blood loss anemia, expected PRINCIPAL PROCEDURE: 1. Coronary artery bypass grafting 3 vessels, left internal mammary artery to left anterior descending coronary artery, a reverse greater saphenous vein graft to the diagonal coronary artery, and a reverse greater saphenous vein graft to the posterior descending coronary artery. 2. Endoscopic vein harvest, left greater saphenous vein. 3. Epi-aortic ultrasound. 4. Intraoperative transesophageal echocardiogram performed by anesthesia. HISTORY OF PRESENT ILLNESS: This is a 73-year-old gentleman who is followed by Dr. Rubin Duran on an outpatient basis. His past medical history significant for coronary artery disease with previous multiple stent placement to his right coronary artery, myocardial infarction in November 2018, symptomatic bradycardia, hypertension, hyperlipidemia, depression, gastroesophageal reflux disorder and prostate cancer status post prostatectomy in 2006. He also has a history of recently diagnosed thyroid disorder. On 02/16/2019 the patient presented to [facility] with complaints of chest tightness. Due to his previous history of multiple stent placements, and myocardial infarction he was admitted for further workup and evaluation at that time. He was seen by Dr. Nunez his associate property manager and the patient underwent a cardiac catheterization which demonstrated a 60% stenosis to his left anterior descending coronary artery after the takeoff of the first diagonal branch, a 60-70% stenosis to the diagonal coronary artery, a 30% stenosis to his obtuse marginal coronary artery, a 40% restenosis of the proximal right coronary artery and a 50% restenosis area involving the mid right coronary artery. He also underwent a 2-D echocardiogram which demonstrated him to have an overall left ventricular systolic function to be normal with an ejection fraction between 50 and 55%, mild aortic valve regurgitation and mild tricuspid valve regurgitation. Due to the findings on the cardiac catheterization, the patient's history of coronary artery disease and a previous myocardial infarction a consult was placed to Dr. Grayson Wagoner cardiothoracic surgery. Dr. Wagoner met with the patient and his , discussed the findings on the cardiac catheterization and recommended my cardiovascular sedation surgery. The risks and benefits of myocardial revascularization including the STS risk score were discussed with the patient by Dr. Wagoner and the patient wished to proceed with an elective my cardiovascular station surgery. HOSPITAL COURSE: The patient was admitted to the hospital on elective basis, was taken to the preoperative area on 02/26/2019, prepared in the usual fashion and subsequently taken to the operating room where Dr. Grayson Wagoner performed a coronary artery bypass grafting 3 vessels, left internal mammary artery to left anterior descending coronary artery, a reverse greater saphenous vein graft to the diagonal coronary artery, and a reverse greater saphenous vein graft to the posterior descending coronary artery, endoscopic vein harvest, left greater saphenous vein, epi-aortic ultrasound and intraoperative transesophageal echocardiogram performed by anesthesia. Upon completion of the surgery the patient was transferred to the cardiovascular intensive care unit where he was recovered, monitored hemodynamically, and where he progressed cardiac rehabilitation phase 1. He was extubated, all lines, tubes and all supportive drips were discontinued when appropriate. Subsequently, he was transferred to the cardiac stepdown unit for further monitoring and rehabilitation. His oxygen was titrated down, he continued to work with physical and occupational therapy, he was tolerating an oral diet, his pain was well-controlled and he was ready to be discharged home with [facility] care on postoperative day #4. He has received written and verbal instructions regarding his medications, activity restrictions, signs and symptoms requiring physician notification and his follow-up appointment. Statins were not prescribed at discharge due to his intolerance of statins, although he has been discharged home on his home dose of Repatha and is Ezetimibe. COMPLICATIONS: There were no postoperative complications. CONSULTATIONS: 1. Dr. Nunez for cardiology management. 2. Dr. Ramirez for pulmonary and ventilator management. 3. Dr. Toscano for medical management. DISCHARGE INSTRUCTIONS: 1. No driving for 4 weeks, or until physician gives their ok. 2. The patient should sleep in their own bed, no medical bed needed. 3. Stairs are not an issue. If the bedroom is upstairs, it is advised that the patient go up at night and down in the morning for the first week. Go slowly, using handrail and take 1 step at a time. 4. SHAW hose are to be worn for 30 days or until physician discontinues. 5. Heart hugger is to be worn 100% of the time until physician discontinues.(except when showering) 6. No lifting, pushing, or pulling more than 10 pounds for 12 weeks. The physician will advise of any restriction changes. 7. The patient is expected to continue the prescribed walking program. 8. Continue pain control per as needed orders. 9. Continue with incentive spirometry and splinting/heart hugger until otherwise directed by the physician. 10. Must shower daily using liquid antibacterial soap and a separate white washcloth for each individual incision. 11. Routine sternal incision care, no ointments, lotions or powders on the incisions. 12. Please notify surgeon/nurse practitioner for temperature greater than 101F or purulent drainage from incisions 13. Prescriptions for first 30 days given per cardiac surgery service. After 30 days, all prescription refills obtained through cardiology/primary care physician. 14. A red arm and has been placed on this patient it should be worn for 30 days post surgery and will be removed by the cardiothoracic surgeons. If an ER visit is necessary, please make sure the number on the red arm band is called. HOME HEALTH SERVICES TO PROVIDE: RN SKILLED HOME CARE SERVICES FOR POST-OP SURGICAL PATIENTS WITH THE FO LLOWING: Coronary Artery Bypass Surgery (CABG), Mitral Valve Replacement/Repair ( MVR), Aortic Valve Replacement/Repair (AVR) RN TO CONTINUE EDUCATION FROM ``ROAD TO A HEALTH HEART PATIENT EDUCATION MANUAL" (GIVEN TO PATIENT IN THE HOSPITAL) MEDICATION RECONCILIATION WITH EDUCATION NEEDED ON FIRST HOME VISIT EMPHASIZE IMPORTANCE OF WEARING BREAST SUPPORT/HEART HUGGER ENCOURAGE USE OF INCENTIVE SPIROMETER 10 X EVERY HOUR WHILE AWAKE ENCOURAGE UTILIZATION OF LOWER EXTREMITY COMPRESSION STOCKINGS/SHAW HOSE and ELEVATE LEGS ABOVE LEVEL OF HEART WHILE AT REST. ENCOURAGE AMBULATION 3-5x/day INCREASING TOLERATES, WHILE AVOID EXTREMES IN TEMPERATURE FREQUENCY: RN TO OPEN THE PATIENT WITHIN 24 HOURS OF DISCHARGE FROM THE HOSPITAL WITH TELEHEALTH INSTALLED AT [facility] [place], RN TO VISIT 2-3 X A WEEK FOR 4 WEEKS ESTABLISHED BY PATIENT NEEDS. LABORATORY: CBC, CMP TO BE DRAWN ON THE THIRD DAY HOME, 03/05/2019 (RAN STAT) FAX RESULTS TO [phone]. TELEHEALTH PARAMETERS: WEIGHT: NOTIFY MD OF WEIGHT GAIN OF 2 LBS IN 24 HOURS OR 5 LBS IN ONE WEEK HR: NOTIFY MD OF HR <55 BPM OR HR>100 BPM BP: NOTIFY MD IF BP <90/55 OR BP>140/100 O2 SAT: NOTIFY MD IF PO2<93% ON ROOM AIR SEND TELEHEALTH REPORT TO WATER SAFETY TEACHER AND CARDIOVASCULAR SURGEON THE FIRST WEEK OF CARE AND THEN BI-WEEKLY. PLEASE ADDITIONALLY COMMUNICATE ANY ABNORMALS AND NEW FINDINGS TO THE SURGEONS OFFICE. Plan - Discharge Summary Discharge Rx Participant: Yes New Discharge Prescriptions: New Aspirin 325 mg PO DAILY tab Metoprolol Tartrate [Lopressor] 75 mg PO BID #90 tab Clopidogrel [Plavix] 75 mg PO DAILY #30 tab Sennosides-Docusate Sodium [Senokot-S] 2 each PO HS #14 tab Acetaminophen Tab [Tylenol] 1,000 mg PO Q6HR PRN tab PRN Reason: Fever and/ or Mild Pain Continue Omeprazole 20 mg PO DAILY Ezetimibe [Zetia] 10 mg PO DAILY #90 tab Amitriptyline HCl [Elavil] 50 mg PO HS tab Evolocumab [Repatha Syringe] 140 mg SQ QMONTH Levothyroxine Sodium [Synthroid] 50 mcg PO DAILY@0630 30 Days #30 tab Discontinued Lisinopril [Zestril] 40 mg PO DAILY Aspirin EC [Ecotrin Low Dose] 81 mg PO DAILY Nitroglycerin Sl Tabs [Nitrostat] 0.4 mg SUBLINGUAL Q5M PRN #25 tab PRN Reason: Chest Pain Metoprolol Succinate [Toprol XL] 50 mg PO DAILY Isosorbide Mononitrate ER [Imdur] 30 mg PO DAILY #30 tab.er.24h Mupirocin 2% Oint [Bactroban 2% Oint] 1 applic NASAL BID #1 applic amLODIPine BESYLATE 5 mg PO DAILY Discharge Medication List Omeprazole 20 mg PO DAILY 07/14/18 [History] Ezetimibe [Zetia] 10 mg PO DAILY #90 tab 07/16/18 [Rx] Amitriptyline HCl [Elavil] 50 mg PO HS tab 11/24/18 [Rx] Evolocumab [Repatha Syringe] 140 mg SQ QMONTH 02/17/19 [History] Levothyroxine Sodium [Synthroid] 50 mcg PO DAILY@0630 30 Days #30 tab 02/19/19 [Rx] Acetaminophen Tab [Tylenol] 1,000 mg PO Q6HR PRN tab 03/02/19 [Rx] Aspirin 325 mg PO DAILY tab 03/02/19 [Rx] Clopidogrel [Plavix] 75 mg PO DAILY #30 tab 03/02/19 [Rx] Metoprolol Tartrate [Lopressor] 75 mg PO BID #90 tab 03/02/19 [Rx] Sennosides-Docusate Sodium [Senokot-S] 2 each PO HS #14 tab 03/02/19 [Rx] Follow up Appointment(s)/Referral(s): Mckenzie Nogueira NPC [Nurse Practitioner] - 03/05/19 11:00 am Chris Nunez MD [STAFF PHYSICIAN] - 03/16/19 9:45 am (Tuesday) Rubin Duran DO [Primary Care Provider] - 1 Week (Mariana from Dr. Duran's office will call with a follow-up appointment.) [facility], [NON-STAFF] - 1-2 Days Grayson Wagoner MD [STAFF PHYSICIAN] - 04/06/19 10:00 am (Tuesday) Radhames Ramirez DO [Doctor of Osteopathic Medicine] - 03/12/19 8:30 am Ambulatory/Diagnostic Orders: Complete Blood Count w/diff [LAB.AMB] Time Frame: 03/05/19, Facility: [facility], Location: [facility] Comprehensive Metabolic Panel [LAB.AMB] Time Frame: 03/05/19, Facility: [facility], Location: [facility] Patient Instructions/Handouts: Sternal Precautions (GEN), CABG (Coronary Artery Bypass Graft) (DC) Activity/Diet/Wound Care/Special Instructions: DISCHARGE INSTRUCTIONS: 1. No driving for 4 weeks, or until physician gives their ok. 2. The patient should sleep in their own bed, no medical bed needed. 3. Stairs are not an issue. If the bedroom is upstairs, it is advised that the patient go up at night and down in the morning for the first week. Go slowly, using handrail and take 1 step at a time. 4. SHAW hose are to be worn for 30 days or until physician discontinues. 5. Heart hugger is to be worn 100% of the time until physician discontinues.(except when showering) 6. No lifting, pushing, or pulling more than 10 pounds for 12 weeks. The physician will advise of any restriction changes. 7. The patient is expected to continue the prescribed walking program. 8. Continue pain control per as needed orders. 9. Continue with incentive spirometry and splinting/heart hugger until otherwise directed by the physician. 10. Must shower daily using liquid antibacterial soap and a separate white washcloth for each individual incision. 11. Routine sternal incision care, no ointments, lotions or powders on the incisions. 12. Please notify surgeon/nurse practitioner for temperature greater than 101F or purulent drainage from incisions 13. Prescriptions for first 30 days given per cardiac surgery service. After 30 days, all prescription refills obtained through cardiology/primary care physician. 14. A red arm and has been placed on this patient it should be worn for 30 days post surgery and will be removed by the cardiothoracic surgeons. If an ER visit is necessary, please make sure the number on the red arm band is called. HOME HEALTH SERVICES TO PROVIDE: RN SKILLED HOME CARE SERVICES FOR POST-OP SURGICAL PATIENTS WITH THE FOLLOWING: Coronary Artery Bypass Surgery (CABG), Mitral Valve Replacement/Repair ( MVR), Aortic Valve Replacement/Repair (AVR) RN TO CONTINUE EDUCATION FROM ``ROAD TO A HEALTH HEART PATIENT EDUCATION MANUAL" (GIVEN TO PATIENT IN THE HOSPITAL) MEDICATION RECONCILIATION WITH EDUCATION NEEDED ON FIRST HOME VISIT EMPHASIZE IMPORTANCE OF WEARING BREAST SUPPORT/HEART HUGGER ENCOURAGE USE OF INCENTIVE SPIROMETER 10 X EVERY HOUR WHILE AWAKE ENCOURAGE UTILIZATION OF LOWER EXTREMITY COMPRESSION STOCKINGS/SHAW HOSE and ELEVATE LEGS ABOVE LEVEL OF HEART WHILE AT REST. ENCOURAGE AMBULATION 3-5x/day INCREASING TOLERATES, WHILE AVOID EXTREMES IN TEMPERATURE FREQUENCY: RN TO OPEN THE PATIENT WITHIN 24 HOURS OF DISCHARGE FROM THE HOSPITAL WITH TELEHEALTH INSTALLED AT [facility], RN TO VISIT 2-3 X A WEEK FOR 4 WEEKS ESTABLISHED BY PATIENT NEEDS. LABORATORY: CBC, CMP TO BE DRAWN ON THE THIRD DAY HOME, 03/05/2019 (RAN STAT) FAX RESULTS TO [phone]. TELEHEALTH PARAMETERS: WEIGHT: NOTIFY MD OF WEIGHT GAIN OF 2 LBS IN 24 HOURS OR 5 LBS IN ONE WEEK HR: NOTIFY MD OF HR <55 BPM OR HR>100 BPM BP: NOTIFY MD IF BP <90/55 OR BP>140/100 O2 SAT: NOTIFY MD IF PO2<93% ON ROOM AIR SEND TELEHEALTH REPORT TO WATER SAFETY TEACHER AND CARDIOVASCULAR SURGEON THE FIRST WEEK OF CARE AND THEN BI-WEEKLY. PLEASE ADDITIONALLY COMMUNICATE ANY ABNORMALS AND NEW FINDINGS TO THE SURGEONS OFFICE. Discharge Disposition: HOME WITH HOME HEALTH SERVICES
--- NOTE | 2019-03-02 09:26 | XR ---
EXAMINATION TYPE: XR chest 2V DATE OF EXAM: 03/02/2019 COMPARISON: 03/01/2019 HISTORY: Shortness of breath TECHNIQUE: Frontal and lateral views of the chest are obtained. FINDINGS: Scattered senescent parenchymal changes noted. Hyperinflation compatible with COPD. Left basilar atelectasis. Left-sided chest tube has been removed. No evidence for residual pneumothor ax. Heart size is stable. Mediastinal structures are stable and grossly unremarkable. No evidence for hilar prominence. Degenerative changes dorsal spine. IMPRESSION: 1. Left basilar atelectasis. Left-sided chest tube has been removed. No evidence for residual pneumot horax.
--- NOTE | 2019-03-02 11:48 | P.PN ---
Subjective Progress Note Date: 03/02/19 Principal diagnosis: Coronary artery disease, status post coronary artery bypass grafting The patient is seen today 02/27/2019 in follow-up in the intensive care unit. Yesterday he had undergone coronary artery bypass grafting 3 utilizing ADAMS to the LAD, saphenous vein grafts to the diagonal and posterior descending arteries. Postoperative day #1. He was successfully extubated yesterday within the 6 hour window. He is currently sitting up in a chair at the bedside. Awake and alert in no acute distress. He is maintaining good O2 saturations in the 90s on 2 L/m per nasal cannula. No worsening shortness of breath, cough or congestion. He is working quite well with the incentive spirometer. Today's chest x-ray reveals strandy areas of atelectasis and improving patchy retrocardiac atelectasis. Right IJ [place]scar catheter in place. Mediastinal drains in the left sided chest tubes remain in place. No appreciable pneumothorax. No sizable effusions. White count 8.4. Hemoglobin 8.5. Creatinine 1.10. He remains on DuoNeb inhalations and cefazolin. Heparin for DVT prophylaxis. Sequential compression devices in place. The patient is seen today 02/28/2019 in follow-up in the intensive care unit. He is currently sitting up in a chair at the bedside. Awake and alert in no acute distress. He states he slept very well last night. No worsening shortn ess of breath, cough or congestion. Chest x-ray shows persistent cardiomegaly with left basilar atelectasis/infiltrate. Chest tubes remain in place. [place]- Oscar catheter removed. He is working very well with the incentive spirometer. Maintaining O2 saturations in the low 90s on 2 L/m per nasal cannula. He remains afebrile. Hemodynamically stable. White count 9.8. Hemoglobin 9.1. Creatinine 1.00. He remains on bronchodilators. The patient is seen today 03/01/2018 in follow-up in the intensive care unit. Postoperative day #3 of coronary artery bypass grafting 3. He is currently resting comfortably in bed. Awake and alert in no acute distress. He is having some issues with hallucinations. Seeing things in the air. He is however answering questions appropriately. No worsening shortness of breath, cough or congestion. Maintaining good O2 saturations in the 90s on room air. Pulling approximately 1-1.5 L on his incentive spirometer. Chest x-ray shows some atelectasis in the left lung base. White count 10.3. Hemoglobin 8.8. Creatinine 1.09. He is continued on DuoNeb inhalations. The patient is seen today 03/02/2019 in follow-up in the right selective care unit. He is currently sitting up in chair at the bedside. Awake alert no acute distress. Chest x-ray shows left basilar atelectasis. Left-sided chest tube has been removed. No residual pneumothorax. Maintaining good O2 saturations in the 90s on room air. Continues to work well with the incentive spirometer. White count 7.9. Hemoglobin 9.2. Creatinine 1.09. Objective - Vital Signs Vital signs: Vital Signs Temp 98.4 F 03/02/19 08:16 Pulse 88 03/02/19 08:40 Resp 16 03/02/19 08:40 BP 135/68 03/02/19 08:16 Pulse Ox 97 03/02/19 08:16 Intake & Output 03/01/19 03/02/19 03/02/19 18:59 06:59 18:59 Intake Total 800 10 780 Output Total 300 Balance 500 10 780 Weight 101 kg Intake: IV 10 Invasive Line 1 10 Oral 800 780 Output: Urine 300 Other: Voiding Method Toilet Toilet Toilet # Voids 1 2 # Bowel Movements 1 1 ABP, PAP, CO, CI - Last Documented Arterial Blood Pressure 115/53 Pulmonary Artery Pressure 25/9 Cardiac Output 4.9 Cardiac Index 2.2 - Exam GENERAL EXAM: Alert, very pleasant 73-year-old gentleman, comfortable in no apparent distress. On room air. HEAD: Normocephalic. EYES: Normal reaction of pupils, equal size. NOSE: Clear with pink turbinates. THROAT: No erythema or exudates. NECK: No masses, no JVD. CHEST: No chest wall deformity. Heart hugger in place. LUNGS: Equal air entry with crackles in left posterior base. CVS: S1 and S2 normal with no audible murmur, regular rhythm. ABDOMEN: No hepatosplenomegaly, normal bowel sounds, no guarding or rigidity. SPINE: No scoliosis or deformity SKIN: No rashes CENTRAL NERVOUS SYSTEM: No focal deficits, tone is normal in all 4 extremities. EXTREMITIES: There is no peripheral edema. No clubbing, no cyanosis. Peripheral pulses are intact. - Labs CBC & Chem 7: 03/02/19 05:51 03/02/19 05:51 Labs: Abnormal Lab Results - Last 24 Hours (Table) 03/01/19 03/01/19 03/02/19 Range/Units 11:42 17:11 05:51 RBC 3.47 L (4.30-5.90) m/uL Hgb 9.2 L (13.0-17.5) gm/dL Hct 29.0 L (39.0-53.0) % RDW 16.9 H (11.5-15.5) % Sodium (137-145) mmol/L Carbon Dioxide (22-30) mmol/L BUN (9-20) mg/dL POC Glucose (mg/dL) 72 L 69 L (75-99) mg/dL Calcium (8.4-10.2) mg/dL 03/02/19 Range/Units 05:51 RBC (4.30-5.90) m/uL Hgb (13.0-17.5) gm/dL Hct (39.0-53.0) % RDW (11.5-15.5) % Sodium 136 L (137-145) mmol/L Carbon Dioxide 20 L (22-30) mmol/L BUN 26 H (9-20) mg/dL POC Glucose (mg/dL) (75-99) mg/dL Calcium 8.2 L (8.4-10.2) mg/dL Assessment and Plan Assessment: Impression: #1 Coronary artery disease status post coronary artery bypass grafting utilizing a ADAMS to the LAD, saphenous vein grafts to the PDA and obtuse marginal coronary artery. Postoperative day #4. #2 Coronary artery disease with previous myocardial infarction, non-Q-wave myocardial infarction with history of multiple stent placements. #3 Hypertension. #4 Hyperlipidemia. #5 History of prostate cancer. #6 Gastroesophageal reflux disease. #7 Hypothyroidism. Plan: The patient was seen and evaluated by Dr. Ramirez. Chest x-ray and labs reviewed. Currently stable from the pulmonary standpoint. On room air. Continues to work well with the incentive spirometer. Plan is to be discharged to his daughter's home today. I, the cosigning physician, performed a history & physical examination of the patient. Lungs sounds with crackles in left base. Maintaining good O2 saturations in the 90s on on room air. I discussed the assessment and plan of care with my nurse practitioner, Kathya Kelly. I attest to the above note as dictated by her.
== END 2019-03-02 11:22 | disposition home health service (06) | DRG 236 ==
LOC: 2ORMAIN 05:35 → 2SICU 13:45 → 3SCARD 03-01 18:35
PROVIDERS: ADMIT Surgery; ATTEND Surgery
PROC: 06BQ4ZZ Excision of Left Saphenous Vein, Percutaneous Endoscopic Approach (ICD-10-PCS; 2019-02-26)
PROC: 5A1221Z Performance of Cardiac Output, Continuous (ICD-10-PCS; 2019-02-26)
PROC: B24BZZ4 Ultrasonography of Heart with Aorta, Transesophageal (ICD-10-PCS; 2019-02-26)
PROC: 021109W Bypass Coronary Artery, Two Arteries from Aorta with Autologous Venous Tissue, Open Approach (ICD-10-PCS; principal; 2019-02-26 08:00)
PROC: 02100Z9 Bypass Coronary Artery, One Artery from Left Internal Mammary, Open Approach (ICD-10-PCS; 2019-02-26 08:00)
DX: I25.110 Atherosclerotic heart disease of native coronary artery with unstable angina pectoris (principal); J98.11 Atelectasis; T82.855A Stenosis of coronary artery stent, initial encounter; R44.3 Hallucinations, unspecified; I45.2 Bifascicular block; I08.2 Rheumatic disorders of both aortic and tricuspid valves; I13.10 Hypertensive heart and chronic kidney disease without heart failure, with stage 1 through stage 4 chronic kidney disease, or unspecified chronic kidney disease; N18.3 Chronic kidney disease, stage 3 (moderate); D53.9 Nutritional anemia, unspecified; E03.9 Hypothyroidism, unspecified; E66.9 Obesity, unspecified; E78.5 Hyperlipidemia, unspecified; F32.9 Major depressive disorder, single episode, unspecified; I25.2 Old myocardial infarction; K21.9 Gastro-esophageal reflux disease without esophagitis; Z90.79 Acquired absence of other genital organ(s); Z85.46 Personal history of malignant neoplasm of prostate; Z79.82 Long term (current) use of aspirin; Z79.890 Hormone replacement therapy; Z79.899 Other long term (current) drug therapy; Z88.6 Allergy status to analgesic agent; Z88.5 Allergy status to narcotic agent; Z88.2 Allergy status to sulfonamides; Z82.0 Family history of epilepsy and other diseases of the nervous system; Z82.49 Family history of ischemic heart disease and other diseases of the circulatory system; Y83.1 Surgical operation with implant of artificial internal device as the cause of abnormal reaction of the patient, or of later complication, without mention of misadventure at the time of the procedure
CPT/HCPCS: 71045; 71046; 80048; 80053; 82330; 82805; 83735; 85025; 85027; 85520; 85610; 85730; 86850; 86891; 86900; 86901; 86920; 94002; 94640

== ENCOUNTER 2019-03-03 11:08 | Observation (INO) | payer MEDICARE ==
[2019-03-03] MEDS ORDERED: SODIUM CHLORIDE 0.9% 500 ML 500 ML IV STA (11:45)
[2019-03-03] MEDS ORDERED: SODIUM CHLORIDE 0.9% 1,000 ML IV STA (11:45)
--- NOTE | 2019-03-03 11:50 | ED ---
Dizziness HPI - General Chief Complaint: Syncope Stated Complaint: Syncope Time Seen by Provider: 03/03/19 11:23 Source: patient, EMS, RN notes reviewed, old records reviewed Mode of arrival: EMS Limitations: no limitations - History of Present Illness Initial Comments: This is a 73-year-old male the ER for evaluation. Patient does say for evaluation of syncope. Patient has recent history of CABG surgery. Has had no issues since surgery, appetite and good eating and drinking appropriately he has had diarrhea secondary to suicidal softeners but not currently taking pain medication. Patient does have new blood pressure medication and on EMS arrival family states patient blood pressure was low. Patient given little more activity she is a walk when for a walk with family, patient states he began to feel very lightheaded during the walk became sweaty family noticed he started getting clammy helped lower him to the ground he had seen like some shaking activity and was mildly unresponsive. Patient did not turn blue did not turn red, had no complaints of headache chest pain shortness breath or abdominal pain during entire time. Patient did return to being awake and alert and currently denies headache chest pain shortness breath or abdominal pain. Patient has had no postop complications. Denies swelling or significant swelling of his lower extremities. He admits also prior episodes of syncope prior to the surgery couple years ago unsure of cause MD Complaint: dizziness, lightheadedness, near syncope (syncope) -: minutes(s) Timing: gradual onset Description: lightheadedness, near-syncope History of Same: Yes (years ago) History of Trauma: No (recent CABG) Severity: severe Improves With: remaining still Worsens With: movement - Related Data Home Medications Medication Instructions Recorded Confirmed Omeprazole 20 mg PO DAILY 07/14/18 03/03/19 Evolocumab [Repatha Syringe] 140 mg SQ QMONTH 02/17/19 03/03/19 Previous Rx's Medication Instructions Recorded Ezetimibe [Zetia] 10 mg PO DAILY #90 tab 07/16/18 Amitriptyline HCl [Elavil] 50 mg PO HS tab 11/24/18 Levothyroxine Sodium [Synthroid] 50 mcg PO DAILY@0630 30 Days #30 02/19/19 tab Acetaminophen Tab [Tylenol] 1,000 mg PO Q6HR PRN tab 03/02/19 Aspirin 325 mg PO DAILY tab 03/02/19 Clopidogrel [Plavix] 75 mg PO DAILY #30 tab 03/02/19 Metoprolol Tartrate [Lopressor] 75 mg PO BID #90 tab 03/02/19 Sennosides-Docusate Sodium 2 each PO HS #14 tab 03/02/19 [Senokot-S] Allergies Allergy/AdvReac Type Severity Reaction Status Date / Time Sulfa (Sulfonamide Allergy Rash/Hives Verified 03/03/19 12:50 Antibiotics) ibuprofen [From Motrin] AdvReac Kidney Verified 03/03/19 12:50 issues morphine AdvReac Hallucinati Verified 03/03/19 12:50 ons Review of Systems ROS Statement: Those systems with pertinent positive or pertinent negative responses have been documented in the HPI. ROS Other: All systems not noted in ROS Statement are negative. Past Medical History Past Medical History: Coronary Artery Disease (CAD), Cancer, Chest Pain / Angina, GERD/Reflux, Hyperlipidemia, Hypertension, Myocardial Infarction (non Q- wave), Prostate Disorder Additional Past Medical History / Comment(s): prostate cancer, 7 stents Last Myocardial Infarction Date:: unknown History of Any Multi-Drug Resistant Organisms: None Reported Past Surgical History: Heart Catheterization With Stent, Hernia Repair, Prostate Surgery Past Anesthesia/Blood Transfusion Reactions: No Reported Reaction Date of Last Stent Placement:: November 2018 Past Psychological History: No Psychological Hx Reported, Depression Smoking Status: Never smoker Past Alcohol Use History: None Reported Past Drug Use History: None Reported - Past Family History Father Family Medical History: Coronary Artery Disease (CAD), Myocardial Infarction (ME) Mother Additional Family Medical History / Comment(s): Alzheimer's General Exam - General Exam Comments Initial Comments: Anterior chest wall incision from bypass is clean dry intact not painful nontender Limitations: no limitations General appearance: alert, in no apparent distress Head exam: Present: atraumatic, normocephalic, normal inspection Eye exam: Present: normal appearance, PERRL, EOMI. Absent: scleral icterus, conjunctival injection, periorbital swelling ENT exam: Present: normal exam, mucous membranes moist Neck exam: Present: normal inspection. Absent: tenderness, meningismus, lymphadenopathy Respiratory exam: Present: normal lung sounds bilaterally. Absent: respiratory distress, wheezes, rales, rhonchi, stridor Cardiovascular Exam: Present: regular rate, normal rhythm, normal heart sounds. Absent: systolic murmur, diastolic murmur, rubs, gallop, clicks GI/Abdominal exam: Present: soft, normal bowel sounds. Absent: distended, tenderness, guarding, rebound, rigid Extremities exam: Present: normal inspection, full ROM, normal capillary refill. Absent: tenderness, pedal edema, joint swelling, calf tenderness Back exam: Present: normal inspection Neurological exam: Present: alert, oriented X3, CN II-XII intact Psychiatric exam: Present: normal affect, normal mood Skin exam: Present: warm, dry, intact, normal color. Absent: rash Course Vital Signs 03/03/19 11:23 Temperature 98.8 F Pulse Rate 71 Respiratory 18 Rate Blood Pressure 135/66 O2 Sat by Pulse 98 Oximetry - Reevaluation(s) Reevaluation #1: 03/03/19 11:49 Medical records reviewed Reevaluation #2: 03/03/19 13:26 CVT surgery evaluating patient here in ED Reevaluation #3: 03/03/19 13:27 Patient feeling better with hydration, no recurrent syncope here in the ER - Consultations Consultation #1: Cardiovascular thoracic surgery page, spoke with, aware of patient EKG Findings - EKG Comments: EKG Findings:: EKG shows NSR rate of 70 AR 176 QRS 132 QTc 457 Medical Decision Making - Medical Decision Making 70 female the ER for evaluation. Patient has syncopal episode post CABG surgery. Patient will be admitted and observation, no arrhythmia noted, no EKG changes, patient will be admitted for telemetry and cardiac monitoring - Lab Data Result diagrams: 03/03/19 11:35 03/03/19 11:35 Lab Results 03/03/19 03/03/19 03/03/19 Range/Units 11:35 11:35 11:35 WBC 6.4 (3.8-10.6) k/uL RBC 3.56 L (4.30-5.90) m/uL Hgb 9.2 L (13.0-17.5) gm/dL Hct 29.5 L (39.0-53.0) % MCV 82.9 (80.0-100.0) fL MCH 25.9 (25.0-35.0) pg MCHC 31.2 (31.0-37.0) g/dL RDW 16.7 H (11.5-15.5) % Plt Count 333 (150-450) k/uL Neutrophils % 69 % Lymphocytes % 11 % Monocytes % 10 % Eosinophils % 4 % Basophils % 1 % Neutrophils # 4.4 (1.3-7.7) k/uL Lymphocytes # 0.7 L (1.0-4.8) k/uL Monocytes # 0.6 (0-1.0) k/uL Eosinophils # 0.3 (0-0.7) k/uL Basophils # 0.1 (0-0.2) k/uL Hypochromasia Slight Anisocytosis Slight PT (9.0-12.0) sec INR (<1.2) APTT (22.0-30.0) sec Sodium 136 L (137-145) mmol/L Potassium 4.1 (3.5-5.1) mmol/L Chloride 104 (98-107) mmol/L Carbon Dioxide 22 (22-30) mmol/L Anion Gap 10 mmol/L BUN 26 H (9-20) mg/dL Creatinine 1.03 (0.66-1.25) mg/dL Est GFR (CKD-EPI)AfAm 83 (>60 ml/min/1.73 sqM) Est GFR (CKD-EPI)NonAf 72 (>60 ml/min/1.73 sqM) Glucose 97 (74-99) mg/dL Plasma Lactic Acid Aniket (0.7-2.0) mmol/L Calcium 8.2 L (8.4-10.2) mg/dL Phosphorus 3.4 (2.5-4.5) mg/dL Magnesium 2.1 (1.6-2.3) mg/dL Total Bilirubin 0.5 (0.2-1.3) mg/dL AST 37 (17-59) U/L ALT 26 (21-72) U/L Alkaline Phosphatase 46 (38-126) U/L Creatine Kinase 140 (55-170) U/L Troponin I (0.000-0.034) ng/mL NT-Pro-B Natriuret Pep 1400 pg/mL Total Protein 6.0 L (6.3-8.2) g/dL Albumin 3.3 L (3.5-5.0) g/dL 03/03/19 03/03/19 03/03/19 Range/Units 11:35 11:35 12:00 WBC (3.8-10.6) k/uL RBC (4.30-5.90) m/uL Hgb (13.0-17.5) gm/dL Hct (39.0-53.0) % MCV (80.0-100.0) fL MCH (25.0-35.0) pg MCHC (31.0-37.0) g/dL RDW (11.5-15.5) % Plt Count (150-450) k/uL Neutrophils % % Lymphocytes % % Monocytes % % Eosinophils % % Basophils % % Neutrophils # (1.3-7.7) k/uL Lymphocytes # (1.0-4.8) k/uL Monocytes # (0-1.0) k/uL Eosinophils # (0-0.7) k/uL Basophils # (0-0.2) k/uL Hypochromasia Anisocytosis PT 10.5 (9.0-12.0) sec INR 1.0 (<1.2) APTT 24.8 (22.0-30.0) sec Sodium (137-145) mmol/L Potassium (3.5-5.1) mmol/L Chloride (98-107) mmol/L Carbon Dioxide (22-30) mmol/L Anion Gap mmol/L BUN (9-20) mg/dL Creatinine (0.66-1.25) mg/dL Est GFR (CKD-EPI)AfAm (>60 ml/min/1.73 sqM) Est GFR (CKD-EPI)NonAf (>60 ml/min/1.73 sqM) Glucose (74-99) mg/dL Plasma Lactic Acid Aniket 1.5 (0.7-2.0) mmol/L Calcium (8.4-10.2) mg/dL Phosphorus (2.5-4.5) mg/dL Magnesium (1.6-2.3) mg/dL Total Bilirubin (0.2-1.3) mg/dL AST (17-59) U/L ALT (21-72) U/L Alkaline Phosphatase (38-126) U/L Creatine Kinase (55-170) U/L Troponin I 0.095 H* (0.000-0.034) ng/mL NT-Pro-B Natriuret Pep pg/mL Total Protein (6.3-8.2) g/dL Albumin (3.5-5.0) g/dL - Radiology Data Radiology results: report reviewed (CXR is negative for acute diseas), image reviewed Disposition Clinical Impression: Syncope Disposition: ADMITTED IP TO THIS HOSP Condition: Fair Is patient prescribed a controlled substance at d/c from ED?: No Referrals: Rubin Duran DO [Primary Care Provider] - 1-2 days
[2019-03-03 12:02] LABS: Anisocytosis Slight; Basophils # (A) 0.1 k/uL (0-0.2); Basophils % (A) 1 %; Eosinophils # (A) 0.3 k/uL (0-0.7); Eosinophils % (A) 4 %; HCT 29.5 % (39.0-53.0); HGB 9.2 gm/dL (13.0-17.5); Hypochromasia Slight; Lymphocytes # (A) 0.7 k/uL (1.0-4.8); Lymphocytes % (A) 11 %; MCH 25.9 pg (25.0-35.0); MCHC 31.2 g/dL (31.0-37.0); MCV 82.9 fL (80.0-100.0); Mean Platelet Volume 6.5; Monocytes # (A) 0.6 k/uL (0-1.0); Monocytes % (A) 10 %; Neutrophils # (A) 4.4 k/uL (1.3-7.7); Neutrophils % (A) 69 %; Platelet Count 333 k/uL (150-450); RBC 3.56 m/uL (4.30-5.90); RDW 16.7 % (11.5-15.5); WBC 6.4 k/uL (3.8-10.6)
[2019-03-03 12:10] LABS: Albumin 3.3 g/dL (3.5-5.0); Calcium 8.2 mg/dL (8.4-10.2); Magnesium 2.1 mg/dL (1.6-2.3); Phosphorus 3.4 mg/dL (2.5-4.5); Potassium 4.1 mmol/L (3.5-5.1); Total Bilirubin 0.5 mg/dL (0.2-1.3)
[2019-03-03 12:17] LABS: Partial Thromboplastin Time 24.8 sec (22.0-30.0); Prothrombin Time 10.5 sec (9.0-12.0)
--- NOTE | 2019-03-03 12:41 | XR ---
EXAMINATION TYPE: XR chest 2V DATE OF EXAM: 03/03/2019 HISTORY: Weakness. REFERENCE: Previous study dated 03/02/2019. FINDINGS: There has been a midline sternotomy. The heart is mildly enlarged. The study is lordotic allowing for this the lungs are completely clear. Pleural spaces are clear. IMPRESSION: MILD CARDIOMEGALY.
[2019-03-03] MEDS ORDERED: NITROGLYCERIN SL TABS 0.4 MG TAB SUBLINGUAL PRN (13:18)
[2019-03-03] MEDS ORDERED: ASPIRIN 81 MG PO STA (13:23)
[2019-03-03] MEDS ORDERED: ACETAMINOPHEN TAB 500 MG TAB PO PRN (13:50)
[2019-03-03] MEDS ORDERED: EVOLOCUMAB 140 MG SQ SCH (14:00)
--- NOTE | 2019-03-03 14:27 | P.GSCN ---
History of Present Illness Consult date: 03/03/19 Reason for Consult: Postoperative myocardial revascularization surgery. Requesting physician: Ike Macdonald History of present illness: This a 73-year-old gentleman who is followed by Dr. Rubin Nevarez on an outpatient basis. His past medical history significant for coronary artery disease with previous multiple stent placement to his right coronary artery and is status post three-vessel coronary artery bypass grafting surgery on 02/26/2019, history of symptomatic bradycardia, hypertension, hyperlipidemia, depression, gastroesophageal reflux disorder and prostate cancer status post prostatectomy in 2006. The patient was discharged home yesterday 03/02/2019 on postoperative day #4 status post three-vessel myocardial revascularization surgery. During his hospitalization for his open heart surgery, unfortunately he was told his unexpectedly in her sleep at home and has been under a lot of stress due to the situation. Upon discharge the patient was staying with his daughter and this morning after taking his medications he reports he had an episode of dizziness and felt like he was going to pass out. He also reports that he was having episodes of diarrhea 4-5 bowel movements yesterday. Subsequently, the patient had a second episode of dizziness and his family reports he became mildly unresponsive which was witnessed by his son-in-law who help lower him to the floor. 911 was called at this time. The patient's daughter and son are at his bedside currently and state that prior to hi his episode he became clammy and diaphoretic. He did not lose any bladder function, although reports he felt like he had lost bowel function. The patient denies any complaints of fever, headache, abdominal pain, nausea, vomiting. A 12-lead EKG was completed on presentation to the emergency department which showed normal sinus rhythm with a right bundle branch block, left anterior fascicular block with a heart rate of 70 bpm. Due to the patient's recent history of myocardial revascularization surgery a consult was placed to Dr. Sarabia from cardiothoracic surgery for further treatment recommendations. Review of Systems A 14 point review of systems was completed and was negative except as mentioned in the HPI. Past Medical History Past Medical History: Coronary Artery Disease (CAD), Cancer, Chest Pain / Angin a, GERD/Reflux, Hyperlipidemia, Hypertension, Myocardial Infarction (non Q- wave), Prostate Disorder Additional Past Medical History / Comment(s): prostate cancer, 7 stents, history of symptomatic bradycardia. Last Myocardial Infarction Date:: unknown History of Any Multi-Drug Resistant Organisms: None Reported Past Surgical History: Heart Catheterization With Stent, Hernia Repair, Prostate Surgery Additional Past Surgical History / Comment(s): Myocardial revascularization surgery 3 vessels on 02/26/[address] Grayson Wagoner. Past Anesthesia/Blood Transfusion Reactions: No Reported Reaction Date of Last Stent Placement:: November 2018 Past Psychological History: Depression Smoking Status: Never smoker Past Alcohol Use History: None Reported Past Drug Use History: None Reported - Past Family History Father Family Medical History: Coronary Artery Disease (CAD), Myocardial Infarction (CT) Mother Additional Family Medical History / Comment(s): Alzheimer's Medications and Allergies Home Medications Medication Instructions Recorded Confirmed Type Omeprazole 20 mg PO DAILY 07/14/18 03/03/19 History Ezetimibe [Zetia] 10 mg PO DAILY #90 tab 07/16/18 03/03/19 Rx Amitriptyline HCl [Elavil] 50 mg PO HS tab 11/24/18 03/03/19 Rx Evolocumab [Repatha Syringe] 140 mg SQ QMONTH 02/17/19 03/03/19 History Levothyroxine Sodium [Synthroid] 50 mcg PO DAILY@0630 30 Days #30 02/19/19 03/03/19 Rx tab Acetaminophen Tab [Tylenol] 1,000 mg PO Q6HR PRN tab 03/02/19 03/03/19 Rx Aspirin 325 mg PO DAILY tab 03/02/19 03/03/19 Rx Clopidogrel [Plavix] 75 mg PO DAILY #30 tab 03/02/19 03/03/19 Rx Metoprolol Tartrate [Lopressor] 75 mg PO BID #90 tab 03/02/19 03/03/19 Rx Sennosides-Docusate Sodium 2 each PO HS #14 tab 03/02/19 03/03/19 Rx [Senokot-S] Allergies Allergy/AdvReac Type Severity Reaction Status Date / Time Sulfa (Sulfonamide Allergy Rash/Hives Verified 03/03/19 12:50 Antibiotics) ibuprofen [From Motrin] AdvReac Kidney Verified 03/03/19 12:50 issues morphine AdvReac Hallucinati Verified 03/03/19 12:50 ons Surgical - Exam Vital Signs Temp Pulse Resp BP Pulse Ox 98.8 F 71 18 135/66 98 09/21/19 11:23 03/03/19 11:23 03/03/19 11:23 03/03/19 11:23 03/03/19 11:23 - General well developed, well nourished, no distress, no pain, obese - Eyes PERRL, normal ocular movement - ENT normal pinna, normal nares, normal mucosa, no hearing loss, no congestion - Neck Neck is supple, no lymphadenopathy, no JVD. no masses, no bruits, trachea midline, no venous distension - Respiratory Lungs sounds essentially clear throughout. Respirations are symmetrical and nonlabored. No wheezing, rhonchi or crackles. - Cardiovascular Regular rhythm and rate. S1 and S2 present, negative for S3, gallop or murmur. Sternum is stable. Heart hugger is in place and he is demonstrating appropriate use. - Abdomen Abdomen is soft, nontender and nondistended. Active bowel sounds present all 4 abdominal quadrants. No guarding or rigidity. No organomegaly appreciated. - Integumentary Midline sternal incision is clean, dry and approximated. No drainage or redness is present. Left lower extremities EVH site is clean, dry and approximated. No drainage redness is present. no rash, no growths, no abnormal pigmentation - Neurologic Cranial nerves II through XII intact. normal coordination, normal sensation - Musculoskeletal normal gait, normal posture - Psychiatric oriented to time, oriented to person, oriented to place, speech is normal, memor y intact Results - Labs 03/03/19 11:35 03/03/19 11:35 Abnormal Lab Results - Last 24 Hours (Table) 03/03/19 03/03/19 03/03/19 Range/Units 11:35 11:35 11:35 RBC 3.56 L (4.30-5.90) m/uL Hgb 9.2 L (13.0-17.5) gm/dL Hct 29.5 L (39.0-53.0) % RDW 16.7 H (11.5-15.5) % Lymphocytes # 0.7 L (1.0-4.8) k/uL Sodium 136 L (137-145) mmol/L BUN 26 H (9-20) mg/dL Calcium 8.2 L (8.4-10.2) mg/dL Troponin I 0.095 H* (0.000-0.034) ng/mL Total Protein 6.0 L (6.3-8.2) g/dL Albumin 3.3 L (3.5-5.0) g/dL Diabetes panel 03/03/19 Range/Units 11:35 Sodium 136 L (137-145) mmol/L Potassium 4.1 (3.5-5.1) mmol/L Chloride 104 (98-107) mmol/L Carbon Dioxide 22 (22-30) mmol/L BUN 26 H (9-20) mg/dL Creatinine 1.03 (0.66-1.25) mg/dL Glucose 97 (74-99) mg/dL Calcium 8.2 L (8.4-10.2) mg/dL AST 37 (17-59) U/L ALT 26 (21-72) U/L Alkaline Phosphatase 46 (38-126) U/L Total Protein 6.0 L (6.3-8.2) g/dL Albumin 3.3 L (3.5-5.0) g/dL Calcium panel 03/03/19 Range/Units 11:35 Calcium 8.2 L (8.4-10.2) mg/dL Phosphorus 3.4 (2.5-4.5) mg/dL Albumin 3.3 L (3.5-5.0) g/dL Pituitary panel 03/03/19 Range/Units 11:35 Sodium 136 L (137-145) mmol/L Potassium 4.1 (3.5-5.1) mmol/L Chloride 104 (98-107) mmol/L Carbon Dioxide 22 (22-30) mmol/L BUN 26 H (9-20) mg/dL Creatinine 1.03 (0.66-1.25) mg/dL Glucose 97 (74-99) mg/dL Calcium 8.2 L (8.4-10.2) mg/dL Adrenal panel 03/03/19 Range/Units 11:35 Sodium 136 L (137-145) mmol/L Potassium 4.1 (3.5-5.1) mmol/L Chloride 104 (98-107) mmol/L Carbon Dioxide 22 (22-30) mmol/L BUN 26 H (9-20) mg/dL Creatinine 1.03 (0.66-1.25) mg/dL Glucose 97 (74-99) mg/dL Calcium 8.2 L (8.4-10.2) mg/dL Total Bilirubin 0.5 (0.2-1.3) mg/dL AST 37 (17-59) U/L ALT 26 (21-72) U/L Alkaline Phosphatase 46 (38-126) U/L Total Protein 6.0 L (6.3-8.2) g/dL Albumin 3.3 L (3.5-5.0) g/dL - Imaging Chest x-ray: report reviewed, image reviewed EKG: image reviewed Assessment and Plan Assessment: 1. Syncope 2. Coronary artery disease, status post multiple stent placements to the RCA, status post 3 vessel coronary artery bypass grafting surgery on 02/26/2019 3. History of myocardial infarction in December 2017 4. History of symptomatic bradycardia 5. Hypertension 6. Hyperlipidemia 7. Hypothyroidism, recently diagnosed 8. Depression 9. Obesity 10. History of prostate cancer status post prostatectomy in 2006 11. Preoperative nasal swab positive for MSSA 12. Diarrhea Plan: The patient was seen and examined in the emergency department. His chart and diagnostics were reviewed. His case was discussed with Dr. Sarabia from cardiothoracic surgery. Agree with admission for 24 hour observation. We have ordered a stool to be sent for C. difficile. Vancomycin 250 mg by mouth every 6 hours have been ordered as prophylaxis for C. difficile. Decrease his metoprolol titrate to 25 mg by mouth twice a day. Continue with discharge instructions for postoperative coronary artery bypass grafting surgery. No lifting pushing or pulling anything greater than 10 pounds or jug of milk for 12 full weeks. Continue to reinforce importance of using his heart hugger. Discontinue Senokot. Medical management per primary care service. More recommendations to follow based on patient's clinical course. Thank you Dr. Macdonald for this consult and look for to following this patient during his hospital course. Time with Patient: Greater than 30
[2019-03-03] MEDS: SODIUM CHLORIDE 0.9% 1,000 ML IV SCH ×2 (17:06→21:05)
[2019-03-03 18:44] LABS: Appearance,Urine Clear (Clear); Bilirubin,Urine Negative (Negative); Blood,Urine Negative (Negative); Color,Urine Light Yellow; Glucose,Urine (UA) Negative (Negative); Ketones,Urine Negative (Negative); Leukocyte Esterase,Urine Negative (Negative); Nitrite,Urine Negative (Negative); PH, Urine 6.5 (5.0-8.0); Protein,Urine Negative (Negative); Specific Gravity,Urine 1.012 (1.001-1.035); Urobilinogen,Urine <2.0 mg/dL (<2.0)
[2019-03-03] MEDS: AMITRIPTYLINE HCL 50 MG TAB PO SCH (20:00)
[2019-03-03] MEDS: METOPROLOL TARTRATE 25 MG TAB PO SCH (20:00)
[2019-03-03] MEDS ORDERED: METOPROLOL TARTRATE 50 MG TAB PO SCH (21:00)
[2019-03-03] MEDS: VANCOMYCIN ORAL SOLUTION 250 MG/5 ML BOTTLE PO SCH ×2 (21:01→23:40)
[2019-03-03] MEDS: CHERRY FLAVOR 60 ML BOTTLE PO PRN ×2 (21:02→23:40)
--- NOTE | 2019-03-04 00:30 | P.HPIM ---
History of Present Illness H&P Date: 03/03/19 Chief Complaint: Dizzines/Syncope Mr. Marley is a 73-year-old male with a past medical history of coronary artery disease status post CABG done on 02/26/2019, hypertension, hyperlipidemia, GERD, prostate cancer status post prostatectomy in 2006 coming into the hospital with a chief complaint of dizziness. Patient was discharged from the hospital yesterday and since being at home patient reports to have 4-5 watery bowel movements. And he also mentions that his dose of metoprolol has been increased. Patient had 2 episodes of dizziness the first 1 was that he felt lightheaded but did not have a fall. But the second episode of dizziness patient was noticed to be falling to the floor when his son-in-law supported him and he landed on his left knee. Patient denies having any loss of consciousness. He denies having any chest pain. No loss of bowel or bladder control. Patient denies having any nausea or vomiting or abdominal pain. He only had 4-5 loose watery stools.Patient denies having any fevers chills or rigors. No headaches or blurring of vision. Loss of consciousness. No speech abnormality. No cough or difficulty breathing. No dysuria or hematuria. In the emergency department patient had an EKG showing normal sinus rhythm with right bundle branch block. He had labs done showing hemoglobin of 9.2 which is stable since discharge and his electrolytes are also within normal limits. He had mild elevation of troponin which is 0.095 but that might be due to recent history of CABG. As per discussion with the family members he recently lost his when he was in the ICU. Patient appears to be have feeling low because of that. He is currently living with his sister who has been taking care of him. Review of Systems REVIEW OF SYSTEMS: PSYCH: No anxiety or depression NEURO:No c/o weakness of the extremties, No facial droop, No speech abnormalities. VASCULAR: Peripheral nervous system within the normal limits no edema HEMATOLOGIC: No history of easy bleeding and bruising . No recent infections . RESPIRATORY: No cough, No SOB, No chest discomfort. IMMUNE: No infections INTEGUMENT: no rashes OPHTHALMOLOGIC: No blurry vision and no eye discharge : No dysuria or hematuria CARDIAC: No chest pain , shortness of breath , paroxysmal nocturnal dyspnea MUSCULOSKELETAL : No Aches or pains in the joints or muscles. GI: No abdominal pain, Nausea or vomiting. No constipation or diarrhea. All 13 ROS done and negative except for the ones above. Past Medical History Past Medical History: Coronary Artery Disease (CAD), Cancer, Chest Pain / Ang dena, GERD/Reflux, Hyperlipidemia, Hypertension, Myocardial Infarction (non Q- wave), Prostate Disorder Additional Past Medical History / Comment(s): prostate cancer, 7 stents, history of symptomatic bradycardia. Last Myocardial Infarction Date:: unknown History of Any Multi-Drug Resistant Organisms: None Reported Past Surgical History: Heart Catheterization With Stent, Hernia Repair, Prostate Surgery Additional Past Surgical History / Comment(s): Myocardial revascularization surgery 3 vessels on 02/26/[address] Grayson Wagoner. Past Anesthesia/Blood Transfusion Reactions: No Reported Reaction Date of Last Stent Placement:: November 2018 Past Psychological History: Depression Smoking Status: Never smoker Past Alcohol Use History: None Reported Past Drug Use History: None Reported - Past Family History Father Family Medical History: Coronary Artery Disease (CAD), Myocardial Infarction (SD) Mother Additional Family Medical History / Comment(s): Alzheimer's Medications and Allergies Home Medications Medication Instructions Recorded Confirmed Type Omeprazole 20 mg PO DAILY 07/14/18 03/03/19 History Ezetimibe [Zetia] 10 mg PO DAILY #90 tab 07/16/18 03/03/19 Rx Amitriptyline HCl [Elavil] 50 mg PO HS tab 11/24/18 03/03/19 Rx Evolocumab [Repatha Syringe] 140 mg SQ QMONTH 02/17/19 03/03/19 History Levothyroxine Sodium [Synthroid] 50 mcg PO DAILY@0630 30 Days #30 02/19/19 03/03/19 Rx tab Acetaminophen Tab [Tylenol] 1,000 mg PO Q6HR PRN tab 03/02/19 03/03/19 Rx Aspirin 325 mg PO DAILY tab 03/02/19 03/03/19 Rx Clopidogrel [Plavix] 75 mg PO DAILY #30 tab 03/02/19 03/03/19 Rx Metoprolol Tartrate [Lopressor] 75 mg PO BID #90 tab 03/02/19 03/03/19 Rx Sennosides-Docusate Sodium 2 each PO HS #14 tab 03/02/19 03/03/19 Rx [Senokot-S] Allergies Allergy/AdvReac Type Severity Reaction Status Date / Time Sulfa (Sulfonamide Allergy Rash/Hives Verified 03/03/19 12:50 Antibiotics) ibuprofen [From Motrin] AdvReac Kidney Verified 03/03/19 12:50 issues morphine AdvReac Hallucinati Verified 03/03/19 12:50 ons Physical Exam Vitals: Vital Signs Temp Pulse Pulse Resp BP BP Pulse Ox 03/03/19 16:00 80 18 155/85 98 03/03/19 15:00 77 18 145/88 97 03/03/19 14:02 95 20 143/82 99 03/03/19 14:00 76 18 154/95 98 03/03/19 13:00 77 21 136/83 98 03/03/19 12:00 68 20 119/84 97 03/03/19 11:25 71 18 135/66 98 03/03/19 11:23 98.8 F 71 18 135/66 98 Intake and Output 03/03/19 03/03/19 03/03/19 06:59 14:59 22:59 Other: # Voids 2 # Bowel Movements 1 Weight 99.79 kg GEN. APPEARANCE: alert, in no apparent distress HEAD EXAM: atraumatic, normocephalic, normal inspection EYE EXAM: normal appearance, PERRL, EOMI. Absent: scleral icterus, conjunctival injection, periorbital swelling ENT EXAM: normal exam, mucous membranes moist NECK EXAM: normal inspection. Absent: tenderness, meningismus, full ROM, lymphadenopathy RESPIRATORY EXAM: normal lung sounds bilaterally. Mild crackles at the lower lung bases. CARDIOVASCULAR EXAM: regular rate, normal rhythm, normal heart sounds. Chest binder in place. GI/ABDOMINAL EXAM: soft, normal bowel sounds. Absent: distended, tenderness, guarding, rebound, rigid EXTREMITIES EXAM: normal inspection, full ROM, normal capillary refill. Absent: tenderness, pedal edema, joint swelling, calf tenderness BACK EXAM: normal inspection NEUROLOGICAL EXAM: alert, oriented X3,No focal deficits PSYCHIATRIC EXAM: normal affect, normal mood SKIN EXAM: warm, dry, intact, normal color. Absent: rash Results CBC & Chem 7: 03/03/19 11:35 03/03/19 11:35 Labs: Abnormal Lab Results - Last 24 Hours (Table) 03/03/19 03/03/19 03/03/19 Range/Units 11:35 11:35 11:35 RBC 3.56 L (4.30-5.90) m/uL Hgb 9.2 L (13.0-17.5) gm/dL Hct 29.5 L (39.0-53.0) % RDW 16.7 H (11.5-15.5) % Lymphocytes # 0.7 L (1.0-4.8) k/uL Sodium 136 L (137-145) mmol/L BUN 26 H (9-20) mg/dL Calcium 8.2 L (8.4-10.2) mg/dL Troponin I 0.095 H* (0.000-0.034) ng/mL Total Protein 6.0 L (6.3-8.2) g/dL Albumin 3.3 L (3.5-5.0) g/dL 03/03/19 Range/Units 17:58 RBC (4.30-5.90) m/uL Hgb (13.0-17.5) gm/dL Hct (39.0-53.0) % RDW (11.5-15.5) % Lymphocytes # (1.0-4.8) k/uL Sodium (137-145) mmol/L BUN (9-20) mg/dL Calcium (8.4-10.2) mg/dL Troponin I 0.090 H* (0.000-0.034) ng/mL Total Protein (6.3-8.2) g/dL Albumin (3.5-5.0) g/dL Thrombosis Risk Factor Assmnt - Choose All That Apply Each Factor Represents 1 point: Acute SD Each Risk Factor Represents 3 Points: Age 75 years or older Other congenital or acquired thrombophilia - If yes, enter type in comment: No Thrombosis Risk Factor Assessment Total Risk Factor Score: 4 Thrombosis Risk Factor Assessment Level: Moderate Risk Assessment and Plan Assessment: Assessment Dizzines/ Syncope - most likely orthostatic as he has diarrhea and also his metoprolol dose has been increased Bradycardia Acute diarrhea Coronary artery disease status post coronary artery bypass grafting utilizing a ADAMS to the LAD, saphenous vein grafts to the PDA and obtuse marginal coronary artery Coronary artery disease with previous myocardial infarction, non-Q-wave myocardial infarction with history of multiple stent placements. Hypertension. Hyperlipidemia. History of prostate cancer. Gastroesophageal reflux disease. Hypothyroidism Plan : Will check orthostatics. Will check C. diff. His Metoprolol dose has been decreased. He was given a dose of PO Vancomycin in the ED. Continue the rest of his medication regimen. CT surgery on board and following the patient. Further recommendation s to follow depending on the progress of the patient. Overall prognosis is guarded.
[2019-03-04] MEDS: LEVOTHYROXINE 50 MCG TAB PO SCH (05:48)
[2019-03-04] MEDS: PANTOPRAZOLE 40 MG TABLET PO SCH (05:48)
[2019-03-04] MEDS: CHERRY FLAVOR 60 ML BOTTLE PO PRN (05:48)
[2019-03-04] MEDS: VANCOMYCIN ORAL SOLUTION 250 MG/5 ML BOTTLE PO SCH (05:48)
[2019-03-04 06:00] LABS: Anisocytosis Slight; Basophils # (A) 0.1 k/uL (0-0.2); Basophils % (A) 1 %; Eosinophils # (A) 0.4 k/uL (0-0.7); Eosinophils % (A) 4 %; HCT 29.1 % (39.0-53.0); HGB 9.1 gm/dL (13.0-17.5); Hypochromasia Moderate; Lymphocytes # (A) 1.1 k/uL (1.0-4.8); Lymphocytes % (A) 14 %; MCH 26.2 pg (25.0-35.0); MCHC 31.2 g/dL (31.0-37.0); Mean Platelet Volume 6.4; Monocytes # (A) 0.6 k/uL (0-1.0); Monocytes % (A) 7 %; Neutrophils # (A) 5.7 k/uL (1.3-7.7); Neutrophils % (A) 70 %; Platelet Count 326 k/uL (150-450); RBC 3.46 m/uL (4.30-5.90); RDW 16.9 % (11.5-15.5); WBC 8.1 k/uL (3.8-10.6)
[2019-03-04 06:18] LABS: Albumin 3.2 g/dL (3.5-5.0); Calcium 8.1 mg/dL (8.4-10.2); Potassium 4.6 mmol/L (3.5-5.1); Total Bilirubin 0.4 mg/dL (0.2-1.3); Total Protein 5.9 g/dL (6.3-8.2)
[2019-03-04] MEDS: SODIUM CHLORIDE 0.9% 1,000 ML IV SCH (08:14)
[2019-03-04] MEDS: ASPIRIN 325 MG TAB PO SCH (08:14)
[2019-03-04] MEDS: METOPROLOL TARTRATE 25 MG TAB PO SCH ×2 (08:14→20:15)
[2019-03-04] MEDS: EZETIMIBE 10 MG TAB PO SCH (08:14)
[2019-03-04] MEDS: CLOPIDOGREL 75 MG TAB PO SCH (08:14)
[2019-03-04] MEDS ORDERED: ASPIRIN 325 MG TAB PO SCH (09:00)
--- NOTE | 2019-03-04 10:03 | P.CRDCN ---
History of Present Illness Consult date: 03/04/19 Consult reason: sycope History of present illness: This is a 73-year-old male patient of Dr. 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 On recent cardiac catheterization. Patient was found to have in-stent stenosis involving the RCA with moderate to severe disease involving the LAD and also diagonal branch. Patient was referred to cardiac surgeon for possible bypass surgery. Patient had bypass surgery with the ADAMS graft to LAD, vein graft to the RCA and vein graft to the right coronary artery on February 26 and was subsequently discharged on March 02. At that time his beta barbara was increased to 75 mg twice daily his heart rate was running in the low 100s. The patient apparently has had 2 episodes of syncope/near syncope when patient was attempting to ambulate and he developed lightheadedness, sweating and family helped him to the ground and he was mildly unresponsive. Upon EMS arrival, blood pressure was apparently low. He denies having any shortness of breath, lower extremity edema, chest pain. His initial blood pressure on arrival was 135/66 and heart rate is 71. Patient had another episode of dizziness this morning with his nurse while moving from a sitting to a standing position. By the time blood pressure and heart rate were assessed, those were normal. Patient did have lightheadedness at the time. EKG reveals sinus mechanism without acute ST-T wave changes. Laboratory studies: Troponins 0.095, 0.090, 0.093. BUN 23, creatinine 1.05. Triglycerides 91, cholesterol 81, LDL 43, HDL 20. Potassium was 4.6. Electrolytes within normal limits. Hemoglobin 9.1, WBC 8.1, platelet count 326. Chest x-ray reveals mild cardiomegaly. Review Of Systems: Constitutional: No fever, no chills, no night sweats. No weight change. No weakness, fatigue or lethargy. No daytime sleepiness. EENT: No headache. No blurred vision or double vision, no loss of vision. Lungs: No shortness of breath, cough, no sputum production. No wheezing. Cardiovascular: No chest pain, no lower extremity edema. No palpitations. No paroxysmal nocturnal dyspnea. No orthopnea. Reports lightheadedness or dizziness. Reports syncopal episodes. Abdominal: No abdominal pain. No nausea, vomiting. No diarrhea. No constipation. No bloody or tarry stools. No loss of appetite. Genitourinary: No dysuria, increased frequency, urgency. No urinary retention. Musculoskeletal: No myalgias. No muscle weakness, no gait dysfunction, no frequent falls. No back pain. No neck pain. Integumentary: Reports healing wounds. No rash or pruritus. No unusual bruisin g. No change in hair or nails. Neurologic: No aphasia. No facial droop. No change in mentation. No head injury. No headache. No paralysis. No paresthesia. Endocrine: No abnormal blood sugars. No weight change. No excessive sweating or thirst. No cold intolerance. No weight change. Gen: This is a 73-year-old male. He is resting and chair and appears to be comfortable and in no acute distress. Afebrile, heart rate 78, blood pressure 138/69, pulse ox 99% on room air. HEENT: Head is atraumatic, normocephalic. Pupils equal, round. Sclerae is anicteric. NECK: Supple. No JVD. No lymphadenopathy. No thyromegaly. LUNGS: Clear to auscultation. No wheezes or rhonchi. No intercostal retractions. HEART: Regular rate and rhythm. No murmur. ABDOMEN: Soft. Bowel sounds are present. No masses. No tenderness. EXTREMITIES: No pedal edema. No calf tenderness. NEUROLOGICAL: Patient is awake, alert and oriented x3. Cranial nerves 2 through 12 are grossly intact. Assessment: Vasovagal or postural hypotension Coronary artery disease status post CABG Hypertension Hyperlipidemia Plan: Repeat EKG was reviewed, sinus rhythm. Lopressor has been decreased to 25 mg twice daily and agree with changes Florinef 0.1 mg daily will be added Event monitor to be placed prior to discharge Follow-up with Dr. Nunez within a week Further recommendations to follow based upon clinical course. Thank you kindly for this consultation. Nurse practitioner note has been reviewed, I agree with documented findings and plan of care. Patient was seen and examined. Past Medical History Past Medical History: Coronary Artery Disease (CAD), Cancer, Chest Pain / Angina, GERD/Reflux, Hyperlipidemia, Hypertension, Myocardial Infarction (non Q- wave), Prostate Disorder Additional Past Medical History / Comment(s): prostate cancer, 7 stents, history of symptomatic bradycardia. Last Myocardial Infarction Date:: unknown History of Any Multi-Drug Resistant Organisms: None Reported Past Surgical History: Heart Catheterization With Stent, Hernia Repair, Prostate Surgery Additional Past Surgical History / Comment(s): Myocardial revascularization surgery 3 vessels on 02/26/[address] Grayson Wagoner. Past Anesthesia/Blood Transfusion Reactions: No Reported Reaction Date of Last Stent Placement:: November 2018 Past Psychological History: Depression Smoking Status: Never smoker Past Alcohol Use History: None Reported Past Drug Use History: None Reported - Past Family History Father Family Medical History: Coronary Artery Disease (CAD), Myocardial Infarction (HI) Mother Additional Family Medical History / Comment(s): Alzheimer's Medications and Allergies Home Medications Medication Instructions Recorded Confirmed Type Omeprazole 20 mg PO DAILY 07/14/18 03/03/19 History Ezetimibe [Zetia] 10 mg PO DAILY #90 tab 07/16/18 03/03/19 Rx Amitriptyline HCl [Elavil] 50 mg PO HS tab 11/24/18 03/03/19 Rx Evolocumab [Repatha Syringe] 140 mg SQ QMONTH 02/17/19 03/03/19 History Levothyroxine Sodium [Synthroid] 50 mcg PO DAILY@0630 30 Days #30 02/19/19 03/03/19 Rx tab Acetaminophen Tab [Tylenol] 1,000 mg PO Q6HR PRN tab 03/02/19 03/03/19 Rx Aspirin 325 mg PO DAILY tab 03/02/19 03/03/19 Rx Clopidogrel [Plavix] 75 mg PO DAILY #30 tab 03/02/19 03/03/19 Rx Metoprolol Tartrate [Lopressor] 75 mg PO BID #90 tab 03/02/19 03/03/19 Rx Sennosides-Docusate Sodium 2 each PO HS #14 tab 03/02/19 03/03/19 Rx [Senokot-S] Allergies Allergy/AdvReac Type Severity Reaction Status Date / Time Sulfa (Sulfonamide Allergy Rash/Hives Verified 03/03/19 12:50 Antibiotics) ibuprofen [From Motrin] AdvReac Kidney Verified 03/03/19 12:50 issues morphine AdvReac Hallucinati Verified 03/03/19 12:50 ons Physical Exam Vitals: Vital Signs Temp Pulse Pulse Pulse Pulse Pulse Resp 03/04/19 03:54 78 20 03/04/19 03:52 98.2 F 78 20 03/03/19 23:04 97.7 F 102 H 20 03/03/19 20:00 98.2 F 95 94 104 H 90 20 03/03/19 16:00 80 18 03/03/19 15:00 77 18 03/03/19 14:02 95 20 03/03/19 14:00 76 18 03/03/19 13:00 77 21 03/03/19 12:00 68 20 03/03/19 11:25 71 18 03/03/19 11:23 98.8 F 71 18 BP BP BP BP BP Pulse Ox 03/04/19 03:54 03/04/19 03:52 138/69 99 03/03/19 23:04 133/79 100 03/03/19 20:00 166/77 134/59 145/73 99 03/03/19 16:00 155/85 98 03/03/19 15:00 145/88 97 03/03/19 14:02 143/82 99 03/03/19 14:00 154/95 98 03/03/19 13:00 136/83 98 03/03/19 12:00 119/84 97 03/03/19 11:25 135/66 98 03/03/19 11:23 135/66 98 Intake and Output 03/03/19 03/04/19 03/04/19 22:59 06:59 14:59 Intake Total 1200 800 Output Total 1625 Balance 1200 -825 Intake: IV 800 800 Sodium Chloride 0.9% 1, 800 800 000 ml @ 100 mls/hr IV . Q10H STA Rx#:[id number] Oral 400 Output: Urine 1625 Other: Voiding Method Urinal Urinal # Voids 1 # Bowel Movements 1 Weight 98.928 kg Results 03/04/19 05:17 03/04/19 05:17 Cardiac Enzymes 03/03/19 03/03/19 03/03/19 Range/Units 11:35 11:35 17:58 AST 37 (17-59) U/L Troponin I 0.095 H* 0.090 H* (0.000-0.034) ng/mL 03/04/19 03/04/19 Range/Units 00:08 05:17 AST 51 (17-59) U/L Troponin I 0.093 H* (0.000-0.034) ng/mL Coagulation 03/03/19 Range/Units 11:35 PT 10.5 (9.0-12.0) sec APTT 24.8 (22.0-30.0) sec Lipids 03/04/19 Range/Units 05:17 Triglycerides 91 (<150) mg/dL Cholesterol 81 (<200) mg/dL HDL Cholesterol 20 L (40-60) mg/dL CBC 03/03/19 03/04/19 Range/Units 11:35 05:17 WBC 6.4 8.1 (3.8-10.6) k/uL RBC 3.56 L 3.46 L (4.30-5.90) m/uL Hgb 9.2 L 9.1 L (13.0-17.5) gm/dL Hct 29.5 L 29.1 L (39.0-53.0) % Plt Count 333 326 (150-450) k/uL Comprehensive Metabolic Panel 03/03/19 03/04/19 Range/Units 11:35 05:17 Sodium 136 L 138 (137-145) mmol/L Potassium 4.1 4.6 (3.5-5.1) mmol/L Chloride 104 106 (98-107) mmol/L Carbon Dioxide 22 22 (22-30) mmol/L BUN 26 H 23 H (9-20) mg/dL Creatinine 1.03 1.05 (0.66-1.25) mg/dL Glucose 97 97 (74-99) mg/dL Calcium 8.2 L 8.1 L (8.4-10.2) mg/dL AST 37 51 (17-59) U/L ALT 26 45 (21-72) U/L Alkaline Phosphatase 46 49 (38-126) U/L Total Protein 6.0 L 5.9 L (6.3-8.2) g/dL Albumin 3.3 L 3.2 L (3.5-5.0) g/dL Current Medications Generic Name Dose Route Start Last Admin Trade Name Freq PRN Reason Stop Dose Admin Acetaminophen 1,000 mg 03/03/19 13:50 Tylenol Tab PO Q6HR PRN Fever and/ or Mild Pain Amitriptyline HCl 50 mg 03/03/19 21:00 03/03/19 20:00 Elavil PO 50 mg HS TOSIN Administration Aspirin 325 mg 03/04/19 09:00 03/04/19 08:14 Aspirin PO 325 mg DAILY TOSIN Administration Clopidogrel Bisulfate 75 mg 03/04/19 09:00 03/04/19 08:14 Plavix PO 75 mg DAILY TOSIN Administration Ezetimibe 10 mg 03/04/19 09:00 03/04/19 08:14 Zetia PO 10 mg DAILY [facility] Administration Levothyroxine Sodium 50 mcg 03/04/19 06:30 03/04/19 05:48 Synthroid PO 50 mcg DAILY@0630 [facility] Administration Metoprolol Tartrate 25 mg 03/03/19 21:00 03/04/19 08:14 Lopressor PO Not Given BID [facility] Nitroglycerin 0.4 mg 03/03/19 13:18 Nitrostat SUBLINGUAL Q5M PRN Chest Pain Pantoprazole Sodium 40 mg 03/04/19 07:30 03/04/19 05:48 Protonix PO 40 mg AC-BRKFST [facility] Administration Intake and Output 03/03/19 03/04/19 03/04/19 22:59 06:59 14:59 Intake Total 1200 800 Output Total 1625 Balance 1200 -825 Intake: IV 800 800 Sodium Chloride 0.9% 1, 800 800 000 ml @ 100 mls/hr IV . Q10H STA Rx#:[id number] Oral 400 Output: Urine 1625 Other: Voiding Method Urinal Urinal # Voids 1 # Bowel Movements 1 Weight 98.928 kg 03/04/19 05:17 03/04/19 05:17
--- NOTE | 2019-03-04 10:25 | P.PN ---
Subjective Progress Note Date: 03/04/19 Principal diagnosis: Syncope, diarrhea, past medical history of coronary artery disease status post multiple stent placements to his right coronary artery, status post 3 vessel cor onary artery bypass graft surgery on 02/26/2019, history of myocardial infarction in December 2018, symptomatic bradycardia, hypertension, hyperlipidemia, hypothyroidism recently diagnosed, depression, obesity, history of prostate cancer status post prostatectomy in 2006, preoperative nasal swab positive for MSSA and gastroesophageal reflux disorder. The patient is sitting up to the bedside chair on the cardiac stepdown unit. He is in no acute distress. The patient reports that he feels good this morning and denies any complaints of pain shortness of breath or further episodes of dizziness. Orthostatic blood pressure checks were completed on the patient yesterday, blood pressure sitting was 166/77, standing 134/59, and supine pressure was 145/73 mmHg. He reports he has been ambulating in the cardiac stepdown unit hallway with minimal assistance. States that he has slight bruising to his left knee and some tenderness to his left knee status post his syncopal episode yesterday. He denies any limited range of motion to his left knee. Oxygen saturation are 99% on room air, and he is achieving 2250 mL on his incentive spirometry. 12-lead EKG was completed this morning which demonstrated normal sinus rhythm with a right bundle branch block. No further complaints of diarrhea. Objective - Vital Signs Vital signs: Vital Signs Temp 98.2 F 03/04/19 03:52 Pulse 78 03/04/19 03:54 Resp 20 03/04/19 03:54 BP 138/69 03/04/19 03:52 Pulse Ox 99 03/04/19 03:52 Intake & Output 03/03/19 03/04/19 03/04/19 18:59 06:59 18:59 Intake Total 2000 Output Total 1625 Balance 375 Weight 99.79 kg 98.928 kg Intake: IV 1600 Sodium Chloride 0.9% 1, 1600 000 ml @ 100 mls/hr IV . Q10H STA Rx#:[id number] Oral 400 Output: Urine 1625 Other: Voiding Method Urinal # Voids 2 1 # Bowel Movements 1 1 - Constitutional General appearance: Present: cooperative, no acute distress, obese - Respiratory Details: Lung sounds essentially clear throughout. Respirations are symmetrical and nonlabored. No wheezing, rhonchi or crackles present. - Cardiovascular Details: Regular rhythm and rate. S1 and S2 present, negative for S3, gallop or murmur. Sternum is stable. No edema is present. Peripheral pulses palpable. - Gastrointestinal Gastrointestinal Comment(s): Abdomen is soft, nontender and nondistended. Active bowel sounds present all 4 abdominal quadrants. No guarding or rigidity. No organomegaly appreciated. - Genitourinary Genitourinary Comment(s): Voiding clear yellow urine. - Integumentary Integumentary Comment(s): Skin is warm and dry. No clubbing or cyanosis is present. Midline sternal incision is clean, dry and approximated. No drainage or redness is present. Left lower extremity EVH site is clean, dry and approximated. No drainage or redness present. - Neurologic Neurologic Comment(s): No focal deficits. Neurologic: Present: CNII-XII intact - Musculoskeletal Musculoskeletal: Present: gait normal, generalized weakness, strength equal bilaterally - Psychiatric Psychiatric: Present: A&O x's 3, appropriate affect, intact judgment & insight - Allied health notes Allied health notes reviewed: nursing - Labs CBC & Chem 7: 03/04/19 05:17 03/04/19 05:17 Labs: Abnormal Lab Results - Last 24 Hours (Table) 03/03/19 03/03/19 03/03/19 Range/Units 11:35 11:35 11:35 RBC 3.56 L (4.30-5.90) m/uL Hgb 9.2 L (13.0-17.5) gm/dL Hct 29.5 L (39.0-53.0) % RDW 16.7 H (11.5-15.5) % Lymphocytes # 0.7 L (1.0-4.8) k/uL Sodium 136 L (137-145) mmol/L BUN 26 H (9-20) mg/dL Calcium 8.2 L (8.4-10.2) mg/dL Troponin I 0.095 H* (0.000-0.034) ng/mL Total Protein 6.0 L (6.3-8.2) g/dL Albumin 3.3 L (3.5-5.0) g/dL HDL Cholesterol (40-60) mg/dL 03/03/19 03/04/19 03/04/19 Range/Units 17:58 00:08 05:17 RBC (4.30-5.90) m/uL Hgb (13.0-17.5) gm/dL Hct (39.0-53.0) % RDW (11.5-15.5) % Lymphocytes # (1.0-4.8) k/uL Sodium (137-145) mmol/L BUN 23 H (9-20) mg/dL Calcium 8.1 L (8.4-10.2) mg/dL Troponin I 0.090 H* 0.093 H* (0.000-0.034) ng/mL Total Protein 5.9 L (6.3-8.2) g/dL Albumin 3.2 L (3.5-5.0) g/dL HDL Cholesterol 20 L (40-60) mg/dL 03/04/19 Range/Units 05:17 RBC 3.46 L (4.30-5.90) m/uL Hgb 9.1 L (13.0-17.5) gm/dL Hct 29.1 L (39.0-53.0) % RDW 16.9 H (11.5-15.5) % Lymphocytes # (1.0-4.8) k/uL Sodium (137-145) mmol/L BUN (9-20) mg/dL Calcium (8.4-10.2) mg/dL Troponin I (0.000-0.034) ng/mL Total Protein (6.3-8.2) g/dL Albumin (3.5-5.0) g/dL HDL Cholesterol (40-60) mg/dL - Imaging and Cardiology Twelve-lead EKG reviewed. Assessment and Plan Assessment: 1. Syncope 2. Coronary artery disease, status post multiple stent placements to the RCA, status post 3 vessel coronary artery bypass grafting surgery on 02/26/2019 3. History of myocardial infarction in December 2017 4. History of symptomatic bradycardia 5. Hypertension 6. Hyperlipidemia 7. Hypothyroidism, recently diagnosed 8. Depression 9. Obesity 10. History of prostate cancer status post prostatectomy in 2006 11. Preoperative nasal swab positive for MSSA 12. Diarrhea, resolved Plan: 1. Continue to optimize medical management, continue aspirin, Plavix, metoprolol tartrate and Zetia. Increase beta barbara as tolerated. 2. Per the cardiothoracic surgery standpoint the patient can be discharged home with home care once okay with primary care service and cardiology. 3. Continue to encourage and reinforced the importance of the post coronary artery bypass grafting surgery discharge instructions. 4. Encourage use of his incentive spirometry, every hour while awake. 5. Increase activity as tolerated. 6. Continue GI and DVT prophylaxis. 7. 12-lead EKG 1 now. 8. More recommendations to follow based on patient's clinical course. Time with Patient: Greater than 30
[2019-03-04] MEDS: FLUDROCORTISONE 0.1 MG TAB PO SCH (13:02)
--- NOTE | 2019-03-04 13:39 | P.PN ---
Subjective Progress Note Date: 03/04/19 Principal diagnosis: Syncope Mr. Marley is a 73-year-old male with a past medical history of coronary artery disease status post CABG done on 02/26/2019, hypertension, hyperlipidemia, GERD, prostate cancer status post prostatectomy in 2007 coming into the hospital with a chief complaint of dizziness. Patient was discharged from the hospital yesterday and since being at home patient reports to have 4-5 watery bowel movements. And he also mentions that his dose of metoprolol has been increased.In the emergency department patient had an EKG showing normal sinus rhythm with right bundle branch block. He had labs done showing hemoglobin of 9.2 which is stable since discharge and his electrolytes are also within normal limits. On 03/04/2019- patient has been lying in bed appears to be no acute distress. He does not feel dizzy anymore. Patient denies having any chest pain and difficulty in breathing. No cough. No abdominal pain nausea vomiting or diarrhea. No dysuria or hematuria. Patient states that he walked in the hallways and denies having any chest pain. Active Medications Acetaminophen (Tylenol Tab) 1,000 mg PO Q6HR PRN PRN Reason: Fever and/ or Mild Pain Amitriptyline HCl (Elavil) 50 mg PO HS [facility] Last Admin: 03/03/19 20:00 Dose: 50 mg Documented by: Aspirin (Aspirin) 325 mg PO DAILY [facility] Last Admin: 03/04/19 08:14 Dose: 325 mg Documented by: Clopidogrel Bisulfate (Plavix) 75 mg PO DAILY [facility] Last Admin: 03/04/19 08:14 Dose: 75 mg Documented by: Ezetimibe (Zetia) 10 mg PO DAILY [facility] Last Admin: 03/04/19 08:14 Dose: 10 mg Documented by: Fludrocortisone Acetate (Florinef) 0.1 mg PO DAILY [facility] Last Admin: 03/04/19 13:02 Dose: 0.1 mg Documented by: Heparin Sodium (Porcine) (Heparin) 5,000 unit SQ Q8HR [facility] Levothyroxine Sodium (Synthroid) 50 mcg PO DAILY@0630 [facility] Last Admin: 03/04/19 05:48 Dose: 50 mcg Documented by: Metoprolol Tartrate (Lopressor) 25 mg PO BID [facility] Last Admin: 03/04/19 08:14 Dose: Not Given Documented by: Nitroglycerin (Nitrostat) 0.4 mg SUBLINGUAL Q5M PRN PRN Reason: Chest Pain Pantoprazole Sodium (Protonix) 40 mg PO AC-BRKFST [facility] Last Admin: 03/04/19 05:48 Dose: 40 mg Documented by: Objective - Vital Signs Vital signs: Vital Signs Temp 97.8 F 03/04/19 08:00 Pulse 91 03/04/19 12:00 Resp 20 03/04/19 12:00 BP 124/63 03/04/19 12:00 Pulse Ox 100 03/04/19 13:18 Intake & Output 03/03/19 03/04/19 03/04/19 18:59 06:59 18:59 Intake Total 2000 Output Total 1625 Balance 375 Weight 99.79 kg 98.928 kg Intake: IV 1600 Sodium Chloride 0.9% 1, 1600 000 ml @ 100 mls/hr IV . Q10H [facility]A Rx#:[id number] Oral 400 Output: Urine 1625 Other: Voiding Method Urinal # Voids 2 1 3 # Bowel Movements 1 1 2 - Exam GEN. APPEARANCE: alert, in no apparent distress HEAD EXAM: atraumatic, normocephalic, normal inspection EYE EXAM: No pallor. No icterus. ENT EXAM: normal exam, mucous membranes moist NECK EXAM: No thyromegaly. No JVD RESPIRATORY EXAM: normal lung sounds bilaterally. Mild crackles at the lower lung bases. CARDIOVASCULAR EXAM: regular rate, normal rhythm, normal heart sounds. Chest binder in place. GI/ABDOMINAL EXAM: soft, normal bowel sounds. Absent: distended, tenderness, guarding, rebound, rigid EXTREMITIES EXAM: No pedal edema. NEUROLOGICAL EXAM: alert, oriented X3,No focal deficits PSYCHIATRIC EXAM: normal affect, normal mood SKIN EXAM: warm, dry, intact, normal color. Absent: rash - Labs CBC & Chem 7: 03/04/19 05:17 03/04/19 05:17 Labs: Abnormal Lab Results - Last 24 Hours (Table) 03/03/19 03/04/19 03/04/19 Range/Units 17:58 00:08 05:17 RBC (4.30-5.90) m/uL Hgb (13.0-17.5) gm/dL Hct (39.0-53.0) % RDW (11.5-15.5) % BUN 23 H (9-20) mg/dL Calcium 8.1 L (8.4-10.2) mg/dL Troponin I 0.090 H* 0.093 H* (0.000-0.034) ng/mL Total Protein 5.9 L (6.3-8.2) g/dL Albumin 3.2 L (3.5-5.0) g/dL HDL Cholesterol 20 L (40-60) mg/dL 03/04/19 Range/Units 05:17 RBC 3.46 L (4.30-5.90) m/uL Hgb 9.1 L (13.0-17.5) gm/dL Hct 29.1 L (39.0-53.0) % RDW 16.9 H (11.5-15.5) % BUN (9-20) mg/dL Calcium (8.4-10.2) mg/dL Troponin I (0.000-0.034) ng/mL Total Protein (6.3-8.2) g/dL Albumin (3.5-5.0) g/dL HDL Cholesterol (40-60) mg/dL Assessment and Plan Assessment: Assessment Dizzines/ Syncope - most likely orthostatic as he has diarrhea and also his metoprolol dose has been increased Bradycardia Acute diarrhea Coronary artery disease status post coronary artery bypass grafting utilizing a ADAMS to the LAD, saphenous vein grafts to the PDA and obtuse marginal coronary artery Coronary artery disease with previous myocardial infarction, non-Q-wave myocardial infarction with history of multiple stent placements. Hypertension. Hyperlipidemia. History of prostate cancer. Gastroesophageal reflux disease. Hypothyroidism Plan : Patient does not have the dizziness anymore. His metoprolol dose has been decreased. Cardiology evaluated the patient and started him on Florinef. Patient's vitals are within normal limits his hemoglobin is stable. He does not report any more diarrhea. C. diff was ordered but could not be sent as the patient did not have a bowel movement since admission. Continue with the current medication regimen. Cardiology planning to have an event monitor to be placed prior to discharge. We will have PT OT consult for possible home health care. Further recommendations to follow depending on the progress of the patient the treatment plan was discussed with his daughter and family members at the bedside in detail.
[2019-03-04] MEDS: HEPARIN SODIUM,PORCINE 5,000 UNIT/ML 1 ML VIAL SQ SCH ×2 (16:17→23:16)
[2019-03-04] MEDS: AMITRIPTYLINE HCL 50 MG TAB PO SCH (20:15)
[2019-03-05] MEDS: PANTOPRAZOLE 40 MG TABLET PO SCH (06:22)
[2019-03-05] MEDS: LEVOTHYROXINE 50 MCG TAB PO SCH (06:22)
--- NOTE | 2019-03-05 08:15 | P.PN ---
Subjective Progress Note Date: 03/05/19 Principal diagnosis: Syncopal episode, diarrhea at home and present on admission. Previous medical history of coronary artery disease with myocardial infarction in November 2018 statu s post multiple stent placements to his right coronary artery, status post 3 vessel coronary artery bypass graft surgery on 02/26/2019, symptomatic bradycardia, hypertension, hyperlipidemia, hypothyroidism recently diagnosed, depression, obesity, history of prostate cancer status post prostatectomy in 2006, GERD, and family history of coronary artery disease. Recent passing of his while hospitalized after CABG. The patient is currently sitting up in a recliner on the cardiac step-down unit in no acute distress. He does admit to one episode of lightheadedness yesterday afternoon when going from sitting to standing position, which abated quickly and he was able to ambulate in the hallway without difficulty. He denies any further episodes of dizziness/lightheadedness/syncope or near-syncope. States post surgical pain is controlled on ordered pain meds. Denies shortness of breath. Stools are firming up and have become less frequent. No new concerns. Patient is in good spirits considering the emotional trauma he has been through with his 's passing. Objective - Vital Signs Vital signs: Vital Signs Temp 98.4 F 03/05/19 00:00 Pulse 85 03/05/19 03:55 Resp 20 03/05/19 03:55 BP 125/75 03/05/19 03:55 Pulse Ox 96 03/05/19 03:55 Intake & Output 03/04/19 03/05/19 03/05/19 18:59 06:59 18:59 Intake Total 240 Balance 240 Weight 98.4 kg Intake: Oral 240 Other: Voiding Method Urinal # Voids 3 1 # Bowel Movements 2 - Constitutional General appearance: Present: cooperative, no acute distress, obese - Respiratory Details: Lung sounds clear but diminished bilaterally. Respirations are even, non- labored. Currently on room air with oxygen saturation 96%. Able to achieve 2250 mL on his incentive spirometry. Strong non-productive cough. - Cardiovascular Details: S1/S2 present. Regular rate and rhythm, sinus rhythm on telemetry. Sternum stable. Palpable pulses bilaterally. No edema present. No calf pain or tenderness noted. Heart hugger in place with patient demonstrating appropriate use. Anti-embolism stockings on. - Gastrointestinal Gastrointestinal Comment(s): Abdomen soft, non-tender, non-distended. Active bowel sounds present x 4 quadrants. Tolerating diet. Positive bowel movement. - Genitourinary Genitourinary Comment(s): Continues to void clear yellow urine. - Integumentary Integumentary Comment(s): Skin is warm and dry with evidence of good perfusion. Anterior chest incision well approximated with Dermabond, no drainage present. Left lower extremity EVH site well approximated. - Neurologic Neurologic: Present: CNII-XII intact - Musculoskeletal Musculoskeletal: Present: gait normal, strength equal bilaterally - Psychiatric Psychiatric: Present: A&O x's 3, appropriate affect, intact judgment & insight - Allied health notes Allied health notes reviewed: nursing - Labs CBC & Chem 7: 03/04/19 05:17 03/04/19 05:17 - Imaging and Cardiology Chest x-ray: report reviewed, image reviewed Assessment and Plan Assessment: 1. Syncopal episode 2. Diarrhea, resolved 3. Coronary artery disease with myocardial infarction in November 2018, status post multiple stent placements to the RCA, status post 3 vessel coronary artery bypass grafting surgery on 02/26/2019 4. History of symptomatic bradycardia 5. Hypertension 6. Hyperlipidemia 7. Hypothyroidism, recently diagnosed 8. Depression 9. Obesity 10. History of prostate cancer status post prostatectomy in 2006 11. GERD 12. Family history of coronary artery disease 13. Recent passing of his while hospitalized after CABG Plan: 1. Continue Aspirin, Plavix, Zetia, Repatha, and beta barbara. Beta barbara to be increased as tolerated by cardiology. 2. Encourage continued incentive spirometry use. 3. Increase activity, ambulate in hallway as tolerated. 4. Continue synthroid, florinef per primary. 5. GI/DVT prophylaxis. 6. Continue post CABG instructions, weigh daily, shower daily, no lifting/pulling/pushing anything heavier than 5-10 pounds for 3 months, no driving for 1 month. Discharge instructions have been placed on Discharge Plan along with follow-up appointments. 7. Patient should be discharged to home with home care from cardiothoracic surgery standpoint when OK with cardiology and primary care. Time with Patient: Greater than 30
[2019-03-05] MEDS: ASPIRIN 325 MG TAB PO SCH (08:30)
[2019-03-05] MEDS: EZETIMIBE 10 MG TAB PO SCH (08:30)
[2019-03-05] MEDS: FLUDROCORTISONE 0.1 MG TAB PO SCH (08:30)
[2019-03-05] MEDS: CLOPIDOGREL 75 MG TAB PO SCH (08:30)
[2019-03-05] MEDS: HEPARIN SODIUM,PORCINE 5,000 UNIT/ML 1 ML VIAL SQ SCH (08:30)
[2019-03-05] MEDS: METOPROLOL TARTRATE 25 MG TAB PO SCH (08:30)
[2019-03-05 10:09] VITALS: TEMP 97.9
[2019-03-05 12:20] VITALS: BP 144/70; PULSE 89; RESP 18
--- NOTE | 2019-03-05 16:12 | P.DS ---
Providers Date of admission: 03/03/19 13:18 Expected date of discharge: 03/05/19 Attending physician: Miky Haider Consults: 03/03/19 13:18 Consult Physician Urgent Consulting Provider: Nilay Sarabia Consult Reason/Comments: syncope Do you want consulting provider notified?: Yes 03/03/19 22:27 Consult Physician Routine Consulting Provider: Chris Nunez Consult Reason/Comments: syncope Do you want consulting provider notified?: Yes, Notify in am Primary care physician: [facility] Course: Mr. Marley is a 73-year-old male with a past medical history of coronary artery disease status post CABG done on 02/26/2019, hypertension, hyperlipidemia, GERD, prostate cancer status post prostatectomy in 2006 coming into the hospital with a chief complaint of dizziness. Patient was discharged from the hospital yesterday and since being at home patient reports to have 4-5 watery bowel movements. And he also mentions that his dose of metoprolol has been increased. Patient had 2 episodes of dizziness the first 1 was that he felt lightheaded but did not have a fall. But the second episode of dizziness patient was noticed to be falling to the floor when his son-in-law supported him and he landed on his left knee. Patient denies having any loss of consciousness. He denies having any chest pain. No loss of bowel or bladder control. Patient denies having any nausea or vomiting or abdominal pain. He only had 4-5 loose watery stools.Patient denies having any fevers chills or rigors. No headaches or blurring of vision. Loss of consciousness. No speech abnormality. No cough or difficulty breathing. No dysuria or hematuria. In the emergency department patient had an EKG showing normal sinus rhythm with right bundle branch block. He had labs done showing hemoglobin of 9.2 which is stable since discharge and his electrolytes are also within normal limits. He had mild elevation of troponin which is 0.095 but that might be due to recent history of CABG. As per discussion with the family members he recently lost his when he was in the ICU. Patient appears to be have feeling low because of that. He is currently living with his sister who has been taking care of him. Hospital course - patient was admitted for dizziness. Patient did not have any diarrhea during the hospital stay. His dose of metoprolol has been decreased, after which his dizziness resolved. He was also started on Florinef. Patient did not have any more dizziness. PT OT has been consulted and cleared the patient for discharge. Cardiology and CT surgery followed the patient during hospital stay. He has been cleared by both services for discharge. Patient is being discharged home with his daughter in a stable condition. Vital Signs 03/05/19 03/05/19 12:00 13:00 Pulse Rate [ 89 Sitting] Respiratory 18 Rate Blood Pressure 144/70 [Left Arm Sitting] O2 Sat by Pulse 97 97 Oximetry GEN. APPEARANCE: alert, in no apparent distress RESPIRATORY EXAM: normal lung sounds bilaterally. Mild crackles at the lower lung bases. CARDIOVASCULAR EXAM: regular rate, normal rhythm, normal heart sounds. Chest binder in place. GI/ABDOMINAL EXAM: soft, normal bowel sounds. Absent: distended, tenderness, guarding, rebound, rigid EXTREMITIES EXAM: no pedal edema DISCHARGE DIAGNOSES Dizzines/ Syncope - most likely orthostatic as he has diarrhea and also his metoprolol dose has been increased - Resolved. Bradycardia Acute diarrhea Coronary artery disease status post coronary artery bypass grafting utilizing a ADAMS to the LAD, saphenous vein grafts to the PDA and obtuse marginal coronary artery Coronary artery disease with previous myocardial infarction, non-Q-wave myocardial infarction with history of multiple stent placements. Hypertension. Hyperlipidemia. History of prostate cancer. Gastroesophageal reflux disease. Hypothyroidism PLAN: Patient is being discharged home in a stable condition. His metoprolol dose is 25 mg twice a day. The new medication that is added to his regimen is Florinef. This was discussed in detail with the patient and his daughter at bedside. He is advised to follow-up with his sales counselor and his primary care physician in 3-4 days. Patient Condition at Discharge: Fair Plan - Discharge Summary Discharge Rx Participant: Yes New Discharge Prescriptions: New Fludrocortisone [Florinef] 0.1 mg PO DAILY #30 tab Continue Omeprazole 20 mg PO DAILY Ezetimibe [Zetia] 10 mg PO DAILY #90 tab Amitriptyline HCl [Elavil] 50 mg PO HS tab Evolocumab [Repatha Syringe] 140 mg SQ QMONTH Levothyroxine Sodium [Synthroid] 50 mcg PO DAILY@0630 30 Days #30 tab Aspirin 325 mg PO DAILY tab Clopidogrel [Plavix] 75 mg PO DAILY #30 tab Sennosides-Docusate Sodium [Senokot-S] 2 each PO HS #14 tab Acetaminophen Tab [Tylenol] 1,000 mg PO Q6HR PRN tab PRN Reason: Fever and/ or Mild Pain Changed Metoprolol Tartrate [Lopressor] 25 mg PO BID #90 tab Discharge Medication List Omeprazole 20 mg PO DAILY 07/14/18 [History] Ezetimibe [Zetia] 10 mg PO DAILY #90 tab 07/16/18 [Rx] Amitriptyline HCl [Elavil] 50 mg PO HS tab 11/24/18 [Rx] Evolocumab [Repatha Syringe] 140 mg SQ QMONTH 02/17/19 [History] Levothyroxine Sodium [Synthroid] 50 mcg PO DAILY@0630 30 Days #30 tab 02/19/19 [Rx] Acetaminophen Tab [Tylenol] 1,000 mg PO Q6HR PRN tab 03/02/19 [Rx] Aspirin 325 mg PO DAILY tab 03/02/19 [Rx] Clopidogrel [Plavix] 75 mg PO DAILY #30 tab 03/02/19 [Rx] Sennosides-Docusate Sodium [Senokot-S] 2 each PO HS #14 tab 03/02/19 [Rx] Fludrocortisone [Florinef] 0.1 mg PO DAILY #30 tab 03/05/19 [Rx] Metoprolol Tartrate [Lopressor] 25 mg PO BID #90 tab 03/05/19 [Rx] Follow up Appointment(s)/Referral(s): Mckenzie Nogueira NPC [Nurse Practitioner] - 03/09/19 10:30 am (Tuesday) Chris Nunez MD [STAFF PHYSICIAN] - 03/16/19 9:45 am (Tuesday) Rubin Duran DO [Primary Care Provider] - 1 Week (Mariana from Dr. Duran's office will call with a follow-up appointment) Radhames Ramirez DO [Doctor of Osteopathic Medicine] - 03/12/19 8:30 am (Tuesday) [facility], [NON-STAFF] - 1-2 Days Grayson Wagoner MD [STAFF PHYSICIAN] - 04/06/19 10:00 am (Tuesday) Patient Instructions/Handouts: Sternal Precautions (GEN) Activity/Diet/Wound Care/Special Instructions: Event monitor DISCHARGE INSTRUCTIONS: 1. No driving for 4 weeks, or until physician gives their ok. 2. The patient should sleep in their own bed, no medical bed needed. 3. Stairs are not an issue. If the bedroom is upstairs, it is advised that the patient go up at night and down in the morning for the first week. Go slowly, using handrail and take 1 step at a time. 4. SHAW hose are to be worn for 30 days or until physician discontinues. 5. Heart hugger is to be worn 100% of the time until physician discontinues.(except when showering) 6. No lifting, pushing, or pulling more than 10 pounds for 12 weeks. The physician will advise of any restriction changes. 7. The patient is expected to continue the prescribed walking program. 8. Continue pain control per as needed orders. 9. Continue with incentive spirometry and splinting/heart hugger until otherwise directed by the physician. 10. Must shower daily using liquid antibacterial soap and a separate white washcloth for each individual incision. 11. Routine sternal incision care, no ointments, lotions or powders on the incisions. 12. Please notify surgeon/nurse practitioner for temperature greater than 101F or purulent drainage from incisions 13. Prescriptions for first 30 days given per cardiac surgery service. After 30 days, all prescription refills obtained through cardiology/primary care physician. 14. A red arm and has been placed on this patient it should be worn for 30 days post surgery and will be removed by the cardiothoracic surgeons. If an ER visit is necessary, please make sure the number on the red arm band is called. HOME HEALTH SERVICES TO PROVIDE: RN SKILLED HOME CARE SERVICES FOR POST-OP SURGICAL PATIENTS WITH THE FOLLOWING: Coronary Artery Bypass Surgery (CABG), Mitral Valve Replacement/Repair ( MVR), Aortic Valve Replacement/Repair (AVR) RN TO CONTINUE EDUCATION FROM ``ROAD TO A HEALTH HEART PATIENT EDUCATION MANUAL" (GIVEN TO PATIENT IN THE HOSPITAL) MEDICATION RECONCILIATION WITH EDUCATION NEEDED ON FIRST HOME VISIT EMPHASIZE IMPORTANCE OF WEARING BREAST SUPPORT/HEART HUGGER ENCOURAGE USE OF INCENTIVE SPIROMETER 10 X EVERY HOUR WHILE AWAKE ENCOURAGE UTILIZATION OF LOWER EXTREMITY COMPRESSION STOCKINGS/SHAW HOSE and ELEVATE LEGS ABOVE LEVEL OF HEART WHILE AT REST. ENCOURAGE AMBULATION 3-5x/day INCREASING TOLERATES, WHILE AVOID EXTREMES IN TEMPERATURE FREQUENCY: RN TO OPEN THE PATIENT WITHIN 24 HOURS OF DISCHARGE FROM THE HOSPITAL WITH TELEHEALTH INSTALLED AT [facility] [place], RN TO VISIT 2-3 X A WEEK FOR 4 WEEKS ESTABLISHED BY PATIENT NEEDS. LABORATORY: CBC, CMP TO BE DRAWN ON THE THIRD DAY HOME (RAN STAT) FAX RESULTS TO [phone]. TELEHEALTH PARAMETERS: WEIGHT: NOTIFY MD OF WEIGHT GAIN OF 2 LBS IN 24 HOURS OR 5 LBS IN ONE WEEK HR: NOTIFY MD OF HR <55 BPM OR HR>100 BPM BP: NOTIFY MD IF BP <90/55 OR BP>140/100 O2 SAT: NOTIFY MD IF PO2<93% ON ROOM AIR SEND TELEHEALTH REPORT TO TUBER MACHINE OPERATOR HELPER AND CARDIOVASCULAR SURGEON THE FIRST WEEK OF CARE AND THEN BI-WEEKLY. PLEASE ADDITIONALLY COMMUNICATE ANY ABNORMALS AND NEW FINDINGS TO THE SURGEONS OFFICE. Discharge Disposition: HOME SELF-CARE
--- NOTE | 2019-03-05 17:47 | P.PN ---
Subjective Progress Note Date: 03/05/19 This is 73-year-old gentleman with history of recent bypass surgery was the admitted with episodes of near-syncope which seemed to be related to postural hypotension. Patient had episodes of postural changes in the hospital. We cut back the dose of the metoprolol 25 mg by mouth twice a day and also added Florinef 0.1 mg. Patient remained stable. No complaints of any chest pain. Patient tolerated activity. Today. He is being discharged home. Follow-up with the Dr. Nunez Objective - Vital Signs Vital signs: Vital Signs Temp 97.9 F 03/05/19 08:00 Pulse 89 03/05/19 12:00 Resp 18 03/05/19 12:00 BP 144/70 03/05/19 12:00 Pulse Ox 97 03/05/19 13:00 Intake & Output 03/04/19 03/05/19 03/05/19 18:59 06:59 18:59 Intake Total 462 Balance 462 Weight 98.4 kg Intake: Oral 462 Other: Voiding Method Urinal # Voids 3 1 2 # Bowel Movements 2 - Exam GENERAL EXAM: Patient is alert and oriented and doesn't appear to be in any acu te distress HEENT: Normocephalic. Normal reaction of pupils, equal size, normal range of extraocular motion. No erythema or exudates in the throat. NECK: No masses, no nuchal rigidity. CHEST: Postsurgical LUNGS: Equal air entry with no crackles or wheeze. HEART: S1 and S2 normal with no audible mumurs or gallops. Regular rhythm, femorals equal on both sides.. ABDOMEN: No hepatosplenomegaly, normal bowel sounds, no guarding or rigidity. SKIN: No rashes CENTRAL NERVOUS SYSTEM: No focal deficits. EXTREMITIES: No cyanosis, clubbing or edema. - Labs CBC & Chem 7: 03/04/19 05:17 03/04/19 05:17 Assessment and Plan (1) Dyslipidemia Status: Acute Code(s): E78.5 - HYPERLIPIDEMIA, UNSPECIFIED SNOMED Code(s): 719295857 (2) Hypertension Status: Acute Code(s): I10 - ESSENTIAL (PRIMARY) HYPERTENSION SNOMED Code(s): 45565778 (3) Status post aorto-coronary artery bypass graft Status: Acute Code(s): Z95.1 - PRESENCE OF AORTOCORONARY BYPASS GRAFT SNOMED Code(s): 829443004 (4) Syncope Status: Acute Code(s): R55 - SYNCOPE AND COLLAPSE SNOMED Code(s): 253813878 Plan: Patient remains stable. Being discharged home on low dose of beta barbara and Florinef. Follow-up with Dr. Nunez
== END 2019-03-05 16:37 | disposition home health service (06) ==
LOC: EC 11:08 → 3SCARD 13:18
PROVIDERS: ADMIT Internal Medicine; ATTEND Internal Medicine
DX: R55 Syncope and collapse (principal); T44.7X5A Adverse effect of beta-adrenoreceptor antagonists, initial encounter; R19.7 Diarrhea, unspecified; T47.4X5A Adverse effect of other laxatives, initial encounter; R23.1 Pallor; R61 Generalized hyperhidrosis; R42 Dizziness and giddiness; K21.9 Gastro-esophageal reflux disease without esophagitis; I25.10 Atherosclerotic heart disease of native coronary artery without angina pectoris; I11.9 Hypertensive heart disease without heart failure; E78.5 Hyperlipidemia, unspecified; F32.9 Major depressive disorder, single episode, unspecified; Z90.79 Acquired absence of other genital organ(s); R79.89 Other specified abnormal findings of blood chemistry; I45.10 Unspecified right bundle-branch block; I45.2 Bifascicular block; T82.855A Stenosis of coronary artery stent, initial encounter; R00.1 Bradycardia, unspecified; E03.9 Hypothyroidism, unspecified; S80.02XA Contusion of left knee, initial encounter; X58.XXXA Exposure to other specified factors, initial encounter; A49.01 Methicillin susceptible Staphylococcus aureus infection, unspecified site; E66.9 Obesity, unspecified; Z68.30 Body mass index [BMI] 30.0-30.9, adult; Z95.1 Presence of aortocoronary bypass graft; Z79.82 Long term (current) use of aspirin; Z79.02 Long term (current) use of antithrombotics/antiplatelets; Z79.890 Hormone replacement therapy; Z79.899 Other long term (current) drug therapy; Z88.2 Allergy status to sulfonamides; Z88.5 Allergy status to narcotic agent; Z88.6 Allergy status to analgesic agent; I25.2 Old myocardial infarction; Z85.46 Personal history of malignant neoplasm of prostate; Z95.5 Presence of coronary angioplasty implant and graft; Z82.49 Family history of ischemic heart disease and other diseases of the circulatory system; Z82.0 Family history of epilepsy and other diseases of the nervous system
CPT/HCPCS: 96361 ×3; 96372 ×2; 96360; 99285; 36415; 93005; 83880; 80061; 80053 ×2; 82550; 83605; 83735; 84100; 84484 ×2; 85025 ×2; 85610; 85730; 81003; 71046; G0378 ×3; J1644 ×2

== ENCOUNTER 2019-03-18 00:29 | Emergency (ER) | payer MEDICARE ==
--- NOTE | 2019-03-18 00:56 | XR ---
EXAMINATION TYPE: XR chest 2V DATE OF EXAM: 03/18/2019 COMPARISON: 03/03/2019 HISTORY: Syncope TECHNIQUE: Frontal and lateral views of the chest are obtained. FINDINGS: There is no heart failure nor confluent pneumonic infiltrate. There are sternal wires. The re are chest leads. There is no sign of pleural effusion. IMPRESSION: No active cardiopulmonary disease. There is clearing of the mild atelectasis left lower lobe compared to old exam.
[2019-03-18 01:02] LABS: HCT 35.2 % (39.0-53.0); HGB 10.4 gm/dL (13.0-17.5); Hypochromasia Marked; MCH 25.4 pg (25.0-35.0); MCHC 29.4 g/dL (31.0-37.0); MCV 86.4 fL (80.0-100.0); Mean Platelet Volume 5.4; Platelet Count 546 k/uL (150-450); RBC 4.08 m/uL (4.30-5.90); RDW 15.5 % (11.5-15.5); WBC 6.7 k/uL (3.8-10.6)
[2019-03-18 01:13] LABS: Albumin 3.6 g/dL (3.5-5.0); Calcium 8.5 mg/dL (8.4-10.2); Total Bilirubin 0.5 mg/dL (0.2-1.3); Total Protein 6.8 g/dL (6.3-8.2)
[2019-03-18 01:24] LABS: Partial Thromboplastin Time 22.3 sec (22.0-30.0)
[2019-03-18] MEDS ORDERED: SODIUM CHLORIDE 0.9% 500 ML 500 ML IV ONE (01:43)
[2019-03-18] MEDS ORDERED: FLUDROCORTISONE 0.1 MG TAB PO STA (01:44)
--- NOTE | 2019-03-18 01:58 | ED ---
General Adult HPI - General Chief complaint: Syncope Stated complaint: Syncope Source: EMS Mode of arrival: EMS Limitations: no limitations - History of Present Illness Initial comments: Adrian is a 73-year-old gentleman who presents the emergency department today for evaluation of syncopal episode. Patient has a history of syncopal episodes in the past, he had a CABG approximately 2-1/2 weeks ago. Patient states that he followed up with his regular doctor yesterday who is continued his Florinef and prescribed lisinopril which she took for the first time yesterday. Patient reports he was sleeping in the recliner where he has been sleeping since he's returned home. He woke up to use the restroom and upon standing up very lightheaded he turned to grab his recliner but had artery taking 2 steps and couldn't reach it and fell to the ground. He did not hit his head he did not fully lose consciousness. Patient reports that once laying on the ground he felt much better. Patient reports this is identical to previous episodes that occurred prior to being his surgery. Patient denies any chest pain palpitations prior to this. Patient reports no symptoms while resting comfortably in the ER [facility]. - Related Data Home Medications Medication Instructions Recorded Confirmed Omeprazole 20 mg PO DAILY 07/14/18 03/03/19 Evolocumab [Repatha Syringe] 140 mg SQ QMONTH 02/17/19 03/03/19 Previous Rx's Medication Instructions Recorded Ezetimibe [Zetia] 10 mg PO DAILY #90 tab 07/16/18 Amitriptyline HCl [Elavil] 50 mg PO HS tab 11/24/18 Levothyroxine Sodium [Synthroid] 50 mcg PO DAILY@0630 30 Days #30 02/19/19 tab Acetaminophen Tab [Tylenol] 1,000 mg PO Q6HR PRN tab 03/02/19 Aspirin 325 mg PO DAILY tab 03/02/19 Clopidogrel [Plavix] 75 mg PO DAILY #30 tab 03/02/19 Sennosides-Docusate Sodium 2 each PO HS #14 tab 03/02/19 [Senokot-S] Fludrocortisone [Florinef] 0.1 mg PO DAILY #30 tab 03/05/19 Metoprolol Tartrate [Lopressor] 25 mg PO BID #90 tab 03/05/19 Allergies Allergy/AdvReac Type Severity Reaction Status Date / Time Sulfa (Sulfonamide Allergy Rash/Hives Verified 03/18/19 00:35 Antibiotics) ibuprofen [From Motrin] AdvReac Kidney Verified 03/18/19 00:35 issues morphine AdvReac Hallucinati Verified 03/18/19 00:35 ons Review of Systems ROS Statement: Those systems with pertinent positive or pertinent negative responses have been documented in the HPI. ROS Other: All systems not noted in ROS Statement are negative. Past Medical History Past Medical History: Coronary Artery Disease (CAD), Cancer, Chest Pain / Angina, GERD/Reflux, Hyperlipidemia, Hypertension, Myocardial Infarction (non Q- wave), Prostate Disorder Additional Past Medical History / Comment(s): prostate cancer, 7 stents, history of symptomatic bradycardia. Last Myocardial Infarction Date:: unknown History of Any Multi-Drug Resistant Organisms: None Reported Past Surgical History: Heart Catheterization With Stent, Hernia Repair, Prostate Surgery Additional Past Surgical History / Comment(s): Myocardial revascularization surgery 3 vessels on 02/26/[address] Grayson Wagoner. Triple bypass 02/26/2019 Past Anesthesia/Blood Transfusion Reactions: No Reported Reaction Date of Last Stent Placement:: November 2018 Past Psychological History: Depression Smoking Status: Never smoker Past Alcohol Use History: None Reported Past Drug Use History: None Reported - Past Family History Father Family Medical History: Coronary Artery Disease (CAD), Myocardial Infarction ([place]) Mother Additional Family Medical History / Comment(s): Alzheimer's General Exam - General Exam Comments Initial Comments: Physical Exam GENERAL: Patient is well-developed and well-nourished. Patient is nontoxic and well-hydrated and is in no distress. HENT: Normocephalic, Atraumatic. EYES: PERRL, EOMI PULMONARY: Unlabored respirations. No audible rales rhonchi or wheezing was noted. CARDIOVASCULAR: RRR Warm and well perfused extremities Well healing sternal incision with no signs of bleeding or infection ABDOMEN: Soft and nontender with normal bowel sounds. SKIN: Skin is clear with no lesions or rashes and otherwise unremarkable. : Deferred NEUROLOGIC: Patient is alert and oriented x3. Moving all extremities spontaneously MUSCULOSKELETAL: Normal extremities with adequate strength and full range of motion. No lower extremity swelling or edema. No calf tenderness. PSYCHIATRIC: Appropriate Limitations: no limitations Course Vital Signs 03/18/19 03/18/19 03/18/19 00:30 01:37 02:14 Temperature 98.1 F Pulse Rate 78 Pulse Rate [ 88 80 Sitting Quenching Car Operator] Pulse Rate [ 83 Standing Quenching Car Operator ] Pulse Rate [ 80 Supine Quenching Car Operator] Respiratory 18 18 17 Rate Blood Pressure 126/83 Blood Pressure 94/60 105/67 [Right Arm Sitting] Blood Pressure 87/50 [Right Arm Standing] Blood Pressure 98/59 [Right Arm Supine] O2 Sat by Pulse 97 97 97 Oximetry 03/18/19 03/18/19 03/18/19 03:38 04:40 05:22 Temperature 97.6 F 97.7 F Pulse Rate 80 81 Pulse Rate [ 96 Sitting Quenching Car Operator] Pulse Rate [ Standing Quenching Car Operator ] Pulse Rate [ 81 Supine Quenching Car Operator] Respiratory 18 17 16 Rate Blood Pressure 112/70 135/77 Blood Pressure 130/89 [Right Arm Sitting] Blood Pressure 157/92 [Right Arm Standing] Blood Pressure 127/77 [Right Arm Supine] O2 Sat by Pulse 99 98 97 Oximetry EKG Findings - EKG Comments: EKG Findings:: EKG obtained due to complaint of syncope - EKG obtained at 1236 exam, rate is 81 rhythm is sinus is a leftward axis, right bundle-branch block, MI 182, QRS 1:30, QTC 513 there is no acute ST elevations or depressions or evidence of acute ischemia or infarction. When EKG was compared to EKG obtained last month there is no significant change in morphology. Medical Decision Making - Medical Decision Making Patient was seen and evaluated, history obtained from patient, daughter and review of medical record Patient recently underwent CABG procedure and has been recovering well. Yesterday his Florinef was discontinued and he was started on lisinopril for blood pressure, he took his first dose today. Patient subsequently stood from a laying position.lightheaded and had a syncopal event The patient's postop course has been complicated by the of his , which is cause significant emotional distress. On arrival to the emergency department patient's blood pressure is mildly low 80s resting comfortably. He is orthostatic positive and very symptomatic upon standing. 500 mL of fluids were ordered. Labs were ordered He was given his home dose of Florinef. Labs reveal an improving anemia. Normal kidney function normal electrolytes troponin normal. Patient was reassessed after IV fluids he's been resting comfortably with no symptoms he is now able to sit and stand with out orthostatic changes. He is no longer having any orthostatic symptoms. She care was discussed with Dr. Segura cardiothoracic surgeon airways control specialist, he recommends patient be discharged home for follow-up in office on Tuesday. Patient and daughter bedside agreeable with this plan. - Lab Data Result diagrams: 03/18/19 00:41 03/18/19 00:41 Lab Results 03/18/19 03/18/19 03/18/19 Range/Units 00:41 00:41 00:41 WBC 6.7 (3.8-10.6) k/uL RBC 4.08 L (4.30-5.90) m/uL Hgb 10.4 L (13.0-17.5) gm/dL Hct 35.2 L (39.0-53.0) % MCV 86.4 (80.0-100.0) fL MCH 25.4 (25.0-35.0) pg MCHC 29.4 L (31.0-37.0) g/dL RDW 15.5 (11.5-15.5) % Plt Count 546 H (150-450) k/uL Neutrophils % (Manual) 57 % Band Neutrophils % 9 % Lymphocytes % (Manual) 24 % Monocytes % (Manual) 7 % Eosinophils % (Manual) 3 % Neutrophils # (Manual) 4.40 (1.3-7.7) k/uL Lymphocytes # (Manual) 1.61 (1.0-4.8) k/uL Monocytes # (Manual) 0.47 (0-1.0) k/uL Eosinophils # (Manual) 0.20 (0-0.7) k/uL Nucleated RBCs 0 (0-0) /100 WBC Manual Slide Review Performed Polychromasia Present Hypochromasia Marked Poikilocytosis (manual Present Anisocytosis (manual) Present PT 11.0 (9.0-12.0) sec INR 1.0 (<1.2) APTT 22.3 (22.0-30.0) sec Sodium 136 L (137-145) mmol/L Potassium 5.0 (3.5-5.1) mmol/L Chloride 106 (98-107) mmol/L Carbon Dioxide 17 L (22-30) mmol/L Anion Gap 13 mmol/L BUN 17 (9-20) mg/dL Creatinine 1.10 (0.66-1.25) mg/dL Est GFR (CKD-EPI)AfAm 77 (>60 ml/min/1.73 sqM) Est GFR (CKD-EPI)NonAf 66 (>60 ml/min/1.73 sqM) Glucose 127 H (74-99) mg/dL Calcium 8.5 (8.4-10.2) mg/dL Total Bilirubin 0.5 (0.2-1.3) mg/dL AST 41 (17-59) U/L ALT 38 (21-72) U/L Alkaline Phosphatase 85 (38-126) U/L Troponin I (0.000-0.034) ng/mL Total Protein 6.8 (6.3-8.2) g/dL Albumin 3.6 (3.5-5.0) g/dL 03/18/19 Range/Units 00:41 WBC (3.8-10.6) k/uL RBC (4.30-5.90) m/uL Hgb (13.0-17.5) gm/dL Hct (39.0-53.0) % MCV (80.0-100.0) fL MCH (25.0-35.0) pg MCHC (31.0-37.0) g/dL RDW (11.5-15.5) % Plt Count (150-450) k/uL Neutrophils % (Manual) % Band Neutrophils % % Lymphocytes % (Manual) % Monocytes % (Manual) % Eosinophils % (Manual) % Neutrophils # (Manual) (1.3-7.7) k/uL Lymphocytes # (Manual) (1.0-4.8) k/uL Monocytes # (Manual) (0-1.0) k/uL Eosinophils # (Manual) (0-0.7) k/uL Nucleated RBCs (0-0) /100 WBC Manual Slide Review Polychromasia Hypochromasia Poikilocytosis (manual Anisocytosis (manual) PT (9.0-12.0) sec INR (<1.2) APTT (22.0-30.0) sec Sodium (137-145) mmol/L Potassium (3.5-5.1) mmol/L Chloride (98-107) mmol/L Carbon Dioxide (22-30) mmol/L Anion Gap mmol/L BUN (9-20) mg/dL Creatinine (0.66-1.25) mg/dL Est GFR (CKD-EPI)AfAm (>60 ml/min/1.73 sqM) Est GFR (CKD-EPI)NonAf (>60 ml/min/1.73 sqM) Glucose (74-99) mg/dL Calcium (8.4-10.2) mg/dL Total Bilirubin (0.2-1.3) mg/dL AST (17-59) U/L ALT (21-72) U/L Alkaline Phosphatase (38-126) U/L Troponin I 0.022 (0.000-0.034) ng/mL Total Protein (6.3-8.2) g/dL Albumin (3.5-5.0) g/dL Disposition Clinical Impression: Orthostatic hypotension Disposition: HOME SELF-CARE Condition: Stable Instructions (If sedation given, give patient instructions): Syncope (DC) Additional Instructions: Do not take the lisinopril until you follow up with your physician Make sure he drink plenty of fluids and stay hydrated Take time when positioning from laying down to sitting or sitting to standing and her blood pressure may drop and make you feel lightheaded. If he feels lightheaded immediately sit back down. Is patient prescribed a controlled substance at d/c from ED?: No Referrals: Rubin Duran DO [Primary Care Provider] - 1-2 days
[2019-03-18 02:05] LABS: Anisocytosis (M) Present; Band Neutrophils % 9 %; Lymphocytes # (M) 1.61 k/uL (1.0-4.8); Monocytes # (M) 0.47 k/uL (0-1.0); Neutrophils % (M) 57 %; Nucleated Red Blood Cells 0 /100 WBC (0-0); Polychromasia Present; Total Cells Counted 100
[2019-03-18 02:06] LABS: Poikilocytosis (M) Present
[2019-03-18 04:52] VITALS: PULSE 81
[2019-03-18 05:26] VITALS: BP 135/77; RESP 16; TEMP 97.7
== END 2019-03-18 05:50 | disposition home or self-care (01) ==
LOC: EC 00:29
DX: I95.1 Orthostatic hypotension (principal); D64.9 Anemia, unspecified; I25.119 Atherosclerotic heart disease of native coronary artery with unspecified angina pectoris; I25.2 Old myocardial infarction; K21.9 Gastro-esophageal reflux disease without esophagitis; E78.5 Hyperlipidemia, unspecified; Z79.899 Other long term (current) drug therapy; Z88.2 Allergy status to sulfonamides; Z88.6 Allergy status to analgesic agent; Z88.5 Allergy status to narcotic agent; Z85.46 Personal history of malignant neoplasm of prostate; Z95.5 Presence of coronary angioplasty implant and graft; Z63.0 Problems in relationship with spouse or partner; Z95.1 Presence of aortocoronary bypass graft; Z82.49 Family history of ischemic heart disease and other diseases of the circulatory system
CPT/HCPCS: 36415; 71046; 80053; 84484; 85025; 85610; 85730; 93005; 99285

== ENCOUNTER 2020-11-28 16:56 | Inpatient (IN) | payer MEDICARE ==
[2020-11-28] MEDS ORDERED: ONDANSETRON 4 MG/2 ML VIAL IVP STA (17:33)
[2020-11-28] MEDS ORDERED: DEXTROSE 50% SYRINGE 50 ML IVP STA ×2 (17:33→18:37)
--- NOTE | 2020-11-28 17:35 | ED ---
General Adult HPI - General Chief complaint: Recheck/Abnormal Lab/Rx Stated complaint: shaking Time Seen by Provider: 11/28/20 17:14 Source: patient Mode of arrival: ambulatory Limitations: no limitations - History of Present Illness Initial comments: 75-year-old male presents to the emergency department with chief complaint of tremors in his body. Patient states about 1.5 hours prior to arrival, she began feeling tremulous in his torso and arms and had chills but no fever. States she also reports feeling more anxious than usual. States he also had a candy bar because he had a concern for hypoglycemia. Patient reports the air conditioner was on, he turned it off but continued to shake. Denies any chest pain shortness of breath at this time. He is not diabetic. Does report a headache but states he has history of migraines and this feels somewhat like it along with the nausea and photosensitivity. 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 Denies any neck pain or stiffness at this time. Has history of CAD with triple bypass. - Related Data Home Medications Medication Instructions Recorded Confirmed Omeprazole 20 mg PO HS 07/14/18 11/28/20 Evolocumab [Repatha Syringe] 140 mg SQ QMONTH 02/17/19 11/28/20 Aspirin EC [Ecotrin Low Dose] 81 mg PO DAILY 11/28/20 11/28/20 Levothyroxine Sodium [Synthroid] 50 mcg PO DAILY 11/28/20 11/28/20 Valsartan 80 mg PO DAILY 11/28/20 11/28/20 Previous Rx's Medication Instructions Recorded Ezetimibe [Zetia] 10 mg PO DAILY #90 tab 07/16/18 Metoprolol Tartrate [Lopressor] 25 mg PO BID #90 tab 03/05/19 Allergies Allergy/AdvReac Type Severity Reaction Status Date / Time Sulfa (Sulfonamide Allergy Rash/Hives Verified 11/28/20 22:05 Antibiotics) ibuprofen [From Motrin] AdvReac Kidney Verified 11/28/20 22:05 issues morphine AdvReac Hallucinati Verified 11/28/20 22:05 ons Review of Systems ROS Statement: Those systems with pertinent positive or pertinent negative responses have been documented in the HPI. ROS Other: All systems not noted in ROS Statement are negative. Past Medical History Past Medical History: Coronary Artery Disease (CAD), Cancer, Chest Pain / Angina, GERD/Reflux, Hyperlipidemia, Hypertension, Myocardial Infarction (non Q- wave), Prostate Disorder Additional Past Medical History / Comment(s): prostate cancer, 7 stents, history of symptomatic bradycardia. Last Myocardial Infarction Date:: unknown History of Any Multi-Drug Resistant Organisms: None Reported Past Surgical History: Heart Catheterization With Stent, Hernia Repair, Prostate Surgery Additional Past Surgical History / Comment(s): Myocardial revascularization surgery 3 vessels on 02/26/[address] Grayson Wagoner. Triple bypass 02/26/2019 Past Anesthesia/Blood Transfusion Reactions: No Reported Reaction Date of Last Stent Placement:: November 2018 Past Psychological History: Depression Smoking Status: Never smoker Past Alcohol Use History: None Reported Past Drug Use History: None Reported - Past Family History Father Family Medical History: Coronary Artery Disease (CAD), Myocardial Infarction ([place]) Mother Additional Family Medical History / Comment(s): Alzheimer's General Exam Limitations: no limitations General appearance: alert, in no apparent distress, anxious, other (Tremors in the arms and torso) Head exam: Present: atraumatic, normocephalic, normal inspection Eye exam: Present: normal appearance, PERRL, EOMI Pupils: Present: normal accommodation ENT exam: Present: normal exam, normal oropharynx, mucous membranes moist Neck exam: Present: normal inspection, full ROM. Absent: tenderness, meningismus, lymphadenopathy Respiratory exam: Present: normal lung sounds bilaterally. Absent: respiratory distress, wheezes, rales, rhonchi, stridor Cardiovascular Exam: Present: regular rate, normal rhythm, normal heart sounds. Absent: systolic murmur GI/Abdominal exam: Present: soft. Absent: distended, tenderness, guarding, rebound Extremities exam: Present: normal inspection, full ROM, normal capillary refill. Absent: tenderness, pedal edema, joint swelling Back exam: Present: normal inspection, full ROM. Absent: tenderness, CVA tenderness (R), CVA tenderness (L) Neurological exam: Present: alert, oriented X3 Psychiatric exam: Present: normal affect, normal mood Skin exam: Present: warm, dry, intact, normal color Course Vital Signs 11/28/20 11/28/20 11/28/20 16:58 18:54 20:58 Temperature 98.1 F 100.8 F H Pulse Rate 85 104 H 115 H Respiratory 18 18 18 Rate Blood Pressure 188/86 103/58 122/75 O2 Sat by Pulse 100 98 95 Oximetry 11/28/20 21:56 Temperature 101.5 F H Pulse Rate 117 H Respiratory 18 Rate Blood Pressure 105/56 O2 Sat by Pulse 98 Oximetry EKG Findings - EKG Comments: EKG Findings:: sinus tachycardia with a bifascicular block. Ventricular rate 107, [place] 202, QRS 126, QTc 461. Medical Decision Making - Medical Decision Making 75-year-old male presents to the emergency department with chief complaint of tremors in his body. On physical examination, patient was initially tremulous in his upper extremities and torso. Accu-Chek was immediately obtained which showed a blood glucose of 43. Patient was given 1 amp of D50. However on reevaluation, his blood glucose went up to 97 then dropped to 87. Patient was given additional D50 and given oral fluids and food. He did have some nausea vomiting initially but that resolved after Zofran. Laboratory work obtained shows leukopenia. CMP reveals BUN of 23 and creatinine 1.33. Patient was initially given 1 L of IV bolus fluids.His initial vitals are within normal limits. Patient did not complain of any respiratory or urinary symptoms. On reevaluation, the tremors resolved the patient reported feeling better. However, throughout ED stay the patient developed a fever. He also reported feeling slightly "foggy". At that point, there was a concern for possible infection so UA, chest x-ray, lactic acid and blood cultures were obtained and 1 g Rocephin and IVF was administered. Elevated lactic acid of 4.2 with a negative UA and chest x-ray. Covid negative. Patient was reevaluated again, he did not have any neck stiffness or meningeal signs. Dr. Gonzalez Also evaluated patient and recommended admission for further medical treatment. Patient will also be started on vancomycin and cefepime. Case was discussed with Dr. Acevedo who will admit patient for further medical management. - Lab Data Result diagrams: 11/28/20 17:39 11/28/20 17:39 Lab Results 11/28/20 11/28/20 11/28/20 Range/Units 17:31 17:35 17:39 WBC 3.2 L (3.8-10.6) k/uL RBC 6.13 H (4.30-5.90) m/uL Hgb 14.2 (13.0-17.5) gm/dL Hct 48.1 (39.0-53.0) % MCV 78.4 L (80.0-100.0) fL MCH 23.1 L (25.0-35.0) pg MCHC 29.5 L (31.0-37.0) g/dL RDW 17.0 H (11.5-15.5) % Plt Count 275 (150-450) k/uL MPV 6.2 Neutrophils % 80 % Lymphocytes % 13 % Monocytes % 5 % Eosinophils % 1 % Basophils % 0 % Neutrophils # 2.6 (1.3-7.7) k/uL Lymphocytes # 0.4 L (1.0-4.8) k/uL Monocytes # 0.2 (0-1.0) k/uL Eosinophils # 0.0 (0-0.7) k/uL Basophils # 0.0 (0-0.2) k/uL Hypochromasia Marked Anisocytosis Slight Microcytosis Slight PT (9.0-12.0) sec INR (<1.2) APTT (22.0-30.0) sec Sodium (137-145) mmol/L Potassium (3.5-5.1) mmol/L Chloride (98-107) mmol/L Carbon Dioxide (22-30) mmol/L Anion Gap mmol/L BUN (9-20) mg/dL Creatinine (0.66-1.25) mg/dL Est GFR (CKD-EPI)AfAm (>60 ml/min/1.73 sqM) Est GFR (CKD-EPI)NonAf (>60 ml/min/1.73 sqM) Glucose (74-99) mg/dL POC Glucose (mg/dL) 48 L 51 L (75-99) mg/dL POC Glu House Coordinator ID Guatemalan, Esme Guatemalan, Esme Plasma Lactic Acid Aniket (0.7-2.0) mmol/L Calcium (8.4-10.2) mg/dL Total Bilirubin (0.2-1.3) mg/dL AST (17-59) U/L ALT (4-49) U/L Alkaline Phosphatase (38-126) U/L Troponin I (0.000-0.034) ng/mL Total Protein (6.3-8.2) g/dL Albumin (3.5-5.0) g/dL Urine Color Urine Appearance (Clear) Urine pH (5.0-8.0) Ur Specific [place] (1.001-1.035) Urine Protein (Negative) Urine Glucose (UA) (Negative) Urine Ketones (Negative) Urine Blood (Negative) Urine Nitrite (Negative) Urine Bilirubin (Negative) Urine Urobilinogen (<2.0) mg/dL Ur Leukocyte Esterase (Negative) Coronavirus (PCR) (Not Detectd) 11/28/20 11/28/20 11/28/20 Range/Units 17:39 17:39 17:39 WBC (3.8-10.6) k/uL RBC (4.30-5.90) m/uL Hgb (13.0-17.5) gm/dL Hct (39.0-53.0) % MCV (80.0-100.0) fL MCH (25.0-35.0) pg MCHC (31.0-37.0) g/dL RDW (11.5-15.5) % Plt Count (150-450) k/uL MPV Neutrophils % % Lymphocytes % % Monocytes % % Eosinophils % % Basophils % % Neutrophils # (1.3-7.7) k/uL Lymphocytes # (1.0-4.8) k/uL Monocytes # (0-1.0) k/uL Eosinophils # (0-0.7) k/uL Basophils # (0-0.2) k/uL Hypochromasia Anisocytosis Microcytosis PT 11.0 (9.0-12.0) sec INR 1.0 (<1.2) APTT 19.8 L (22.0-30.0) sec Sodium 139 (137-145) mmol/L Potassium 5.0 (3.5-5.1) mmol/L Chloride 104 (98-107) mmol/L Carbon Dioxide 21 L (22-30) mmol/L Anion Gap 14 mmol/L BUN 23 H (9-20) mg/dL Creatinine 1.33 H (0.66-1.25) mg/dL Est GFR (CKD-EPI)AfAm 60 (>60 ml/min/1.73 sqM) Est GFR (CKD-EPI)NonAf 52 (>60 ml/min/1.73 sqM) Glucose 91 (74-99) mg/dL POC Glucose (mg/dL) (75-99) mg/dL POC Glu House Coordinator ID Plasma Lactic Acid Aniket (0.7-2.0) mmol/L Calcium 9.4 (8.4-10.2) mg/dL Total Bilirubin 0.4 (0.2-1.3) mg/dL AST 46 (17-59) U/L ALT 24 (4-49) U/L Alkaline Phosphatase 112 (38-126) U/L Troponin I <0.012 (0.000-0.034) ng/mL Total Protein 8.0 (6.3-8.2) g/dL Albumin 4.6 (3.5-5.0) g/dL Urine Color Urine Appearance (Clear) Urine pH (5.0-8.0) Ur Specific [place] (1.001-1.035) Urine Protein (Negative) Urine Glucose (UA) (Negative) Urine Ketones (Negative) Urine Blood (Negative) Urine Nitrite (Negative) Urine Bilirubin (Negative) Urine Urobilinogen (<2.0) mg/dL Ur Leukocyte Esterase (Negative) Coronavirus (PCR) (Not Detectd) 11/28/20 11/28/20 11/28/20 Range/Units 17:57 18:37 18:49 WBC (3.8-10.6) k/uL RBC (4.30-5.90) m/uL Hgb (13.0-17.5) gm/dL Hct (39.0-53.0) % MCV (80.0-100.0) fL MCH (25.0-35.0) pg MCHC (31.0-37.0) g/dL RDW (11.5-15.5) % Plt Count (150-450) k/uL MPV Neutrophils % % Lymphocytes % % Monocytes % % Eosinophils % % Basophils % % Neutrophils # (1.3-7.7) k/uL Lymphocytes # (1.0-4.8) k/uL Monocytes # (0-1.0) k/uL Eosinophils # (0-0.7) k/uL Basophils # (0-0.2) k/uL Hypochromasia Anisocytosis Microcytosis PT (9.0-12.0) sec INR (<1.2) APTT (22.0-30.0) sec Sodium (137-145) mmol/L Potassium (3.5-5.1) mmol/L Chloride (98-107) mmol/L Carbon Dioxide (22-30) mmol/L Anion Gap mmol/L BUN (9-20) mg/dL Creatinine (0.66-1.25) mg/dL Est GFR (CKD-EPI)AfAm (>60 ml/min/1.73 sqM) Est GFR (CKD-EPI)NonAf (>60 ml/min/1.73 sqM) Glucose (74-99) mg/dL POC Glucose (mg/dL) 97 87 (75-99) mg/dL POC Glu House Coordinator Cecile Woodruff Zackary Plasma Lactic Acid Aniket (0.7-2.0) mmol/L Calcium (8.4-10.2) mg/dL Total Bilirubin (0.2-1.3) mg/dL AST (17-59) U/L ALT (4-49) U/L Alkaline Phosphatase (38-126) U/L Troponin I (0.000-0.034) ng/mL Total Protein (6.3-8.2) g/dL Albumin (3.5-5.0) g/dL Urine Color Urine Appearance (Clear) Urine pH (5.0-8.0) Ur Specific [place] (1.001-1.035) Urine Protein (Negative) Urine Glucose (UA) (Negative) Urine Ketones (Negative) Urine Blood (Negative) Urine Nitrite (Negative) Urine Bilirubin (Negative) Urine Urobilinogen (<2.0) mg/dL Ur Leukocyte Esterase (Negative) Coronavirus (PCR) Not Detected (Not Detectd) 11/28/20 11/28/20 11/28/20 Range/Units 19:34 20:49 20:49 WBC (3.8-10.6) k/uL RBC (4.30-5.90) m/uL Hgb (13.0-17.5) gm/dL Hct (39.0-53.0) % MCV (80.0-100.0) fL MCH (25.0-35.0) pg MCHC (31.0-37.0) g/dL RDW (11.5-15.5) % Plt Count (150-450) k/uL MPV Neutrophils % % Lymphocytes % % Monocytes % % Eosinophils % % Basophils % % Neutrophils # (1.3-7.7) k/uL Lymphocytes # (1.0-4.8) k/uL Monocytes # (0-1.0) k/uL Eosinophils # (0-0.7) k/uL Basophils # (0-0.2) k/uL Hypochromasia Anisocytosis Microcytosis PT (9.0-12.0) sec INR (<1.2) APTT (22.0-30.0) sec Sodium (137-145) mmol/L Potassium (3.5-5.1) mmol/L Chloride (98-107) mmol/L Carbon Dioxide (22-30) mmol/L Anion Gap mmol/L BUN (9-20) mg/dL Creatinine (0.66-1.25) mg/dL Est GFR (CKD-EPI)AfAm (>60 ml/min/1.73 sqM) Est GFR (CKD-EPI)NonAf (>60 ml/min/1.73 sqM) Glucose (74-99) mg/dL POC Glucose (mg/dL) 95 (75-99) mg/dL POC Glu House Coordinator ID Kirk Camacho Plasma Lactic Acid Aniket 4.1 H* (0.7-2.0) mmol/L Calcium (8.4-10.2) mg/dL Total Bilirubin (0.2-1.3) mg/dL AST (17-59) U/L ALT (4-49) U/L Alkaline Phosphatase (38-126) U/L Troponin I (0.000-0.034) ng/mL Total Protein (6.3-8.2) g/dL Albumin (3.5-5.0) g/dL Urine Color Yellow Urine Appearance Clear (Clear) Urine pH 5.5 (5.0-8.0) Ur Specific [place] 1.012 (1.001-1.035) Urine Protein Negative (Negative) Urine Glucose (UA) 1+ H (Negative) Urine Ketones Negative (Negative) Urine Blood Negative (Negative) Urine Nitrite Negative (Negative) Urine Bilirubin Negative (Negative) Urine Urobilinogen <2.0 (<2.0) mg/dL Ur Leukocyte Esterase Negative (Negative) Coronavirus (PCR) (Not Detectd) Disposition Clinical Impression: Sepsis, Hypoglycemia Disposition: ADMITTED IP TO THIS HOSP Condition: Fair Is patient prescribed a controlled substance at d/c from ED?: No Referrals: Clara Morales MD [Primary Care Provider] - 1-2 days Time of Disposition: 22:21
[2020-11-28 17:36] LABS: Glucose,Whole Blood 48 mg/dL (75-99)
[2020-11-28 17:36] LABS: Glucose,Whole Blood 51 mg/dL (75-99)
[2020-11-28 17:49] LABS: Anisocytosis Slight; Basophils % (A) 0 %; Eosinophils % (A) 1 %; HCT 48.1 % (39.0-53.0); HGB 14.2 gm/dL (13.0-17.5); Hypochromasia Marked; Lymphocytes # (A) 0.4 k/uL (1.0-4.8); Lymphocytes % (A) 13 %; MCH 23.1 pg (25.0-35.0); MCHC 29.5 g/dL (31.0-37.0); MCV 78.4 fL (80.0-100.0); Mean Platelet Volume 6.2; Microcytosis Slight; Monocytes # (A) 0.2 k/uL (0-1.0); Monocytes % (A) 5 %; Neutrophils # (A) 2.6 k/uL (1.3-7.7); Neutrophils % (A) 80 %; RBC 6.13 m/uL (4.30-5.90); WBC 3.2 k/uL (3.8-10.6)
[2020-11-28 17:58] LABS: Glucose,Whole Blood 97 mg/dL (75-99)
[2020-11-28 18:16] LABS: Albumin 4.6 g/dL (3.5-5.0); Calcium 9.4 mg/dL (8.4-10.2); Total Bilirubin 0.4 mg/dL (0.2-1.3)
[2020-11-28 18:17] LABS: Partial Thromboplastin Time 19.8 sec (22.0-30.0)
[2020-11-28 18:28] LABS: Platelet Count 275 k/uL (150-450)
[2020-11-28 18:38] LABS: Glucose,Whole Blood 87 mg/dL (75-99)
[2020-11-28 19:36] LABS: Glucose,Whole Blood 95 mg/dL (75-99)
[2020-11-28] MEDS ORDERED: SODIUM CHLORIDE 0.9% 1,000 ML IV STA ×2 (19:38→20:30)
[2020-11-28] MEDS ORDERED: cefTRIAXone IN SWFI 1,000 MG/10 ML SYRINGE IVP STA (20:29)
[2020-11-28] MEDS ORDERED: ACETAMINOPHEN TAB 325 MG TAB PO STA (20:29)
[2020-11-28] MEDS ORDERED: NALOXONE 0.4 MG/ML 1 ML VIAL IV PRN (20:36)
[2020-11-28] MEDS ORDERED: LORazepam 2 MG/ML INJ IV PRN (20:36)
[2020-11-28] MEDS ORDERED: ONDANSETRON 4 MG/2 ML VIAL IVP PRN (20:36)
--- NOTE | 2020-11-28 21:12 | XR ---
EXAMINATION TYPE: XR chest 2V DATE OF EXAM: 11/28/2020 COMPARISON: NONE HISTORY: Syncope TECHNIQUE: 3 views FINDINGS: There is no heart failure nor confluent pneumonic infiltrate. There are sternal wires. Cost ophrenic angles are clear. Bony thorax is intact. IMPRESSION: No active cardiopulmonary disease. Normal heart. No change.
[2020-11-28 21:19] LABS: Appearance,Urine Clear (Clear); Bilirubin,Urine Negative (Negative); Blood,Urine Negative (Negative); Color,Urine Yellow; Glucose,Urine (UA) 1+ (Negative); Ketones,Urine Negative (Negative); Leukocyte Esterase,Urine Negative (Negative); Nitrite,Urine Negative (Negative); PH, Urine 5.5 (5.0-8.0); Protein,Urine Negative (Negative); Specific Gravity,Urine 1.012 (1.001-1.035); Urobilinogen,Urine <2.0 mg/dL (<2.0)
[2020-11-28] MEDS ORDERED: VANCOMYCIN IV PER PHARMACY 1 EACH MISC MISCELLANE PRN (21:37)
[2020-11-28] MEDS ORDERED: VANCOMYCIN 1,500 MG in SODIUM CHLORIDE 0.9% 250 ML IVPB STA (21:42)
[2020-11-28] MEDS ORDERED: CEFEPIME 2 GM in SODIUM CHLORIDE 0.9% 100 ML IVPB STA (22:06)
[2020-11-28 23:14] LABS: Glucose,Whole Blood 97 mg/dL (75-99)
--- NOTE | 2020-11-28 23:57 | P.HPIM ---
History of Present Illness H&P Date: 11/28/20 The patient is a 75-year-old male with a PMH of coronary artery disease status post CABG and chronic kidney disease who presents to the emergency room after an episode of tremors and confusion. The patient reports that he had been in his usual state of health until about 4 PM when he began feeling uneasy and subsequently developed bilateral upper extremity tremors. The patient called his daughter who then brought him into the emergency room. He reports having a history of having hypoglycemic episodes several years ago, though is not diabetic. He reports that his tremors resolved after receiving medication in the emergency room. The son at the bedside also notes that the patient had appeared to be somewhat confused when they were bringing him into the emergency room and was acting strangely. The patient notes that he had a normal lunch at 2 PM consisting of a peanut butter sandwich and Cheerios. He had a migraine earlier today which resolved spontaneously prior to coming into the emergency room. Reports a mild runny nose which he attributes to his chronic seasonal ALLERGIES. He underwent wasn't with extraction 3 weeks ago and was given a course of antibiotics at that time. Reports feeling back to his baseline at the time of evaluation. In the emergency room, the patient was noted to be febrile with a T-max of 101.5 and a pulse of 117. The patient denied feeling feverish and notes that he feels well. Denied a history of sepsis, infections, or having received antibiotics aside from the course after the tooth extraction. Denied experiencing cough, chest discomfort, abdominal pain, vomiting, diarrhea. Denies extension dysuria, urinary frequency, neck pain, visual disturbances. Denied leg pain or recent travel or sick contacts. The patient underwent an extensive evaluation in the emergency room with chest x-ray that was unremarkable, and EKG showing sinus tachycardia with a bifascicular block (left anterior fascicular block not seen on prior EKGs). Laboratory evaluation was remarkable for a blood glucose of 48, WBC count of 3.2, platelet count 275, sodium 139, potassium 5.0, chloride 104, CO2 21, BUN 23, creatinine 1.33, lactic acid 4.1, troponin less than 0.012, UA unremarkable, and quezada virus PCR negative. The patient was given broad-spectrum IV antibiotics with vancomycin and cefepime along with IV fluids and is being admitted for further management. Review of systems: Pertinent positives and negatives as discussed in HPI, a complete review of systems was performed and all other systems are negative. Physical examination: General: non toxic, no distress, appears at stated age, obese Derm: no unusual rashes/lesions no unusual ecchymoses, warm, dry Head: atraumatic, normocephalic, symmetric, no facial tenderness Eyes: EOMI, no lid lag, anicteric sclera, pupils equal round reactive to light ENT: Nose and ears atraumatic, no thrush, no pharyngeal erythema Neck: No thyromegaly, no cervical lymphadenopathy, trachea midline, supple Mouth: no lip lesion, mucus membranes moist Cardiovascular: S1S2 reg, no murmur, positive posterior tibial pulse bilateral, no edema, capillary refill less than 2 seconds Lungs: CTA bilateral, no rhonchi, no rales , no accessory muscle use Abdominal: soft, nontender to palpation, no guarding, no appreciable organomegaly, normal bowel sounds Ext: no gross muscle atrophy, muscle strength 5 out of 5 in all 4 extremities grossly, no contractures, no calf tenderness Neuro: CN II-XI grossly intact, light touch intact all 4 extremities, finger to nose within normal limits, Kernig's and Brudzinski's negative Psych: Alert, oriented, appropriate affect Assessment/plan SIRS, of unknown source -Continue vancomycin and cefepime for broad-spectrum antibiotic coverage at this time -Continue with IV fluids -Infectious disease consult -Follow up blood cultures Hypoglycemia, suspected secondary to SIRS -Continue with above management -Blood glucose monitoring -Continue with diet Lactic acidosis -Continue with IV fluids and monitor to resolution Leukopenia, suspected secondary to ongoing SIRS -Monitor for now Chronic kidney disease, at baseline -Monitor for now DVT prophylaxis -Heparin subq The patient is admitted with an anticipated greater than 2 midnight stay for evaluation of SIRS CODE STATUS: Full Code Discussed with: Patient, Son Anticipated discharge date: 2-[address]: Home A total of 35 minutes was spent on the care of this complex patient more than 50 % of the time was spent in counseling and care coordination. Past Medical History Past Medical History: Coronary Artery Disease (CAD), Cancer, Chest Pain / Guillermina na, GERD/Reflux, Hyperlipidemia, Hypertension, Myocardial Infarction (non Q- wave), Prostate Disorder Additional Past Medical History / Comment(s): prostate cancer, 7 stents, history of symptomatic bradycardia. Last Myocardial Infarction Date:: unknown History of Any Multi-Drug Resistant Organisms: None Reported Past Surgical History: Heart Catheterization With Stent, Hernia Repair, Prostate Surgery Additional Past Surgical History / Comment(s): Myocardial revascularization surgery 3 vessels on 02/26/[address] Grayson Wagoner. Triple bypass 02/26/2019 Past Anesthesia/Blood Transfusion Reactions: No Reported Reaction Date of Last Stent Placement:: November 2018 Past Psychological History: Depression Smoking Status: Never smoker Past Alcohol Use History: None Reported Past Drug Use History: None Reported - Past Family History Father Family Medical History: Coronary Artery Disease (CAD), Myocardial Infarction ([place]) Mother Additional Family Medical History / Comment(s): Alzheimer's Medications and Allergies Home Medications Medication Instructions Recorded Confirmed Type Omeprazole 20 mg PO HS 07/14/18 11/28/20 History Ezetimibe [Zetia] 10 mg PO DAILY #90 tab 07/16/18 11/28/20 Rx Evolocumab [Repatha Syringe] 140 mg SQ QMONTH 02/17/19 11/28/20 History Metoprolol Tartrate [Lopressor] 25 mg PO BID #90 tab 03/05/19 11/28/20 Rx Aspirin EC [Ecotrin Low Dose] 81 mg PO DAILY 11/28/20 11/28/20 History Levothyroxine Sodium [Synthroid] 50 mcg PO DAILY 11/28/20 11/28/20 History Valsartan 80 mg PO DAILY 11/28/20 11/28/20 History Allergies Allergy/AdvReac Type Severity Reaction Status Date / Time Sulfa (Sulfonamide Allergy Rash/Hives Verified 11/28/20 22:05 Antibiotics) ibuprofen [From Motrin] AdvReac Kidney Verified 11/28/20 22:05 issues morphine AdvReac Hallucinati Verified 11/28/20 22:05 ons Physical Exam Vitals: Vital Signs Temp Pulse Resp BP Pulse Ox 11/28/20 23:24 107 H 18 104/63 99 11/28/20 22:27 99.3 F 111 H 11/28/20 21:56 101.5 F H 117 H 18 105/56 98 11/28/20 20:58 100.8 F H 115 H 18 122/75 95 11/28/20 18:54 104 H 18 103/58 98 11/28/20 16:58 98.1 F 85 18 188/86 100 Intake and Output 11/28/20 11/28/20 11/29/20 14:59 22:59 06:59 Output Total 500 Balance -500 Output: Urine 500 Uretheral (Segal) 500 Other: Weight 97.522 kg Results CBC & Chem 7: 11/28/20 17:39 11/28/20 17:39 Labs: Abnormal Lab Results - Last 24 Hours (Table) 11/28/20 11/28/20 11/28/20 Range/Units 17:31 17:35 17:39 WBC 3.2 L (3.8-10.6) k/uL RBC 6.13 H (4.30-5.90) m/uL MCV 78.4 L (80.0-100.0) fL MCH 23.1 L (25.0-35.0) pg MCHC 29.5 L (31.0-37.0) g/dL RDW 17.0 H (11.5-15.5) % Lymphocytes # 0.4 L (1.0-4.8) k/uL APTT (22.0-30.0) sec Carbon Dioxide (22-30) mmol/L BUN (9-20) mg/dL Creatinine (0.66-1.25) mg/dL POC Glucose (mg/dL) 48 L 51 L (75-99) mg/dL Plasma Lactic Acid Aniket (0.7-2.0) mmol/L Urine Glucose (UA) (Negative) 11/28/20 11/28/20 11/28/20 Range/Units 17:39 17:39 20:49 WBC (3.8-10.6) k/uL RBC (4.30-5.90) m/uL MCV (80.0-100.0) fL MCH (25.0-35.0) pg MCHC (31.0-37.0) g/dL RDW (11.5-15.5) % Lymphocytes # (1.0-4.8) k/uL APTT 19.8 L (22.0-30.0) sec Carbon Dioxide 21 L (22-30) mmol/L BUN 23 H (9-20) mg/dL Creatinine 1.33 H (0.66-1.25) mg/dL POC Glucose (mg/dL) (75-99) mg/dL Plasma Lactic Acid Aniket (0.7-2.0) mmol/L Urine Glucose (UA) 1+ H (Negative) 11/28/20 Range/Units 20:49 WBC (3.8-10.6) k/uL RBC (4.30-5.90) m/uL MCV (80.0-100.0) fL MCH (25.0-35.0) pg MCHC (31.0-37.0) g/dL RDW (11.5-15.5) % Lymphocytes # (1.0-4.8) k/uL APTT (22.0-30.0) sec Carbon Dioxide (22-30) mmol/L BUN (9-20) mg/dL Creatinine (0.66-1.25) mg/dL POC Glucose (mg/dL) (75-99) mg/dL Plasma Lactic Acid Aniket 4.1 H* (0.7-2.0) mmol/L Urine Glucose (UA) (Negative)
[2020-11-29] MEDS: HEPARIN SODIUM,PORCINE/PF 5,000 UNIT/0.5 ML SYRINGE SQ SCH ×4 (01:51→23:16)
[2020-11-29] MEDS ORDERED: CEFEPIME 2 GM in SODIUM CHLORIDE 0.9% 100 ML IVPB SCH ×2 (06:00→16:00)
[2020-11-29 07:23] LABS: Glucose,Whole Blood 81 mg/dL (75-99)
[2020-11-29] MEDS: LEVOTHYROXINE 50 MCG TAB PO SCH (07:47)
[2020-11-29] MEDS: METOPROLOL TARTRATE 25 MG TAB PO SCH ×2 (07:47→19:22)
[2020-11-29] MEDS: ASPIRIN 81 MG PO SCH (07:47)
[2020-11-29] MEDS: ACETAMINOPHEN TAB 325 MG TAB PO PRN ×2 (07:48→19:20)
[2020-11-29 08:29] LABS: Anisocytosis Slight; Basophils # (A) 0.1 k/uL (0-0.2); Basophils % (A) 0 %; Eosinophils % (A) 0 %; HCT 36.5 % (39.0-53.0); HGB 11.6 gm/dL (13.0-17.5); Hypochromasia Marked; Lymphocytes # (A) 0.7 k/uL (1.0-4.8); Lymphocytes % (A) 3 %; MCH 24.4 pg (25.0-35.0); MCHC 31.7 g/dL (31.0-37.0); Mean Platelet Volume 6.7; Microcytosis Slight; Monocytes % (A) 5 %; Neutrophils # (A) 17.5 k/uL (1.3-7.7); Neutrophils % (A) 90 %; Platelet Count 204 k/uL (150-450); RBC 4.74 m/uL (4.30-5.90); RDW 16.8 % (11.5-15.5); WBC 19.4 k/uL (3.8-10.6)
[2020-11-29 08:37] LABS: ALT 29 U/L (4-49); AST 47 U/L (17-59); African American GFR (CKD) 45 (>60 ml/min/1.73 sqM); Albumin/Globulin Ratio 1.2; Alkaline Phosphatase 63 U/L (38-126); Anion Gap 7 mmol/L; Blood Urea Nitrogen 26 mg/dL (9-20); Calcium 7.7 mg/dL (8.4-10.2); Carbon Dioxide 24 mmol/L (22-30); Chloride 106 mmol/L (98-107); Globulin 2.6 g/dL; Glucose 85 mg/dL (74-99); Magnesium 1.7 mg/dL (1.6-2.3); Non-African American GFR(CKD) 39 (>60 ml/min/1.73 sqM); Potassium 4.6 mmol/L (3.5-5.1); Sodium 137 mmol/L (137-145); Total Bilirubin 0.3 mg/dL (0.2-1.3); Total Protein 5.6 g/dL (6.3-8.2)
[2020-11-29] MEDS ORDERED: PANTOPRAZOLE 40 MG/10 ML VIAL IV SCH (09:00)
--- NOTE | 2020-11-29 10:23 | P.PN ---
Subjective Progress Note Date: 11/29/20 Hospital course: Patient is a 75-year-old male with a past medical history of CAD with previous [place] resulting in placement of 7 stents and CABG (triple bypass), hypertension, hyperlipidemia, CKD, and history of prostate cancer in remission since 2008. Patient presented to the emergency department secondary to reports of feeling weak, uneasy, and tremulous. Patient was seen and fully evaluated in the emergency department. He was found to be hypoglycemic with blood glucose of 48 and have signs of sepsis with temp of 101.5F, heart rate 117, lactate 4.1, and neutropenia with WBC count of 3.2. Chest x-ray was completed which was negative for acute cardiopulmonary process. Urinalysis negative for infection. EKG sinus tachycardia at 107 bpm with a bifascicular block, unchanged with the exception of rate from previous EKG obtained 03/18/19. Patient was admitted under our services secondary to sepsis of unknown origin and hypoglycemia. Patient denying any recent infections or illnesses, headache, lightheadedness, dizziness, chest pain or palpitations, shortness of breath, cough or congestion, abdominal pain, nausea, vomiting, diarrhea, or experiencing any rashes or sores on his body. Patient does report a recent tooth extraction from left lower jaw as he reports his wisdom tooth was removed approximately one month ago. Patient does continue to have mild soreness in left jaw, but denies any swelling or drainage. CT Face showing defect from left third molar tooth extraction identified with large lucent defect measuring 1.5 cm more than expected, possible underlying cystic lesion, correlate with preprocedure radiographs, there was no significant adjacent fluid or fat stranding or suspicious focal fluid collections identified. Physical exam: Patient seen and fully evaluated at the bedside this morning. Patient's leukopenia with WBC count of 3.2 has resolved and now has significant leukocy tosis WBCs 19.4 with left shift General: non toxic, no distress, appears at stated age Derm: warm, dry Head: atraumatic, normocephalic, symmetric Eyes: EOMI, no lid lag, anicteric sclera Mouth: no lip lesion, mucus membranes moist Cardiovascular: S1S2 reg, no murmur, positive posterior tibial pulse bilateral, Lungs: CTA bilateral, no rhonchi, no rales , no accessory muscle use Abdominal: soft, nontender to palpation, no guarding, no appreciable organomegaly Ext: no gross muscle atrophy, no edema, no contractures Neuro: CN II-XI grossly intact, no focal neuro deficits Psych: Alert, oriented, appropriate affect Plan of care: Sepsis of unknown origin -Chest x-ray was completed which was negative for acute cardiopulmonary process. -Urinalysis negative for infection. -CT Face showing defect from left third molar tooth extraction identified with large lucent defect measuring 1.5 cm more than expected, possible underlying cystic lesion, correlate with preprocedure radiographs, there was no significant adjacent fluid or fat stranding or suspicious focal fluid collections identified. -Blood cultures obtained. -Patient received sepsis bolus followed by maintenance infusion with IV fluids. -We will continue with broad-spectrum antibiotics vancomycin and cefepime pending culture results and recommendations per infectious disease. -Consult placed to infectious disease, appreciate recommendations. Persistent Hypoglycemia -Hypoglycemia possibly secondary to sepsis. -Patient with persistent hypoglycemia has required repeated amps of D50 secondary to hypoglycemia. Patient placed on D5.45 infusion. -We will continue to monitor closely. Acute kidney injury on stage III chronic kidney disease with baseline creatinine of 1.1, AURY likely secondary to sepsis. -Currently BUN 26, creatinine 1.68, and GFR of 29. -Hold nephrotoxic medications such as valsartan. -Will continue to to provide continued hydration with IV fluids and monitor closely. Lactic acidosis, resolved Hypertension -Monitor vital signs closely and continue daily medication management.Hypothyroidism Hypothyroidism -Continue daily medication regimen with levothyroxine 50 g each morning. CODE STATUS: Full code DVT prophylaxis: Heparin Discussed with: Patient and daughter as well as RN. Anticipated discharge date: Clinical course to determine Anticipated discharge place: Home A total of 45 minutes was spent on the care of this complex patient more than 50% of the time was spent in counseling and care coordination. Objective - Vital Signs Vital signs: Vital Signs Temp 98.0 F 11/29/20 07:00 Pulse 69 11/29/20 07:00 Resp 16 11/29/20 07:00 BP 114/61 11/29/20 07:00 Pulse Ox 98 11/29/20 07:00 Intake & Output 11/28/20 11/29/20 11/29/20 18:59 06:59 18:59 Intake Total 200 Output Total 500 Balance -500 200 Weight 97.522 kg 97.522 kg Intake: Oral 200 Output: Urine 500 Uretheral (Segal) 500 Other: # Voids 1 - Labs CBC & Chem 7: 11/29/20 07:13 11/29/20 07:13 Labs: Abnormal Lab Results - Last 24 Hours (Table) 11/28/20 11/28/20 11/28/20 Range/Units 17:31 17:35 17:39 WBC 3.2 L (3.8-10.6) k/uL RBC 6.13 H (4.30-5.90) m/uL Hgb (13.0-17.5) gm/dL Hct (39.0-53.0) % MCV 78.4 L (80.0-100.0) fL MCH 23.1 L (25.0-35.0) pg MCHC 29.5 L (31.0-37.0) g/dL RDW 17.0 H (11.5-15.5) % Neutrophils # (1.3-7.7) k/uL Lymphocytes # 0.4 L (1.0-4.8) k/uL APTT (22.0-30.0) sec Carbon Dioxide (22-30) mmol/L BUN (9-20) mg/dL Creatinine (0.66-1.25) mg/dL POC Glucose (mg/dL) 48 L 51 L (75-99) mg/dL Plasma Lactic Acid Aniket (0.7-2.0) mmol/L Calcium (8.4-10.2) mg/dL Total Protein (6.3-8.2) g/dL Albumin (3.5-5.0) g/dL Urine Glucose (UA) (Negative) 11/28/20 11/28/20 11/28/20 Range/Units 17:39 17:39 20:49 WBC (3.8-10.6) k/uL RBC (4.30-5.90) m/uL Hgb (13.0-17.5) gm/dL Hct (39.0-53.0) % MCV (80.0-100.0) fL MCH (25.0-35.0) pg MCHC (31.0-37.0) g/dL RDW (11.5-15.5) % Neutrophils # (1.3-7.7) k/uL Lymphocytes # (1.0-4.8) k/uL APTT 19.8 L (22.0-30.0) sec Carbon Dioxide 21 L (22-30) mmol/L BUN 23 H (9-20) mg/dL Creatinine 1.33 H (0.66-1.25) mg/dL POC Glucose (mg/dL) (75-99) mg/dL Plasma Lactic Acid Aniket (0.7-2.0) mmol/L Calcium (8.4-10.2) mg/dL Total Protein (6.3-8.2) g/dL Albumin (3.5-5.0) g/dL Urine Glucose (UA) 1+ H (Negative) 11/28/20 11/28/20 11/29/20 Range/Units 20:49 23:22 03:25 WBC (3.8-10.6) k/uL RBC (4.30-5.90) m/uL Hgb (13.0-17.5) gm/dL Hct (39.0-53.0) % MCV (80.0-100.0) fL MCH (25.0-35.0) pg MCHC (31.0-37.0) g/dL RDW (11.5-15.5) % Neutrophils # (1.3-7.7) k/uL Lymphocytes # (1.0-4.8) k/uL APTT (22.0-30.0) sec Carbon Dioxide (22-30) mmol/L BUN (9-20) mg/dL Creatinine (0.66-1.25) mg/dL POC Glucose (mg/dL) (75-99) mg/dL Plasma Lactic Acid Aniket 4.1 H* 2.7 H* 4.1 H* (0.7-2.0) mmol/L Calcium (8.4-10.2) mg/dL Total Protein (6.3-8.2) g/dL Albumin (3.5-5.0) g/dL Urine Glucose (UA) (Negative) 11/29/20 11/29/20 Range/Units 07:13 07:13 WBC 19.4 H (3.8-10.6) k/uL RBC (4.30-5.90) m/uL Hgb 11.6 L (13.0-17.5) gm/dL Hct 36.5 L (39.0-53.0) % MCV 77.0 L (80.0-100.0) fL MCH 24.4 L (25.0-35.0) pg MCHC (31.0-37.0) g/dL RDW 16.8 H (11.5-15.5) % Neutrophils # 17.5 H (1.3-7.7) k/uL Lymphocytes # 0.7 L (1.0-4.8) k/uL APTT (22.0-30.0) sec Carbon Dioxide (22-30) mmol/L BUN 26 H (9-20) mg/dL Creatinine 1.68 H (0.66-1.25) mg/dL POC Glucose (mg/dL) (75-99) mg/dL Plasma Lactic Acid Aniket (0.7-2.0) mmol/L Calcium 7.7 L (8.4-10.2) mg/dL Total Protein 5.6 L (6.3-8.2) g/dL Albumin 3.0 L (3.5-5.0) g/dL Urine Glucose (UA) (Negative)
--- NOTE | 2020-11-29 11:58 | CT ---
EXAMINATION TYPE: CT facial bones wo con DATE OF EXAM: 11/29/2020 COMPARISON: NONE HISTORY: fever, looking for source of infection, Lt lower wisdom tooth extracted [address] DLP: 559.9 mGycm. Automated Exposure Control for Dose Reduction was Utilized. TECHNIQUE: CT scan of the facial bones is performed without contrast, axial images are obtained, luis nal reformatted images are also reviewed. FINDINGS: Defect from left third molar tooth extraction identified axial image 24. Large lucent defec t measures 1.5 cm coronal image 42 more than expected. Possible underlying cystic lesion, correlation with preprocedure radiographs. No significant adjacent fluid or fat stranding. Slightly suboptimal e valuation due to streak artifact from cavitary fillings and crowns. Globes are intact bilaterally. Visualized paranasal sinuses are clear. Visualized portion of brain pa renchyma shows diffuse cerebral atrophy. No suspicious focal fluid or subcutaneous edema in the anter ior neck. Moderate calcified plaque bilateral carotid bulb level incidentally noted. IMPRESSION: No significant fat stranding or suspicious focal fluid collection identified.
[2020-11-29] MEDS ORDERED: VANCOMYCIN 1,500 MG in SODIUM CHLORIDE 0.9% 250 ML IVPB SCH (12:00)
[2020-11-29] MEDS ORDERED: DEXTROSE 5%-0.45% NACL 1,000 ML IV SCH (12:15)
[2020-11-29 12:24] LABS: Glucose,Whole Blood 54 mg/dL (75-99)
[2020-11-29 12:24] LABS: Glucose,Whole Blood 59 mg/dL (75-99)
[2020-11-29 12:24] LABS: Glucose,Whole Blood 64 mg/dL (75-99)
[2020-11-29 12:40] LABS: Glucose,Whole Blood 62 mg/dL (75-99)
[2020-11-29] MEDS ORDERED: DEXTROSE 50% SYRINGE 50 ML IVP ONE (12:45)
[2020-11-29 12:57] LABS: Glucose,Whole Blood 98 mg/dL (75-99)
[2020-11-29 15:57] LABS: Glucose,Whole Blood 82 mg/dL (75-99)
[2020-11-29 16:56] LABS: Glucose,Whole Blood 72 mg/dL (75-99)
[2020-11-29] MEDS ORDERED: AMPICILLIN-SULBACTAM 3 GM in SODIUM CHLORIDE 0.9% 100 ML IVPB SCH (18:00)
[2020-11-29 18:21] LABS: Glucose,Whole Blood 114 mg/dL (75-99)
[2020-11-29] MEDS: DEXTROSE 5%-0.45% NACL 1,000 ML IV SCH (21:29)
[2020-11-29 22:40] LABS: Glucose,Whole Blood 123 mg/dL (75-99)
[2020-11-29] MEDS: PIPERACILLIN-TAZOBACTAM 3.375 GM in SODIUM CHLORIDE 0.9% 100 ML IVPB SCH (23:16)
[2020-11-30 02:30] LABS: Glucose,Whole Blood 100 mg/dL (75-99)
[2020-11-30] MEDS: DEXTROSE 5%-0.45% NACL 1,000 ML IV SCH ×3 (03:42→14:40)
[2020-11-30] MEDS: LEVOTHYROXINE 50 MCG TAB PO SCH (05:38)
[2020-11-30] MEDS: ACETAMINOPHEN TAB 325 MG TAB PO PRN (06:13)
[2020-11-30 06:15] LABS: Glucose,Whole Blood 125 mg/dL (75-99)
[2020-11-30 06:47] LABS: Glucose,Whole Blood 121 mg/dL (75-99)
[2020-11-30 07:47] LABS: African American GFR (CKD) 62 (>60 ml/min/1.73 sqM); Anion Gap 4 mmol/L; Blood Urea Nitrogen 18 mg/dL (9-20); Calcium 7.5 mg/dL (8.4-10.2); Carbon Dioxide 22 mmol/L (22-30); Chloride 107 mmol/L (98-107); Glucose 114 mg/dL (74-99); Non-African American GFR(CKD) 54 (>60 ml/min/1.73 sqM); Potassium 4.3 mmol/L (3.5-5.1); Sodium 133 mmol/L (137-145)
[2020-11-30 08:04] LABS: C Reactive Protein 17.1 mg/dL (<1.0)
[2020-11-30] MEDS: PANTOPRAZOLE 40 MG TABLET PO SCH (08:09)
[2020-11-30] MEDS: METOPROLOL TARTRATE 25 MG TAB PO SCH ×2 (08:09→20:12)
[2020-11-30] MEDS: HEPARIN SODIUM,PORCINE/PF 5,000 UNIT/0.5 ML SYRINGE SQ SCH ×3 (08:09→22:41)
[2020-11-30] MEDS: ASPIRIN 81 MG PO SCH (08:09)
[2020-11-30] MEDS: IOPAMIDOL CONTRAST (ORAL USE) VIAL PO PRN ×2 (08:10→09:19)
[2020-11-30] MEDS: PIPERACILLIN-TAZOBACTAM 3.375 GM in SODIUM CHLORIDE 0.9% 100 ML IVPB SCH ×3 (08:11→23:57)
--- NOTE | 2020-11-30 08:17 | CONS ---
CONSULTATION DATE OF SERVICE: 11/29/2020 REASON FOR CONSULTATION: Fever. HISTORY OF PRESENT ILLNESS: The patient is a 75-year-old male presenting to [facility] ER yesterday afternoon for evaluation of rigors and chills that apparently started about an hour or so before he presented to the hospital. The patient denies having any headache or URI symptoms. Denies any chest pain, shortness of breath or cough. The patient denies any nausea, no vomiting, no abdominal pain. No diarrhea or any urinary symptoms. The patient recently did have extraction of his left lower jaw tooth and has been treated with oral amoxicillin prophylactically. With these symptoms, the patient has been evaluated by the ER physician. On arrival to the ER, the patient did have fever of 100.8 to 101 and spiked a fever of 101.7 afterwards. The patient did have a low blood sugar, as well as leukopenia. However, white count 19.4 as of this morning. The patient did have elevated BUN and creatinine. Liver enzymes are normal. Procalcitonin was 42.93. Did have elevated lactic acid. The urine was negative. Hutrado PCR was negative. The patient did have a chest x-ray that was negative for any acute infiltrate. CT of the did not show any acute abnormality either. The patient has been treated with vancomycin and cefepime. Infectious Disease was consulted for further management. The patient's blood cultures subsequently came back positive with Gram-negative bacilli. REVIEW OF SYSTEMS: Positive points have been mentioned in HPI. Rest of systems are negative. PAST MEDICAL HISTORY: Coronary artery disease, angina, gastroesophageal reflux disease, hypertension, hyperlipidemia, [place], history of prostate cancer. PAST SURGICAL HISTORY: PTCA with stent, hernia repair and prostate surgery. SOCIAL HISTORY: Denies smoking, drinking or drug use. FAMILY HISTORY: No pertinent findings noticed. ALLERGIES: SULFA, IBUPROFEN, MORPHINE. MEDICATIONS: The patient is on Tylenol, aspirin, dextrose, heparin, Synthroid, Lopressor, Narcan, Zofran, Protonix, cefepime and vancomycin. PHYSICAL EXAMINATION: VITAL SIGNS: Blood pressure is 122/62 with a pulse of 87, temperature 101.7. He is 97% on room air. GENERAL DESCRIPTION: Patient is an elderly male lying in bed in no distress. No tachypnea or accessory muscles of respiration use. HEENT: Examination shows slight pallor, no scleral icterus. Oral mucous membrane is dry. Examination of the oral cavity shows no significant inflammatory changes noticed. NECK: Trachea central, no thyromegaly. LUNGS: Unlabored breathing, clear to auscultation anteriorly. No wheeze or crackle. HEART: S1-S2, regular rate and rhythm. ABDOMEN: Soft, no tenderness. No guarding or rigidity. EXTREMITIES: No edema of the feet. SKIN: No rash or mass palpable. NEUROLOGICAL: Patient is awake, alert, oriented times three. Mood and affect normal. LABS: Hemoglobin 11.6, white count of 19.4, lactic acid 4.1, BUN of 23, creatinine 1.33. Liver enzymes are normal. Chest x-ray was negative. Urine is negative. Hurtado PCR was negative. DIAGNOSTIC IMPRESSION: 1. Patient presented to hospital with sepsis in this patient who did have a fever, leukocytosis, now with evidence of Gram-negative bacteremia which is usually of a gut or urinary source. Urine was negative. However, the patient does have a history of prostate cancer and concern for possible urinary outflow obstruction and urine with likely source of this bacteremia versus possible intraabdominal source as no evidence of any pneumonia clinically and no significant inflammatory changes at the tooth extraction site. 2. Patient does have adrenal insufficiency and high risk of nephrotoxicity from vancomycin. PLAN: 1. Discontinue vancomycin and cefepime. 2. We will start the patient on Zosyn 3.375 g q.8h. 3. We will obtain a CT of abdomen and pelvis with oral contrast to better define his kidneys, as well as an intraabdominal source. 4. We will follow on his clinical condition and investigations to further adjust medication if needed. Thank you for this consultation. Will follow this patient along with you. MMODL / IJN: [id number] /
--- NOTE | 2020-11-30 08:19 | P.PN ---
Subjective Progress Note Date: 11/30/20 Hospital course: Patient is a 75-year-old male with a past medical history of CAD with previous OR resulting in placement of 7 stents and CABG (triple bypass), hypertension, hyperlipidemia, CKD, and history of prostate cancer in remission since 2008. Patient presented to the emergency department on 11/28/20 secondary to reports of feeling weak, uneasy, and tremulous. Patient was seen and fully evaluated in the emergency department. He was found to be hypoglycemic with blood glucose of 48 and have signs of sepsis with temp of 101.5F, heart rate 117, lactate 4.1, and neutropenia with WBC count of 3.2. Chest x-ray was completed which was negative for acute cardiopulmonary process. Urinalysis negative for infection. EKG sinus tachycardia at 107 bpm with a bifascicular block, unchanged with the exception of rate from previous EKG obtained 03/18/19. Patient was admitted under our services secondary to sepsis of unknown origin and hypoglycemia. At t taj of admission, patient denied any recent infections or illnesses, headache, lightheadedness, dizziness, chest pain or palpitations, shortness of breath, cough or congestion, abdominal pain, nausea, vomiting, diarrhea, or experiencing any rashes or sores on his body. Patient did report a recent tooth extraction from left lower jaw in which he stated his wisdom tooth was removed approximately one month ago. Patient did report having mild soreness in left lower jaw, but denied any swelling or drainage. CT Face completed showing defect from left third molar tooth extraction identified with large lucent defect measuring 1.5 cm more than expected, possible underlying cystic lesion, correlate with preprocedure radiographs, however there was no significant adjacent fluid or fat stranding or suspicious focal fluid collections identified. Physical exam: Patient seen and fully evaluated at the bedside this morning. Patient continues to show signs of sepsis with highest temp of 101.7F over the past 24 hours. Blood glucose levels are now stabilized on D5.045% NS infusion with glucose ranging from 90-120 with infusion and oral intake. Blood culture resulted positive for E. coli resulting in discontinuation of vancomycin and cefepime and pt was started on Zosyn. Patient sitting upright in chair at bedside this morning. He reports feeling a little anxious over her entire situation and current infection. He has been seen and evaluated by infectious disease who ordered for patient to go down for CT abdomen and pelvis later today as sepsis is still from unknown source. Patient continues to deny having any headache, lightheadedness, dizziness, chest pain or palpitations, shortness of breath, cough or congestion, abdominal pain or discomfort, nausea, vomiting, diarrhea or any other changes with urinary or bowel function. General: non toxic, no distress, appears at stated age Derm: warm, dry Head: atraumatic, normocephalic, symmetric Eyes: EOMI, no lid lag, anicteric sclera Mouth: no lip lesion, mucus membranes moist Cardiovascular: S1S2 reg, no murmur, positive posterior tibial pulse bilaterally, cap refill less than 2 seconds. Lungs: CTA bilateral, no rhonchi, no rales , no accessory muscle use Abdominal: soft, nontender to palpation, no guarding, no appreciable organomegaly Ext: no gross muscle atrophy, no edema, no contractures Neuro: CN II-XI grossly intact, no focal neuro deficits Psych: Alert, oriented, appropriate affect Plan of care: Sepsis secondary to E.Coli positive bacteremia resulting from unknown source -Blood cultures positive for E. coli with no resistance genes detected. -Patient received sepsis bolus followed by maintenance infusion with IV fluids. -Vancomycin and cefepime was discontinued patient started on Zosyn. We will continue with IV Zosyn at this time. -Infectious disease following. -CRP 17.1. Pro-calcitonin 42.93. Persistent Hypoglycemia, improving since increased rate of D5.45 -Hypoglycemia possibly secondary to sepsis. -Continue treatment of sepsis. -Blood glucose levels are now stabilized on D5.045% NS infusion with glucose ranging from 90-120 with infusion and oral intake. -We will continue to monitor closely. Acute kidney injury on stage III chronic kidney disease with baseline creatinine of 1.1, AURY likely secondary to sepsis, improving -Currently BUN 18, creatinine 1.30, and GFR 54. -Continue to Hold nephrotoxic medications such as valsartan. -Will continue to to provide hydration with IV fluids and monitor closely. Lactic acidosis, resolved Hypertension -Monitor vital signs closely and continue daily medication management.Hypothyroidism Hypothyroidism -Continue daily medication regimen with levothyroxine 50 g each morning. CODE STATUS: Full code DVT prophylaxis: Heparin Discussed with: Patient and daughter as well as RN. Anticipated discharge date: Clinical course to determine Anticipated discharge place: Home A total of 45 minutes was spent on the care of this complex patient more than 50% of the time was spent in counseling and care coordination. Objective - Vital Signs Vital signs: Vital Signs Temp 98.8 F 11/30/20 07:00 Pulse 69 11/30/20 07:00 Resp 18 11/30/20 07:00 BP 129/63 11/30/20 07:00 Pulse Ox 94 L 11/30/20 07:00 Intake & Output 11/29/20 11/30/20 11/30/20 18:59 06:59 18:59 Intake Total 520 Balance 520 Intake: Oral 520 Other: Voiding Method Toilet # Voids 1 2 # Bowel Movements 1 - Labs CBC & Chem 7: 11/29/20 07:13 11/30/20 07:02 Labs: Abnormal Lab Results - Last 24 Hours (Table) 11/29/20 11/29/20 11/29/20 Range/Units 07:13 07:13 07:13 WBC 19.4 H (3.8-10.6) k/uL Hgb 11.6 L (13.0-17.5) gm/dL Hct 36.5 L (39.0-53.0) % MCV 77.0 L (80.0-100.0) fL MCH 24.4 L (25.0-35.0) pg RDW 16.8 H (11.5-15.5) % Neutrophils # 17.5 H (1.3-7.7) k/uL Lymphocytes # 0.7 L (1.0-4.8) k/uL Sodium (137-145) mmol/L BUN 26 H (9-20) mg/dL Creatinine 1.68 H (0.66-1.25) mg/dL Glucose (74-99) mg/dL POC Glucose (mg/dL) (75-99) mg/dL Calcium 7.7 L (8.4-10.2) mg/dL C-Reactive Protein (<1.0) mg/dL Total Protein 5.6 L (6.3-8.2) g/dL Albumin 3.0 L (3.5-5.0) g/dL Procalcitonin 42.93 H (0.02-0.09) ng/mL 11/29/20 11/29/20 11/29/20 Range/Units 11:47 12:02 12:22 WBC (3.8-10.6) k/uL Hgb (13.0-17.5) gm/dL Hct (39.0-53.0) % MCV (80.0-100.0) fL MCH (25.0-35.0) pg RDW (11.5-15.5) % Neutrophils # (1.3-7.7) k/uL Lymphocytes # (1.0-4.8) k/uL Sodium (137-145) mmol/L BUN (9-20) mg/dL Creatinine (0.66-1.25) mg/dL Glucose (74-99) mg/dL POC Glucose (mg/dL) 59 L 64 L 54 L (75-99) mg/dL Calcium (8.4-10.2) mg/dL C-Reactive Protein (<1.0) mg/dL Total Protein (6.3-8.2) g/dL Albumin (3.5-5.0) g/dL Procalcitonin (0.02-0.09) ng/mL 11/29/20 11/29/20 11/29/20 Range/Units 12:38 16:53 18:19 WBC (3.8-10.6) k/uL Hgb (13.0-17.5) gm/dL Hct (39.0-53.0) % MCV (80.0-100.0) fL MCH (25.0-35.0) pg RDW (11.5-15.5) % Neutrophils # (1.3-7.7) k/uL Lymphocytes # (1.0-4.8) k/uL Sodium (137-145) mmol/L BUN (9-20) mg/dL Creatinine (0.66-1.25) mg/dL Glucose (74-99) mg/dL POC Glucose (mg/dL) 62 L 72 L 114 H (75-99) mg/dL Calcium (8.4-10.2) mg/dL C-Reactive Protein (<1.0) mg/dL Total Protein (6.3-8.2) g/dL Albumin (3.5-5.0) g/dL Procalcitonin (0.02-0.09) ng/mL 11/29/20 11/30/20 11/30/20 Range/Units 22:38 02:28 06:14 WBC (3.8-10.6) k/uL Hgb (13.0-17.5) gm/dL Hct (39.0-53.0) % MCV (80.0-100.0) fL MCH (25.0-35.0) pg RDW (11.5-15.5) % Neutrophils # (1.3-7.7) k/uL Lymphocytes # (1.0-4.8) k/uL Sodium (137-145) mmol/L BUN (9-20) mg/dL Creatinine (0.66-1.25) mg/dL Glucose (74-99) mg/dL POC Glucose (mg/dL) 123 H 100 H 125 H (75-99) mg/dL Calcium (8.4-10.2) mg/dL C-Reactive Protein (<1.0) mg/dL Total Protein (6.3-8.2) g/dL Albumin (3.5-5.0) g/dL Procalcitonin (0.02-0.09) ng/mL 11/30/20 11/30/20 Range/Units 06:46 07:02 WBC (3.8-10.6) k/uL Hgb (13.0-17.5) gm/dL Hct (39.0-53.0) % MCV (80.0-100.0) fL MCH (25.0-35.0) pg RDW (11.5-15.5) % Neutrophils # (1.3-7.7) k/uL Lymphocytes # (1.0-4.8) k/uL Sodium 133 L (137-145) mmol/L BUN (9-20) mg/dL Creatinine 1.30 H (0.66-1.25) mg/dL Glucose 114 H (74-99) mg/dL POC Glucose (mg/dL) 121 H (75-99) mg/dL Calcium 7.5 L (8.4-10.2) mg/dL C-Reactive Protein 17.1 H (<1.0) mg/dL Total Protein (6.3-8.2) g/dL Albumin (3.5-5.0) g/dL Procalcitonin (0.02-0.09) ng/mL Microbiology - Last 24 Hours (Table) 11/28/20 20:49 Blood Culture Gram Stain - Preliminary Blood Blood Culture - Preliminary Escherichia coli 11/28/20 20:49 Blood Culture - Final Blood 11/28/20 20:49 Blood Culture - Final Blood
[2020-11-30 09:10] LABS: Appearance,Urine Clear (Clear); Bilirubin,Urine Negative (Negative); Blood,Urine Negative (Negative); Color,Urine Light Yellow; Glucose,Urine (UA) Negative (Negative); Ketones,Urine Negative (Negative); Leukocyte Esterase,Urine Negative (Negative); Nitrite,Urine Negative (Negative); PH, Urine 5.5 (5.0-8.0); Protein,Urine Negative (Negative); Specific Gravity,Urine 1.015 (1.001-1.035); Urobilinogen,Urine <2.0 mg/dL (<2.0)
--- NOTE | 2020-11-30 09:11 | ECHOF ---
Referral Reason:Sepsis of unknown origin pt recent tooth extractio MEASUREMENTS -------- HEIGHT: 177.8 cm WEIGHT: 97.5 kg BP: 114/61 RVIDd: 3.4 cm (< 3.3) IVSd: 1.5 cm (0.6 - 1.1) LVIDd: 4.7 cm (3.9 - 5.3) LVPWd: 1.7 cm (0.6 - 1.1) IVSs: 1.9 cm LVIDs: 2.7 cm LVPWs: 2.0 cm LAESV Index (A-L): 25.31 ml/m Ao Diam: 3.3 cm (2.0 - 3.7) AV Cusp: 1.8 cm (1.5 - 2.6) LA Diam: 4.1 cm (2.7 - 3.8) MV EXCURSION: 14.703 mm (> 18.000) MV EF SLOPE: 136 mm/s (70 - 150) EPSS: 0.5 cm MV E Pancho: 1.04 m/s MV DecT: 226 ms MV A Pancho: 1.04 m/s MV E/A Ratio: 1.01 AR PHT: 541 ms RAP: 5.00 mmHg RVSP: 39.64 mmHg FINDINGS -------- Sinus rhythm. This was a technically adequate study. The left ventricular size is normal. There is moderate concentric left ventricular hypertrophy. O verall left ventricular systolic function is normal with, an EF between 55 - 60 %. Septal wall isak on is delayed and consistent with prior cardiac surgery. The right ventricle is mildly enlarged. Normal LA size by volume 22+/-6 ml/m2. The right atrial size is normal. Interatrial and interventricular septum intact. There is mild aortic regurgitation. There is no evidence of aortic stenosis. Heavy calcification of the aortic valve. cannot exclude possibility of bicuspid aortic valve Mild mitral annular calcification present. Mild mitral regurgitation is present. Mild tricuspid regurgitation present. There is no evidence of pulmonary hypertension. The right v entricular systolic pressure, as measured by Doppler, is 39.64mmHg. There is no pulmonic regurgitation present. The aortic root size is normal. IVC Not well visulized. There is no pericardial effusion. CONCLUSIONS -------- 1. The left ventricular size is normal. 2. There is moderate concentric left ventricular hypertrophy. 3. Overall left ventricular systolic function is normal with, an EF between 55 - 60 %. 4. The right ventricle is mildly enlarged. 5. There is mild aortic regurgitation.Heavily calcified aortic valve. cannot exclude bicuspid aortic valve 6. Mild mitral annular calcification present. 7. Mild mitral regurgitation is present. 8. Mild tricuspid regurgitation present. DELIVERY DRIVER ASSISTANT: Marcia Ding RDCS
--- NOTE | 2020-11-30 10:06 | CT ---
EXAMINATION TYPE: CT abdomen pelvis wo con DATE OF EXAM: 11/30/2020 HISTORY: Sepsis , Gram negative bacteremia CT DLP: 972.1 mGycm. Automated Exposure Control for Dose Reduction was Utilized. TECHNIQUE: CT scan of the abdomen and pelvis is performed with oral but without IV contrast. COMPARISON: NONE FINDINGS: Within the limitations of a non-contrast study, the following observations are made. LUNG BASES: Small to tiny right greater than left pleural effusions. LIVER/GB: No significant abnormality is appreciated. PANCREAS: No significant abnormality is seen. SPLEEN: No significant abnormality is seen. ADRENALS: No significant abnormality is seen. KIDNEYS: Hypodense 2.7 cm round lesion anterior to upper pole left kidney and region of pancreatic ta il favors exophytic thin-walled cyst from kidney. Additional smaller thin-walled cyst centrally lower pole level coronal image 73 is felt present. No renal calculi bilaterally. No hydronephrosis seen bi laterally. BOWEL: Normal-appearing appendix ascending from cecum. Oral contrast does not reach level of terminal ileum making evaluation of distal bowel slightly suboptimal. No suspicious small or large bowel dila tation. Some sigmoid colonic diverticula. Redundant sigmoid colon extending into the right lower quad rant and right upper pelvis with mild ill-defined fluid and fat stranding coronal image 15 and axial image 54 for reference. Findings consistent with acute colitis probable diverticulitis at this level. No well-formed fluid collection or abscess. No free air. GENITAL ORGANS: No gross abnormality seen. LYMPH NODES: No greater than 1cm abdominal or pelvic lymph nodes are appreciated. OSSEOUS STRUCTURES: Moderate disc space narrowing right L4-L5 level with vacuum disc phenomenon. Mode rate multilevel anterior and lateral spurring in the spine. [id number] axial joint space loss a nd moderate acetabular spurring of both hips. OTHER: Mild to moderate calcified plaque of the aorta extends into branch vessels. IMPRESSION: Mild to moderate focal colitis probable diverticulitis right lower quadrant and upper pel vis at site of redundant sigmoid colon.
[2020-11-30 10:51] LABS: Glucose,Whole Blood 100 mg/dL (75-99)
[2020-11-30 11:29] LABS: Basophils # (A) 0.08 X 10*3/uL (0.00-0.10); Basophils % (A) 0.6 %; Eosinophils # (A) 0.12 X 10*3/uL (0.04-0.35); Eosinophils % (A) 0.9 %; HCT 37.4 % (39.6-50.0); Lymphocytes # (A) 0.64 X 10*3/uL (0.90-5.00); Lymphocytes % (A) 5.1 %; MCH 23.1 pg (27.0-32.0); MCHC 29.4 g/dL (32.0-37.0); MCV 78.6 fL (80.0-97.0); Mean Platelet Volume 9.8 fL (9.5-12.2); Monocytes # (A) 1.07 X 10*3/uL (0.20-1.00); Monocytes % (A) 8.5 %; Neutrophils # (A) 10.66 X 10*3/uL (1.80-7.70); Neutrophils % (A) 84.2 %; Platelet Count 188 X 10*3/uL (140-440); RBC 4.76 X 10*6/uL (4.40-5.60); RDW 17.9 % (11.5-14.5); WBC 12.66 X 10*3/uL (4.50-10.00)
[2020-11-30 14:22] LABS: Glucose,Whole Blood 124 mg/dL (75-99)
[2020-11-30 17:48] LABS: Glucose,Whole Blood 85 mg/dL (75-99)
[2020-11-30] MEDS ORDERED: ALBUTEROL NEBULIZED 2.5 MG/3 ML INHALATION PRN (18:10)
[2020-11-30] MEDS ORDERED: DEXTROSE 5%-0.45% NACL 1,000 ML IV SCH (18:15)
[2020-11-30 22:21] LABS: Glucose,Whole Blood 97 mg/dL (75-99)
--- NOTE | 2020-11-30 23:24 | PN ---
PROGRESS NOTE DATE OF SERVICE: 11/30/2020. REASON FOR FOLLOWUP: Bacteremia secondary to diverticulitis. INTERVAL HISTORY: Patient is afebrile. The patient is breathing comfortably. The patient denies any chest pain, shortness of breath or cough. No nausea, no vomiting. No abdominal pain. No diarrhea. PHYSICAL EXAMINATION: Blood pressure 151/63 with a pulse of 73, temperature 98.1. He is 98% on room air. General description: The patient is an elderly male lying in bed in no distress. Respiratory system: Unlabored breathing with decreased breath sounds in the base, with no wheeze. Heart: S1, S2. Regular rate and rhythm. ABDOMEN: Soft, mildly tender. No guarding. No rigidity. EXTREMITIES: No edema of the feet. LABS: Hemoglobin is 11.9, white count 12.6, BUN of 18, creatinine 1.30. DIAGNOSTIC IMPRESSION AND PLAN: Patient with Gram-negative bacteremia, source is likely diverticulitis. No evidence of any focal abscess. The patient is covered with Zosyn to continue while waiting for sensitivity to finalize and monitor clinical course closely. MMODL / IJN: [id number] /
[2020-12-01 02:33] LABS: Glucose,Whole Blood 112 mg/dL (75-99)
[2020-12-01] MEDS: LEVOTHYROXINE 50 MCG TAB PO SCH (05:32)
[2020-12-01 06:33] LABS: Glucose,Whole Blood 109 mg/dL (75-99)
[2020-12-01] MEDS: METOPROLOL TARTRATE 25 MG TAB PO SCH ×2 (07:54→20:54)
[2020-12-01] MEDS: HEPARIN SODIUM,PORCINE/PF 5,000 UNIT/0.5 ML SYRINGE SQ SCH ×2 (07:54→20:54)
[2020-12-01] MEDS: PIPERACILLIN-TAZOBACTAM 3.375 GM in SODIUM CHLORIDE 0.9% 100 ML IVPB SCH ×3 (07:54→23:26)
[2020-12-01] MEDS: PANTOPRAZOLE 40 MG TABLET PO SCH (07:54)
[2020-12-01] MEDS: ASPIRIN 81 MG PO SCH (07:54)
[2020-12-01 09:29] LABS: Anisocytosis Slight; Basophils # (A) 0.1 k/uL (0-0.2); Basophils % (A) 1 %; Eosinophils # (A) 0.2 k/uL (0-0.7); Eosinophils % (A) 2 %; HCT 36.2 % (39.0-53.0); HGB 11.3 gm/dL (13.0-17.5); Hypochromasia Marked; Lymphocytes # (A) 0.6 k/uL (1.0-4.8); Lymphocytes % (A) 7 %; MCH 23.8 pg (25.0-35.0); MCHC 31.3 g/dL (31.0-37.0); MCV 76.1 fL (80.0-100.0); Mean Platelet Volume 6.9; Microcytosis Slight; Monocytes # (A) 0.5 k/uL (0-1.0); Monocytes % (A) 6 %; Neutrophils # (A) 6.6 k/uL (1.3-7.7); Neutrophils % (A) 79 %; Platelet Count 159 k/uL (150-450); RBC 4.75 m/uL (4.30-5.90); RDW 17.1 % (11.5-15.5); WBC 8.3 k/uL (3.8-10.6)
[2020-12-01 09:36] LABS: ALT 23 U/L (4-49); AST 35 U/L (17-59); African American GFR (CKD) 67 (>60 ml/min/1.73 sqM); Albumin 2.8 g/dL (3.5-5.0); Alkaline Phosphatase 56 U/L (38-126); Anion Gap 5 mmol/L; Blood Urea Nitrogen 11 mg/dL (9-20); Calcium 7.4 mg/dL (8.4-10.2); Carbon Dioxide 25 mmol/L (22-30); Chloride 105 mmol/L (98-107); Globulin 2.7 g/dL; Glucose 137 mg/dL (74-99); Non-African American GFR(CKD) 58 (>60 ml/min/1.73 sqM); Potassium 4.1 mmol/L (3.5-5.1); Sodium 135 mmol/L (137-145); Total Bilirubin 0.2 mg/dL (0.2-1.3); Total Protein 5.5 g/dL (6.3-8.2)
[2020-12-01 10:55] LABS: Glucose,Whole Blood 118 mg/dL (75-99)
[2020-12-01 13:07] LABS: Glucose,Whole Blood 147 mg/dL (75-99)
--- NOTE | 2020-12-01 13:15 | P.PN ---
Subjective Progress Note Date: 12/01/20 Hospital course: Patient is a 75-year-old male with a past medical history of CAD with previous OH resulting in placement of 7 stents and CABG (triple bypass), hypertension, hyperlipidemia, CKD, and history of prostate cancer in remission since 2008. Patient presented to the emergency department on 11/28/20 secondary to reports of feeling weak, uneasy, and tremulous. Patient was seen and fully evaluated in the emergency department. He was found to be hypoglycemic with blood glucose of 48 and have signs of sepsis with temp of 101.5F, heart rate 117, lactate 4.1, and neutropenia with WBC count of 3.2. Chest x-ray was completed which was negative for acute cardiopulmonary process. Urinalysis negative for infection. EKG sinus tachycardia at 107 bpm with a bifascicular block, unchanged with the exception of rate from previous EKG obtained 03/18/19. Patient was admitted under our services secondary to sepsis of unknown origin and hypoglycemia. At t taj of admission, patient denied any recent infections or illnesses, headache, lightheadedness, dizziness, chest pain or palpitations, shortness of breath, cough or congestion, abdominal pain, nausea, vomiting, diarrhea, or experiencing any rashes or sores on his body. Patient did report a recent tooth extraction from left lower jaw in which he stated his wisdom tooth was removed approximately one month ago. Patient did report having mild soreness in left lower jaw, but denied any swelling or drainage. CT Face completed showing defect from left third molar tooth extraction identified with large lucent defect measuring 1.5 cm more than expected, possible underlying cystic lesion, correlate with preprocedure radiographs, however there was no significant adjacent fluid or fat stranding or suspicious focal fluid collections identified. Physical exam: Patient seen and fully evaluated at the bedside this morning. He is showing signs of improvement and has remained afebrile over the past 24 hours and blood glucose levels have stabilized. D5 infusion discontinued at this time and we will continue close monitoring of blood glucose levels. Patient denies having any concerns at this time. He continues to deny having any headache, lightheade dness, dizziness, chest pain or palpitations, shortness of breath, cough or congestion, abdominal pain or discomfort, nausea, vomiting, or diarrhea. He remains on Zosyn secondary to blood cultures positive for E. coli and pseudomonas aeruginosa. General: non toxic, no distress, appears at stated age Derm: warm, dry Head: atraumatic, normocephalic, symmetric Eyes: EOMI, no lid lag, anicteric sclera Mouth: no lip lesion, mucus membranes moist Cardiovascular: S1S2 reg, no murmur, positive posterior tibial pulse bilaterally, cap refill less than 2 seconds. Lungs: CTA bilateral, no rhonchi, no rales , no accessory muscle use Abdominal: soft, nontender to palpation, no guarding, no appreciable organomegaly Ext: no gross muscle atrophy, no edema, no contractures Neuro: CN II-XI grossly intact, no focal neuro deficits Psych: Alert, oriented, appropriate affect Plan of care: Sepsis secondary to E.Coli and Pseudomonas Aeruginosa positive bacteremia -Likely resulting from colitis. Abdominal CT positive for colitis. -Patient showing signs of improvement and has remained afebrile over the past 24 hours and blood glucose levels have stabilized. -Blood cultures positive for E. coli and pseudomonas aeruginosa with no resistance genes detected. -Continue IV antibiotics: Zosyn -Infectious disease following. -CRP 17.1. Pro-calcitonin 42.93. -Will repeat CRP with a.m. labs. -Repeat cultures showing no growth after 24 hours. Hypoglycemia, resolved as patient currently has stable blood glucose levels. -Hypoglycemialikely resulting from sepsis. -Continue treatment of sepsis. -We will continue to monitor closely. Acute kidney injury on stage III chronic kidney disease with baseline creatinine of 1.1, AURY likely secondary to sepsis, Resolved. -Currently BUN 18, creatinine 1.30, and GFR 54. -Continue to Hold nephrotoxic medications such as valsartan. -Will continue to to provide hydration with IV fluids and monitor closely. Lactic acidosis, resolved Hypertension -Monitor vital signs closely and continue daily medication management.Hypothyroidism Hypothyroidism -Continue daily medication regimen with levothyroxine 50 g each morning. CODE STATUS: Full code DVT prophylaxis: Heparin Discussed with: Patient and daughter as well as RN. Anticipated discharge date: Clinical course to determine Anticipated discharge place: Home A total of 45 minutes was spent on the care of this complex patient more than 50% of the time was spent in counseling and care coordination. Objective - Vital Signs Vital signs: Vital Signs Temp 98.3 F 12/01/20 07:00 Pulse 60 12/01/20 07:00 Resp 18 12/01/20 07:45 BP 150/72 12/01/20 07:00 Pulse Ox 96 12/01/20 07:00 Intake & Output 11/30/20 12/01/20 12/01/20 18:59 06:59 18:59 Other: Voiding Method Toilet Toilet # Voids 3 # Bowel Movements 1 - Labs CBC & Chem 7: 12/01/20 09:07 12/01/20 09:07 Labs: Abnormal Lab Results - Last 24 Hours (Table) 11/30/20 11/30/20 11/30/20 Range/Units 07:02 10:49 14:20 WBC 12.66 H (4.50-10.00) X 10*3/uL Hgb 11.0 L (13.0-17.0) g/dL Hct 37.4 L (39.6-50.0) % MCV 78.6 L (80.0-97.0) fL MCH 23.1 L (27.0-32.0) pg MCHC 29.4 L (32.0-37.0) g/dL RDW 17.9 H (11.5-14.5) % Immature Gran # 0.09 H (0.00-0.04) X 10*3/uL Neutrophils # 10.66 H (1.80-7.70) X 10*3/uL Lymphocytes # 0.64 L (0.90-5.00) X 10*3/uL Monocytes # 1.07 H (0.20-1.00) X 10*3/uL Sodium (137-145) mmol/L Glucose (74-99) mg/dL POC Glucose (mg/dL) 100 H 124 H (75-99) mg/dL Calcium (8.4-10.2) mg/dL Total Protein (6.3-8.2) g/dL Albumin (3.5-5.0) g/dL 12/01/20 12/01/20 12/01/20 Range/Units 02:30 06:30 09:07 WBC (4.50-10.00) X 10*3/uL Hgb 11.3 L (13.0-17.0) g/dL Hct 36.2 L (39.6-50.0) % MCV 76.1 L (80.0-97.0) fL MCH 23.8 L (27.0-32.0) pg MCHC (32.0-37.0) g/dL RDW 17.1 H (11.5-14.5) % Immature Gran # (0.00-0.04) X 10*3/uL Neutrophils # (1.80-7.70) X 10*3/uL Lymphocytes # 0.6 L (0.90-5.00) X 10*3/uL Monocytes # (0.20-1.00) X 10*3/uL Sodium (137-145) mmol/L Glucose (74-99) mg/dL POC Glucose (mg/dL) 112 H 109 H (75-99) mg/dL Calcium (8.4-10.2) mg/dL Total Protein (6.3-8.2) g/dL Albumin (3.5-5.0) g/dL 12/01/20 Range/Units 09:07 WBC (4.50-10.00) X 10*3/uL Hgb (13.0-17.0) g/dL Hct (39.6-50.0) % MCV (80.0-97.0) fL MCH (27.0-32.0) pg MCHC (32.0-37.0) g/dL RDW (11.5-14.5) % Immature Gran # (0.00-0.04) X 10*3/uL Neutrophils # (1.80-7.70) X 10*3/uL Lymphocytes # (0.90-5.00) X 10*3/uL Monocytes # (0.20-1.00) X 10*3/uL Sodium 135 L (137-145) mmol/L Glucose 137 H (74-99) mg/dL POC Glucose (mg/dL) (75-99) mg/dL Calcium 7.4 L (8.4-10.2) mg/dL Total Protein 5.5 L (6.3-8.2) g/dL Albumin 2.8 L (3.5-5.0) g/dL Microbiology - Last 24 Hours (Table) 11/30/20 07:02 Blood Culture - Preliminary Blood No Growth after 24 hours 11/28/20 20:49 Blood Culture Gram Stain - Preliminary Blood Blood Culture - Preliminary Pseudomonas spec 11/28/20 20:49 Blood Culture Gram Stain - Preliminary Blood Blood Culture - Preliminary Escherichia coli
--- NOTE | 2020-12-01 13:44 | PN ---
PROGRESS NOTE DATE OF SERVICE: 12/01/2020 REASON FOR FOLLOWUP: Gram-negative bacteremia secondary to diverticulitis. INTERVAL HISTORY: The patient is afebrile. The patient is breathing comfortably. Denies having any chest pain or shortness of breath or cough. No nausea, no vomiting. No abdominal pain or diarrhea. PHYSICAL EXAMINATION: Blood pressure 150/72 with a pulse of 70, temperature 98.2. He is 96% on room air. General description is an elderly male lying in bed in no distress. Respiratory system: Unlabored breathing, clear to auscultation anteriorly. Heart S1, S2. Regular rate and rhythm. Abdomen soft, mildly tender. No guarding. No rigidity. Extremities are no edema of the feet. LAB: Blood culture one with Pseudomonas with E coli, both sensitive pathogen. DIAGNOSTIC IMPRESSION AND PLAN: Patient with Gram-negative bacteremia, source is likely diverticulitis. Repeat blood culture has been negative. We will keep the patient on Zosyn for another 24 hours before transition to oral Cipro and Flagyl and close outpatient followup. MMODL / IJN: [id number] /
[2020-12-01 14:25] LABS: Glucose,Whole Blood 107 mg/dL (75-99)
[2020-12-01 18:28] LABS: Glucose,Whole Blood 104 mg/dL (75-99)
[2020-12-01 22:12] LABS: Glucose,Whole Blood 102 mg/dL (75-99)
[2020-12-02 01:43] LABS: Glucose,Whole Blood 93 mg/dL (75-99)
[2020-12-02] MEDS: LEVOTHYROXINE 50 MCG TAB PO SCH (05:30)
[2020-12-02 06:12] LABS: Glucose,Whole Blood 85 mg/dL (75-99)
[2020-12-02] MEDS: PIPERACILLIN-TAZOBACTAM 3.375 GM in SODIUM CHLORIDE 0.9% 100 ML IVPB SCH ×3 (08:04→23:51)
[2020-12-02] MEDS: ASPIRIN 81 MG PO SCH (08:04)
[2020-12-02] MEDS: PANTOPRAZOLE 40 MG TABLET PO SCH (08:06)
[2020-12-02] MEDS: METOPROLOL TARTRATE 25 MG TAB PO SCH ×2 (08:06→20:58)
[2020-12-02] MEDS: HEPARIN SODIUM,PORCINE/PF 5,000 UNIT/0.5 ML SYRINGE SQ SCH ×2 (08:06→20:58)
[2020-12-02 09:39] LABS: HCT 40.8 % (39.6-50.0); HGB 11.8 g/dL (13.0-17.0); MCH 22.9 pg (27.0-32.0); MCHC 28.9 g/dL (32.0-37.0); MCV 79.1 fL (80.0-97.0); Mean Platelet Volume 9.6 fL (9.5-12.2); Platelet Count 182 X 10*3/uL (140-440); RBC 5.16 X 10*6/uL (4.40-5.60); RDW 18.6 % (11.5-14.5); WBC 7.28 X 10*3/uL (4.50-10.00)
[2020-12-02 11:26] LABS: Glucose,Whole Blood 89 mg/dL (75-99)
--- NOTE | 2020-12-02 11:41 | P.PN ---
Subjective Progress Note Date: 12/02/20 Hospital course: Patient is a 75-year-old male with a past medical history of CAD with previous MS resulting in placement of 7 stents and CABG (triple bypass), hypertension, hyperlipidemia, CKD, and history of prostate cancer in remission since 2008. Patient presented to the emergency department on 11/28/20 secondary to reports of feeling weak, uneasy, and tremulous. Patient was seen and fully evaluated in the emergency department. He was found to be hypoglycemic with blood glucose of 48 and have signs of sepsis with temp of 101.5F, heart rate 117, lactate 4.1, and neutropenia with WBC count of 3.2. Chest x-ray was completed which was negative for acute cardiopulmonary process. Urinalysis negative for infection. EKG sinus tachycardia at 107 bpm with a bifascicular block, unchanged with the exception of rate from previous EKG obtained 03/18/19. Patient was admitted under our services secondary to sepsis of unknown origin and hypoglycemia. At t taj of admission, patient denied any recent infections or illnesses, headache, lightheadedness, dizziness, chest pain or palpitations, shortness of breath, cough or congestion, abdominal pain, nausea, vomiting, diarrhea, or experiencing any rashes or sores on his body. Patient did report a recent tooth extraction from left lower jaw in which he stated his wisdom tooth was removed approximately one month ago. Patient did report having mild soreness in left lower jaw, but denied any swelling or drainage. CT Face completed showing defect from left third molar tooth extraction identified with large lucent defect measuring 1.5 cm more than expected, possible underlying cystic lesion, correlate with preprocedure radiographs, however there was no significant adjacent fluid or fat stranding or suspicious focal fluid collections identified. Blood cultures positive for E. coli and pseudomonas aeruginosa with no resistance genes detected. CRP 17.1. Pro-calcitonin 42.93. Physical exam: Patient seen and fully evaluated at the bedside this morning. He continues to show signs of improvement and has remained afebrile for over 48 hours now. Blood glucose levels remain stabilized without D5. Patient denies having any concerns at this time. He continues to deny having any headache, lightheadedness, dizziness, chest pain or palpitations, shortness of breath, cough or congestion, abdominal pain or discomfort, nausea, vomiting, or diarrhea. Patient was evaluated by infectious diseases recommending transition of IV Zosyn over to oral ciprofloxacin and Flagyl over the next 24 hours. If patient continues to do well, likely discharge tomorrow morning. General: non toxic, no distress, appears at stated age Derm: warm, dry Head: atraumatic, normocephalic, symmetric Eyes: EOMI, no lid lag, anicteric sclera Mouth: no lip lesion, mucus membranes moist Cardiovascular: S1S2 reg, no murmur, positive posterior tibial pulse bilaterally, cap refill less than 2 seconds. Lungs: CTA bilateral, no rhonchi, no rales , no accessory muscle use Abdominal: soft, nontender to palpation, no guarding, no appreciable organomegaly Ext: no gross muscle atrophy, no edema, no contractures Neuro: CN II-XI grossly intact, no focal neuro deficits Psych: Alert, oriented, appropriate affect Plan of care: Sepsis secondary to E.Coli and Pseudomonas Aeruginosa positive bacteremia -Likely resulting from colitis. Abdominal CT positive for colitis. -Patient showing signs of improvement and has remained afebrile over the past 24 hours and blood glucose levels have stabilized. -Blood cultures positive for E. coli and pseudomonas aeruginosa with no resistance genes detected. -Continue IV antibiotics: Zosyn -Infectious disease following, recommending transition from IV antibiotics to oral ciprofloxacin and Flagyl over the next 24 hours. -CRP 17.1. Pro-calcitonin 42.93. -Awaiting repeat CRP and morning labs. -Preliminary Repeat blood cultures showing no growth after 48 hours. Hypoglycemia, resolved as patient currently has stable blood glucose levels. -Hypoglycemia likely resulting from sepsis. -Continue treatment of sepsis. -We will continue to monitor closely. Acute kidney injury on stage III chronic kidney disease with baseline creatinine of 1.1, AURY likely secondary to sepsis, Resolved. -Currently BUN 18, creatinine 1.30, and GFR 54. -Continue to Hold nephrotoxic medications such as valsartan. -Will continue to to provide hydration with IV fluids and monitor closely. Lactic acidosis, resolved Hypertension -Monitor vital signs closely and continue daily medication management.Hypothyroidism Hypothyroidism -Continue daily medication regimen with levothyroxine 50 g each morning. CODE STATUS: Full code DVT prophylaxis: Heparin Discussed with: Patient and daughter as well as RN. Anticipated discharge date: Clinical course to determine Anticipated discharge place: Home A total of 45 minutes was spent on the care of this complex patient more than 50% of the time was spent in counseling and care coordination. Objective - Vital Signs Vital signs: Vital Signs Temp 98.1 F 12/02/20 07:00 Pulse 64 12/02/20 07:00 Resp 18 12/02/20 07:00 BP 159/71 12/02/20 07:00 Pulse Ox 99 12/02/20 07:00 Intake & Output 12/01/20 12/02/20 12/02/20 18:59 06:59 18:59 Other: Voiding Method Toilet Toilet # Voids 2 # Bowel Movements 0 - Labs CBC & Chem 7: 12/02/20 06:27 12/01/20 09:07 Labs: Abnormal Lab Results - Last 24 Hours (Table) 12/01/20 12/01/20 12/01/20 Range/Units 09:07 09:07 10:53 Hgb 11.3 L (13.0-17.5) gm/dL Hct 36.2 L (39.0-53.0) % MCV 76.1 L (80.0-100.0) fL MCH 23.8 L (25.0-35.0) pg RDW 17.1 H (11.5-15.5) % Lymphocytes # 0.6 L (1.0-4.8) k/uL Sodium 135 L (137-145) mmol/L Glucose 137 H (74-99) mg/dL POC Glucose (mg/dL) 118 H (75-99) mg/dL Calcium 7.4 L (8.4-10.2) mg/dL Total Protein 5.5 L (6.3-8.2) g/dL Albumin 2.8 L (3.5-5.0) g/dL 12/01/20 12/01/20 12/01/20 Range/Units 13:04 14:23 18:26 Hgb (13.0-17.5) gm/dL Hct (39.0-53.0) % MCV (80.0-100.0) fL MCH (25.0-35.0) pg RDW (11.5-15.5) % Lymphocytes # (1.0-4.8) k/uL Sodium (137-145) mmol/L Glucose (74-99) mg/dL POC Glucose (mg/dL) 147 H 107 H 104 H (75-99) mg/dL Calcium (8.4-10.2) mg/dL Total Protein (6.3-8.2) g/dL Albumin (3.5-5.0) g/dL 12/01/20 Range/Units 22:11 Hgb (13.0-17.5) gm/dL Hct (39.0-53.0) % MCV (80.0-100.0) fL MCH (25.0-35.0) pg RDW (11.5-15.5) % Lymphocytes # (1.0-4.8) k/uL Sodium (137-145) mmol/L Glucose (74-99) mg/dL POC Glucose (mg/dL) 102 H (75-99) mg/dL Calcium (8.4-10.2) mg/dL Total Protein (6.3-8.2) g/dL Albumin (3.5-5.0) g/dL Microbiology - Last 24 Hours (Table) 11/28/20 20:49 Blood Culture Gram Stain - Preliminary Blood 11/28/20 20:49 Blood Culture Gram Stain - Final Blood Blood Culture - Final Escherichia coli 11/28/20 20:49 Blood Culture Gram Stain - Final Blood Blood Culture - Final Pseudomonas aeruginosa 11/30/20 07:02 Blood Culture - Preliminary Blood No Growth after 24 hours
--- NOTE | 2020-12-02 13:23 | PN ---
PROGRESS NOTE DATE OF SERVICE: 12/02/2020 REASON FOR FOLLOWUP: Pseudomonas E coli bacteremia secondary to diverticulitis. INTERVAL HISTORY: Patient is afebrile. The patient is breathing comfortably. The patient denies having any chest pain. No shortness of breath or cough. Abdominal pain is improved. No nausea, vomiting or diarrhea. PHYSICAL EXAMINATION: Blood pressure 159/71, pulse of 64. Temperature 98.1. He is 99% on room air. General description: The patient is an elderly male lying in bed in no distress. Respiratory system: Unlabored breathing, clear to auscultation anteriorly. Heart S1, S2. Regular rate and rhythm. Abdomen soft, no tenderness. Extremities: No edema of the feet. LABS: White count 7.28. Repeat blood culture has been negative. DIAGNOSTIC IMPRESSION AND PLAN: Patient with E coli Pseudomonas bacteremia secondary to diverticulitis. Patient is on Zosyn to continue. Finish therapy with oral Cipro and Flagyl for at least 10 days with close outpatient followup. MMODL / IJN: [id number] /
[2020-12-02 15:35] LABS: Glucose,Whole Blood 117 mg/dL (75-99)
[2020-12-02 16:23] LABS: African American GFR (CKD) 61.9 (60.0-200.0); Anion Gap 10.1 mmol/L (4.00-12.00); BUN/Creat Ratio 9.23 Ratio (12.00-20.00); C Reactive Protein 5.9 mg/dL (0.0-0.8); Calcium 8.2 mg/dL (8.7-10.3); Carbon Dioxide 22.9 mmol/L (21.6-31.8); Non-African American GFR(CKD) 53.4 (60.0-200.0); Potassium 4.3 mmol/L (3.5-5.5)
[2020-12-02 17:56] LABS: Glucose,Whole Blood 83 mg/dL (75-99)
[2020-12-02 22:21] LABS: Glucose,Whole Blood 117 mg/dL (75-99)
[2020-12-03 02:37] LABS: Glucose,Whole Blood 106 mg/dL (75-99)
[2020-12-03] MEDS: LEVOTHYROXINE 50 MCG TAB PO SCH (05:56)
[2020-12-03 05:58] LABS: Glucose,Whole Blood 81 mg/dL (75-99)
[2020-12-03] MEDS: PANTOPRAZOLE 40 MG TABLET PO SCH (07:07)
[2020-12-03] MEDS: ASPIRIN 81 MG PO SCH (07:07)
[2020-12-03] MEDS: METOPROLOL TARTRATE 25 MG TAB PO SCH (07:08)
[2020-12-03] MEDS: PIPERACILLIN-TAZOBACTAM 3.375 GM in SODIUM CHLORIDE 0.9% 100 ML IVPB SCH (07:08)
[2020-12-03] MEDS: HEPARIN SODIUM,PORCINE/PF 5,000 UNIT/0.5 ML SYRINGE SQ SCH (07:09)
[2020-12-03 07:46] VITALS: BP 174/82; PULSE 72; RESP 20; TEMP 97.8
[2020-12-03 10:31] LABS: Glucose,Whole Blood 109 mg/dL (75-99)
--- NOTE | 2020-12-03 12:58 | PN ---
PROGRESS NOTE DATE OF SERVICE: 12/03/2020 REASON FOR FOLLOW UP: Diverticulitis with bacteremia. No abscess. INTERVAL HISTORY: Patient is afebrile. The patient is breathing comfortably. Denies having any chest pain, shortness of breath or cough. No nausea, vomiting. No abdominal pain or diarrhea. PHYSICAL EXAMINATION: Blood pressure is 174/80 with a pulse of 72, temperature 97.8. He is 98% on room air. General description is an elderly male lying in bed in no distress. Respiratory system: Unlabored breathing, clear to auscultation anteriorly. Heart S1, S2. Regular rate and rhythm. Abdomen: Soft, no tenderness. Extremities: No edema of the feet. LABS: White count normalized to 7.28. Blood culture repeat has been negative. DIAGNOSTIC IMPRESSION AND PLAN: Patient with polymicrobial bacteremia secondary to diverticulitis. No mention of any abscess on the CT. Patient cleared his bacteremia. Plan is to finish therapy with oral Cipro 750 mg twice a day along with Flagyl 500 mg 3 times a day for 10 days and close outpatient followup. Family has multiple questions. Those were answered in layman's terms. MMODL / IJN: [id number] /
--- NOTE | 2020-12-03 13:53 | P.DS ---
Providers Date of admission: 11/28/20 23:56 Expected date of discharge: 12/03/20 Attending physician: Janene Acevedo MD Consults: 11/29/20 12:36 Consult Physician Routine Consulting Provider: Augusto Chow Consult Reason/Comments: Sepsis of unknown origin Do you want consulting provider notified?: Yes Primary care physician: Clara Morales Hospital Course: Sepsis secondary to E.Coli and Pseudomonas Aeruginosa positive bacteremia Acute kidney injury on stage III chronic kidney disease with baseline creatinine of 1.1, AURY likely secondary to sepsis, Resolved. Hypertension Hypothyroidism Patient is a 75-year-old male with a past medical history of CAD with previous [place] resulting in placement of 7 stents and CABG (triple bypass), hypertension, hyperlipidemia, CKD, and history of prostate cancer in remission since 2008. Patient presented to the emergency department on 11/28/20 secondary to reports of feeling weak, uneasy, and tremulous. Patient was seen and fully evaluated in the emergency department. He was found to be hypoglycemic with blood glucose of 48 and have signs of sepsis with temp of 101.5F, heart rate 117, lactate 4.1, and neutropenia with WBC count of 3.2. Chest x-ray was completed which was negative for acute cardiopulmonary process. Urinalysis negative for infection. EKG sinus tachycardia at 107 bpm with a bifascicular block, unchanged with the exception of rate from previous EKG obtained 03/18/19. Patient was admitted under our services secondary to sepsis of unknown origin and hypoglycemia. At time of admission, patient denied any recent infections or illnesses, headache, lightheadedness, dizziness, chest pain or palpitations, shortness of breath, cough or congestion, abdominal pain, nausea, vomiting, diarrhea, or experiencing any rashes or sores on his body. Patient did report a recent tooth extraction from left lower jaw in which he stated his wisdom tooth was removed approx imately one month ago. Patient did report having mild soreness in left lower jaw, but denied any swelling or drainage. CT Face completed showing defect from left third molar tooth extraction identified with large lucent defect measuring 1.5 cm more than expected, possible underlying cystic lesion, correlate with preprocedure radiographs, however there was no significant adjacent fluid or fat stranding or suspicious focal fluid collections identified. Blood cultures positive for E. coli and pseudomonas aeruginosa with no resistance genes detected. CRP 17.1. Pro-calcitonin 42.93. Patient's blood cultures returned positive for E coli and Pseudomonas. CT A/P revealed colitis which was the presumed source. ID consultation was obtained and recs appreciated. Patient continued to improve on zosyn. Sensitivities of E coli and Pseudomonas demonstrated spencer-sensitivity. Patient was discharged on cipro 750mg BID and flagyl 500mg TID for total 14 day course with plan to follow up with ID in one week. I spent 40 minutes coordinating this complex discharge. Assessment: Gen: awake, alert HEENT: normocephalic, atraumatic, good hearing acuity, moist mucous membranes Resp: good air exchange, breathing comfortably with no accessory muscle use, CTAB CVS: good distal perfusion x 4, RRR GI: soft, NTTP, ND : no SPT, no CVAT, lopes catheter not present MSK: no pitting edema, no clubbing Neuro: non-focal, moving all extremities Psych: cooperative, euthymic mood Patient Condition at Discharge: Good Plan - Discharge Summary Discharge Rx Participant: Yes New Discharge Prescriptions: New Ciprofloxacin HCl [Cipro] 750 mg PO BID 10 Days #20 tab metroNIDAZOLE [Flagyl] 500 mg PO Q8HR 10 Days #30 tab Continue Omeprazole 20 mg PO HS Ezetimibe [Zetia] 10 mg PO DAILY #90 tab Evolocumab [Repatha Syringe] 140 mg SQ QMONTH Metoprolol Tartrate [Lopressor] 25 mg PO BID #90 tab Levothyroxine Sodium [Synthroid] 50 mcg PO DAILY Aspirin EC [Ecotrin Low Dose] 81 mg PO DAILY Valsartan 80 mg PO DAILY Discharge Medication List Omeprazole 20 mg PO HS 07/14/18 [History] Ezetimibe [Zetia] 10 mg PO DAILY #90 tab 07/16/18 [Rx] Evolocumab [Repatha Syringe] 140 mg SQ QMONTH 02/17/19 [History] Metoprolol Tartrate [Lopressor] 25 mg PO BID #90 tab 03/05/19 [Rx] Aspirin EC [Ecotrin Low Dose] 81 mg PO DAILY 11/28/20 [History] Levothyroxine Sodium [Synthroid] 50 mcg PO DAILY 11/28/20 [History] Valsartan 80 mg PO DAILY 11/28/20 [History] Ciprofloxacin HCl [Cipro] 750 mg PO BID 10 Days #20 tab 12/03/20 [Rx] metroNIDAZOLE [Flagyl] 500 mg PO Q8HR 10 Days #30 tab 12/03/20 [Rx] Follow up Appointment(s)/Referral(s): Clara Morales MD [Primary Care Provider] - 12/10/20 10:40 am Augusto Chow MD [STAFF PHYSICIAN] - 12/16/20 2:15 pm Patient Instructions/Handouts: High Fiber Diet (DC), Diverticulitis Diet (DC) Discharge Disposition: HOME SELF-CARE
== END 2020-12-03 13:05 | disposition home or self-care (01) | DRG 872 ==
LOC: EC 16:56 → 6NMEDSUR 20:32 → OBSVTOIN 23:56 → 4SSUR 11-29 00:03
PROVIDERS: ADMIT Internal Medicine; ATTEND Internal Medicine
DX: A41.51 Sepsis due to Escherichia coli [E. coli] (principal); E27.40 Unspecified adrenocortical insufficiency; K57.92 Diverticulitis of intestine, part unspecified, without perforation or abscess without bleeding; N17.9 Acute kidney failure, unspecified; I45.2 Bifascicular block; B96.5 Pseudomonas (aeruginosa) (mallei) (pseudomallei) as the cause of diseases classified elsewhere; B96.89 Other specified bacterial agents as the cause of diseases classified elsewhere; D72.819 Decreased white blood cell count, unspecified; E03.9 Hypothyroidism, unspecified; E16.2 Hypoglycemia, unspecified; E78.5 Hyperlipidemia, unspecified; F32.9 Major depressive disorder, single episode, unspecified; G43.909 Migraine, unspecified, not intractable, without status migrainosus; H50.9 Unspecified strabismus; I12.9 Hypertensive chronic kidney disease with stage 1 through stage 4 chronic kidney disease, or unspecified chronic kidney disease; I25.10 Atherosclerotic heart disease of native coronary artery without angina pectoris; I25.2 Old myocardial infarction; J30.2 Other seasonal allergic rhinitis; K52.9 Noninfective gastroenteritis and colitis, unspecified; N18.30 Chronic kidney disease, stage 3 unspecified; R65.20 Severe sepsis without septic shock; Z20.822 Contact with and (suspected) exposure to COVID-19; Z79.82 Long term (current) use of aspirin; Z79.890 Hormone replacement therapy; Z79.899 Other long term (current) drug therapy; Z82.0 Family history of epilepsy and other diseases of the nervous system; Z82.49 Family history of ischemic heart disease and other diseases of the circulatory system; Z85.46 Personal history of malignant neoplasm of prostate; Z95.1 Presence of aortocoronary bypass graft; Z98.890 Other specified postprocedural states; Z88.6 Allergy status to analgesic agent; Z88.5 Allergy status to narcotic agent; Z88.2 Allergy status to sulfonamides; Z95.5 Presence of coronary angioplasty implant and graft
CPT/HCPCS: 36415; 70486; 71046; 74176; 80048; 80053; 81003; 83605; 83735; 84145; 84484; 85025; 85027; 85610; 85730; 86140; 87040; 87077; 87186; 87635; 93005; 93306; 96361; 96374; 96375; 96376; 99285

== ENCOUNTER 2021-03-28 07:43 | Emergency (ER) | payer MEDICARE ==
[2021-03-28 07:51] VITALS: RESP 18; TEMP 98.7
[2021-03-28 08:36] LABS: Anisocytosis Slight; Basophils # (A) 0.1 k/uL (0-0.2); Basophils % (A) 1 %; Eosinophils # (A) 0.2 k/uL (0-0.7); Eosinophils % (A) 2 %; HGB 14.1 gm/dL (13.0-17.5); Hypochromasia Slight; Lymphocytes # (A) 0.9 k/uL (1.0-4.8); Lymphocytes % (A) 8 %; MCH 24.9 pg (25.0-35.0); MCHC 31.3 g/dL (31.0-37.0); MCV 79.5 fL (80.0-100.0); Mean Platelet Volume 6.5; Microcytosis Slight; Monocytes % (A) 9 %; Neutrophils # (A) 8.8 k/uL (1.3-7.7); Neutrophils % (A) 77 %; Platelet Count 301 k/uL (150-450); RBC 5.66 m/uL (4.30-5.90); RDW 16.6 % (11.5-15.5); WBC 11.4 k/uL (3.8-10.6)
[2021-03-28 08:46] LABS: Calcium 8.9 mg/dL (8.4-10.2); Potassium 4.9 mmol/L (3.5-5.1); Total Bilirubin 0.6 mg/dL (0.2-1.3); Total Protein 7.6 g/dL (6.3-8.2)
--- NOTE | 2021-03-28 08:46 | XR ---
KUB. HISTORY: Abdominal pain COMPARISON: None. TECHNIQUE: 2 upright views of the abdomen were obtained. FINDINGS: The lung bases are clear and there is no free intraperitoneal air beneath the diaphragm. The bowel gas pattern is nonspecific and there is no evidence of obstruction. No suspicious abdominal or pelvic calcifications are seen. The osseous structures are grossly intact IMPRESSION: Nonspecific abdomen without evidence of free air or obstruction.
--- NOTE | 2021-03-28 08:46 | ED ---
Abdominal Pain HPI - General Chief Complaint: Abdominal Pain Stated Complaint: bowel blockage Time Seen by Provider: 03/28/21 07:54 Source: patient, RN notes reviewed Mode of arrival: ambulatory Limitations: no limitations - History of Present Illness Initial Comments: Patient is a 75-year-old male presenting to the emergency department with concerns of constipation since last night. He is having some mild lower abdominal pressure and discomfort as well. He states that he was switched to high fiber diet over the last few months, normally has more than one bowel movement daily. He had a normal bowel movement yesterday morning but has not been able to go since then. He did try a suppository last night but only water and a little bit of liquid came out. He states this morning he is having increasing pressure and feeling like he needs to go but has been unable to. Denies any fevers or chills, no chest pain or shortness of breath. He denies any nausea or vomiting. He admits to only a hernia repair, no other abdominal surgeries. He's never had a bowel obstruction. He had normal colonoscopy a few months ago. Said no bleeding. He has no further complaints. His vitals are stable upon arrival. - Related Data Home Medications Medication Instructions Recorded Confirmed Omeprazole 20 mg PO HS 07/14/18 11/28/20 Evolocumab [Repatha Syringe] 140 mg SQ QMONTH 02/17/19 11/28/20 Aspirin EC [Ecotrin Low Dose] 81 mg PO DAILY 11/28/20 11/28/20 Levothyroxine Sodium [Synthroid] 50 mcg PO DAILY 11/28/20 11/28/20 Valsartan 80 mg PO DAILY 11/28/20 11/28/20 Previous Rx's Medication Instructions Recorded Ezetimibe [Zetia] 10 mg PO DAILY #90 tab 07/16/18 Metoprolol Tartrate [Lopressor] 25 mg PO BID #90 tab 03/05/19 Ciprofloxacin HCl [Cipro] 750 mg PO BID 10 Days #20 tab 12/03/20 metroNIDAZOLE [Flagyl] 500 mg PO Q8HR 10 Days #30 tab 12/03/20 Allergies Allergy/AdvReac Type Severity Reaction Status Date / Time Sulfa (Sulfonamide Allergy Rash/Hives Verified 03/28/21 07:51 Antibiotics) ibuprofen [From Motrin] AdvReac Kidney Verified 03/28/21 07:51 issues morphine AdvReac Hallucinati Verified 03/28/21 07:51 ons Review of Systems ROS Statement: Those systems with pertinent positive or pertinent negative responses have been documented in the HPI. ROS Other: All systems not noted in ROS Statement are negative. Past Medical History Past Medical History: Coronary Artery Disease (CAD), Cancer, Chest Pain / Angina, GERD/Reflux, Hyperlipidemia, Hypertension, Myocardial Infarction (non Q- wave), Prostate Disorder Additional Past Medical History / Comment(s): prostate cancer, 7 stents, history of symptomatic bradycardia. Last Myocardial Infarction Date:: unknown History of Any Multi-Drug Resistant Organisms: None Reported Past Surgical History: Heart Catheterization With Stent, Hernia Repair, Prostate Surgery Additional Past Surgical History / Comment(s): Myocardial revascularization surgery 3 vessels on 02/26/[address] Grayson Wagoner. Triple bypass 02/26/2019 Past Anesthesia/Blood Transfusion Reactions: No Reported Reaction Date of Last Stent Placement:: November 2018 Past Psychological History: Depression Smoking Status: Never smoker Past Alcohol Use History: None Reported Past Drug Use History: None Reported - Past Family History Father Family Medical History: Coronary Artery Disease (CAD), Myocardial Infarction (AL) Mother Additional Family Medical History / Comment(s): Alzheimer's General Exam - General Exam Comments Initial Comments: GENERAL: Patient is well-developed and well-nourished. Patient is nontoxic and in no acute distress. HEAD: Atraumatic, normocephalic. EYES: Pupils equal round and reactive to light, extraocular movements intact, sclera anicteric, conjunctiva are normal. Eyelids were unremarkable. ENT: Nares patent, oropharynx clear without exudates. Moist mucous membranes. NECK: Normal range of motion, supple without lymphadenopathy or JVD. LUNGS: Unlabored respirations. Breath sounds clear to auscultation bilaterally and equal. No wheezes rales or rhonchi. HEART: Regular rate and rhythm without murmurs, rubs or gallops. ABDOMEN: Soft, mild discomfort noted of the lower abdomen region, no other areas of pain, normoactive bowel sounds. No guarding, no rebound. No masses appreciated. : Deferred MUSCULOSKELETAL: Normal extremities with adequate strength and normal range of motion, no pitting or edema. No clubbing or cyanosis. NEUROLOGICAL: Patient is alert and oriented x 3. SKIN: Warm, Dry, normal turgor, no rashes or lesions noted. Limitations: no limitations Course Vital Signs 03/28/21 07:47 Temperature 98.7 F Pulse Rate 94 Respiratory 18 Rate Blood Pressure 147/91 O2 Sat by Pulse 96 Oximetry Medical Decision Making - Medical Decision Making Patient is a 75-year-old male presenting with constipation since last night. He had normal bowel movement yesterday morning but none since then. Increase in lower abdominal pressure. His vitals are stable, no fevers. Labs are within normal limits, KUB shows nonspecific abdomen without evidence of free air or obstruction. Patient's abdomen feels nice and soft,and pain. I discussed these findings with the patient. I did offer an enema here in the ER to help with his constipation however patient wants to go home and do things at home. We did discuss taking MiraLAX over the next few days to help with bowel movements, he can go home and try a laxative, increase his water intake, also trial of enema at home. He is agreeable to this plan of care. Patient stable for discharge. Return parameters were discussed with him and he verbalized understanding. Case discussed with Dr. Otto. - Lab Data Result diagrams: 03/28/21 08:20 03/28/21 08:20 Lab Results 03/28/21 03/28/21 Range/Units 08:20 08:20 WBC 11.4 H (3.8-10.6) k/uL RBC 5.66 (4.30-5.90) m/uL Hgb 14.1 (13.0-17.5) gm/dL Hct 45.0 (39.0-53.0) % MCV 79.5 L (80.0-100.0) fL MCH 24.9 L (25.0-35.0) pg MCHC 31.3 (31.0-37.0) g/dL RDW 16.6 H (11.5-15.5) % Plt Count 301 (150-450) k/uL MPV 6.5 Neutrophils % 77 % Lymphocytes % 8 % Monocytes % 9 % Eosinophils % 2 % Basophils % 1 % Neutrophils # 8.8 H (1.3-7.7) k/uL Lymphocytes # 0.9 L (1.0-4.8) k/uL Monocytes # 1.0 (0-1.0) k/uL Eosinophils # 0.2 (0-0.7) k/uL Basophils # 0.1 (0-0.2) k/uL Hypochromasia Slight Anisocytosis Slight Microcytosis Slight Sodium 133 L (137-145) mmol/L Potassium 4.9 (3.5-5.1) mmol/L Chloride 103 (98-107) mmol/L Carbon Dioxide 20 L (22-30) mmol/L Anion Gap 10 mmol/L BUN 23 H (9-20) mg/dL Creatinine 1.26 H (0.66-1.25) mg/dL Est GFR (CKD-EPI)AfAm 64 (>60 ml/min/1.73 sqM) Est GFR (CKD-EPI)NonAf 55 (>60 ml/min/1.73 sqM) Glucose 108 H (74-99) mg/dL Calcium 8.9 (8.4-10.2) mg/dL Total Bilirubin 0.6 (0.2-1.3) mg/dL AST 38 (17-59) U/L ALT 20 (4-49) U/L Alkaline Phosphatase 67 (38-126) U/L Total Protein 7.6 (6.3-8.2) g/dL Albumin 4.0 (3.5-5.0) g/dL Lipase 112 (23-300) U/L Disposition Clinical Impression: Constipation Disposition: HOME SELF-CARE Condition: Stable Instructions (If sedation given, give patient instructions): Constipation (ED) Additional Instructions: Please return to the Emergency Department if symptoms worsen or any other concerns. Increase your water intake to when on a high-fiber diet. Trial of MiraLAX as a stool softener over the next 1-2 weeks. Trial of a laxative and or enema at home for the next 1-2 days to help with current bowel movement. Follow-up with your primary care as needed. Is patient prescribed a controlled substance at d/c from ED?: No Referrals: Clara Morales MD [Primary Care Provider] - 1-2 days Time of Disposition: 09:07
[2021-03-28 09:22] VITALS: BP 128/64; PULSE 66
== END 2021-03-28 09:21 | disposition home or self-care (01) ==
LOC: EC 07:43
DX: K59.00 Constipation, unspecified (principal); I10 Essential (primary) hypertension; E78.5 Hyperlipidemia, unspecified; I25.10 Atherosclerotic heart disease of native coronary artery without angina pectoris; I25.2 Old myocardial infarction; K21.9 Gastro-esophageal reflux disease without esophagitis; F32.9 Major depressive disorder, single episode, unspecified; Z85.46 Personal history of malignant neoplasm of prostate; Z79.82 Long term (current) use of aspirin; Z88.2 Allergy status to sulfonamides; Z88.5 Allergy status to narcotic agent; Z88.6 Allergy status to analgesic agent
CPT/HCPCS: 36415; 74018; 80053; 83690; 85025; 99283

== ENCOUNTER 2023-10-28 19:43 | Observation (INO) | payer MEDICARE ==
--- NOTE | 2023-10-28 20:00 | ED ---
Chest Pain HPI - General Stated Complaint: chest pain Time Seen by Provider: 10/28/23 19:59 Source: patient Mode of arrival: ambulatory Limitations: no limitations - History of Present Illness Initial Comments: 77-year-old male with history of CAD with stent placement, hypertension, hyperlipidemia presenting with chief complaint of chest pain. Pain started around 330 this afternoon. He states that it feels like "a pin" is stabbing him in the left upper chest. This is worse with stretching and exertion. No shortness of breath. No cough or fevers. No nausea, vomiting, diaphoresis. No lower extremity swelling. No dizziness. - Related Data Home Medications Medication Instructions Recorded Confirmed Omeprazole 20 mg PO DAILY 07/14/18 10/29/23 Evolocumab [Repatha Syringe] 140 mg SQ Q28D 02/17/19 10/29/23 Aspirin EC [Ecotrin Low Dose] 81 mg PO DAILY 11/28/20 10/29/23 Valsartan 80 mg PO DAILY 11/28/20 10/29/23 Latanoprost [Latanoprost 0.005%] 1 drop LEFT EYE HS 10/29/23 10/29/23 Levothyroxine Sodium [Synthroid] 75 mcg PO DAILY 10/29/23 10/29/23 Previous Rx's Medication Instructions Recorded Ezetimibe [Zetia] 10 mg PO DAILY #90 tab 07/16/18 Metoprolol Tartrate [Lopressor] 25 mg PO BID #90 tab 03/05/19 Allergies Allergy/AdvReac Type Severity Reaction Status Date / Time Sulfa (Sulfonamide Allergy Rash/Hives Verified 10/29/23 18:12 Antibiotics) ibuprofen [From Motrin] AdvReac Kidney Verified 10/29/23 18:12 issues morphine AdvReac Hallucinati Verified 10/29/23 18:12 ons Review of Systems ROS Statement: Those systems with pertinent positive or pertinent negative responses have been documented in the HPI. ROS Other: All systems not noted in ROS Statement are negative. Past Medical History Past Medical History: Coronary Artery Disease (CAD), Cancer, Chest Pain / Angina, GERD/Reflux, Hyperlipidemia, Hypertension, Myocardial Infarction (non Q- wave), Prostate Disorder Additional Past Medical History / Comment(s): prostate cancer, 7 stents, history of symptomatic bradycardia. Last Myocardial Infarction Date:: unknown History of Any Multi-Drug Resistant Organisms: None Reported Past Surgical History: Heart Catheterization With Stent, Hernia Repair, Prostate Surgery Additional Past Surgical History / Comment(s): Myocardial revascularization surgery 3 vessels on 02/26/[address] Grayson Wagoner. Triple bypass 02/26/2019 Past Anesthesia/Blood Transfusion Reactions: No Reported Reaction Date of Last Stent Placement:: November 2018 Past Psychological History: Depression Smoking Status: Never smoker Past Alcohol Use History: None Reported Past Drug Use History: None Reported - Past Family History Father Family Medical History: Coronary Artery Disease (CAD), Myocardial Infarction ([place]) Mother Additional Family Medical History / Comment(s): Alzheimer's General Exam - General Exam Comments Initial Comments: Visual Physical Exam Vital signs reviewed General: Well-appearing, nontoxic, no acute distress. Head: Normocephalic, atraumatic Eyes: PERRLA, EOMI ENT: Airway patent Chest: Nonlabored breathing Skin: No visual rash, normal skin tone Neuro: Alert and oriented 3 Musculoskeletal: No gross abnormalities Limitations: no limitations General appearance: alert, in no apparent distress Head exam: Present: atraumatic, normocephalic Eye exam: Present: normal appearance, EOMI Neck exam: Present: normal inspection. Absent: meningismus Respiratory exam: Present: normal lung sounds bilaterally, chest wall tenderness. Absent: respiratory distress, wheezes, rales, rhonchi, stridor Cardiovascular Exam: Present: regular rate, normal rhythm, normal heart sounds. Absent: systolic murmur, diastolic murmur, rubs, gallop, clicks Extremities exam: Absent: pedal edema Neurological exam: Present: alert, oriented X3 Psychiatric exam: Present: normal affect, normal mood Skin exam: Present: warm, dry Course Vital Signs 10/28/23 10/28/23 10/29/23 19:57 22:12 01:56 Temperature 98.1 F Pulse Rate 73 64 74 Respiratory 18 18 16 Rate Blood Pressure 205/110 140/83 178/94 O2 Sat by Pulse 97 97 95 Oximetry 10/29/23 03:00 Temperature Pulse Rate 75 Respiratory 16 Rate Blood Pressure 168/104 O2 Sat by Pulse 95 Oximetry Chest Pain MDM - MDM I performed the quick note portion of this visit, electronically signed Judah Nino PA-C Was pt. sent in by a medical professional or institution (MATHEW Agudelo, GENETICS TEACHER, urgent care, hospital, or snf...) When possible be specific @ -No Did you speak to anyone other than the patient for history (EMS, parent, family, police, friend...)? What history was obtained from this source @ -No Did you review nursing and triage notes (agree or disagree)? Why? @ -I reviewed and agree with nursing and triage notes Were old charts reviewed (outside hosp., previous admission, EMS record, old EKG, old radiological studies, urgent care reports/EKG's, snf records)? Report findings @ -Previous EKG reviewed Differential Diagnosis (chest pain, altered mental status, abdominal pain women, abdominal pain men, vaginal bleeding, weakness, fever, dyspnea, syncope, headache, dizziness, GI bleed, back pain, seizure, CVA, palpatations, mental health, musculoskeletal)? @ -MDM Differential Chest Pain: Stable Angina, Unstable Angina, STEMI, NSTEMI Aortic Dissection, Pneumothorax, Musculoskeletal, Esophageal Spasm GERD, Cholecystitis, Pancreatitis, Zoster This is not meant to be an all-inclusive list. EKG interpreted by me (3pts min.). @ -EKG shows sinus rhythm ventricular rate 63. MT interval 186. QRS 145. QT 403. QTc 410. Right bundle branch block. There is some T wave inversion in lead I. No other changes from previous EKG. X-rays interpreted by me (1pt min.). @ -Chest x-ray shows no acute cardiopulmonary disease/process CT interpreted by me (1pt min.). @ -None done U/S interpreted by me (1pt. min.). @ -None done What testing was considered but not performed or refused? (CT, X-rays, U/S, labs)? Why? @ -None What meds were considered but not given or refused? Why? @ -None Did you discuss the management of the patient with other professionals (professionals i.e. , MATHEW, GENETICS TEACHER, lab, RT, psych nurse, social work lecturer, low altitude air defense gunner, teacher, financial services officer, catalytic case operator)? Give summary @ -I spoke with Dr. Horta who accepted admission Was smoking cessation discussed for >3mins.? @ -No Was critical care preformed (if so, how long)? @ -No Were there social determinants of health that impacted care today? How? (Homelessness, low income, unemployed, alcoholism, drug addiction, transportation, low edu. Level, literacy, decrease access to med. care, [facility], rehab)? @ -No Was there de-escalation of care discussed even if they declined (Discuss DNR or withdrawal of care, Hospice)? DNR status @ -No What co-morbidities impacted this encounter? (DM, HTN, Smoking, COPD, CAD, Cancer, CVA, ARF, Chemo, Hep., AIDS, mental health diagnosis, sleep apnea, morbid obesity)? @ -CAD with stenting and CABG. Hypertension, hyperlipidemia Was patient admitted / discharged? Hospital course, mention meds given and route, prescriptions, significant lab abnormalities, going to OR and other pertinent info. @ -77-year-old male presenting with chief complaint of chest pain. History and physical exam are conducted. D-dimer 0.63, negative age-adjusted dimer. Remainder of cardiac workup shows no acute process. Patient will be admitted for observation and evaluation by cardiology in the morning. He is agreeable with this plan. I discussed this case with my attending Dr. Gonzalez Undiagnosed new problem with uncertain prognosis? @ -No Drug Therapy requiring intensive monitoring for toxicity (Heparin, Nitro, Insulin, Cardizem)? @ -No Were any procedures done? @ -No Diagnosis/symptom? @ -Chest pain Acute, or Chronic, or Acute on Chronic? @ -Acute Uncomplicated (without systemic symptoms) or Complicated (systemic symptoms)? @ -Complicated Side effects of treatment? @ -No Exacerbation, Progression, or Severe Exacerbation? @ -No Poses a threat to life or bodily function? How? (Chest pain, [place], [place], pneumonia, PE, COPD, DKA, ARF, appy, cholecystitis, CVA, Diverticulitis, Homicidal, Suicidal, threat to staff... and all critical care pts) @ -Yes Disposition Clinical Impression: Chest pain Disposition: ADMITTED IP TO THIS HOSP Condition: Stable Time of Disposition: 01:23
--- NOTE | 2023-10-28 20:39 | XR ---
EXAMINATION TYPE: XR chest 2V DATE OF EXAM: 10/28/2023 8:08 PM CLINICAL INDICATION:Male, 77 years old with history of Chest Pain; COMPARISON: Chest radiographs from 11/28/2020 TECHNIQUE: XR chest 2V Frontal and lateral views of the chest. FINDINGS: Lungs/Pleura: There is no evidence of pleural effusion, focal consolidation, or pneumothorax. Pulmonary vascularity: Unremarkable. Heart/mediastinum: Cardiomediastinal silhouette is unremarkable. Musculoskeletal: No acute osseous pathology. Midline sternotomy wires are noted. IMPRESSION: No acute cardiopulmonary disease/process.
[2023-10-28 21:50] LABS: Basophils # (A) 0.1 k/uL (0-0.2); Basophils % (A) 1 %; Eosinophils # (A) 0.2 k/uL (0-0.7); Eosinophils % (A) 3 %; HGB 17.6 gm/dL (13.0-17.5); Lymphocytes # (A) 1.4 k/uL (1.0-4.8); Lymphocytes % (A) 20 %; MCH 30.1 pg (25.0-35.0); MCHC 31.6 g/dL (31.0-37.0); MCV 95.2 fL (80.0-100.0); Mean Platelet Volume 7.3; Monocytes # (A) 0.8 k/uL (0-1.0); Monocytes % (A) 11 %; Neutrophils # (A) 4.3 k/uL (1.3-7.7); Neutrophils % (A) 61 %; Platelet Count 236 k/uL (150-450); RBC 5.86 m/uL (4.30-5.90); WBC 7.1 k/uL (3.8-10.6)
[2023-10-28 22:00] LABS: ALT 25 U/L (4-49); AST 31 U/L (17-59); African American GFR (CKD) 61 (>60 ml/min/1.73 sqM); Albumin 4.1 g/dL (3.5-5.0); Alkaline Phosphatase 77 U/L (38-126); Anion Gap 7 mmol/L; Blood Urea Nitrogen 15 mg/dL (9-20); Calcium 9.3 mg/dL (8.4-10.2); Carbon Dioxide 25 mmol/L (22-30); Chloride 106 mmol/L (98-107); Glucose 104 mg/dL (74-99); Non-African American GFR(CKD) 52 (>60 ml/min/1.73 sqM); Potassium 4.3 mmol/L (3.5-5.1); Sodium 138 mmol/L (137-145); Total Bilirubin 0.3 mg/dL (0.2-1.3); Total Protein 7.2 g/dL (6.3-8.2)
[2023-10-28 22:08] LABS: HCT 55.8 % (39.0-53.0)
[2023-10-29 00:56] LABS: Partial Thromboplastin Time 24.3 sec (22.0-30.0); Prothrombin Time 10.8 sec (10.0-12.5)
[2023-10-29] MEDS ORDERED: NALOXONE 0.4 MG/ML 1 ML VIAL IV PRN (01:26)
[2023-10-29] MEDS: ASPIRIN 81 MG PO STA (01:58)
--- NOTE | 2023-10-29 06:35 | P.HPIM ---
History of Present Illness H&P Date: 10/29/23 Chief Complaint: Chest pain 77-year-old male with history of coronary artery disease status post stents and triple bypass Patient coming in with sudden onset left-sided chest pain described as stabbing sharp pain 8 out of 10 in severity over and behind the left nipple started while sitting down doing nothing pain is not radiating denies any associated nausea vomiting dizziness lightheadedness palpitations shortness of breath. Patient denies any out of the ordinary physical activity however he did some laundry the same day and was up and down the stairs couple times. He claims that the pain gets worse with movement and using his arms. Pain was not resolving at home he grew concerned and decided to come to the hospital for evaluation due to his cardiac history Patient otherwise denies any upper respiratory infection symptoms fevers chills coughing shortness of breath denies any abdominal pain changes in bowel or urinary habits Patient denies tobacco smoking illicit drugs or heavy alcohol review of systems Pertinent positives as noted in HPI. All other systems were reviewed and are negative on exam Constitutional: No acute distress, conversant, pleasant Eyes: Anicteric sclerae, moist conjunctiva, Pupils equal round reactive to light ENMT: NC/AT Oropharynx clear, no erythema, or exudates Neck: Supple, no masses, or JVD No carotid bruits No thyromegaly Lungs: Clear to auscultation Clear to percussion Normal respiratory effort, no accessory muscle use Cardiovascular: Heart regular in rate and rhythm, Systolic murmurs, no gallops, or rubs No peripheral edema Abdominal: Soft Nontender, no guarding, rebound or rigidity Abdomen moving with respiration Normoactive bowel sounds Extremities: No digital cyanosis No clubbing Pedal pulses intact and symmetrical Radial pulses intact and symmetrical No calf tenderness Psychiatric: Alert and oriented to person, place and time Appropriate affect fair judgement Neuro Muscles Strength 5/5 in all 4 extremities Sensation to light touch grossly present throughout Cranial nerves II-XII grossly intact Past Medical History Past Medical History: Coronary Artery Disease (CAD), Cancer, Chest Pain / Angina, GERD/Reflux, Hyperlipidemia, Hypertension, Myocardial Infarction (non Q- wave), Prostate Disorder Additional Past Medical History / Comment(s): prostate cancer, 7 stents, history of symptomatic bradycardia. Last Myocardial Infarction Date:: unknown History of Any Multi-Drug Resistant Organisms: None Reported Past Surgical History: Heart Catheterization With Stent, Hernia Repair, Prostate Surgery Additional Past Surgical History / Comment(s): Myocardial revascularization surgery 3 vessels on 02/26/[address] Grayson Wagoner. Triple bypass 02/26/2019 Past Anesthesia/Blood Transfusion Reactions: No Reported Reaction Date of Last Stent Placement:: November 2018 Past Psychological History: Depression Smoking Status: Never smoker Past Alcohol Use History: None Reported Past Drug Use History: None Reported - Past Family History Father Family Medical History: Coronary Artery Disease (CAD), Myocardial Infarction ([place]) Mother Additional Family Medical History / Comment(s): Alzheimer's Medications and Allergies Home Medications Medication Instructions Recorded Confirmed Type Omeprazole 20 mg PO HS 07/14/18 11/28/20 History Ezetimibe [Zetia] 10 mg PO DAILY #90 tab 07/16/18 11/28/20 Rx Evolocumab [Repatha Syringe] 140 mg SQ QMONTH 02/17/19 11/28/20 History Metoprolol Tartrate [Lopressor] 25 mg PO BID #90 tab 03/05/19 11/28/20 Rx Aspirin EC [Ecotrin Low Dose] 81 mg PO DAILY 11/28/20 11/28/20 History Levothyroxine Sodium [Synthroid] 50 mcg PO DAILY 11/28/20 11/28/20 History Valsartan 80 mg PO DAILY 11/28/20 11/28/20 History Ciprofloxacin HCl [Cipro] 750 mg PO BID 10 Days #20 tab 12/03/20 Rx metroNIDAZOLE [Flagyl] 500 mg PO Q8HR 10 Days #30 tab 12/03/20 Rx Allergies Allergy/AdvReac Type Severity Reaction Status Date / Time Sulfa (Sulfonamide Allergy Rash/Hives Verified 10/28/23 20:00 Antibiotics) ibuprofen [From Motrin] AdvReac Kidney Verified 10/28/23 20:00 issues morphine AdvReac Hallucinati Verified 10/28/23 20:00 ons Physical Exam Vitals: Vital Signs Temp Pulse Resp BP Pulse Ox 10/29/23 03:00 75 16 168/104 95 10/29/23 01:56 74 16 178/94 95 10/28/23 22:12 64 18 140/83 97 10/28/23 19:57 98.1 F 73 18 205/110 97 Intake and Output 10/28/23 10/28/2324 14:59 22:59 06:59 Other: Weight 99.79 kg Results CBC & Chem 7: 10/28/23 21:30 10/28/23 21:30 Labs: Abnormal Lab Results - Last 24 Hours (Table) 10/28/23 10/28/23 10/29/23 Range/Units 21:30 21:30 00:24 Hgb 17.6 H (13.0-17.5) gm/dL Hct 55.8 H (39.0-53.0) % D-Dimer 0.63 H (<0.60) mg/L FEU Creatinine 1.31 H (0.66-1.25) mg/dL Glucose 104 H (74-99) mg/dL Assessment and Plan Assessment: 77-year-old male with coronary artery disease status post stents and triple bypass coming in for evaluation of left-sided chest pain I discussed the case with ED doctor and accepted the admission for atypical chest pain to rule out acute coronary syndrome with anticipated length of stay less than 2 midnights Atypical chest pain Troponins negative, continue to trend EKG no acute ST changes Chest x-ray no acute cardiopulmonary process Acute respiratory viral panel negative for COVID influenza and RSV Continue with supportive care Cardiac monitoring Monitor vital signs D-dimer was slightly elevated 0.63 however patient has slightly elevated creatinine with CKD 3 for which CTA of the chest was not performed Check nuclear scan VQ scan Cardiology consult Hypertension uncontrolled Clonidine point 1 mg p.o. as needed 3 times daily for systolic blood pressure more than 180 Continue valsartan Continue metoprolol Rest of the blood work was unremarkable white count 7.1 Polycythemia with hemoglobin of 17.6 This is at baseline compared to hemoglobin level from March 2023 Consider outpatient follow-up and workup Full code DVT prophylaxis heparin subcu 3 times daily
[2023-10-29] MEDS: LEVOTHYROXINE 50 MCG TAB PO SCH (06:57)
[2023-10-29] MEDS: cloNIDine HCL 0.1 MG TAB PO PRN (06:57)
[2023-10-29] MEDS: METOPROLOL TARTRATE 25 MG TAB PO SCH (09:11)
[2023-10-29] MEDS: ASPIRIN 81 MG PO SCH (09:11)
[2023-10-29] MEDS: EZETIMIBE 10 MG TAB PO SCH (09:11)
[2023-10-29] MEDS: HEPARIN SODIUM,PORCINE 5,000 UNIT/ML 1 ML VIAL SQ SCH (09:11)
[2023-10-29] MEDS: VALSARTAN 80 MG TAB PO SCH (09:12)
[2023-10-29] MEDS: LIDOCAINE 4% PATCH TOPICAL ONE (11:48)
[2023-10-29] MEDS: ACETAMINOPHEN TAB 325 MG TAB PO PRN (11:48)
[2023-10-29 14:27] VITALS: BP 159/79; PULSE 50; RESP 16; TEMP 98.1
--- NOTE | 2023-10-29 17:57 | P.DS ---
Providers Date of admission: 10/29/23 04:22 Expected date of discharge: 10/29/23 Attending physician: Melva Horta MD Consults: 10/29/23 01:26 Consult Physician Urgent Consulting Provider: [facility] Consult Reason/Comments: chest pain Do you want consulting provider notified?: Yes, Notify in am [facility] Diagnosis: Atypical chest pain, ACS ruled out Costochondritis Uncontrolled hypertension History of CAD status post CABG and stents Dyslipidemia Hypothyroidism Elevated D-dimer Polycythemia Hospital Course: 77-year-old male with history of CAD status post stents and CABG resented with chest pain. On presentation patient was hypertensive with systolic blood pressure of 205, rest of the vital signs within normal limits. Laboratory workup showed hemoglobin of 17.6, D-dimer 0.63 normal with age adjustment. Creatinine at baseline 1.31. Troponin negative x 3. Respiratory viral panel negative. Chest x-ray chest x-ray did not show any acute opacities. EKG showed sinus rhythm with ST-T wave change in Anterior and lateral leads, right bundle branch block, similar to previous EKGs. Patient admitted for observation. Cardiology consulted. ACS ruled out. Patient admittedly had increased activity recently that may have led to musculoskeletal chest pain. Pain improved with lidocaine patch as well as Tylenol. He will follow-up outpatient with cardiology. Patient seen and examined at bedside. Vital signs reviewed and stable. General: Nontoxic, no distress, appears at stated age Derm: Warm, dry Head: Atraumatic, normocephalic, symmetric Eyes: EOMI, no lid lag, anicteric sclera Mouth: No lip lesion, mucus membranes moist Cardiovascular: S1S2 reg, no murmur Lungs: CTA bilateral, no rhonchi, no rales, no accessory muscle use Abdominal: Soft, nontender to palpation, no guarding, no appreciable organomegaly Ext: No gross muscle atrophy, no edema, no contractures Neuro: CN II-XI grossly intact, no focal neuro deficits Psych: Alert, oriented, appropriate affect A total of 33 minutes of time were spent preparing this complex discharge summary. Patient was discharged on 10/29/2023 at 1752. Patient Condition at Discharge: Stable Plan - Discharge Summary Discharge Rx Participant: No New Discharge Prescriptions: Continue Omeprazole 20 mg PO HS Ezetimibe [Zetia] 10 mg PO DAILY #90 tab Evolocumab [Repatha Syringe] 140 mg SQ QMONTH Metoprolol Tartrate [Lopressor] 25 mg PO BID #90 tab Levothyroxine Sodium [Synthroid] 50 mcg PO DAILY Aspirin EC [Ecotrin Low Dose] 81 mg PO DAILY Valsartan 80 mg PO DAILY Discontinued Ciprofloxacin HCl [Cipro] 750 mg PO BID 10 Days #20 tab metroNIDAZOLE [Flagyl] 500 mg PO Q8HR 10 Days #30 tab Discharge Medication List Omeprazole 20 mg PO HS 07/14/18 [History] Ezetimibe [Zetia] 10 mg PO DAILY #90 tab 07/16/18 [Rx] Evolocumab [Repatha Syringe] 140 mg SQ QMONTH 02/17/19 [History] Metoprolol Tartrate [Lopressor] 25 mg PO BID #90 tab 03/05/19 [Rx] Aspirin EC [Ecotrin Low Dose] 81 mg PO DAILY 11/28/20 [History] Levothyroxine Sodium [Synthroid] 50 mcg PO DAILY 11/28/20 [History] Valsartan 80 mg PO DAILY 11/28/20 [History] Follow up Appointment(s)/Referral(s): Chris Nunez MD [STAFF PHYSICIAN] - 1-2 days Patient Instructions/Handouts: Chest Pain (DC) Activity/Diet/Wound Care/Special Instructions: Please see cardiology and PCP. Discharge Disposition: HOME SELF-CARE
--- NOTE | 2023-10-29 18:00 | P.CRDCN ---
History of Present Illness Consult date: 10/29/23 History of present illness: HISTORY OF PRESENTING ILLNESS 77-year-old with past medical history of CAD s/p PCI, hypertension, dyslipidemia, known to Dr. Nunez. He presented to the hospital because of pins and needlelike sensation in his left upper chest. This got worse with some stretching and deep breathing. No reported chest pressure or dyspnea on exertion or chest pain getting worse with activity. No nausea vomiting diaphoresis. No dizziness lightheadedness. ECG shows sinus rhythm with right bundle branch block with no changes when compared to prior ECG REVIEW OF SYSTEMS 14 point review of system is negative except what is mentioned above in HPI. PHYSICAL EXAMINATION Vital signs reviewed. Head: Normocephalic. Eyes: Sclerae nonicteric. Neck: Brisk carotid upstroke, no jugular venous distention. Lungs: Clear to auscultation. Heart: Regular rate and rhythm, S1-S2, no S3, no murmur or rub. Abdomen: Soft nontender, positive bowel sounds. Extremities: No edema, intact distal pulses. Neuro: Alert, oritented, no focal deficits. Detailed neuro exam was not performed. ASSESSMENT Atypical chest pain Prior history of CAD s/p PCI Essential hypertension Dyslipidemia Intolerance to statin Obesity PLAN Continue current cardiac medications without any changes Patient's chest pain symptoms are very atypical. The symptoms got better with Tylenol. Troponins are negative rule out of ACS. Patient is cleared to be discharged from cardiovascular standpoint with outpatient follow-up with Dr Mayra Brown MD, [facility], [facility] Thank you for allowing [facility] to participate in this patient's care. Feel free to reach out in case of any followup questions. Past Medical History Past Medical History: Coronary Artery Disease (CAD), Cancer, Chest Pain / Angina, GERD/Reflux, Hyperlipidemia, Hypertension, Myocardial Infarction (non Q- wave), Prostate Disorder Additional Past Medical History / Comment(s): prostate cancer, 7 stents, history of symptomatic bradycardia. Last Myocardial Infarction Date:: unknown History of Any Multi-Drug Resistant Organisms: None Reported Past Surgical History: Heart Catheterization With Stent, Hernia Repair, Prostate Surgery Additional Past Surgical History / Comment(s): Myocardial revascularization surgery 3 vessels on 02/26/[address] Grayson Wagoner. Triple bypass 02/26/2019 Past Anesthesia/Blood Transfusion Reactions: No Reported Reaction Date of Last Stent Placement:: November 2018 Past Psychological History: Depression Smoking Status: Never smoker Past Alcohol Use History: None Reported Past Drug Use History: None Reported - Past Family History Father Family Medical History: Coronary Artery Disease (CAD), Myocardial Infarction (ME) Mother Additional Family Medical History / Comment(s): Alzheimer's Medications and Allergies Home Medications Medication Instructions Recorded Confirmed Type Omeprazole 20 mg PO HS 07/14/18 11/28/20 History Ezetimibe [Zetia] 10 mg PO DAILY #90 tab 07/16/18 11/28/20 Rx Evolocumab [Repatha Syringe] 140 mg SQ QMONTH 02/17/19 11/28/20 History Metoprolol Tartrate [Lopressor] 25 mg PO BID #90 tab 03/05/19 11/28/20 Rx Aspirin EC [Ecotrin Low Dose] 81 mg PO DAILY 11/28/20 11/28/20 History Levothyroxine Sodium [Synthroid] 50 mcg PO DAILY 11/28/20 11/28/20 History Valsartan 80 mg PO DAILY 11/28/20 11/28/20 History Allergies Allergy/AdvReac Type Severity Reaction Status Date / Time Sulfa (Sulfonamide Allergy Rash/Hives Verified 10/28/23 20:00 Antibiotics) ibuprofen [From Motrin] AdvReac Kidney Verified 10/28/23 20:00 issues morphine AdvReac Hallucinati Verified 10/28/23 20:00 ons Physical Exam Vitals: Vital Signs Temp Pulse Pulse Resp BP BP BP 10/29/23 13:20 98.1 F 50 L 16 159/79 10/29/23 09:07 67 14 168/96 10/29/23 07:20 97.5 F L 62 17 175/82 10/29/23 06:00 97.8 F 71 18 194/118 204/112 10/29/23 03:00 75 16 168/104 10/29/23 01:56 74 16 178/94 10/28/23 22:12 64 18 140/83 10/28/23 19:57 98.1 F 73 18 205/110 Pulse Ox 10/29/23 13:20 94 L 10/29/23 09:07 96 10/29/23 07:20 98 10/29/23 06:00 97 10/29/23 03:00 95 10/29/23 01:56 95 10/28/23 22:12 97 10/28/23 19:57 97 Intake and Output 10/29/23 10/29/23 10/29/23 06:59 14:59 22:59 Intake Total 236 Balance 236 Intake: Oral 236 Other: # Voids 1 2 Weight 99.79 kg Results 10/28/23 21:30 10/28/23 21:30 Cardiac Enzymes 10/28/23 10/28/23 10/29/23 Range/Units 21:30 21:30 02:45 AST 31 (17-59) U/L Troponin I <0.012 <0.012 (0.000-0.034) ng/mL 10/29/23 Range/Units 04:20 AST (17-59) U/L Troponin I <0.012 (0.000-0.034) ng/mL Coagulation 10/29/23 Range/Units 00:24 PT 10.8 (10.0-12.5) sec APTT 24.3 (22.0-30.0) sec CBC 10/28/23 Range/Units 21:30 WBC 7.1 (3.8-10.6) k/uL RBC 5.86 (4.30-5.90) m/uL Hgb 17.6 H (13.0-17.5) gm/dL Hct 55.8 H (39.0-53.0) % Plt Count 236 (150-450) k/uL Comprehensive Metabolic Panel 10/28/23 Range/Units 21:30 Sodium 138 (137-145) mmol/L Potassium 4.3 (3.5-5.1) mmol/L Chloride 106 (98-107) mmol/L Carbon Dioxide 25 (22-30) mmol/L BUN 15 (9-20) mg/dL Creatinine 1.31 H (0.66-1.25) mg/dL Glucose 104 H (74-99) mg/dL Calcium 9.3 (8.4-10.2) mg/dL AST 31 (17-59) U/L ALT 25 (4-49) U/L Alkaline Phosphatase 77 (38-126) U/L Total Protein 7.2 (6.3-8.2) g/dL Albumin 4.1 (3.5-5.0) g/dL Current Medications Generic Name Dose Route Start Last Admin Trade Name Freq PRN Reason Stop Dose Admin Acetaminophen 650 mg 10/29/23 01:26 10/29/23 11:48 Acetaminophen Tab 325 Mg Tab PO 650 mg Q6HR PRN Administration Mild Pain or Fever > 100.5 Aspirin 81 mg 10/29/23 09:00 10/29/23 09:11 Aspirin 81 Mg PO 81 mg DAILY TOSIN Administration Clonidine 0.1 mg 10/29/23 06:28 10/29/23 06:57 Clonidine Hcl 0.1 Mg Tab PO 0.1 mg TID PRN Administration Blood Pressure - High Ezetimibe 10 mg 10/29/23 09:00 10/29/23 09:11 Ezetimibe 10 Mg Tab PO 10 mg DAILY TOSIN Administration Heparin Sodium (Porcine) 5,000 unit 10/29/23 08:00 10/29/23 15:15 Heparin Sodium,Porcine 5,000 Unit/Ml 1 Ml Vial SQ 5,000 unit Q8HR TOSIN Administration Levothyroxine Sodium 50 mcg 10/29/23 07:00 10/29/23 06:57 Levothyroxine 50 Mcg Tab PO 50 mcg DAILY@0630 TOSIN Administration Metoprolol Tartrate 25 mg 10/29/23 09:00 10/29/23 09:11 Metoprolol Tartrate 25 Mg Tab PO 25 mg BID TOSIN Administration Naloxone HCl 0.2 mg 10/29/23 01:26 Naloxone 0.4 Mg/Ml 1 Ml Vial IV Q2M PRN Opioid Reversal Valsartan 80 mg 10/29/23 09:00 10/29/23 09:12 Valsartan 80 Mg Tab PO 80 mg DAILY TOSIN Administration Intake and Output 10/29/23 10/29/23 10/29/23 06:59 14:59 22:59 Intake Total 236 Balance 236 Intake: Oral 236 Other: # Voids 1 2 Weight 99.79 kg 10/28/23 21:30 10/28/23 21:30
[2023-10-30] MEDS ORDERED: LEVOTHYROXINE 75 MCG TAB PO SCH (06:30)
== END 2023-10-29 18:27 | disposition home or self-care (01) ==
LOC: EC 19:43 → 6NMEDSUR 10-29 04:22
PROVIDERS: ADMIT Internal Medicine; ATTEND Internal Medicine
DX: R07.89 Other chest pain (principal); M94.0 Chondrocostal junction syndrome [Tietze]; I25.10 Atherosclerotic heart disease of native coronary artery without angina pectoris; I12.9 Hypertensive chronic kidney disease with stage 1 through stage 4 chronic kidney disease, or unspecified chronic kidney disease; N18.30 Chronic kidney disease, stage 3 unspecified; E78.5 Hyperlipidemia, unspecified; I45.10 Unspecified right bundle-branch block; D75.1 Secondary polycythemia; E03.9 Hypothyroidism, unspecified; E66.9 Obesity, unspecified; Z68.31 Body mass index [BMI] 31.0-31.9, adult; Z79.82 Long term (current) use of aspirin; Z79.620 Long term (current) use of immunosuppressive biologic; Z79.890 Hormone replacement therapy; Z79.899 Other long term (current) drug therapy; Z88.2 Allergy status to sulfonamides; Z88.5 Allergy status to narcotic agent; Z88.6 Allergy status to analgesic agent; Z11.52 Encounter for screening for COVID-19; Z11.59 Encounter for screening for other viral diseases; Z95.5 Presence of coronary angioplasty implant and graft; Z95.1 Presence of aortocoronary bypass graft
CPT/HCPCS: 96372; 99285; 36415 ×2; 93005; 85379; 80053; 83735; 84484 ×2; 85025; 85610; 85730; 87636; 71046; G0378; J1644

== ENCOUNTER 2024-03-15 06:26 | Emergency (ER) | payer MEDICARE ==
[2024-03-15 06:36] VITALS: TEMP 97
--- NOTE | 2024-03-15 07:28 | ED ---
Dizziness HPI - General Chief Complaint: Dizziness Stated Complaint: dizziness Time Seen by Provider: 03/15/24 06:36 Source: patient, family, EMS, RN notes reviewed Mode of arrival: EMS Limitations: no limitations - History of Present Illness Initial Comments: This is a 78-year-old male with history of hypertension and quadruple bypass with stents presenting for dizziness x 3 hours. Patient endorses waking this morning and experiencing dizziness when standing from bed catching himself before he fell. Patient states he called and notified his daughter and EMS brought him to the emergency room for further evaluation. Patient endorses history of transient dizziness for the past 5 years but symptoms were never this severe. Patient endorses daily use of metoprolol 25 mg twice daily and losartan 80 mg twice daily for blood pressure. Patient states symptoms worsen when sitting up and standing but denies symptoms when supine. Patient denies se nsation of room spinning with eye or head movement. Patient denies fever, chills, body aches, fatigue, loss of consciousness, altered mental status, chest pain, shortness of breath, headache, congestion/sinus pressure. MD Complaint: dizziness Onset/Timin -: hour(s) Timing: sudden onset Description: off-balance History of Same: Yes (5 years of mild transient dizziness) History of Trauma: No Improves With: remaining still, other (Remaining supine, worsens when seated and standing) - Related Data Home Medications Medication Instructions Recorded Confirmed Omeprazole 20 mg PO DAILY 07/14/18 10/29/23 Evolocumab [Repatha Syringe] 140 mg SQ Q28D 02/17/19 10/29/23 Aspirin EC [Ecotrin Low Dose] 81 mg PO DAILY 11/28/20 10/29/23 Valsartan 80 mg PO DAILY 11/28/20 10/29/23 Latanoprost [Latanoprost 0.005%] 1 drop LEFT EYE HS 10/29/23 10/29/23 Levothyroxine Sodium [Synthroid] 75 mcg PO DAILY 10/29/23 10/29/23 Previous Rx's Medication Instructions Recorded Ezetimibe [Zetia] 10 mg PO DAILY #90 tab 07/16/18 Metoprolol Tartrate [Lopressor] 25 mg PO BID #90 tab 03/05/19 Meclizine [Antivert] 25 mg PO BID #20 tab 03/15/24 Allergies Allergy/AdvReac Type Severity Reaction Status Date / Time Sulfa (Sulfonamide Allergy Rash/Hives Verified 10/29/23 18:12 Antibiotics) ibuprofen [From Motrin] AdvReac Kidney Verified 10/29/23 18:12 issues morphine AdvReac Hallucinati Verified 10/29/23 18:12 ons Review of Systems ROS Statement: Those systems with pertinent positive or pertinent negative responses have been documented in the HPI. ROS Other: All systems not noted in ROS Statement are negative. Past Medical History Past Medical History: Coronary Artery Disease (CAD), Cancer, Chest Pain / Angina, GERD/Reflux, Hyperlipidemia, Hypertension, Myocardial Infarction (non Q- wave), Prostate Disorder Additional Past Medical History / Comment(s): prostate cancer, 7 stents, history of symptomatic bradycardia. Last Myocardial Infarction Date:: unknown History of Any Multi-Drug Resistant Organisms: None Reported Past Surgical History: Heart Catheterization With Stent, Hernia Repair, Prostate Surgery Additional Past Surgical History / Comment(s): Myocardial revascularization surgery 3 vessels on 02/26/[address] Grayson Wagoner. Triple bypass 02/26/2019 Past Anesthesia/Blood Transfusion Reactions: No Reported Reaction Date of Last Stent Placement:: November 2018 Past Psychological History: Depression Smoking Status: Never smoker Past Alcohol Use History: None Reported Past Drug Use History: None Reported - Past Family History Father Family Medical History: Coronary Artery Disease (CAD), Myocardial Infarction (DC) Mother Additional Family Medical History / Comment(s): Alzheimer's General Exam - General Exam Comments Initial Comments: Patient laying comfortably, supine on bed. Patient endorses significant d izziness during orthostasis testing when seated on edge of bed. General appearance: alert, in no apparent distress Head exam: Present: atraumatic, normocephalic, normal inspection Eye exam: Present: normal appearance, PERRL, EOMI. Absent: scleral icterus, conjunctival injection, periorbital swelling ENT exam: Present: normal exam, mucous membranes moist Neck exam: Present: normal inspection. Absent: tenderness, meningismus, lymphadenopathy Respiratory exam: Present: normal lung sounds bilaterally. Absent: respiratory distress, wheezes, rales, rhonchi, stridor Cardiovascular Exam: Present: regular rate, normal rhythm, normal heart sounds. Absent: systolic murmur, diastolic murmur, rubs, gallop, clicks GI/Abdominal exam: Present: soft, normal bowel sounds. Absent: distended, tenderness, guarding, rebound, rigid Extremities exam: Present: normal inspection, full ROM, normal capillary refill. Absent: tenderness, pedal edema, joint swelling, calf tenderness Back exam: Present: normal inspection Neurological exam: Present: alert, oriented X3, CN II-XII intact Psychiatric exam: Present: normal affect, normal mood Skin exam: Present: warm, dry, intact, normal color. Absent: rash Course Vital Signs 03/15/24 03/15/24 03/15/24 06:29 07:31 08:00 Temperature 97.0 F L Pulse Rate 66 50 L 53 L Pulse Rate [ Nutrition Partner ] Respiratory 18 17 17 Rate Blood Pressure 202/112 170/87 167/81 Blood Pressure [Sitting] Blood Pressure [Supine] O2 Sat by Pulse 98 96 93 L Oximetry 03/15/24 03/15/24 03/15/24 08:51 08:54 09:50 Temperature Pulse Rate 49 L Pulse Rate [ 54 L 83 Nutrition Partner ] Respiratory 16 Rate Blood Pressure 154/81 Blood Pressure 173/90 [Sitting] Blood Pressure 157/82 [Supine] O2 Sat by Pulse 96 Oximetry 03/15/24 03/15/24 03/15/24 11:00 11:30 12:45 Temperature Pulse Rate 54 L 53 L 82 Pulse Rate [ Nutrition Partner ] Respiratory 16 18 Rate Blood Pressure 163/89 169/87 160/90 Blood Pressure [Sitting] Blood Pressure [Supine] O2 Sat by Pulse 99 95 96 Oximetry Medical Decision Making - Medical Decision Making Was pt. sent in by a medical professional or institution (, PA, PROJECTOR BOOTH OPERATOR, urgent care, hospital, or senior living...) When possible be specific @ -[No] Did you speak to anyone other than the patient for history (EMS, parent, family, police, friend...)? What history was obtained from this source @ -[No] Did you review nursing and triage notes (agree or disagree)? Why? @ -[I reviewed and agree with nursing and triage notes] Were old charts reviewed (outside hosp., previous admission, EMS record, old EKG, old radiological studies, urgent care reports/EKG's, senior living records)? Report findings @ -[No old charts were reviewed] Differential Diagnosis (chest pain, altered mental status, abdominal pain women, abdominal pain men, vaginal bleeding, weakness, fever, dyspnea, syncope, headache, dizziness, GI bleed, back pain, seizure, CVA, palpatations, mental health, musculoskeletal)? @ -Differential Dizziness: Benign paroxysmal positional Vertigo, Meniere's disease, otitis media, acoustic neuroma, vertebrobasilar insufficiency, cerebellar stroke, encephalitis, hypovolemic, arrhythmia, coronary artery syndrome, anemia, this is not meant to be an all-inclusive list EKG interpreted by me (3pts min.). @ -Sinus rhythm with first-degree AV block, right bundle branch block and left axis deviation. Negative ST elevation, ST depression, T wave inversion. Ventricular rate 63 bpm, [place] interval 211 ms, QRS duration 148 ms, QT/QTc 417/424 ms. X-rays interpreted by me (1pt min.). @ -[None done] CT interpreted by me (1pt min.). @ -CT brain revealed generalized age related atrophy otherwise no focal lesions or hemorrhage noted. U/S interpreted by me (1pt. min.). @ -[None done] What testing was considered but not performed or refused? (CT, X-rays, U/S, labs)? Why? @ -[None] What meds were considered but not given or refused? Why? @ -[None] Did you discuss the management of the patient with other professionals (professionals i.e. , PA, PROJECTOR BOOTH OPERATOR, lab, RT, psych nurse, social worker masters, billet cutter, teacher, surveillance officer, continuous pillowcase cutter)? Give summary @ -[No] Was smoking cessation discussed for >3mins.? @ -[No] Was critical care preformed (if so, how long)? @ -[No] Were there social determinants of health that impacted care today? How? (Homelessness, low income, unemployed, alcoholism, drug addiction, transportation, low edu. Level, literacy, decrease access to med. care, prison, rehab)? @ -[No] Was there de-escalation of care discussed even if they declined (Discuss DNR or withdrawal of care, Hospice)? DNR status @ -[No] What co-morbidities impacted this encounter? (DM, HTN, Smoking, COPD, CAD, Cancer, CVA, ARF, Chemo, Hep., AIDS, mental health diagnosis, sleep apnea, morbid obesity)? @ -[None] Was patient admitted / discharged? Hospital course, mention meds given and route, prescriptions, significant lab abnormalities, going to OR and other pertinent info. @ -Discharge. Following twelve-lead, orthostatic vital signs and physical exam, patient provided 1000 mL saline bolus and 25 mg meclizine p.o. Following treatment patient notes some relief in symptoms and able to demonstrate ability to stand without significant dizziness. Sometime later patient again endorsing some dizziness when standing. Another 1000 mL bolus provided with resolution of symptoms. Brain CT ordered at attending physician's request. Patient discharged with family. Undiagnosed new problem with uncertain prognosis? @ -[No] Drug Therapy requiring intensive monitoring for toxicity (Heparin, Nitro, Insulin, Cardizem)? @ -[No] Were any procedures done? @ -[No] Diagnosis/symptom? @ -[default] Acute, or Chronic, or Acute on Chronic? @ -Acute Uncomplicated (without systemic symptoms) or Complicated (systemic symptoms)? @ -Complicated Side effects of treatment? @ -[No] Exacerbation, Progression, or Severe Exacerbation? @ -[No] Poses a threat to life or bodily function? How? (Chest pain, USA, DC, pneumonia, PE, COPD, DKA, ARF, appy, cholecystitis, CVA, Diverticulitis, Homicidal, Suicidal, threat to staff... and all critical care pts) @ -[No] - Lab Data Result diagrams: 03/15/24 07:00 03/15/24 07:38 Lab Results 03/15/24 03/15/24 03/15/24 Range/Units 07:00 07:38 07:38 WBC 6.9 (3.8-10.6) k/uL RBC 5.48 (4.30-5.90) m/uL Hgb 17.6 H (13.0-17.5) gm/dL Hct 52.6 (39.0-53.0) % MCV 96.1 (80.0-100.0) fL MCH 32.2 (25.0-35.0) pg MCHC 33.5 (31.0-37.0) g/dL RDW 14.4 (11.5-15.5) % Plt Count 222 (150-450) k/uL MPV 8.2 Neutrophils % 67 % Lymphocytes % 17 % Monocytes % 9 % Eosinophils % 3 % Basophils % 1 % Neutrophils # 4.6 (1.3-7.7) k/uL Lymphocytes # 1.1 (1.0-4.8) k/uL Monocytes # 0.7 (0-1.0) k/uL Eosinophils # 0.2 (0-0.7) k/uL Basophils # 0.0 (0-0.2) k/uL Sodium 137 (137-145) mmol/L Potassium 4.1 (3.5-5.1) mmol/L Chloride 105 (98-107) mmol/L Carbon Dioxide 23 (22-30) mmol/L Anion Gap 9 mmol/L BUN 16 (9-20) mg/dL Creatinine 1.13 (0.66-1.25) mg/dL Est GFR (CKD-EPI)AfAm 72 (>60 ml/min/1.73 sqM) Est GFR (CKD-EPI)NonAf 62 (>60 ml/min/1.73 sqM) Glucose 95 (74-99) mg/dL Calcium 8.7 (8.4-10.2) mg/dL Magnesium 1.9 (1.6-2.3) mg/dL Total Bilirubin 0.6 (0.2-1.3) mg/dL AST 28 (17-59) U/L ALT 19 (4-49) U/L Alkaline Phosphatase 61 (38-126) U/L Troponin I <0.012 (0.000-0.034) ng/mL Total Protein 6.5 (6.3-8.2) g/dL Albumin 3.8 (3.5-5.0) g/dL Disposition Clinical Impression: Orthostasis, Dehydration Disposition: HOME SELF-CARE Condition: Good Instructions (If sedation given, give patient instructions): Dizziness (ED) Prescriptions: Meclizine [Antivert] 25 mg PO BID #20 tab Is patient prescribed a controlled substance at d/c from ED?: No Referrals: Mayelin Fernandes MD [Primary Care Provider] - 1-2 days Time of Disposition: 12:39
[2024-03-15] MEDS: METOPROLOL TARTRATE 25 MG TAB PO STA (07:32)
[2024-03-15] MEDS: VALSARTAN 80 MG TAB PO STA (07:35)
[2024-03-15 08:06] LABS: Basophils % (A) 1 %; Eosinophils # (A) 0.2 k/uL (0-0.7); Eosinophils % (A) 3 %; HCT 52.6 % (39.0-53.0); HGB 17.6 gm/dL (13.0-17.5); Lymphocytes # (A) 1.1 k/uL (1.0-4.8); Lymphocytes % (A) 17 %; MCH 32.2 pg (25.0-35.0); MCHC 33.5 g/dL (31.0-37.0); MCV 96.1 fL (80.0-100.0); Mean Platelet Volume 8.2; Monocytes # (A) 0.7 k/uL (0-1.0); Monocytes % (A) 9 %; Neutrophils # (A) 4.6 k/uL (1.3-7.7); Neutrophils % (A) 67 %; Platelet Count 222 k/uL (150-450); RBC 5.48 m/uL (4.30-5.90); RDW 14.4 % (11.5-15.5); WBC 6.9 k/uL (3.8-10.6)
[2024-03-15 08:25] LABS: ALT 19 U/L (4-49); AST 28 U/L (17-59); African American GFR (CKD) 72 (>60 ml/min/1.73 sqM); Albumin 3.8 g/dL (3.5-5.0); Alkaline Phosphatase 61 U/L (38-126); Anion Gap 9 mmol/L; Blood Urea Nitrogen 16 mg/dL (9-20); Calcium 8.7 mg/dL (8.4-10.2); Carbon Dioxide 23 mmol/L (22-30); Chloride 105 mmol/L (98-107); Glucose 95 mg/dL (74-99); Magnesium 1.9 mg/dL (1.6-2.3); Non-African American GFR(CKD) 62 (>60 ml/min/1.73 sqM); Potassium 4.1 mmol/L (3.5-5.1); Sodium 137 mmol/L (137-145); Total Bilirubin 0.6 mg/dL (0.2-1.3); Total Protein 6.5 g/dL (6.3-8.2)
[2024-03-15] MEDS: SODIUM CHLORIDE 0.9% 1,000 ML IV STA ×2 (09:04→10:56)
[2024-03-15] MEDS: MECLIZINE 12.5 MG TAB PO STA (09:10)
--- NOTE | 2024-03-15 11:28 | CT ---
EXAMINATION TYPE: CT brain wo con DATE OF EXAM: 03/15/2024 COMPARISON: None HISTORY: Dizziness CT DLP: 1286.3 mGycm Automated exposure control for dose reduction was used. Findings: Moderately enlarged consistent with moderate generalized atrophy but appropriate for the patient's ag e. There is no mass effect or shift in midline structures. No abnormal density is seen throughout the brain parenchyma and there is no acute intra or extra-axia l hemorrhage. The posterior fossa including the brainstem, fourth ventricle and cerebellar pontine angles appear no rmal. Intraorbital contents appear normal and symmetric. Visualized paranasal sinuses and mastoid air cells are well aerated. The calvarium is intact. IMPRESSION: Moderate age-appropriate atrophy.. There is no acute bleed or mass effect. [facility], Workstation: [id number] 03/15/2024 11:26 AM
[2024-03-15 13:00] VITALS: BP 160/90; PULSE 82; RESP 18
== END 2024-03-15 13:01 | disposition home or self-care (01) ==
LOC: EC 06:26
CPT/HCPCS: 36415; 70450; 80053; 83735; 84484; 85025; 93005; 96360; 96361; 99285